=== PATIENT | female | born 1945 | race Caucasian/White ===

== ENCOUNTER → 2023-12-19 11:44 | Outpatient (REF) | payer MEDICARE, SELFPAY ==
[2023-12-19 12:27] LABS: % Basophils 0.5 % (0-2); % Eosinophils 5.6 % (0-6); % Immature Granulocytes 0.3 % (0-0.5); % Lymphocytes 15.6 % (20.5-51.1); % Monocytes 11.3 % (1.7-9.3); % Neutrophils 66.7 % (42.2-75.2); Absolute Eosinophils 0.4 10^3/uL (0-0.7); Absolute Lymphocytes 1.1 10^3/uL (1.2-3.4); Absolute Monocytes 0.8 10^3/uL (0.1-0.6); Absolute Neutrophils 4.9 10^3/uL (1.4-6.5); Hematocrit 37.1 % (37.0-47.0); Hemoglobin 12.4 g/dL (12.0-16.0); Mean Corp Hgb Conc. 33.4 g/dL (33.0-37.0); Mean Corpuscular Hgb 31.3 pg (27.0-31.0); Mean Corpuscular Volume 93.7 fL (81.0-99.0); Mean Platelet Volume 10.6 fL (7.4-10.4); Nucleated Red Blood Cells % 0 %; Platelet Count 238 10^3/uL (130-400); Red Blood Cell Count 3.96 10^6/uL (4.20-5.40); Red Cell Dist. Width 13.1 % (11.5-14.5); White Blood Cell Count 7.3 10^3/uL (4.8-10.8)
[2023-12-19 12:55] LABS: ALT (SGPT) 21 U/L (0-35); AST (SGOT) 25 U/L (14-36); Albumin 3.9 g/dl (3.5-5.0); Alkaline Phosphatase 92 U/L (38-126); Blood Urea Nitrogen 29 mg/dl (7-17); Calcium 9.2 mg/dl (8.4-10.2); Carbon Dioxide 25 mmol/L (22-30); Chloride 103 mmol/L (98-107); Glucose 101 mg/dl (70-99); HDL Cholesterol 61 mg/dl; LDL Cholesterol, Calculated 66 mg/dl; Potassium 4.6 mmol/L (3.5-5.1); Sodium 137 mmol/L (135-145); Total Bilirubin 0.7 mg/dl (0.2-1.3); Total Cholesterol 149 mg/dl (50-199); Total Protein 6.6 g/dl (6.3-8.2); Triglyceride 112 mg/dl (10-149); Very Low Density Lipoprotein 22 mg/dl (0-30); eGFR > 60.00
[2023-12-19 13:24] LABS: TSH 1.34 uIU/ml (0.47-4.68)
[2023-12-19 13:56] LABS: Folate 9.9 ng/ml (2.76-20); Vitamin B12 706 pg/ml (239-931)
== END ==
LOC: OLABWIL 11:44
PROVIDERS: ATTENDING PHYSICIAN Family Medicine
DX: I50.30 Unspecified diastolic (congestive) heart failure (principal); I11.0 Hypertensive heart disease with heart failure; E78.00 Pure hypercholesterolemia, unspecified; D64.9 Anemia, unspecified; F32.0 Major depressive disorder, single episode, mild; F41.1 Generalized anxiety disorder
CPT/HCPCS: 36415; 80053; 80061; 82607; 82746; 84443; 85025

== ENCOUNTER → 2024-01-08 09:55 | Outpatient (REF) | payer MEDICARE, SELFPAY | LOC: RAD 09:55 | PROVIDERS: ATTENDING PHYSICIAN Surgery Vascular Surgery; FAMILY PHYSICIAN Family Medicine | DX: I73.9 Peripheral vascular disease, unspecified (principal) | CPT/HCPCS: 93922; 93925 ==

== ENCOUNTER → 2024-02-20 11:08 | Outpatient (REF) | payer MEDICARE, SELFPAY ==
[2024-02-20 12:35] LABS: % Basophils 0.5 % (0-2); % Eosinophils 3.1 % (0-6); % Immature Granulocytes 0.3 % (0-0.5); % Lymphocytes 13.4 % (20.5-51.1); % Monocytes 7.6 % (1.7-9.3); % Neutrophils 75.1 % (42.2-75.2); Absolute Basophils 0.1 10^3/uL (0-0.2); Absolute Eosinophils 0.3 10^3/uL (0-0.7); Absolute Lymphocytes 1.2 10^3/uL (1.2-3.4); Absolute Monocytes 0.7 10^3/uL (0.1-0.6); Absolute Neutrophils 6.9 10^3/uL (1.4-6.5); Hematocrit 37.5 % (37.0-47.0); Hemoglobin 12.4 g/dL (12.0-16.0); Mean Corp Hgb Conc. 33.1 g/dL (33.0-37.0); Mean Corpuscular Hgb 30.9 pg (27.0-31.0); Mean Corpuscular Volume 93.5 fL (81.0-99.0); Mean Platelet Volume 10.2 fL (7.4-10.4); Nucleated Red Blood Cells % 0 %; Platelet Count 275 10^3/uL (130-400); Red Blood Cell Count 4.01 10^6/uL (4.20-5.40); Red Cell Dist. Width 13.4 % (11.5-14.5); White Blood Cell Count 9.2 10^3/uL (4.8-10.8)
[2024-02-20 12:40] LABS: ALT (SGPT) 26 U/L (0-35); AST (SGOT) 27 U/L (14-36); Albumin 4.4 g/dl (3.5-5.0); Alkaline Phosphatase 98 U/L (38-126); Blood Urea Nitrogen 20 mg/dl (7-17); Calcium 9.4 mg/dl (8.4-10.2); Carbon Dioxide 29 mmol/L (22-30); Chloride 103 mmol/L (98-107); Glucose 97 mg/dl (70-99); Potassium 4.4 mmol/L (3.5-5.1); Sodium 137 mmol/L (135-145); Total Bilirubin 0.6 mg/dl (0.2-1.3); Total Protein 7.2 g/dl (6.3-8.2); eGFR > 60.00
[2024-02-20 13:05] LABS: TSH 1.43 uIU/ml (0.47-4.68)
[2024-02-20 14:33] LABS: Glycohemoglobin (HgbA1c) 6.1 % (4.0-5.6)
== END ==
LOC: OLABWIL 11:08
PROVIDERS: ATTENDING PHYSICIAN Family Medicine
DX: I50.30 Unspecified diastolic (congestive) heart failure (principal); I11.0 Hypertensive heart disease with heart failure; R73.09 Other abnormal glucose
CPT/HCPCS: 36415; 80053; 83036; 84443; 85025

== ENCOUNTER 2024-03-09 16:58 | Emergency (ER) | payer MEDICARE, SELFPAY ==
[2024-03-09 17:11] VITALS: BP 145/62
[2024-03-09 17:39] LABS: % Basophils 0.5 % (0-2); % Eosinophils 2.6 % (0-6); % Immature Granulocytes 0.3 % (0-0.5); % Lymphocytes 15.6 % (20.5-51.1); % Monocytes 9.8 % (1.7-9.3); % Neutrophils 71.2 % (42.2-75.2); Absolute Eosinophils 0.2 10^3/uL (0-0.7); Absolute Monocytes 0.6 10^3/uL (0.1-0.6); Absolute Neutrophils 4.7 10^3/uL (1.4-6.5); Hematocrit 32.3 % (37.0-47.0); Hemoglobin 10.9 g/dL (12.0-16.0); Mean Corp Hgb Conc. 33.7 g/dL (33.0-37.0); Mean Corpuscular Hgb 31.1 pg (27.0-31.0); Mean Platelet Volume 9.7 fL (7.4-10.4); Nucleated Red Blood Cells % 0 %; Platelet Count 220 10^3/uL (130-400); Red Blood Cell Count 3.51 10^6/uL (4.20-5.40); Red Cell Dist. Width 13.3 % (11.5-14.5); White Blood Cell Count 6.6 10^3/uL (4.8-10.8)
[2024-03-09 17:55] LABS: NT-proBNP 745 pg/ml
[2024-03-09 18:08] LABS: ALT (SGPT) 20 U/L (0-35); AST (SGOT) 23 U/L (14-36); Albumin 3.8 g/dl (3.5-5.0); Alkaline Phosphatase 86 U/L (38-126); Blood Urea Nitrogen 20 mg/dl (7-17); Calcium 9.4 mg/dl (8.4-10.2); Carbon Dioxide 26 mmol/L (22-30); Chloride 105 mmol/L (98-107); Glucose 101 mg/dl (70-99); Potassium 4.7 mmol/L (3.5-5.1); Sodium 138 mmol/L (135-145); Total Bilirubin 0.6 mg/dl (0.2-1.3); Total Protein 6.4 g/dl (6.3-8.2); eGFR > 60.00
--- NOTE | 2024-03-09 22:16 | ED.GENMED ---
History of Present Illness
<CJ Quiles - Last Filed: 03/10/24 06:53>
General
Chief Complaint: Swelling
Source: patient
Exam Limitations: none
Time Seen by Provider: 03/09/24 22:02
Nursing documentation reviewed up to this point in time: agreed with
Travel History
Have you had any contact with someone who has COVID-19?: No
Do you have any symptoms of coronavirus? Fever > 100 degrees, chills, cough, shortness of breath, sore throat, loss of taste or smell, muscle aches, or headache?: No
History of Present Illness
History of Present Illness:
This is a 78 year old female with history of CHF, HTN, HLD, urinary incontinence, COPD who presents to the ED via ambulance with complaint of b/l lower extremity swelling x1 day. She admits she stopped taking her Furosemide over of the weekend
because she has had increase urinary incontinence for the past month. She is typically compliant with her medications, but decided to stop her Furosemide to decrease her frequent urination. She states similar symptoms happened to her in the past.
She also reports pain with the swelling and difficulty ambulating. She uses a walker at home. She denies worsening SOB, CP, extremity paresthesias, fever, chills, headache, dysuria or odor with urination, or bowel incontinence.
Past History
<CJ Quiles - Last Filed: 03/10/24 06:53>
Past History
ED Past Medical History: CHF, COPD, HTN, Hypercholesterolemia, Psychiatric (Anxiety, Depression) and Other (OA, Restless leg syndrome, Incontinence)
ED Past Surgical History: Orthopedic (Mati second Toe amputation, Right Total knee replacement, Right shoulder replacement, Mati carpal tunnel) and Other (cataracts, )
PSI?: No
Social History
Tobacco: Former smoker
Alcohol: Occasional
Personal:
Living: assisted living
Review of Systems
<CJ Quiles - Last Filed: 03/10/24 06:53>
Review of Systems
Allergies reviewed?: Yes
All Other Systems: Not applicable
Constitutional: Reports no symptoms
EENT: Reports no symptoms
Respiratory: Reports no symptoms
Cardiac: Reports no symptoms
ABD/GI: Reports no symptoms
: Reports no symptoms
Musculoskeletal: Reports edema (B/l lower extremity with pain)
Skin: Reports no symptoms
Neurological: Reports no symptoms
Endocrine: Reports no symptoms
Hematologic/Lymphatic: Reports no symptoms
Psychiatric: Reports no symptoms
Phy Exam
<CJ Quiles - Last Filed: 03/10/24 06:53>
General Physical Exam
General Presentation: well appearing and no apparent distress
General Skin: warm and dry
General Habitus: normal
General Mental: alert
General Hydration: appears well hydrated
ENT Exam
ENT Exam: EOMI, pharynx normal, neck supple and normocephalic
Eye Exam
Eye Exam: PERRL, cornea clear and conjunctiva normal
Cardiovascular Exam
Cardiovascular Exam: regular rate/rhythm, no edema, no murmur and normal peripheral pulses
Pulmonary Exam
Pulmonary Exam: lungs clear, no respiratory distress, no rales, no crackles, no rhonchi, no stridor, no wheezing and no cough
Gastrointestinal Exam
Gastrointestinal Exam: normal bowel sounds, non tender, soft, no organomegaly, no pulsatile mass and non distended
Neurological Exam
Neurological Exam: alert, oriented x3, no motor deficits and speech normal
Musculoskeletal Exam
Musculoskeletal Exam: full ROM and edema (2+ pitting edema b/l lower extremities)
Skin Exam
Skin Exam: normal color, warm/dry, no rash, no petechia and erythema (B/l lower extremities )
Psychiatric Exam
Psychiatric Exam: normal mood/affect
Scores
<CJ Quiles - Last Filed: 03/10/24 06:53>
Heart Failure Risk
Heart Failure Risk Score: Not Applicable
Course
<CJ Quiles - Last Filed: 03/10/24 06:53>
Orders/Labs/Results
Orders:
Orders
03/09/24 17:22
Complete Blood Count/With Diff Urgent
Comprehensive Metabolic Panel Urgent
NT-proBNP Urgent
Abnormal Lab Results
03/09/24
17:22
RBC 3.51 L 10^6/uL
(4.20-5.40)
Hgb 10.9 L g/dL
(12.0-16.0)
Hct 32.3 L %
(37.0-47.0)
MCH 31.1 H pg
(27.0-31.0)
Absolute Lymphs (auto) 1.0 L 10^3/uL
(1.2-3.4)
Lymphocytes % 15.6 L %
(20.5-51.1)
Monocytes % 9.8 H %
(1.7-9.3)
BUN 20 H mg/dl
(7-17)
Glucose 101 H mg/dl
(70-99)
03/09/24 17:22
03/09/24 17:22
Vital Signs
Initial and Last Documented VS:
Initial Vital Signs
Temp Pulse Resp BP Pulse Ox
98.1 F 70 20 145/62 94
03/09/24 17:11 03/09/24 17:11 03/09/24 17:11 03/09/24 17:11 03/09/24 17:11
Last Documented Vital Signs
Temp Pulse Resp BP Pulse Ox
98.1 F 84 20 156/68 93
03/09/24 17:11 03/09/24 22:49 03/09/24 22:49 03/09/24 22:49 03/09/24 22:49
<Vadim Plascencia, DO - Last Filed: 03/09/24 22:45>
Orders/Labs/Results
Orders:
Orders
03/09/24 17:22
Complete Blood Count/With Diff Urgent
Comprehensive Metabolic Panel Urgent
NT-proBNP Urgent
Abnormal Lab Results
03/09/24
17:22
RBC 3.51 L 10^6/uL
(4.20-5.40)
Hgb 10.9 L g/dL
(12.0-16.0)
Hct 32.3 L %
(37.0-47.0)
MCH 31.1 H pg
(27.0-31.0)
Absolute Lymphs (auto) 1.0 L 10^3/uL
(1.2-3.4)
Lymphocytes % 15.6 L %
(20.5-51.1)
Monocytes % 9.8 H %
(1.7-9.3)
BUN 20 H mg/dl
(7-17)
Glucose 101 H mg/dl
(70-99)
03/09/24 17:22
03/09/24 17:22
Vital Signs
Initial and Last Documented VS:
Initial Vital Signs
Temp Pulse Resp BP Pulse Ox
98.1 F 70 20 145/62 94
03/09/24 17:11 03/09/24 17:11 03/09/24 17:11 03/09/24 17:11 03/09/24 17:11
Last Documented Vital Signs
Temp Pulse Resp BP Pulse Ox
98.1 F 84 20 156/68 93
03/09/24 17:11 03/09/24 22:49 03/09/24 22:49 03/09/24 22:49 03/09/24 22:49
<CJ Quiles - Last Filed: 03/10/24 06:53>
MDM/Problems Addressed
Differential Diagnosis Includes:
Medication noncompliance, cauda equina syndrome, compartment syndrome, PVD, chronic venous insufficiency, DVT, cellulitis
Cauda equina syndrome considered due to urinary incontinence and lower extremity pain, however she denies bowel incontinence or saddle anesthesia. Compartment syndrome considered due to lower extremity edema and pain, however, there is no paralysis,
poikilothermia, paresthesias, or pulselessness. PVD considered but she has no history of smoking tobacco and denies pain with claudication. Chronic venous insufficiency considered, but less likely due to patient history. DVT and cellulitis also
considered but less likely due to b/l symptoms. I suspect lower extremity edema is due to medication noncompliance. She discontinued her Furosemide and she admits similar symptoms when she has done this in the past. She is stable with normal labs
and vitals. She has follow up appointments with her primary care tomorrow, ortho/pain management, bead cutter and urologist appointments in the upcoming months.
<CJ Quiles - Last Filed: 03/10/24 06:53>
*Critical Care Note
Total Time (30-74mins, 75-104mins- exclusive of procedures): Not Applicable
<Vadim Plascencia, - Last Filed: 03/09/24 22:45>
Data Reviewed
Review of Other/Old Records Reveals: Testing (Echocardiogram reviewed from 11/28/2023, revealing LVEF 55 to 60%, mild concentric LVH, mild mitral regurgitation, mild aortic stenosis, mild tricuspid regurgitation)
Source: records
Further Testing Considered But Not Given:
Chest x-ray not indicated
ED Attending Note
<CJ Quiles - Last Filed: 03/10/24 06:53>
-
Portions of this chart may have been created with voice recognition software.� Occasional wrong word or��sound alike� substitutions may have occurred due to the inherent limitations of voice recognition software.
<Vadim Plascencia, DO - Last Filed: 03/09/24 22:45>
ED Attending Note
Patient seen and examined by attending physician: Yes
I performed a history and physical exam of patient and discussed management with resident, I reviewed resident's note and agree with documented findings and plan of care.: Yes
ED Attending Note:
I have reviewed and agree with history and treatment plan by Alexandra Kingston. My exam revealed 78-year-old female in no acute distress. Lungs clear. Cardiac exam with S1/S2, no S3/S4, systolic ejection murmur best heard at RSB, 3/6. Abdomen exam
benign, no palpable pulsatile mass. Patient moving all extremities at difficulty. Lower extremities 4+ dorsalis pedis pulses bilaterally, 2+ pitting edema, soft compartments. Bilateral radial pulses 4+. Patient stable for discharge. She will
resume her Lasix dosing. Suspect dependent edema. Do not suspect CHF exacerbation.
Discharge Plan
Departure
Patient Disposition: Home (Routine Discharge)
Patient with high blood pressure during this ER visit?: Yes
Discharge Problem:
Dependent edema
Instructions: Dependent Edema (DC), BLOOD PRESSURE
Prescriptions:
No Action
atorvastatin 20 mg tablet
20 mg PO HS
ropinirole 1 mg tablet
1 mg PO TID
baclofen 10 mg tablet
10 mg PO HS
Patient Comments:
patient reports using 2x a week if needed
furosemide 20 mg tablet
20 mg PO DAILY
escitalopram oxalate 10 mg tablet
10 mg PO DAILY
cholecalciferol (vitamin D3) 25 mcg (1,000 unit) Tablet
500 unit PO DAILY Qty: 0 0RF
cyanocobalamin (vitamin B-12) 1,000 mcg Tablet
1,000 mcg PO DAILY Qty: 0 0RF
lorazepam 1 mg Tablet
1 mg PO HS PRN (Reason: sleep) Qty: 2 0RF
Patient Comments:
07/05/2022: last filled 07/02/22, 30 tabs for 30 days from [facility]
Rx Instructions:
Pt primary is stopping this medication
metoprolol succinate 25 mg tablet extended release 24 hr
25 mg PO HS
diclofenac sodium 1 % Gel
2 g TOPICAL DAILY PRN (Reason: right shoulder pain post op)
famotidine 20 mg tablet
20 mg PO DAILY
meloxicam 15 mg tablet
15 mg PO DAILY PRN (Reason: pain)
aspirin 81 mg Tablet,Delayed Release (Dr/Ec)
81 mg PO DAILY
gabapentin 100 mg capsule
100 mg PO HS
fluticasone propionate 50 mcg/actuation spray,suspension
2 spray INTRANASAL DAILY PRN (Reason: seasonal allergies)
albuterol sulfate 90 mcg/actuation HFA aerosol inhaler
2 puff inhalation Q6H PRN (Reason: shortness of breath or wheezing) Qty: 8.5 0RF
Referrals:
Kadi Frederick MD [Family Provider] -
Activity Restrictions/Additional Instructions:
Follow-up with primary care in 3 to 5 days. Return for any concerns.
Interventions
Interventions:
*Risk Screen - Suicide Last Done: 03/09/24 17:11
*General Assessment Last Done: 03/09/24 17:11
*Neglect/Abuse Screening Last Done: 03/09/24 17:11
ED- Fall Risk Assessment Last Done: 03/09/24 23:01
*ED COVID-19 Vaccine History Last Done: 03/09/24 21:57
*Nursing Disposition Last Done: 03/09/24 23:01
ED- Cardiac Assessment Last Done: 03/09/24 22:05
ED- Pulmonary Assessment Last Done: 03/09/24 22:05
ED-Skin Assessment Last Done: 03/09/24 22:05
Discharge Date and Time
Discharge Date/Time: 03/09/24 23:02
Print Language: GREEK
[2024-03-09 22:49] VITALS: BP 156/68
== END 2024-03-09 23:02 | disposition home or self-care (01) ==
LOC: EMR 16:58
PROVIDERS: Student in an Organized Health Care Education/Training Program; EMERGENCY PHYSICIAN Emergency Medicine; FAMILY PHYSICIAN Family Medicine
DX: R22.43 Localized swelling, mass and lump, lower limb, bilateral (principal); R26.2 Difficulty in walking, not elsewhere classified; Z87.891 Personal history of nicotine dependence; Z91.148 Patient's other noncompliance with medication regimen for other reason
CPT/HCPCS: 99283; 80053; 83880; 85025

== ENCOUNTER → 2024-03-18 15:23 | Outpatient (REF) | payer MEDICARE, SELFPAY | LOC: MRI 3T 15:23 | PROVIDERS: ATTENDING PHYSICIAN Family Medicine | DX: R26.81 Unsteadiness on feet (principal); R93.0 Abnormal findings on diagnostic imaging of skull and head, not elsewhere classified; R32 Unspecified urinary incontinence | CPT/HCPCS: 70553; A9575 ==

== ENCOUNTER → 2024-03-19 11:45 | Outpatient (REF) | payer MEDICARE, SELFPAY ==
[2024-03-19 12:48] LABS: % Basophils 0.7 % (0-2); % Eosinophils 4.1 % (0-6); % Immature Granulocytes 0.5 % (0-0.5); % Lymphocytes 10.1 % (20.5-51.1); % Monocytes 11.6 % (1.7-9.3); Absolute Basophils 0.1 10^3/uL (0-0.2); Absolute Eosinophils 0.4 10^3/uL (0-0.7); Absolute Lymphocytes 0.9 10^3/uL (1.2-3.4); Absolute Neutrophils 6.3 10^3/uL (1.4-6.5); Hematocrit 32.8 % (37.0-47.0); Hemoglobin 10.8 g/dL (12.0-16.0); Mean Corp Hgb Conc. 32.9 g/dL (33.0-37.0); Mean Corpuscular Hgb 30.8 pg (27.0-31.0); Mean Corpuscular Volume 93.4 fL (81.0-99.0); Mean Platelet Volume 10.4 fL (7.4-10.4); Nucleated Red Blood Cells % 0 %; Platelet Count 255 10^3/uL (130-400); Red Blood Cell Count 3.51 10^6/uL (4.20-5.40); Red Cell Dist. Width 13.1 % (11.5-14.5); White Blood Cell Count 8.6 10^3/uL (4.8-10.8)
[2024-03-19 12:59] LABS: Iron 50 ug/dl (37-170)
[2024-03-19 13:10] LABS: Percent Saturation 17 % (20-50); Total Iron Binding Capacity 283 ug/dl (265-497)
== END ==
LOC: OLABWIL 11:45
PROVIDERS: ATTENDING PHYSICIAN Family Medicine
DX: D64.9 Anemia, unspecified (principal)
CPT/HCPCS: 36415; 82728; 83540; 83550; 85025

== ENCOUNTER → 2024-03-19 12:41 | Outpatient (REF) | payer OTHER, SELFPAY | LOC: RSP 12:41 | PROVIDERS: ATTENDING PHYSICIAN Family Medicine | DX: R06.09 Other forms of dyspnea (principal); J44.9 Chronic obstructive pulmonary disease, unspecified | CPT/HCPCS: 94727; 94729; 88738; 94060 ==

== ENCOUNTER 2024-03-27 18:14 | Inpatient (IN) | payer OTHER, SELFPAY ==
[2024-03-27] VITALS (7 sets, daily range): BP systolic 105–134; BP diastolic 56–97; BMI 32.6
[2024-03-27 13:12] LABS: % Basophils 0.5 % (0-2); % Eosinophils 3.2 % (0-6); % Immature Granulocytes 0.4 % (0-0.5); % Lymphocytes 7.2 % (20.5-51.1); % Monocytes 8.6 % (1.7-9.3); % Neutrophils 80.1 % (42.2-75.2); Absolute Basophils 0.1 10^3/uL (0-0.2); Absolute Eosinophils 0.3 10^3/uL (0-0.7); Absolute Lymphocytes 0.7 10^3/uL (1.2-3.4); Absolute Monocytes 0.9 10^3/uL (0.1-0.6); Absolute Neutrophils 8.1 10^3/uL (1.4-6.5); Hematocrit 31.5 % (37.0-47.0); Hemoglobin 10.2 g/dL (12.0-16.0); Mean Corp Hgb Conc. 32.4 g/dL (33.0-37.0); Mean Corpuscular Hgb 30.1 pg (27.0-31.0); Mean Corpuscular Volume 92.9 fL (81.0-99.0); Mean Platelet Volume 9.7 fL (7.4-10.4); Nucleated Red Blood Cells % 0 %; Platelet Count 296 10^3/uL (130-400); Red Blood Cell Count 3.39 10^6/uL (4.20-5.40); Red Cell Dist. Width 12.9 % (11.5-14.5); White Blood Cell Count 10.1 10^3/uL (4.8-10.8)
[2024-03-27 13:30] LABS: Lactic Acid 1.4 mmol/L (0.7-2.0)
[2024-03-27 13:33] LABS: ALT (SGPT) 35 U/L (0-35); AST (SGOT) 41 U/L (14-36); Albumin 3.8 g/dl (3.5-5.0); Alkaline Phosphatase 106 U/L (38-126); Blood Urea Nitrogen 40 mg/dl (7-17); Calcium 9.3 mg/dl (8.4-10.2); Carbon Dioxide 25 mmol/L (22-30); Chloride 105 mmol/L (98-107); Glucose 99 mg/dl (70-99); Potassium 4.4 mmol/L (3.5-5.1); Sodium 141 mmol/L (135-145); Total Bilirubin 0.4 mg/dl (0.2-1.3); Total Protein 6.6 g/dl (6.3-8.2); eGFR 38.03
--- NOTE | 2024-03-27 15:05 | ED.GENMED ---
History of Present Illness
General
Chief Complaint: Skin Problem
Source: patient
Exam Limitations: none
Time Seen by Provider: 03/27/24 14:22
Travel History
Have you had any contact with someone who has COVID-19?: No
Do you have any symptoms of coronavirus? Fever > 100 degrees, chills, cough, shortness of breath, sore throat, loss of taste or smell, muscle aches, or headache?: Yes
Symptoms:: SOB
History of Present Illness
History of Present Illness:
78-year-old female presents for persistent swelling and redness with discomfort to the right leg. This is been going on 2 to 3 weeks. She was seen by her family doctor initially given doxycycline for cellulitis this did not help and she was
switched to Bactrim which she finished as well. This also did not help. She notes she feels short of breath. She denies any chest pain fevers chills or sweats. She is not anticoagulated. No known injury to the leg. Does have a remote history
of cellulitis. She is a borderline diabetic. No other complaints at this time
Past History
Past History
ED Past Medical History: CHF, COPD, HTN, Hypercholesterolemia, Psychiatric (Anxiety, Depression) and Other (OA, Restless leg syndrome, Incontinence)
ED Past Surgical History: Orthopedic (Mati second Toe amputation, Right Total knee replacement, Right shoulder replacement, Mati carpal tunnel) and Other (cataracts, )
PSI?: No
Social History
Tobacco: Former smoker
Alcohol: Occasional
Personal:
Living: assisted living
Phy Exam
Physical Exam
Physical Exam:
General: Well-appearing female no acute respiratory distress
HEENT: Normocephalic atraumatic neck is supple
Heart: Regular rate and rhythm no murmurs
Lungs: Clear no wheeze or rales
Abdomen soft nontender nondistended
Skin: Erythema with multiple small open areas to the skin with serous drainage on the right lower leg. The erythema spreads from the cold to the knee.
Extremities: Significant edema right lower extremity compared to the left
COVID: Palpable dorsalis pedis pulses bilateral feet
Course
Orders/Labs/Results
Orders:
Orders
03/27/24 12:44
Electrocardiogram (*1) Urgent
Reason for Study: Shortness of Breath
NT-proBNP Urgent
Troponin I Urgent
03/27/24 12:45
EKG- Treatment ONCE
03/27/24 12:52
Complete Blood Count/With Diff Urgent
Comprehensive Metabolic Panel Urgent
Lactic Acid Urgent
Blood Culture Routine
LILI Source: Blood/Venous
Specimen Description:
03/27/24 14:28
Venous Doppler Lwr Ext Rt [US Periph Venous LOWER Ext RT] Urgent
Comment:
Reason For Exam: swelling
03/27/24 14:29
CR Chest - 2 Views Urgent
Comment:
Reason For Exam: sob
03/27/24 17:30
CeFAZolin 1 GRAM [Ancef] 1 gram in 5 ml IV NOW
Abnormal Lab Results
03/27/24
12:52
RBC 3.39 L 10^6/uL
(4.20-5.40)
Hgb 10.2 L g/dL
(12.0-16.0)
Hct 31.5 L %
(37.0-47.0)
MCHC 32.4 L g/dL
(33.0-37.0)
Absolute Neuts (auto) 8.1 H 10^3/uL
(1.4-6.5)
Absolute Lymphs (auto) 0.7 L 10^3/uL
(1.2-3.4)
Absolute Monos (auto) 0.9 H 10^3/uL
(0.1-0.6)
Neutrophils % 80.1 H %
(42.2-75.2)
Lymphocytes % 7.2 L %
(20.5-51.1)
BUN 40 H mg/dl
(7-17)
Creatinine 1.4 H mg/dL
(0.6-1.0)
AST 41 H U/L
(14-36)
03/27/24 12:52
03/27/24 12:52
Vital Signs
Initial and Last Documented VS:
Initial Vital Signs
Temp Pulse Resp BP Pulse Ox
98.7 F 64 18 133/68 91
03/27/24 12:41 03/27/24 12:41 03/27/24 12:41 03/27/24 12:41 03/27/24 12:41
Last Documented Vital Signs
Temp Pulse Resp BP Pulse Ox
98.7 F 60 16 115/97 96
03/27/24 12:41 03/27/24 16:32 03/27/24 16:32 03/27/24 16:32 03/27/24 16:32
MDM/Problems Addressed
Differential Diagnosis Includes:
Right leg erythema and swelling. Consider persistent cellulitis despite oral antibiotics versus DVT versus edema versus CHF
Labs pending including BNP. Will order x-ray secondary to shortness of breath as well as ultrasound of leg to evaluate for DVT
*Critical Care Note
Total Time (30-74mins, 75-104mins- exclusive of procedures): Not Applicable
ED Attending Note
-
Portions of this chart may have been created with voice recognition software.� Occasional wrong word or��sound alike� substitutions may have occurred due to the inherent limitations of voice recognition software.
Discharge Plan
Departure
Patient Disposition: Admit
Date of Disposition: 03/27/24
Time of Disposition: 17:32
Admit to: Telemetry
Presentation/result/management discussed w/ accepting MD/DO: Hospitalist
Discharge Problem:
Cellulitis
Prescriptions:
No Action
atorvastatin 20 mg tablet
20 mg PO HS
ropinirole 1 mg tablet
1 mg PO TID
baclofen 10 mg tablet
10 mg PO HS
Patient Comments:
patient reports using 2x a week if needed
furosemide 20 mg tablet
20 mg PO DAILY
escitalopram oxalate 10 mg tablet
10 mg PO DAILY
cholecalciferol (vitamin D3) 25 mcg (1,000 unit) Tablet
500 unit PO DAILY Qty: 0 0RF
cyanocobalamin (vitamin B-12) 1,000 mcg Tablet
1,000 mcg PO DAILY Qty: 0 0RF
lorazepam 1 mg Tablet
1 mg PO HS PRN (Reason: sleep) Qty: 2 0RF
Patient Comments:
07/05/2022: last filled 07/02/22, 30 tabs for 30 days from [facility]
Rx Instructions:
Pt primary is stopping this medication
metoprolol succinate 25 mg tablet extended release 24 hr
25 mg PO HS
diclofenac sodium 1 % Gel
2 g TOPICAL DAILY PRN (Reason: right shoulder pain post op)
famotidine 20 mg tablet
20 mg PO DAILY
meloxicam 15 mg tablet
15 mg PO DAILY PRN (Reason: pain)
aspirin 81 mg Tablet,Delayed Release (Dr/Ec)
81 mg PO DAILY
gabapentin 100 mg capsule
100 mg PO HS
fluticasone propionate 50 mcg/actuation spray,suspension
2 spray INTRANASAL DAILY PRN (Reason: seasonal allergies)
albuterol sulfate 90 mcg/actuation HFA aerosol inhaler
2 puff inhalation Q6H PRN (Reason: shortness of breath or wheezing) Qty: 8.5 0RF
Referrals:
Kadi Frederick MD [Family Provider] -
Interventions
Interventions:
*Risk Screen - Suicide Last Done: 03/27/24 14:16
*General Assessment Last Done: 03/27/24 12:41
*Neglect/Abuse Screening Last Done: 03/27/24 14:16
*ED COVID-19 Vaccine History Last Done: 03/27/24 12:41
Discharge Date and Time
Print Language: SINHALA
--- NOTE | 2024-03-27 17:44 | HPS.HSE ---
Family Physician
-
Family Physician: Kadi Frederick MD
Chief Complaint
-
Swelling and redness right lower extremity
History of Present Illness
Patient 78 years old female with past medical history of XXX came into the hospital with right lower extremity redness swelling. Patient tells me over the last 2 to 3 weeks she has been having some swelling on both lower extremity more pronounced
on the right associated with discomfort and also erythema. She received 2 courses of antibiotics without significant relief. She also has been having shortness of breath associated with worsening edema. She tells me she has held her diuretics at
least over the last day or 2 since she did not want to go to the bathroom too often since she had a doctor's appointment. Denies fevers or chills. Denies any trauma to her legs. In the ER, chest x-ray with low volume and no acute pathology, WBC
is 10.1, AST elevated, BNP and troponin pending, lactic acid 1.4, and creatinine 1.4, last creatinine 0.7 on 03/09.
Medical History
Past Medical History
Past Medical History: Reports Other (Hypertension, hyperlipidemia, depression and anxiety, osteoarthritis, CHF, COPD, restless leg syndrome.)
Past Surgical History: Reports Other (Right total knee replacement, right shoulder replacement, bilateral carpal tunnel repair, cataract surgery.)
Social History
Tobacco: Former Smoker
Alcohol: Occasional
Drug: None
Family History
Family History: Not pertinent
Allergies / Home Medications
Allergies reflects when Allergies were last updated in [email or web address].
Home Medications with original date entered in [email or web address]
Allergy/Medication List:
Allergies
Allergy/AdvReac Type Severity Reaction Status Date / Time
Penicillins Allergy Swelling Verified 03/27/24 12:44
Home Medications
atorvastatin 20 mg tablet 20 mg PO HS High cholesterol 05/22/22
baclofen 10 mg tablet 10 mg PO HS Muscle Spasms 05/22/22
escitalopram oxalate 10 mg tablet 10 mg PO DAILY Depression 05/22/22
furosemide 20 mg tablet 20 mg PO DAILY Fluid retention/Swelling 05/22/22
ropinirole 1 mg tablet 1 mg PO TID Restless Legs 05/22/22
cholecalciferol (vitamin D3) 25 mcg (1,000 unit) tablet 500 unit PO DAILY Supplement #0 tabs 07/08/22
cyanocobalamin (vitamin B-12) 1,000 mcg tablet 1,000 mcg PO DAILY defeciancy #0 tabs 07/08/22
lorazepam 1 mg tablet 1 mg PO HS PRN sleep #2 tabs 07/08/22
albuterol sulfate 90 mcg/actuation aerosol inhaler 2 puff inhalation Q6H PRN shortness of breath or wheezing #8.5 grams 09/04/23
aspirin 81 mg tablet,delayed release 81 mg PO DAILY Blood Clot Prevention/Tx 09/04/23
diclofenac sodium 1 % topical gel 2 g topical DAILY PRN right shoulder pain post op 09/04/23
famotidine 20 mg tablet 20 mg PO DAILY Gastrointestinal Issue 09/04/23
fluticasone propionate 50 mcg/actuation nasal spray,suspension 2 spray intranasal DAILY PRN seasonal allergies 09/04/23
gabapentin 100 mg capsule 100 mg PO HS neuropathic pain, anxiety, sleep, shoulder pain 09/04/23
meloxicam 15 mg tablet 15 mg PO DAILY PRN pain 09/04/23
metoprolol succinate 25 mg tablet,extended release 24 hr 25 mg PO HS Heart Disease/Condition 09/04/23
Review of Systems
-
A 12 point ROS was completed and negative except as noted: Yes
Physical Exam
Vital Signs
Vital Signs
Temp Pulse Resp BP Pulse Ox
98.7 F 60 16 115/97 96
03/27/24 12:41 03/27/24 16:32 03/27/24 16:32 03/27/24 16:32 03/27/24 16:32
Physical exam:
General: Acutely ill
HEENT: Normocephalic, Atraumatic and Moist Mucous Membranes
Respiratory: Few crackles at the bases; some scattered wheeze; no Rhonchi
Cardiac: Regular Rhythm and S1/S2
GI: Soft, Nontender and Nondistended
Musculoskeletal: Bilateral lower extremity edema, R>L. Erythema right lower extremity tenderness and warmth. No Clubbing, No Cyanosis.
Neuro: Awake, Alert and Oriented
Psych: Calm
Physical Exam
General: Other
Laboratory Results
-
03/27/24 12:52
03/27/24 12:52
Laboratory Results
Lactic Acid 1.4 mmol/L (0.7-2.0) 03/27/24:
Total Bilirubin 0.4 mg/dl (0.2-1.3) 03/27/24 12:52
AST 41 U/L (14-36) H 03/27/24 12:
ALT 35 U/L (0-35) 03/27/24 12:52
Alkaline Phosphatase 106 U/L (38-126) 03/27/24 12:52
Impression/Plan
-
IMPRESSION:
Patient 78 years old female came into the hospital with right lower extremity cellulitis and acute heart failure. Patient increased risk of morbidity and mortality therefore needs to be treated in the hospital and manage accordingly.
PLAN:
Acute right lower extremity cellulitis:
Continue IV antibiotics, cefazolin
Ultrasound right lower extremity pending
Pain control
Monitor progress
Acute on chronic diastolic CHF:
IV diuretics, Lasix 20 mg daily
Patient on Lasix 20 mg daily orally at home
BNP troponin pending
Monitor strict I/O
Monitor daily weight
Monitor renal function and electrolytes
Reviewed latest echocardiogram on our system--> back in 11/2023 EF 55 to 60%, diastolic function indeterminate, mild aortic stenosis and mitral regurgitation and tricuspid regurgitation and pulmonary hypertension.
Guideline-directed medical therapy for heart failure (GDMT)--> continue beta-blockers.
Fluid restriction
Salt restriction
Heart failure education
Follow up clinical response
DEB on CKD:
Probably cardiorenal syndrome
Check US kidneys
Hold NSAIDs and any nephrotoxic
Monitor renal function while diuresis
Anemia:
Hemoglobin 10.2
No signs of bleeding
Anemia workup in a.m.
Monitor hemoglobin
Hypertension:
Continue antihypertensives with Toprol-XL
In the meantime also iv hydralazine as needed
Hyperlipidemia:
Continue statin, atorvastatin 20 mg p.o. nightly
COPD:
Mild bronchospastic so use bronchodilators now.
Duoneb as needed
Depression anxiety:
Cont antidepressants, citalopram 20 mg daily
GERD:
Famotidine
Restless leg syndrome:
Continue Requip 1 mg p.o. 3 times daily
Hold gabapentin due to renal failure
DVT prophylaxis:
Heparin subcu
CODE STATUS:
Full code
Time spent 75 minutes.
[2024-03-27] MEDS: ANCEF 5 IV (18:09)
[2024-03-27] MEDS: DUONEB 3 ML INH (18:44)
[2024-03-27] MEDS: LASIX 20 MG IV (18:44)
[2024-03-27 20:39] LABS: NT-proBNP 799 pg/ml; Troponin I 0.015 ng/ml
[2024-03-27] MEDS: LEXAPRO 10 MG PO (21:11)
[2024-03-27] MEDS: TOPROL XL 12.5 MG PO (21:11)
[2024-03-27] MEDS: REQUIP 1 MG PO (21:11)
[2024-03-27] MEDS: TYLENOL 650 MG PO (21:11)
[2024-03-27] MEDS: ATIVAN 1 MG PO (21:12)
--- NOTE | 2024-03-27 23:28 | PTCARENOTE ---
Patient arrived to unit at approx 1999. Patient has her own rolling walker at bedside. Admission completed, home meds and allergies reviewed with patient. Per patient, no longer taking baclofen 10 mg at home. Last taken 6 months ago. Removed from
home med record. Skin assessed. Right lower extremity noted to be red, swollen, warm to touch. Minor scratches and dryness noted on leg. History of B/L 2nd toe amputations. B/L calluses on balls of feet. Oriented patient to room, reviewed call buckley
system and fall prevention. Will continue to monitor patient.
[2024-03-28] MEDS: HEPARIN 5000 UNITS SC ×3 (01:20→17:01)
[2024-03-28] MEDS: ANCEF 10 IV ×3 (02:39→17:02)
[2024-03-28 03:00] VITALS: BP 105/43
--- NOTE | 2024-03-28 05:12 | PTCARENOTE ---
Scheduled ancef to be given. RN assessed left arm and noticed swelling at and around IV site. Arm is firm to touch but patient denies pain. Pulse intact, slightly red but patient was also leaning on it while sleeping. Notified SPIRAL MACHINE OPERATOR at [id number]. US of left
arm ordered. Called US and left message about outstanding order.
[2024-03-28 06:49] LABS: % Basophils 0.5 % (0-2); % Immature Granulocytes 0.4 % (0-0.5); % Lymphocytes 11.1 % (20.5-51.1); Absolute Eosinophils 0.9 10^3/uL (0-0.7); Absolute Lymphocytes 0.9 10^3/uL (1.2-3.4); Absolute Monocytes 0.9 10^3/uL (0.1-0.6); Absolute Neutrophils 5.3 10^3/uL (1.4-6.5); Hematocrit 28.1 % (37.0-47.0); Hemoglobin 9.4 g/dL (12.0-16.0); Mean Corp Hgb Conc. 33.5 g/dL (33.0-37.0); Mean Corpuscular Hgb 30.4 pg (27.0-31.0); Mean Corpuscular Volume 90.9 fL (81.0-99.0); Mean Platelet Volume 9.9 fL (7.4-10.4); Nucleated Red Blood Cells % 0 %; Platelet Count 280 10^3/uL (130-400); Red Blood Cell Count 3.09 10^6/uL (4.20-5.40); Red Cell Dist. Width 13.2 % (11.5-14.5)
[2024-03-28 07:02] LABS: Blood Urea Nitrogen 40 mg/dl (7-17); Calcium 8.9 mg/dl (8.4-10.2); Carbon Dioxide 23 mmol/L (22-30); Chloride 106 mmol/L (98-107); Estimated Creatinine Clearance 32 ml/min; Glucose 87 mg/dl (70-99); Iron 21 ug/dl (37-170); Potassium 4.2 mmol/L (3.5-5.1); Sodium 138 mmol/L (135-145); eGFR 35.01
[2024-03-28 07:12] LABS: Percent Saturation 9 % (20-50); Total Iron Binding Capacity 222 ug/dl (265-497)
[2024-03-28 07:15] VITALS: BP 127/68
[2024-03-28 07:30] LABS: TSH 1.49 uIU/ml (0.47-4.68)
[2024-03-28 07:49] LABS: Vitamin B12 930 pg/ml (239-931)
--- NOTE | 2024-03-28 08:04 | W.PN.HOSP.TC ---
Today's Communication/Plan
-
IV Lasix. IV antibiotics.
Assessment / Plan
Assessment / Plan
Physical exam:
General: Acutely ill
HEENT: Normocephalic, Atraumatic and Moist Mucous Membranes
Respiratory: Few crackles at the bases; some scattered wheeze; no Rhonchi
Cardiac: Regular Rhythm and S1/S2
GI: Soft, Nontender and Nondistended
Musculoskeletal: Bilateral lower extremity edema, R>L. Erythema right lower extremity tenderness and warmth. No Clubbing, No Cyanosis.
Neuro: Awake, Alert and Oriented
Psych: Calm
A/P:
Acute right lower extremity cellulitis:
Continue IV antibiotics, cefazolin
Ultrasound right lower extremity no evidence of acute DVT
Pain control
Monitor progress
Acute on chronic diastolic CHF:
IV diuretics, Lasix 20 mg daily--> increase to 40 mg today
Patient on Lasix 20 mg daily orally at home
BNP troponin 799 and 0.015 respectively
Monitor strict I/O
Monitor daily weight
Monitor renal function and electrolytes
Reviewed latest echocardiogram on our system--> back in 11/2023 EF 55 to 60%, diastolic function indeterminate, mild aortic stenosis and mitral regurgitation and tricuspid regurgitation and pulmonary hypertension.
Guideline-directed medical therapy for heart failure (GDMT)--> continue beta-blockers.
Fluid restriction
Salt restriction
Heart failure education
Follow up clinical response
Cardiology consult today--> [place] texted cardiology today
DEB on CKD:
Probably cardiorenal syndrome
Check US kidneys and unremarkable today
Hold NSAIDs and any nephrotoxic
Monitor renal function while diuresis
Anemia:
Hemoglobin 10.2
No signs of bleeding
Anemia workup in a.m.
Monitor hemoglobin
Hypertension:
Continue antihypertensives with Toprol-XL
In the meantime also iv hydralazine as needed
Hyperlipidemia:
Continue statin, atorvastatin 20 mg p.o. nightly
COPD:
Mild bronchospastic so use bronchodilators now.
Duoneb as needed
Depression anxiety:
Cont antidepressants, citalopram 20 mg daily
GERD:
Famotidine
Restless leg syndrome:
Continue Requip 1 mg p.o. 3 times daily
Hold gabapentin due to renal failure
DVT prophylaxis:
Heparin subcu
CODE STATUS:
Full code
Total time spent on today's encounter was 52 minutes which included time spent in counseling the patient/family regarding diagnosis and treatment plan as listed above, goals of care, and symptom management. Case was discussed with nursing staff,
specialists, and care coordinators/case management. All labs and imaging personally reviewed by me. Remainder the time spent in detailed review of previous records, lab data, imaging, and other medical provider documentation.
Anticipated Discharge: > 48 hours
Subjective/Interval History
-
Date of Service: March 28, 2024
Patient erythema in right lower extremity slightly improved. Patient still short of breath. No chest pain. Afebrile
Objective Data
-
Labs:
Laboratory Results
03/28/24
05:53
WBC 8.0
Hgb 9.4 L
Hct 28.1 L
Plt Count 280
Sodium 138
Potassium 4.2
Chloride 106
Carbon Dioxide 23
BUN 40 H
Creatinine 1.5 H
Glucose 87
Calcium 8.9
Vital Signs:
Vital Signs
Temp Pulse Resp BP Pulse Ox
97.7 F 74 18 127/68 95
03/28/24 07:15 03/28/24 07:15 03/28/24 07:15 03/28/24 07:15 03/28/24 07:15
[2024-03-28] MEDS: LASIX 20 MG IV ×2 (08:37→17:01)
[2024-03-28] MEDS: REQUIP 1 MG PO ×3 (08:37→21:41)
[2024-03-28] MEDS: LOW STRENGTH ASPIRIN 81 MG PO (08:37)
[2024-03-28] MEDS: TOPROL XL 12.5 MG PO ×2 (08:37→20:28)
--- NOTE | 2024-03-28 10:18 | CON.CAR ---
Addendum entered and electronically signed by Neri Dudley MD 03/28/24 18:26:
78 year-old woman with history ofHFpEF admission in 2021. Had been seen in emergency department Mar 09 2024 with lower extremity edema and proBNP 745. Furosemide has been self discontinued by patient related to polyuria. Patient states that she
restarted furosemide after ER admission. She returned to the emergency department March 27 with increased edema and erythema over the last 2 weeks with proBNP of 799, admitted now with cellulitis and HFpEF with DEB. She complains of dyspnea on
exertion, could not complete a sentence. No chest pain
PMH: HFpEF, noncompliance with diuretics, COPD, hypertension, hyperlipidemia, PAD with prior toe amputation, restless legs.
Social history: , lives alone, former smoker, retired
Family history: Noncontributory
Surgical history: Appendectomy, left second toe amputation, cataracts, right total shoulder, right total knee, ORIF left wrist
Allergies: Penicillin
Outpatient medications: Albuterol as needed, aspirin 81 mg at bedtime, atorvastatin 20 mg a day, vitamin D, B12, Lexapro, Pepcid, furosemide 20 mg a day, gabapentin, meloxicam as needed, metoprolol ER, ropinirole
Current medications: Ancef, Lexapro, aspirin 81 mg a day, metoprolol ER 12.5 mg twice daily, Requip, Ativan, heparin, furosemide 40 mg a day IV
ROS: Negative except as above
134/73, pulse 76, respiratory 22, afebrile weight is 86 kg, pleasant, obese, no acute distress, head and neck exam unremarkable, some wheezes, regular rate and rhythm, soft systolic murmur at base and apex, JVD difficult to assess abdomen obese
extremities with edema and erythema right greater than left, 1-2+, distal pulses diminished but probably palpable
Chest x-ray with cardiomegaly, possible blunting left costophrenic angle right total shoulder, possible mild vascular congestion
Hemoglobin 9.4, had been 10.2, BUN and creatinine 40 and 1.5, potassium 4.2, troponin 0.015, proBNP 799 EKG sinus rhythm, normal EKG
Impression:
Acute on chronic HFpEF
RLE cellulitis
Lasix noncompliance
DEB
Anemia
Elevated AST
COPD
HTN
Hyperlipidemia
PAD with previous toe amputation
Restless leg syndrome
Former smoker
Plan:
IV furosemide
Antibiotics per hospitalist
Investigate pricing for SGLT2 inhibitor
Follow renal function
Importance of compliance with diuretic regimen despite polyuria stressed
Original Note:
Consultation
Consultation Request
Date/Time Consultation Requested: 03/28/24
Date/Time Consultation Performed: 03/28/24
Requesting Provider: Dr. Farris
Performing Provider: Dr. SYLVIA Dudley
Reason for Consultation: CHF
Medical History
-
History of Present Illness:
Patient came to [facility] yesterday with increased LE edema and new SOB and was admitted with cellulitis and acute HF, cardiology has been consulted. Patient went to [facility] 03/09/24 with increased LE edema and pro-BNP was 745. Patient admitted at that time
that she had stopped her Lasix because it was interfering with her schedule. Patient was asked to restart her usual dose of Lasix 20 mg daily. Patient says she restarted Lasix, but LE edema did not improve and instead only worsened. Patient reports
painful RLE with swelling and erythema over the last 2 weeks. She feels like her urine output is down over the last 2 days so for all of that combine she came to [facility]. Patient with BNP 799 in the ER and now admitted with cellulitis and acute HF. DEB
with Cre up to 1.5 compared to 0.7 in the ER back on 03/09/24.
PMH:
Chronic HFpEF
Lasix noncompliance
COPD
HTN
Hyperlipidemia
PAD with previous toe amputation
Restless leg syndrome
Former smoker
Past Medical History
Past Medical History: Other (in HPI)
Past Surgical History: Appendectomy and Other (L 2nd toe amputated, b/l cataract surgery, ORIF L wrist, R TSA, R TKA)
Social History
Tobacco: Former Smoker
Alcohol: Occasional
Personal:
Living: Alone
Family History
Family History: Cancer
Allergies / Home Medications
Allergy/AdvReac Type Severity Reaction Status Date / Time
Penicillins Allergy Swelling Verified 03/27/24 12:44
�Medication �Instructions �Recorded �Confirmed �Type
atorvastatin 20 mg tablet 20 mg PO DAILY High cholesterol 05/22/22 03/27/24 History
escitalopram oxalate 10 mg tablet 10 mg PO DAILY Depression 05/22/22 03/27/24 History
furosemide 20 mg tablet 20 mg PO DAILY Fluid 05/22/22 03/27/24 History
retention/Swelling
ropinirole 1 mg tablet 1 mg PO TID Restless Legs 05/22/22 03/27/24 History
cholecalciferol (vitamin D3) 25 500 unit PO DAILY Supplement #0 07/08/22 03/27/24 Rx
mcg (1,000 unit) tablet tabs
cyanocobalamin (vitamin B-12) 1,000 mcg PO DAILY defeciancy #0 07/08/22 03/27/24 Rx
1,000 mcg tablet tabs
lorazepam 1 mg tablet 1 mg PO HS PRN sleep #2 tabs 07/08/22 03/27/24 Rx
albuterol sulfate 90 mcg/actuation 2 puff inhalation Q6H PRN 09/04/23 03/27/24 Rx
aerosol inhaler shortness of breath or wheezing
#8.5 grams
aspirin 81 mg tablet,delayed 81 mg PO HS Blood Clot 09/04/23 03/27/24 History
release Prevention/Tx
diclofenac sodium 1 % topical gel 2 g topical DAILY PRN right 09/04/23 03/27/24 History
shoulder pain post op
famotidine 20 mg tablet 20 mg PO DAILY Gastrointestinal 09/04/23 03/27/24 History
Issue
fluticasone propionate 50 2 spray intranasal DAILY PRN 09/04/23 03/27/24 History
mcg/actuation nasal seasonal allergies
spray,suspension
gabapentin 100 mg capsule 100 mg PO HS neuropathic pain, 09/04/23 03/27/24 History
anxiety, sleep, shoulder pain
meloxicam 15 mg tablet 15 mg PO DAILY PRN pain 09/04/23 03/27/24 History
metoprolol succinate 25 mg 25 mg PO HS Heart Disease/Condition 09/04/23 03/27/24 History
tablet,extended release 24 hr
Review of Systems
-
History Source: Patient
All other systems: Negative unless noted
Physical Exam
Vital Signs
Temp Pulse Resp BP Pulse Ox
97.7 F 74 18 127/68 95
03/28/24 07:15 03/28/24 07:15 03/28/24 07:15 03/28/24 07:15 03/28/24 07:15
General: NAD, nc O2
HEENT: Ecchymosis under right eye and rim of brow.� Anicteric sclera.� Mucous membranes moist
Heart: Regular, positive S1/S2, No murmur
Lungs: Bronchovesicular breath sounds, decreased at the bases. End expiratory wheezes heard yesterday resolved. Bibasilar crackles have improved
Abd: Positive BS, NT/ND, neg rebound/rigidity/guarding
Ext:� +1 edema with chronic venous stasis changes
Lab Results
03/28/24 05:53
03/28/24 05:53
Troponin I 0.015 ng/ml 03/27/24 20:02
Sjs-[id number] Pept 799 pg/ml 03/27/24 20:02
Impression / Plan
-
CP:Dr. Fransisco Iniguez
Tag Writer: None prior to admission. Initially seen by Dr. Marcial
Impression:
SOB and increased LE edema with erythema 03/27/24
RLE cellulitis
Acute HFpEF
Lasix noncompliance
DEB
Anemia
Elevated AST
COPD
HTN
Hyperlipidemia
PAD with previous toe amputation
Restless leg syndrome
Former smoker
Echo 07/06/22: Normal LV size, wall thickness and systolic function with EF 58%. Normal RV size and systolic function. Thickened mitral valve leaflets with MAC, mild MR. Mild aortic stenosis, peak/mean gradient 34/14 mmHg. No aortic regurgitation.
Mild tricuspid regurgitation. Estimated pulmonary artery pressure 48-50 mmHg. Trivial pericardial effusion.
Echo 11/28/23: EF 55 to 60%, mild concentric LVH, mild MR, mild
Plan:
-Patient came to [facility] yesterday with increased LE edema and new SOB and was admitted with cellulitis and acute HF, cardiology has been consulted. Patient went to [facility] 03/09/24 with increased LE edema and pro-BNP was 745. Patient admitted at that time
that she had stopped her Lasix because it was interfering with her schedule. Patient was asked to restart her usual dose of Lasix 20 mg daily. Patient says she restarted Lasix, but LE edema did not improve and instead only worsened. Patient reports
painful RLE with swelling and erythema over the last 2 weeks. She feels like her urine output is down over the last 2 days so for all of that combine she came to [facility]. Patient with BNP 799 in the ER and now admitted with cellulitis and acute HF. DEB
with Cre up to 1.5 compared to 0.7 in the ER back on 03/09/24.
-Patient with evidence of acute HF in the setting of Lasix noncompliance.
-Increase Lasix to 40 mg IV daily. Patient was taking Lasix 20 mg PO daily prior to admission
-DEB in the setting of acute HF. Continue to follow labs and anticipate Cre will improve as patient diureses.
-No need to repeat echo. EF was 55-60% by echo 11/28/23.
-Patient says she understands the importance of medication compliance although this is not the first time she has stopped Lasix and ended up admitted with acute HF.
-Cont Toprol XL 25 mg daily.
-Will not add LAISHA/ARB/ARNI due to DEB, but consider adding as renal function improves.
-Patient follows with Dr. Apodaca for PAD and previous toe amputation. LDL was 100 09/2023 and patient declines increase in atorvastatin dose from 20 mg daily
-Elevated AST might be from hepatic congestion
-ECG reviewed by me is SR without acute ST changes
[2024-03-28 11:15] VITALS: BP 173/69
[2024-03-28] MEDS: LEXAPRO 10 MG PO (13:34)
[2024-03-28 15:30] VITALS: BP 134/73
--- NOTE | 2024-03-28 16:04 | CM ---
manager credit risk reviewed patient's chart and met with patient and carina was admitted from [facility] 4th floor, patient lives alone is independent with adl's and uses a walker with ambulation, patient has a prescription plan and uses [facility]
pharmacy.
PCP: Dr. Frederick
Plan; Await PT/OT evaluations.
[2024-03-28 19:48] VITALS: BP 121/62
[2024-03-28] MEDS: ATIVAN 1 MG PO (21:41)
[2024-03-28 23:30] VITALS: BP 131/53
[2024-03-29] MEDS: HEPARIN 5000 UNITS SC ×4 (01:34→23:38)
[2024-03-29] MEDS: HYDROPHOR 1 APPLIC TOPICAL (01:35)
[2024-03-29] MEDS: ANCEF 10 IV ×3 (01:38→17:35)
[2024-03-29 03:25] VITALS: BP 141/54
[2024-03-29 06:00] VITALS: BMI 32.3
[2024-03-29 07:54] VITALS: BP 145/71
[2024-03-29] MEDS: TOPROL XL 12.5 MG PO ×2 (08:29→19:42)
[2024-03-29] MEDS: LOW STRENGTH ASPIRIN 81 MG PO (08:29)
[2024-03-29] MEDS: REQUIP 1 MG PO ×3 (08:29→22:28)
[2024-03-29] MEDS: LEXAPRO 10 MG PO (08:29)
[2024-03-29] MEDS: LASIX 40 MG IV (08:29)
[2024-03-29] MEDS: TYLENOL 650 MG PO ×2 (08:31→17:40)
[2024-03-29] MEDS: BENADRYL 50 MG PO (08:32)
--- NOTE | 2024-03-29 09:49 | W.PN.HOSP.TC ---
Today's Communication/Plan
-
IV Lasix. IV antibiotics.
Assessment / Plan
Assessment / Plan
Physical exam:
General: Acutely ill
HEENT: Normocephalic, Atraumatic and Moist Mucous Membranes
Respiratory: Few crackles at the bases; some scattered wheeze; no Rhonchi
Cardiac: Regular Rhythm and S1/S2
GI: Soft, Nontender and Nondistended
Musculoskeletal: Bilateral lower extremity edema, R>L. Erythema right lower extremity tenderness and warmth. No Clubbing, No Cyanosis.
Neuro: Awake, Alert and Oriented
Psych: Calm
A/P:
Acute right lower extremity cellulitis:
Continue IV antibiotics, cefazolin
Ultrasound right lower extremity no evidence of acute DVT
Pain control and benadryl prn
Monitor progress
Acute on chronic diastolic CHF:
IV diuretics, Lasix increased to 40 mg daily
Patient on Lasix 20 mg daily orally at home
BNP troponin 799 and 0.015 respectively
Monitor strict I/O
Monitor daily weight
Monitor renal function and electrolytes
Reviewed latest echocardiogram on our system--> back in 11/2023 EF 55 to 60%, diastolic function indeterminate, mild aortic stenosis and mitral regurgitation and tricuspid regurgitation and pulmonary hypertension.
Guideline-directed medical therapy for heart failure (GDMT)--> continue beta-blockers.
Fluid restriction
Salt restriction
Heart failure education
Follow up clinical response
Cardiology consult today--> [place] texted cardiology today
DEB on CKD:
Likely cardiorenal syndrome
Creatinine 1.5--> down to 1 with diuresis
Checked US kidneys and unremarkable today
Hold NSAIDs and any nephrotoxic
Monitor renal function while diuresis
Anemia:
Hemoglobin 10.2
No signs of bleeding
Anemia workup in a.m.
Monitor hemoglobin
Hypertension:
Continue antihypertensives with Toprol-XL
In the meantime also iv hydralazine as needed
Hyperlipidemia:
Continue statin, atorvastatin 20 mg p.o. nightly
COPD:
Mild bronchospastic so use bronchodilators now.
Duoneb as needed
Depression anxiety:
Cont antidepressants, citalopram 20 mg daily
GERD:
Famotidine
Restless leg syndrome:
Continue Requip 1 mg p.o. 3 times daily
Hold gabapentin due to renal failure
DVT prophylaxis:
Heparin subcu
CODE STATUS:
Full code
Total time spent on today's encounter was 52 minutes which included time spent in counseling the patient/family regarding diagnosis and treatment plan as listed above, goals of care, and symptom management. Case was discussed with nursing staff,
specialists, and care coordinators/case management. All labs and imaging personally reviewed by me. Remainder the time spent in detailed review of previous records, lab data, imaging, and other medical provider documentation.
Anticipated Discharge: > 48 hours
Subjective/Interval History
-
Date of Service: March 29, 2024
Patient feels better today. Less shortness of breath. Less erythema on right lower extremity. Patient does complain of some itchiness on his leg. No chest pain. Afebrile
Objective Data
-
Vital Signs:
Vital Signs
Temp Pulse Resp BP Pulse Ox
97.9 F 75 18 145/71 94
03/29/24 07:54 03/29/24 07:54 03/29/24 07:54 03/29/24 07:54 03/29/24 07:54
I&O
03/28/24 03/29/24 03/30/24
06:59 06:59 06:59
Intake Total 1640 / 1640
Output Total 1825 / 1825
Balance -185 / -185
[2024-03-29 10:05] LABS: % Basophils 0.4 % (0-2); % Eosinophils 9.9 % (0-6); % Immature Granulocytes 0.6 % (0-0.5); % Lymphocytes 8.9 % (20.5-51.1); % Neutrophils 69.2 % (42.2-75.2); Absolute Eosinophils 0.8 10^3/uL (0-0.7); Absolute Immature Granulocytes 0.1 10^3/uL (0-0.05); Absolute Lymphocytes 0.7 10^3/uL (1.2-3.4); Absolute Monocytes 0.9 10^3/uL (0.1-0.6); Absolute Neutrophils 5.4 10^3/uL (1.4-6.5); Hematocrit 30.2 % (37.0-47.0); Hemoglobin 10.2 g/dL (12.0-16.0); Mean Corp Hgb Conc. 33.8 g/dL (33.0-37.0); Mean Corpuscular Hgb 30.2 pg (27.0-31.0); Mean Corpuscular Volume 89.3 fL (81.0-99.0); Mean Platelet Volume 9.3 fL (7.4-10.4); Nucleated Red Blood Cells % 0 %; Platelet Count 282 10^3/uL (130-400); Red Blood Cell Count 3.38 10^6/uL (4.20-5.40); Red Cell Dist. Width 12.9 % (11.5-14.5); White Blood Cell Count 7.9 10^3/uL (4.8-10.8)
[2024-03-29 10:37] LABS: Blood Urea Nitrogen 31 mg/dl (7-17); Calcium 9.1 mg/dl (8.4-10.2); Carbon Dioxide 26 mmol/L (22-30); Chloride 103 mmol/L (98-107); Estimated Creatinine Clearance 47 ml/min; Glucose 117 mg/dl (70-99); Magnesium 2.2 mg/dl (1.6-2.3); Potassium 4.2 mmol/L (3.5-5.1); Sodium 138 mmol/L (135-145); eGFR 56.95
[2024-03-29 11:00] VITALS: BP 146/64
[2024-03-29 15:27] VITALS: BP 143/62
--- NOTE | 2024-03-29 16:09 | W.PN.CARDCBS ---
Today's Communication / Plan
-
Continue IV Lasix probably transition to oral 24 hours
Will wren Jarstormy and Jsoiahxiga
DEB is better
Impression / Plan
-
CP:Dr. Fransisco Iniguez
Operational Intelligence Analyst: None prior to admission. Initially seen by Dr. Marcial
Impression:
SOB and increased LE edema with erythema 03/27/24
RLE cellulitis
Acute HFpEF
Lasix noncompliance
DEB
Anemia
Elevated AST
COPD
HTN
Hyperlipidemia
PAD with previous toe amputation
Restless leg syndrome
Former smoker
Echo 07/06/22: Normal LV size, wall thickness and systolic function with EF 58%. Normal RV size and systolic function. Thickened mitral valve leaflets with MAC, mild MR. Mild aortic stenosis, peak/mean gradient 34/14 mmHg. No aortic regurgitation.
Mild tricuspid regurgitation. Estimated pulmonary artery pressure 48-50 mmHg. Trivial pericardial effusion.
Echo 11/28/23: EF 55 to 60%, mild concentric LVH, mild MR, mild
Plan:
She complains of some difficulty swallowing and some dyspnea. She complains of pruritus over right lower extremity erythematous areas.
Volume status seems reasonable, left lower extremity edema is improved. No rales just rhonchi cardiac exam and neck veins probably okay.
Suspect most of her current symptoms relate to pulmonary status.
Continue IV furosemide. Creatinine is 1, BUN is 31, probably transition to oral diuretics in 1 to 2 days. Her creatinine is improved, had been 1.5
Cefazolin as per hospitalist.
She has as needed nebs and as needed Benadryl written.
We can consider SGLT2 antagonist. Given DEB, may wish to avoid spironolactone. Will ask case management to wren.
Progress Note - Operational Intelligence Analyst
Subjective
Date of Service: March 29, 2024:
She complains of some difficulty swallowing and dyspnea.
PMH/PSH/SH/FH: Reviewed
Allergies: Penicillin
Outpatient meds: Reviewed, cardiac meds include aspirin 81 mg a day, atorvastatin 20 mg a day, furosemide 20 mg daily, often not taken, metoprolol ER 25 mg a day
Current meds: Cefazolin, Lexapro, aspirin 81 mg a day, metoprolol ER 12.5 twice daily, repaired all 1 mg 3 times daily, Ativan, subcu heparin, furosemide 40 mg IV daily
ROS: Negative except as above
143/62, pulse 63, respiratory rate 18, afebrile, saturations 94%, weight is 85.4 kg, down 0.6 kg head and neck exam unremarkable, somewhat cushingoid appearance, rhonchi pulmonary exam, soft systolic murmur at base, JVD okay, abdomen obese, marked
erythema right lower extremity with edema minimal edema left lower extremity
Hemoglobin is 10 white count is 7.9, BUN and creatinine are 31 and 1.0, potassium is 4.2
Renal ultrasound unremarkable
Leg vein ultrasound negative
Objective
Labs:
03/29/24 09:56
03/29/24 09:56
Labs
Hgb 10.2 g/dL (12.0-16.0) L 03/29/24 09:56
Hct 30.2 % (37.0-47.0) L 03/29/24 09:56
Plt Count 282 10^3/uL (130-400) 03/29/24 09:56
Sodium 138 mmol/L (135-145) 03/29/24 09:56
Potassium 4.2 mmol/L (3.5-5.1) 03/29/24 09:56
BUN 31 mg/dl (7-17) H 03/29/24 09:56
Creatinine 1.0 mg/dL (0.6-1.0) 03/29/24 09:56
Glucose 117 mg/dl (70-99) H 03/29/24 09:56
Troponins
03/27/24
20:02
Troponin I 0.015
Vital Signs and I&O:
Vital Signs
Temp Pulse Resp BP Pulse Ox
36.6 C 63 18 143/62 94
03/29/24 15:27 03/29/24 15:27 03/29/24 15:27 03/29/24 15:27 03/29/24 15:27
Vital Signs
Temp Pulse Resp BP Pulse Ox
36.6 C 63 18 143/62 94
03/29/24 15:27 03/29/24 15:27 03/29/24 15:27 03/29/24 15:27 03/29/24 15:27
Intake & Output
03/27/24 03/28/24 03/29/24 03/30/24
07:59 07:59 07:59 07:59
Intake Total 1640 / 1640
Output Total 1825 / 1825
Balance -185 / -185
Physical Exam
Physical Exam
See above
[2024-03-29] MEDS: BENADRYL 25 MG PO ×2 (17:41→22:28)
[2024-03-29] MEDS: DUONEB 3 ML INH (18:50)
[2024-03-29 19:33] VITALS: BP 138/54
--- NOTE | 2024-03-29 21:16 | PTCARENOTE ---
Assumed care of pt from previous nurse. Pt denies pain. Pt rle red, warm, +3 edema. Pt is on tele running nsr. Pt [place], 100% on ra. Pt call buckley is within reach, pt rings jodie. will cont to monitor.
[2024-03-29] MEDS: ATIVAN 1 MG PO (22:28)
[2024-03-29 23:16] VITALS: BP 122/65
[2024-03-30] VITALS (12 sets, daily range): BP systolic 105–200; BP diastolic 56–101; PULSE 81–102; O2SAT 96; BMI 31.4
[2024-03-30] MEDS: ANCEF 10 IV ×3 (01:51→17:01)
[2024-03-30] MEDS: REQUIP 1 MG PO ×3 (05:43→20:55)
[2024-03-30] MEDS: BENADRYL 25 MG PO ×3 (05:43→19:35)
[2024-03-30 08:14] LABS: % Basophils 0.5 % (0-2); % Eosinophils 10.1 % (0-6); % Immature Granulocytes 0.5 % (0-0.5); % Lymphocytes 10.8 % (20.5-51.1); % Monocytes 11.2 % (1.7-9.3); % Neutrophils 66.9 % (42.2-75.2); Absolute Eosinophils 0.9 10^3/uL (0-0.7); Absolute Lymphocytes 0.9 10^3/uL (1.2-3.4); Absolute Neutrophils 5.8 10^3/uL (1.4-6.5); Hemoglobin 10.1 g/dL (12.0-16.0); Mean Corp Hgb Conc. 33.7 g/dL (33.0-37.0); Mean Corpuscular Hgb 30.4 pg (27.0-31.0); Mean Corpuscular Volume 90.4 fL (81.0-99.0); Mean Platelet Volume 9.4 fL (7.4-10.4); Nucleated Red Blood Cells % 0 %; Platelet Count 300 10^3/uL (130-400); Red Blood Cell Count 3.32 10^6/uL (4.20-5.40); Red Cell Dist. Width 12.9 % (11.5-14.5); White Blood Cell Count 8.6 10^3/uL (4.8-10.8)
[2024-03-30] MEDS: HEPARIN 5000 UNITS SC ×3 (08:31→23:05)
[2024-03-30] MEDS: LOW STRENGTH ASPIRIN 81 MG PO (08:31)
[2024-03-30] MEDS: TOPROL XL 12.5 MG PO ×2 (08:32→20:54)
[2024-03-30] MEDS: LEXAPRO 10 MG PO (08:32)
[2024-03-30] MEDS: LASIX 40 MG IV (08:32)
--- NOTE | 2024-03-30 08:35 | CM ---
Addendum entered by Darlyn Boothe RN 03/30/24 09:00:
Jardiance Free Month Card issued to patient.
Plan follow up after PT/OT Evals.
Addendum entered by Darlyn Boothe RN 03/30/24 08:41:
Message to Eben Toure & Berto patient ok with cost Farxiga & Jardiance.
Original Note:
Patient with Dx RLE cellulitis, CHF, DEB, anemia. Room air. Receiving IV cefazolin. PT/OT Evals pending.
CM Consult:
Reed check Farxiga 10mg daily: $21/month [employer], $31/month [employer]
Reed check Jardiance 10mg daily: $21/month [employer], $31/month [employer]
Spoke with patient who is okay with cost of the above meds.
Plan issue Jardiance Free Month Card.
Plan follow up after PT/OT Evals.
[2024-03-30 08:51] LABS: Blood Urea Nitrogen 25 mg/dl (7-17); Calcium 9.1 mg/dl (8.4-10.2); Carbon Dioxide 28 mmol/L (22-30); Chloride 103 mmol/L (98-107); Estimated Creatinine Clearance 58 ml/min; Glucose 97 mg/dl (70-99); Potassium 4.4 mmol/L (3.5-5.1); Sodium 138 mmol/L (135-145); eGFR > 60.00
--- NOTE | 2024-03-30 08:55 | W.PN.CARDCBS ---
Today's Communication / Plan
-
I have no objection to oral diuretic change
Continue antibiotics as per primary team
Impression / Plan
-
CP:Dr. Fransisco Iniguez
Metal Tile Setter: None prior to admission. Initially seen by Dr. Marcial
Impression:
SOB and increased LE edema with erythema 03/27/24
RLE cellulitis
Acute HFpEF
Lasix noncompliance
DEB
Anemia
Elevated AST
COPD
HTN
Hyperlipidemia
PAD with previous toe amputation
Restless leg syndrome
Former smoker
Echo 07/06/22: Normal LV size, wall thickness and systolic function with EF 58%. Normal RV size and systolic function. Thickened mitral valve leaflets with MAC, mild MR. Mild aortic stenosis, peak/mean gradient 34/14 mmHg. No aortic regurgitation.
Mild tricuspid regurgitation. Estimated pulmonary artery pressure 48-50 mmHg. Trivial pericardial effusion.
Echo 11/28/23: EF 55 to 60%, mild concentric LVH, mild MR, mild
Plan:
I have no objection to transition to oral Lasix later today.
Cefazolin as per hospitalist.
She has as needed nebs and as needed Benadryl written.
We can consider SGLT2 antagonist. Given DEB, may wish to avoid spironolactone. Will ask case management to wren.
Progress Note - Metal Tile Setter
Subjective
Date of Service: March 30, 2024
Total Time Spent with Patient (in minutes): Feels about the same
Objective
Labs:
03/30/24 07:33
03/30/24 07:33
Labs
Hgb 10.1 g/dL (12.0-16.0) L 03/30/24 07:33
Hct 30.0 % (37.0-47.0) L 03/30/24 07:33
Plt Count 300 10^3/uL (130-400) 03/30/24 07:33
Sodium 138 mmol/L (135-145) 03/30/24 07:33
Potassium 4.4 mmol/L (3.5-5.1) 03/30/24 07:33
BUN 25 mg/dl (7-17) H 03/30/24 07:33
Creatinine 0.8 mg/dL (0.6-1.0) 03/30/24 07:33
Glucose 97 mg/dl (70-99) 03/30/24 07:33
Troponins
03/27/24
20:02
Troponin I 0.015
Vital Signs and I&O:
Vital Signs
Temp Pulse Resp BP Pulse Ox
98.2 F 90 18 111/67 96
03/30/24 07:00 03/30/24 08:32 03/30/24 07:00 03/30/24 08:32 03/30/24 07:00
Vital Signs
Temp Pulse Resp BP Pulse Ox
98.2 F 90 18 111/67 96
03/30/24 07:00 03/30/24 08:32 03/30/24 07:00 03/30/24 08:32 03/30/24 07:00
Intake & Output
03/28/24 03/29/24 03/30/24 03/31/24
06:59 06:59 06:59 06:59
Intake Total 1640 / 1640 2019
Output Total 1825 / 1825 2700 / 2700
Balance -185 / -185 -680 / -680
Physical Exam
Physical Exam
Physical Exam
General: no apparent distress, not acutely ill
Neck: supple. no meningeal signs. normal psoterior pharynx
Heart: s1/s2 regular rate and rhythm, no murmur. equal radial pulses.
Lungs: no acute respiratory distress. clear bilaterally
Abdomen: normal bowel sounds. not tender. no CVAT
Neuro: alert and oriented. no focal neurological deficits
Skin: no rash
Psychiatric: well kept. interactive and cooperative
Extremities: Deferred today
[2024-03-30] MEDS: TYLENOL 650 MG PO ×2 (09:28→23:15)
[2024-03-30] MEDS: APRESOLINE 10 MG IV (09:34)
--- NOTE | 2024-03-30 10:17 | W.PN.HOSP.TC ---
Today's Communication/Plan
-
Continue antibiotics
Change to oral Lasix
Assessment / Plan
Assessment / Plan
Gen-AAOx3, NAD
HEENT-NC, AT, anicteric, clear oral mm
Neck-supple
CV-reg, no M, +S1/S2
Lungs-clear B/L
Abd-soft, NT, ND
Ext-diffuse right lower extremity edema, erythema, warmth
Musculoskeletal-no cyanosis, clubbing
Skin-warm and dry
Neuro-grossly non-focal
Psych-calm, cooperative
Acute right lower extremity cellulitis:
Continue IV antibiotics, cefazolin
Ultrasound right lower extremity no evidence of acute DVT
Pain control and benadryl prn
Monitor progress
Acute on chronic diastolic CHF:
Okay to change to oral Lasix, 40 mg daily. Was on 20 mg daily prior to admission. Discussed with cardiology, Dr. Toure.
Patient on Lasix 20 mg daily orally at home
BNP troponin 799 and 0.015 respectively
Monitor strict I/O
Monitor daily weight
Monitor renal function and electrolytes
Reviewed latest echocardiogram on our system--> back in 11/2023 EF 55 to 60%, diastolic function indeterminate, mild aortic stenosis and mitral regurgitation and tricuspid regurgitation and pulmonary hypertension.
Guideline-directed medical therapy for heart failure (GDMT)--> continue beta-blockers.
Fluid restriction
Salt restriction
Heart failure education
DEB on CKD 3a
Likely cardiorenal syndrome
Creatinine 1.5--> down to 1 with diuresis
Checked US kidneys and unremarkable today
Hold NSAIDs and any nephrotoxic
Monitor renal function while diuresis
Subacute normocytic anemia:
Hemoglobin 10.2
No signs of bleeding
Ferritin and B12 normal. Defer further workup to PCP.
Essential hypertension:
Continue antihypertensives with Toprol-XL
In the meantime also iv hydralazine as needed
Hyperlipidemia:
Continue statin, atorvastatin 20 mg p.o. nightly
COPD without exacerbation:
Duoneb as needed
Depression anxiety:
Cont antidepressants, citalopram 20 mg daily
GERD:
Famotidine
Restless leg syndrome:
Continue Requip 1 mg p.o. 3 times daily
Hold gabapentin due to renal failure
DVT prophylaxis:
Heparin subcu
CODE STATUS:
Full code
Dispo -SNF when medically stable. She currently resides in [place].
Anticipated Discharge: 24 - 48 hours
Subjective/Interval History
-
Date of Service: March 30, 2024
Patient seen and examined. No new complaints.
Objective Data
-
Labs:
Laboratory Results
03/30/24
07:33
WBC 8.6
Hgb 10.1 L
Hct 30.0 L
Plt Count 300
Sodium 138
Potassium 4.4
Chloride 103
Carbon Dioxide 28
BUN 25 H
Creatinine 0.8
Glucose 97
Calcium 9.1
Vital Signs:
Vital Signs
Temp Pulse Resp BP Pulse Ox
100.3 F 86 18 171/70 94
03/30/24 09:19 03/30/24 09:34 03/30/24 07:00 03/30/24 09:34 03/30/24 09:19
I&O
03/29/24 03/30/24 03/31/24
06:59 06:59 06:59
Intake Total 1640 / 1640 2019
Output Total 1825 / 1825 2700 / 2700
Balance -185 / -185 -680 / -680
Review of Systems
-
History Source: Patient
All other systems: Reviewed and negative
[2024-03-30] MEDS: ATIVAN 1 MG PO (23:06)
[2024-03-31] VITALS (7 sets, daily range): BP systolic 117–169; BP diastolic 65–90; BMI 31.8
[2024-03-31] MEDS: ANCEF 10 IV ×3 (02:09→17:16)
[2024-03-31] MEDS: FLUSH (NSS) 2 FLUSH IV (02:09)
[2024-03-31] MEDS: BENADRYL 25 MG PO ×3 (02:28→21:18)
[2024-03-31] MEDS: TYLENOL 650 MG PO (03:24)
--- NOTE | 2024-03-31 08:31 | PN.CDI ---
CDI
- -
CDI:
Physician Documentation Request
Admit Date: 03/27/24 18:14
Dear Doctor Berto,
Please review the following and provide your response in the progress notes.
Clinical Indicators:
PN, 03/30
#Acute right lower extremity cellulitis:
#Continue IV antibiotics, cefazolin
Cardiology, PN, 03/30
#PAD with previous toe amputation
Please clarify the relationship, if any, between these conditions:
Yes, right lower extremity cellulitis is exacerbated by/related to/associated with/due to PAD.
No, right lower extremity cellulitis is not exacerbated by/related to/associated with/due to PAD but it is due to ___. (Please specify)
Other (please specify)
Unable to determine
Use of terms such as suspected, likely, concern for, or probable (associated with a specific diagnosis that is being evaluated, monitored, or treated as if it exists) are acceptable and can be coded in the inpatient setting, when documented at the
time of discharge.
Thank you,
Katie Reeves RN BSN CCDS
CDI Specialist
please contact via tiger text
Please use your independent medical judgment in providing your response.
[2024-03-31] MEDS: TOPROL XL 12.5 MG PO ×2 (08:40→20:22)
[2024-03-31] MEDS: REQUIP 1 MG PO ×3 (08:40→21:15)
[2024-03-31] MEDS: LEXAPRO 10 MG PO (08:40)
[2024-03-31] MEDS: LOW STRENGTH ASPIRIN 81 MG PO (08:40)
[2024-03-31] MEDS: LASIX 40 MG PO (08:40)
[2024-03-31] MEDS: HEPARIN 5000 UNITS SC ×3 (08:40→23:30)
--- NOTE | 2024-03-31 10:51 | W.PN.HOSP.TC ---
Addendum entered and electronically signed by César Thomson DO 03/31/24 13:29:
Right lower extremity cellulitis unrelated to PAD, but may have a component of chronic venous stasis.
Original Note:
Today's Communication/Plan
-
DC Apodaca
Voiding trial
Keep right lower extremity elevated with Itz wrap
Assessment / Plan
Assessment / Plan
Gen-AAOx3, NAD
HEENT-NC, AT, anicteric, clear oral mm
Neck-supple
CV-reg, no M, +S1/S2
Lungs-clear B/L
Abd-soft, NT, ND
Ext-diffuse right lower extremity edema, erythema, warmth
Musculoskeletal-no cyanosis, clubbing
Skin-warm and dry
Neuro-grossly non-focal
Psych-calm, cooperative
Acute right lower extremity cellulitis -slow to improve. Keep elevated. Discussed with patient.
Continue IV antibiotics, cefazolin
Ultrasound right lower extremity no evidence of acute DVT
Pain control and benadryl prn
Monitor progress
Acute on chronic diastolic CHF:
Okay to change to oral Lasix, 40 mg daily. Was on 20 mg daily prior to admission. Discussed with cardiology, Dr. Toure.
BNP troponin 799 and 0.015 respectively
Reviewed latest echocardiogram on our system--> back in 11/2023 EF 55 to 60%, diastolic function indeterminate, mild aortic stenosis and mitral regurgitation and tricuspid regurgitation and pulmonary hypertension.
Guideline-directed medical therapy for heart failure (GDMT)--> continue beta-blockers.
Fluid restriction
Salt restriction
Heart failure education
Acute urinary retention - Apodaca catheter inserted on admission. DC Apodaca today, voiding trial. Patient request. Discussed with nurse. Outpatient urology follow-up.
DEB on CKD 3a
Likely cardiorenal syndrome
Creatinine 1.5--> down to 1 with diuresis
Checked US kidneys and unremarkable today
Hold NSAIDs and any nephrotoxic
Monitor renal function while diuresis
Subacute normocytic anemia:
Hemoglobin 10.2
No signs of bleeding
Ferritin and B12 normal. Defer further workup to PCP.
Essential hypertension:
Continue antihypertensives with Toprol-XL
In the meantime also iv hydralazine as needed
Hyperlipidemia:
Continue statin, atorvastatin 20 mg p.o. nightly
COPD without exacerbation:
Duoneb as needed
Depression anxiety:
Cont antidepressants, citalopram 20 mg daily
GERD:
Famotidine
Restless leg syndrome:
Continue Requip 1 mg p.o. 3 times daily
Hold gabapentin due to renal failure
DVT prophylaxis:
Heparin subcu
CODE STATUS:
Full code
Dispo -SNF when medically stable. She currently resides in [place].
Anticipated Discharge: Within 24 hours
Subjective/Interval History
-
Date of Service: March 31, 2024
Patient seen and examined. No complaints.
Objective Data
-
Vital Signs:
Vital Signs
Temp Pulse Resp BP Pulse Ox
98.3 F 78 20 117/90 93
03/31/24 07:14 03/31/24 07:14 03/31/24 07:14 03/31/24 07:14 03/31/24 07:14
I&O
03/30/24 03/31/24 04/01/24
06:59 06:59 06:59
Intake Total 2019 / 2019 1800 / 1800
Output Total 2700 / 2700 3300 / 3300
Balance -680 / -680 -1500 / -1500
Review of Systems
-
History Source: Patient
All other systems: Reviewed and negative
--- NOTE | 2024-03-31 11:37 | CM ---
Patient seen bedside.
PT/OT recommending skilled rehab.
[facility] with no beds.
Referrals to [facility], [facility] and [facility].
Will require [employer] auth.
PLan: skilled rehab when medically stable and once bed available and insurance auth obtained.
--- NOTE | 2024-03-31 12:30 | PTCARENOTE ---
Patient Apodaca cath removed, janneth wrap applied.
--- NOTE | 2024-03-31 16:06 | W.PN.CARDCBS ---
Today's Communication / Plan
-
stable on po lasix
sign off, call with questions
Impression / Plan
-
CP:Dr. Fransisco Iniguez
Event Organizer: None prior to admission. Initially seen by Dr. Marcial
Impression:
SOB and increased LE edema with erythema 03/27/24
RLE cellulitis
Acute HFpEF
Lasix noncompliance
DEB
Anemia
Elevated AST
COPD
HTN
Hyperlipidemia
PAD with previous toe amputation
Restless leg syndrome
Former smoker
Echo 07/06/22: Normal LV size, wall thickness and systolic function with EF 58%. Normal RV size and systolic function. Thickened mitral valve leaflets with MAC, mild MR. Mild aortic stenosis, peak/mean gradient 34/14 mmHg. No aortic regurgitation.
Mild tricuspid regurgitation. Estimated pulmonary artery pressure 48-50 mmHg. Trivial pericardial effusion.
Echo 11/28/23: EF 55 to 60%, mild concentric LVH, mild MR, mild
Plan:
Stable cardiology status on oral diuretics
will sign off, call with questions
Progress Note - Event Organizer
Subjective
Date of Service: March 31, 2024
No complaints
Objective
Labs:
03/30/24 07:33
03/30/24 07:33
Labs
Hgb 10.1 g/dL (12.0-16.0) L 03/30/24 07:33
Hct 30.0 % (37.0-47.0) L 03/30/24 07:33
Plt Count 300 10^3/uL (130-400) 03/30/24 07:33
Sodium 138 mmol/L (135-145) 03/30/24 07:33
Potassium 4.4 mmol/L (3.5-5.1) 03/30/24 07:33
BUN 25 mg/dl (7-17) H 03/30/24 07:33
Creatinine 0.8 mg/dL (0.6-1.0) 03/30/24 07:33
Glucose 97 mg/dl (70-99) 03/30/24 07:33
Vital Signs and I&O:
Vital Signs
Temp Pulse Resp BP Pulse Ox
98.1 F 81 20 152/66 96
03/31/24 15:28 03/31/24 15:28 03/31/24 15:28 03/31/24 15:28 03/31/24 15:28
Vital Signs
Temp Pulse Resp BP Pulse Ox
98.1 F 81 20 152/66 96
03/31/24 15:28 03/31/24 15:28 03/31/24 15:28 03/31/24 15:28 03/31/24 15:28
Intake & Output
03/29/24 03/30/24 03/31/24 04/01/24
06:59 06:59 06:59 06:59
Intake Total 1640 / 1640 2020 / 2020 1800 / 1800
Output Total 1825 / 1825 2700 / 2700 3300 / 3300 200 / 200
Balance -185 / -185 -680 / -680 -1500 / -1500 -200 / -200
Physical Exam
Physical Exam
General: Well developed, well nourished in NAD.
Neck: Supple, no JVD, HJR, carotids +2 B/L, no bruits bilaterally.
Heart: Non displaced PMI, RRR, no murmurs, No S3, S4, no rubs.
Lungs: Scattered rhonchi
Extremities: No clubbing, cyanosis or edema bilaterally.
Neuro: Grossly nonfocal, awake, alert and oriented x3.
[2024-03-31] MEDS: ATIVAN 1 MG PO (21:15)
[2024-03-31] MEDS: APRESOLINE 10 MG IV (23:29)
[2024-04-01] VITALS (10 sets, daily range): BP systolic 117–167; BP diastolic 55–91; PULSE 78; O2SAT 97; BMI 31.5
[2024-04-01] MEDS: ANCEF 10 IV ×3 (02:36→17:40)
--- NOTE | 2024-04-01 05:13 | PTCARENOTE ---
Pt reports shortness of breath at rest. Pt is 95% on room air with HOB elevated. House FLIGHT ENGINEER INSPECTOR Vernell Peña notified, PRN Duoneb q4h added back to JAN. Pt reports that shortness of breath has resolved and she does not need her PRN DuoNeb at this
time.
[2024-04-01] MEDS: BENADRYL 25 MG PO ×3 (05:42→20:19)
[2024-04-01 08:00] LABS: Blood Urea Nitrogen 19 mg/dl (7-17); Calcium 9.6 mg/dl (8.4-10.2); Carbon Dioxide 27 mmol/L (22-30); Chloride 100 mmol/L (98-107); Estimated Creatinine Clearance 59 ml/min; Glucose 105 mg/dl (70-99); Potassium 4.5 mmol/L (3.5-5.1); Sodium 138 mmol/L (135-145); eGFR > 60.00
[2024-04-01] MEDS: HEPARIN 5000 UNITS SC ×3 (08:05→23:39)
[2024-04-01] MEDS: TOPROL XL 12.5 MG PO ×2 (08:05→20:20)
[2024-04-01] MEDS: REQUIP 1 MG PO ×3 (08:05→21:08)
[2024-04-01] MEDS: LEXAPRO 10 MG PO (08:05)
[2024-04-01] MEDS: LASIX 40 MG PO (08:05)
[2024-04-01] MEDS: LOW STRENGTH ASPIRIN 81 MG PO (08:05)
--- NOTE | 2024-04-01 09:17 | W.PN.HOSP.TC ---
Today's Communication/Plan
-
Bladder scans
Discharge planning
Itz wraps to right lower extremity and keep elevated
Assessment / Plan
Assessment / Plan
Gen-AAOx3, NAD
HEENT-NC, AT, anicteric, clear oral mm
Neck-supple
CV-reg, no M, +S1/S2
Lungs-clear B/L
Abd-soft, NT, ND
Ext-diffuse right lower extremity edema, erythema, warmth
Musculoskeletal-no cyanosis, clubbing
Skin-warm and dry
Neuro-grossly non-focal
Psych-calm, cooperative
Acute right lower extremity cellulitis -slow to improve. Keep elevated. Discussed with patient. Itz wrap to right lower extremity. Discussed with nursing.
Continue IV antibiotics, cefazolin
Ultrasound right lower extremity no evidence of acute DVT
Pain control and benadryl prn
Monitor progress
Acute on chronic diastolic CHF:
Okay to change to oral Lasix, 40 mg daily. Was on 20 mg daily prior to admission. Discussed with cardiology, Dr. Toure.
BNP troponin 799 and 0.015 respectively
Reviewed latest echocardiogram on our system--> back in 11/2023 EF 55 to 60%, diastolic function indeterminate, mild aortic stenosis and mitral regurgitation and tricuspid regurgitation and pulmonary hypertension.
Guideline-directed medical therapy for heart failure (GDMT)--> continue beta-blockers.
Fluid restriction
Salt restriction
Heart failure education
Acute urinary retention - Apodaca catheter inserted on admission. Apodaca catheter removed 03/31, continue bladder scans. Outpatient urology follow-up.
DEB on CKD 3a
Likely cardiorenal syndrome
Creatinine 1.5--> down to 1 with diuresis
Checked US kidneys and unremarkable today
Hold NSAIDs and any nephrotoxic
Monitor renal function while diuresis
Subacute normocytic anemia:
Hemoglobin 10.2
No signs of bleeding
Ferritin and B12 normal. Defer further workup to PCP.
Essential hypertension:
Continue antihypertensives with Toprol-XL
In the meantime also iv hydralazine as needed
Hyperlipidemia:
Continue statin, atorvastatin 20 mg p.o. nightly
COPD without exacerbation:
Duoneb as needed
Depression anxiety:
Cont antidepressants, citalopram 20 mg daily
GERD:
Famotidine
Restless leg syndrome:
Continue Requip 1 mg p.o. 3 times daily
Hold gabapentin due to renal failure
DVT prophylaxis:
Heparin subcu
CODE STATUS:
Full code
Dispo - She currently resides in [place]. Medically stable for discharge to SNF. Case management aware.
Anticipated Discharge: Within 24 hours
Subjective/Interval History
-
Date of Service: April 01, 2024
Patient seen and examined. No complaints.
Objective Data
-
Labs:
Laboratory Results
04/01/24
06:27
Sodium 138
Potassium 4.5
Chloride 100
Carbon Dioxide 27
BUN 19 H
Creatinine 0.8
Glucose 105 H
Calcium 9.6
Vital Signs:
Vital Signs
Temp Pulse Resp BP Pulse Ox
98.5 F 93 22 163/62 93
04/01/24 08:12 04/01/24 08:12 04/01/24 08:12 04/01/24 08:12 04/01/24 08:12
I&O
03/31/24 04/01/24 04/02/24
06:59 06:59 06:59
Intake Total 1800 / 1800 720 / 720
Output Total 3300 / 3300 200 / 200
Balance -1500 / -1500 520 / 520
Review of Systems
-
History Source: Patient
All other systems: Reviewed and negative
--- NOTE | 2024-04-01 09:26 | CM ---
Addendum entered by Cheyanne Hoyos 04/02/24 12:18:
Late entry, TC from [facility], bed available for tomorrow.
TC to [facility], spoke with Clay, updated facility and admitting MD.
Patient updated.
Nella from [facility] updated.
Addendum entered by Cheyanne Hoyos 04/01/24 11:59:
Patient needs insurance authorization:
Accepted at [facility]
NPI# [id number]
Dr Keita NPI# [id number]
[employer] Auth initiated Pended reference # [id number]
Original Note:
No beds available at [facility], [facility], [facility], or [facility].
continue bed search.
Needs [employer] auth.
Plan: skilled rehab once bed available and auth obtained.
[2024-04-01] MEDS: ATIVAN 1 MG PO (21:08)
[2024-04-02] VITALS (8 sets, daily range): BP systolic 105–181; BP diastolic 61–84; PULSE 85; O2SAT 94; BMI 31.2
--- NOTE | 2024-04-02 00:20 | PTCARENOTE ---
Pt reports severe pain in her left upper extremity that she reports has been going on for several weeks. Pt asking for pain relief cream. House YARDER ENGINEER Vernell Peña notified and ordered BenGay topical QID.
[2024-04-02] MEDS: BenGay-Like 1 APPLIC TOPICAL ×3 (02:44→20:33)
[2024-04-02] MEDS: ANCEF IV (02:44)
[2024-04-02] MEDS: BENADRYL 25 MG PO ×2 (02:44→20:31)
[2024-04-02] MEDS: ANCEF 10 IV (03:09)
[2024-04-02] MEDS: TOPROL XL 12.5 MG PO ×2 (07:50→20:28)
[2024-04-02] MEDS: HEPARIN 5000 UNITS SC ×2 (07:51→15:40)
[2024-04-02] MEDS: LOW STRENGTH ASPIRIN 81 MG PO (07:51)
[2024-04-02] MEDS: LASIX 40 MG PO (07:51)
[2024-04-02] MEDS: LEXAPRO 10 MG PO (07:51)
[2024-04-02] MEDS: REQUIP 1 MG PO ×3 (07:51→21:38)
--- NOTE | 2024-04-02 09:28 | W.PN.HOSP.TC ---
Today's Communication/Plan
-
Discharge planning
Change antibiotics to Keflex
Assessment / Plan
Assessment / Plan
Gen-AAOx3, NAD
HEENT-NC, AT, anicteric, clear oral mm
Neck-supple
CV-reg, no M, +S1/S2
Lungs-clear B/L
Abd-soft, NT, ND
Ext-diffuse right lower extremity edema, erythema, warmth, improving overall
Musculoskeletal-no cyanosis, clubbing
Skin-warm and dry
Neuro-grossly non-focal
Psych-calm, cooperative
Acute right lower extremity cellulitis -slow to improve. Keep elevated. Discussed with patient. Itz wrap to right lower extremity. Discussed with nursing.
Continue IV antibiotics, cefazolin. Will change to Keflex.
Ultrasound right lower extremity no evidence of acute DVT
Pain control and benadryl prn
Monitor progress
Acute on chronic diastolic CHF:
Okay to change to oral Lasix, 40 mg daily. Was on 20 mg daily prior to admission. Discussed with cardiology, Dr. Toure.
BNP troponin 799 and 0.015 respectively
Reviewed latest echocardiogram on our system--> back in 11/2023 EF 55 to 60%, diastolic function indeterminate, mild aortic stenosis and mitral regurgitation and tricuspid regurgitation and pulmonary hypertension.
Guideline-directed medical therapy for heart failure (GDMT)--> continue beta-blockers.
Fluid restriction
Salt restriction
Heart failure education
Acute urinary retention - Apodaca catheter inserted on admission. Apodaca catheter removed 03/31, continue bladder scans. Outpatient urology follow-up.
DEB on CKD 3a
Likely cardiorenal syndrome
Creatinine 1.5--> down to 1 with diuresis
Checked US kidneys and unremarkable today
Hold NSAIDs and any nephrotoxic
Monitor renal function while diuresis
Subacute normocytic anemia:
Hemoglobin 10.2
No signs of bleeding
Ferritin and B12 normal. Defer further workup to PCP.
Essential hypertension:
Continue antihypertensives with Toprol-XL
In the meantime also iv hydralazine as needed
Hyperlipidemia:
Continue statin, atorvastatin 20 mg p.o. nightly
COPD without exacerbation:
Duoneb as needed
Depression anxiety:
Cont antidepressants, citalopram 20 mg daily
GERD:
Famotidine
Restless leg syndrome:
Continue Requip 1 mg p.o. 3 times daily
Hold gabapentin due to renal failure
DVT prophylaxis:
Heparin subcu
CODE STATUS:
Full code
Dispo - She currently resides in [place]. Medically stable for discharge to SNF. Case management aware.
Anticipated Discharge: Today
Subjective/Interval History
-
Date of Service: April 02, 2024
Patient seen and examined. No complaints.
Objective Data
-
Vital Signs:
Vital Signs
Temp Pulse Resp BP Pulse Ox
99.7 F 85 17 156/82 97
04/02/24 07:25 04/02/24 07:50 04/02/24 07:25 04/02/24 07:50 04/02/24 07:25
I&O
04/01/24 04/02/24 04/03/24
06:59 06:59 06:59
Intake Total 720 / 720 1260 / 1260
Output Total 200 / 200 875 / 875
Balance 520 / 520 385 / 385
Review of Systems
-
History Source: Patient
All other systems: Reviewed and negative
--- NOTE | 2024-04-02 12:17 | CM ---
Addendum entered by Cheyanne Hoyos 04/02/24 14:25:
[employer] denied skilled rehab
ref # [id number]
peer to peer appeal # [phone] x 2 until 12 pm tomorrow.
Original Note:
Patient accepted at [facility].
[employer] Auth initiated Pended reference # [id number]
Plan: [facility] once auth obtained. Patient will need ambulance transport.
[2024-04-02] MEDS: KEFLEX 500 MG PO ×3 (12:37→21:38)
[2024-04-02] MEDS: ATIVAN 1 MG PO (21:38)
[2024-04-03] MEDS: HEPARIN 5000 UNITS SC ×3 (00:49→16:05)
[2024-04-03] MEDS: BenGay-Like 1 APPLIC TOPICAL ×2 (00:55→11:20)
[2024-04-03] MEDS: TYLENOL 650 MG PO (01:12)
[2024-04-03 03:00] VITALS: BP 146/63
[2024-04-03 06:00] VITALS: BMI 30.6
[2024-04-03] MEDS: BENADRYL 25 MG PO (06:11)
[2024-04-03 07:21] VITALS: BP 153/74
[2024-04-03] MEDS: REQUIP 1 MG PO ×2 (07:50→16:05)
[2024-04-03] MEDS: LEXAPRO 10 MG PO (07:50)
[2024-04-03] MEDS: LOW STRENGTH ASPIRIN 81 MG PO (07:50)
[2024-04-03] MEDS: KEFLEX 500 MG PO ×2 (07:50→12:38)
[2024-04-03] MEDS: LASIX 40 MG PO (07:50)
[2024-04-03] MEDS: TOPROL XL 12.5 MG PO (07:50)
--- NOTE | 2024-04-03 10:33 | W.PN.HOSP.TC ---
Addendum entered and electronically signed by César Thomson DO 04/03/24 14:33:
I left a voicemail for patient's son Neo to call me back for an update.
Original Note:
Today's Communication/Plan
-
Discharge planning
Assessment / Plan
Assessment / Plan
Gen-AAOx3, NAD
HEENT-NC, AT, anicteric, clear oral mm
Neck-supple
CV-reg, no M, +S1/S2
Lungs-clear B/L
Abd-soft, NT, ND
Ext-diffuse right lower extremity edema, erythema, warmth, improving overall
Musculoskeletal-no cyanosis, clubbing
Skin-warm and dry
Neuro-grossly non-focal
Psych-calm, cooperative
Acute right lower extremity cellulitis -improving with leg wrapping and antibiotics, keep elevated. Discussed with patient. Itz wrap to right lower extremity. Discussed with nursing.
Continue Keflex.
Ultrasound right lower extremity no evidence of acute DVT
Acute on chronic heart failure with preserved EF - improved. Continue oral Lasix.
BNP troponin 799 and 0.015 respectively
Reviewed latest echocardiogram on our system--> back in 11/2023 EF 55 to 60%, diastolic function indeterminate, mild aortic stenosis and mitral regurgitation and tricuspid regurgitation and pulmonary hypertension.
Guideline-directed medical therapy for heart failure (GDMT)--> continue beta-blockers.
Fluid restriction
Salt restriction
Heart failure education
Acute urinary retention - Apodaca catheter inserted on admission. Apodaca catheter removed 03/31. Bladder scans much improved, last was 83 cc.
DEB on CKD 3a -DEB resolved.
Subacute normocytic anemia:
Hemoglobin 10.2
No signs of bleeding
Ferritin and B12 normal. Defer further workup to PCP.
Essential hypertension:
Continue antihypertensives with Toprol-XL
In the meantime also iv hydralazine as needed
Hyperlipidemia:
Continue statin, atorvastatin 20 mg p.o. nightly
COPD without exacerbation:
Duoneb as needed
Depression anxiety:
Cont antidepressants, citalopram 20 mg daily
GERD:
Famotidine
Restless leg syndrome:
Continue Requip 1 mg p.o. 3 times daily
Hold gabapentin due to renal failure
DVT prophylaxis:
Heparin subcu
CODE STATUS:
Full code
Dispo - She currently resides in [place]. Medically stable for discharge to SNF. Case management aware.
Anticipated Discharge: Within 24 hours
Subjective/Interval History
-
Date of Service: April 03, 2024
Patient seen and examined. No complaints.
Objective Data
-
Vital Signs:
Vital Signs
Temp Pulse Resp BP Pulse Ox
97.2 F 77 16 153/74 93
04/03/24 07:21 04/03/24 07:21 04/03/24 07:21 04/03/24 07:21 04/03/24 08:00
I&O
04/02/24 04/03/24 04/04/24
06:59 06:59 06:59
Intake Total 1260 / 1260 840 / 840
Output Total 875 / 875 525 / 525
Balance 385 / 385 315 / 315
Review of Systems
-
History Source: Patient
All other systems: Reviewed and negative
[2024-04-03 11:38] VITALS: BP 158/79
--- NOTE | 2024-04-03 12:47 | CM ---
Addendum entered by Cheyanne Hoyos 04/03/24 16:18:
transport 5 pm via WC van.
Addendum entered by Cheyanne Hoyos 04/03/24 16:12:
[facility]
Report# [phone]

IMM completed.
Addendum entered by Cheyanne Hoyos 04/03/24 15:51:
[employer] approval for skilled rehab
Ref# [id number]
approved 13 days
start date 04/03/24, LCD/NRD 04/15/24
Updates to Nati Baian [phone]
Await WC van time.
Addendum entered by Cheyanne Hoyos 04/03/24 15:01:
patient approved skilled on appeal, await information from [employer].
Nolvia from [facility] updated.
Patient will need WC van.
Original Note:
Await Peer to Peer appeal on skilled rehab denial.
Bed available at [facility].
Plan: skilled rehab if insurance approves.
--- NOTE | 2024-04-03 15:22 | W.DS.TRANS ---
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
-
Discharge Instructions:
Sleep Apnea Risk Intermediate
Discharge Diagnosis/Procedures Acute on chronic heart failure exacerbation,
right lower extremity cellulitis, acute urinary
retention, acute kidney injury, chronic kidney
disease, anemia
Diet 2 Gram Sodium,Low Fat,Low Cholesterol
Activity As tolerated,With assistance
Driving Restrictions No driving
Bathing Restrictions None
Instructions:
Stand-Alone Forms:
Changes to Home Medications: No
Discharge Medications:
DC Medications w/original date entered in [facility]
atorvastatin 20 mg tablet 20 mg PO DAILY High cholesterol 05/22/22
escitalopram oxalate 10 mg tablet 10 mg PO DAILY Depression 05/22/22
cholecalciferol (vitamin D3) 25 mcg (1,000 unit) tablet 500 unit PO DAILY Supplement #0 tabs 07/08/22
cyanocobalamin (vitamin B-12) 1,000 mcg tablet 1,000 mcg PO DAILY defeciancy #0 tabs 07/08/22
albuterol sulfate 90 mcg/actuation aerosol inhaler 2 puff inhalation Q6H PRN shortness of breath or wheezing #8.5 grams 09/04/23
aspirin 81 mg tablet,delayed release 81 mg PO HS Blood Clot Prevention/Tx 09/04/23
diclofenac sodium 1 % topical gel 2 g topical DAILY PRN right shoulder pain post op 09/04/23
famotidine 20 mg tablet 20 mg PO DAILY Gastrointestinal Issue 09/04/23
fluticasone propionate 50 mcg/actuation nasal spray,suspension 2 spray intranasal DAILY PRN seasonal allergies 09/04/23
gabapentin 100 mg capsule 100 mg PO HS neuropathic pain, anxiety, sleep, shoulder pain 09/04/23
cephalexin 500 mg capsule 500 mg PO QID #24 caps 04/03/24
furosemide 40 mg tablet 40 mg PO DAILY #0 tabs 04/03/24
lorazepam 1 mg tablet 1 mg PO HS #3 tabs 04/03/24
metoprolol succinate 25 mg tablet,extended release 24 hr 12.5 mg (1/2 x 25 mg) PO BID #0 tabs 04/03/24
polyethylene glycol 3350 17 gram oral powder packet (HealthyLax) 17 g PO DAILYPRN PRN constipation #0 ea 04/03/24
ropinirole 1 mg tablet 1 mg PO TID #0 tabs 04/03/24
sennosides 8.6 mg-docusate sodium 50 mg tablet (Stool Softener-Stimulant Laxative) 1 tab PO BIDPRN PRN constipation #0 tabs 04/03/24
Home Medication Changes
Pending Results: No
[2024-04-03 15:31] VITALS: BP 149/69
== END 2024-04-03 17:12 | DRG 602 ==
LOC: 4 WEST ACU 18:14
PROVIDERS: Emergency Medicine; ADMITTING PHYSICIAN Hospitalist; ATTENDING PHYSICIAN Hospitalist; CONSULT PHYSICIAN Internal Medicine Cardiovascular Disease; EMERGENCY PHYSICIAN Emergency Medicine; FAMILY PHYSICIAN Family Medicine
DX: L03.115 Cellulitis of right lower limb (principal); I50.33 Acute on chronic diastolic (congestive) heart failure; I13.0 Hypertensive heart and chronic kidney disease with heart failure and stage 1 through stage 4 chronic kidney disease, or unspecified chronic kidney disease; N17.9 Acute kidney failure, unspecified; R73.03 Prediabetes; E78.00 Pure hypercholesterolemia, unspecified; F32.A Depression, unspecified; F41.9 Anxiety disorder, unspecified; G25.81 Restless legs syndrome; N18.31 Chronic kidney disease, stage 3a; I08.3 Combined rheumatic disorders of mitral, aortic and tricuspid valves; D64.9 Anemia, unspecified; K21.9 Gastro-esophageal reflux disease without esophagitis; I73.9 Peripheral vascular disease, unspecified; I27.20 Pulmonary hypertension, unspecified; R33.9 Retention of urine, unspecified; J44.9 Chronic obstructive pulmonary disease, unspecified; M19.90 Unspecified osteoarthritis, unspecified site; Z96.651 Presence of right artificial knee joint; Z96.611 Presence of right artificial shoulder joint; Z96.612 Presence of left artificial shoulder joint; Z87.891 Personal history of nicotine dependence; Z79.82 Long term (current) use of aspirin; Z79.51 Long term (current) use of inhaled steroids; Z88.0 Allergy status to penicillin; Z91.148 Patient's other noncompliance with medication regimen for other reason; Z89.429 Acquired absence of other toe(s), unspecified side
CPT/HCPCS: 71046; 76775; 80048; 80053; 82607; 82728; 83540; 83550; 83605; 83735; 83880; 84443; 84484; 85025; 87040; 87070; 93005; 93971; 94640; 97116; 97163; 97166; 97530; 97535; 99285

== ENCOUNTER → 2024-04-06 11:43 | Outpatient (REF) | payer OTHER, SELFPAY ==
[2024-04-06 12:57] LABS: Hematocrit 31.3 % (37.0-47.0); Hemoglobin 10.1 g/dL (12.0-16.0); Mean Corp Hgb Conc. 32.3 g/dL (33.0-37.0); Mean Corpuscular Hgb 30.6 pg (27.0-31.0); Mean Corpuscular Volume 94.8 fL (81.0-99.0); Mean Platelet Volume 10.3 fL (7.4-10.4); Platelet Count 280 10^3/uL (130-400); Red Cell Dist. Width 12.7 % (11.5-14.5); White Blood Cell Count 9.3 10^3/uL (4.8-10.8)
[2024-04-06 13:37] LABS: ALT (SGPT) 38 U/L (0-35); AST (SGOT) 31 U/L (14-36); Albumin 3.4 g/dl (3.5-5.0); Alkaline Phosphatase 102 U/L (38-126); Blood Urea Nitrogen 27 mg/dl (7-17); Calcium 9.1 mg/dl (8.4-10.2); Carbon Dioxide 31 mmol/L (22-30); Chloride 101 mmol/L (98-107); Glucose 96 mg/dl (70-99); Potassium 4.5 mmol/L (3.5-5.1); Sodium 138 mmol/L (135-145); Total Bilirubin 0.4 mg/dl (0.2-1.3); Total Protein 6.4 g/dl (6.3-8.2); eGFR > 60.00
== END ==
LOC: OLABWHC 11:43
PROVIDERS: ATTENDING PHYSICIAN Family Medicine
DX: I50.33 Acute on chronic diastolic (congestive) heart failure (principal); L03.115 Cellulitis of right lower limb; D64.9 Anemia, unspecified
CPT/HCPCS: 36415; 80053; 85027

== ENCOUNTER → 2024-05-12 10:08 | Outpatient (REF) | payer OTHER, SELFPAY ==
[2024-05-12 11:24] LABS: % Basophils 0.5 % (0-2); % Eosinophils 5.6 % (0-6); % Immature Granulocytes 0.3 % (0-0.5); % Lymphocytes 12.2 % (20.5-51.1); % Monocytes 11.7 % (1.7-9.3); % Neutrophils 69.7 % (42.2-75.2); Absolute Basophils 0.1 10^3/uL (0-0.2); Absolute Eosinophils 0.5 10^3/uL (0-0.7); Absolute Lymphocytes 1.2 10^3/uL (1.2-3.4); Absolute Monocytes 1.1 10^3/uL (0.1-0.6); Absolute Neutrophils 6.7 10^3/uL (1.4-6.5); Hematocrit 31.2 % (37.0-47.0); Hemoglobin 9.9 g/dL (12.0-16.0); Mean Corp Hgb Conc. 31.7 g/dL (33.0-37.0); Mean Corpuscular Hgb 29.6 pg (27.0-31.0); Mean Corpuscular Volume 93.4 fL (81.0-99.0); Mean Platelet Volume 10.1 fL (7.4-10.4); Nucleated Red Blood Cells % 0 %; Platelet Count 320 10^3/uL (130-400); Red Blood Cell Count 3.34 10^6/uL (4.20-5.40); Red Cell Dist. Width 13.8 % (11.5-14.5); White Blood Cell Count 9.6 10^3/uL (4.8-10.8)
[2024-05-12 11:44] LABS: ALT (SGPT) 19 U/L (0-35); AST (SGOT) 25 U/L (14-36); Albumin 4.4 g/dl (3.5-5.0); Alkaline Phosphatase 111 U/L (38-126); Blood Urea Nitrogen 25 mg/dl (7-17); Calcium 9.7 mg/dl (8.4-10.2); Carbon Dioxide 26 mmol/L (22-30); Chloride 103 mmol/L (98-107); Glucose 103 mg/dl (70-99); Potassium 4.9 mmol/L (3.5-5.1); Sodium 140 mmol/L (135-145); Total Bilirubin 0.5 mg/dl (0.2-1.3); Total Protein 7.4 g/dl (6.3-8.2); eGFR > 60.00
== END ==
LOC: OLABWIL 10:08
PROVIDERS: ATTENDING PHYSICIAN Family Medicine
DX: I50.21 Acute systolic (congestive) heart failure (principal); D64.9 Anemia, unspecified
CPT/HCPCS: 36415; 80053; 85025

== ENCOUNTER 2024-05-15 21:44 | Inpatient (IN) | payer OTHER, SELFPAY ==
[2024-05-15] VITALS (8 sets, daily range): BP systolic 124–152; BP diastolic 38–106; BMI 30.1
[2024-05-15 17:51] LABS: % Basophils 0.6 % (0-2); % Eosinophils 4.8 % (0-6); % Immature Granulocytes 0.3 % (0-0.5); % Neutrophils 79.3 % (42.2-75.2); Absolute Basophils 0.1 10^3/uL (0-0.2); Absolute Eosinophils 0.5 10^3/uL (0-0.7); Absolute Lymphocytes 0.6 10^3/uL (1.2-3.4); Absolute Monocytes 0.9 10^3/uL (0.1-0.6); Absolute Neutrophils 7.5 10^3/uL (1.4-6.5); Hematocrit 29.2 % (37.0-47.0); Hemoglobin 9.9 g/dL (12.0-16.0); Mean Corp Hgb Conc. 33.9 g/dL (33.0-37.0); Mean Corpuscular Volume 88.5 fL (81.0-99.0); Mean Platelet Volume 10.5 fL (7.4-10.4); Nucleated Red Blood Cells % 0 %; Platelet Count 235 10^3/uL (130-400); White Blood Cell Count 9.4 10^3/uL (4.8-10.8)
--- NOTE | 2024-05-15 18:04 | ED.GENMED ---
History of Present Illness
General
Chief Complaint: Weakness
Source: patient
Exam Limitations: none
Time Seen by Provider: 05/15/24 17:34
Nursing documentation reviewed up to this point in time: agreed with
History of Present Illness
History of Present Illness:
78-year-old female lives alone presents for weakness inability to ambulate states she can move her legs but cannot move her feet onset a few weeks ago worsened recently scheduled to see a neurologist next month has been on Bactrim for cellulitis of
her legs right leg is improved left leg still swollen denies any pain no fever no chest pain no shortness of breath
Past History
Past History
ED Past Medical History: CHF, COPD, HTN, Hypercholesterolemia, Psychiatric (Anxiety, Depression) and Other (OA, Restless leg syndrome, Incontinence)
ED Past Surgical History: Orthopedic (Mati second Toe amputation, Right Total knee replacement, Right shoulder replacement, Mati carpal tunnel) and Other (cataracts, )
PSI?: No
Social History
Tobacco: Former smoker
Alcohol: Occasional
Drug: None
Personal:
Living: assisted living
Employment: Retired
Review of Systems
Review of Systems
All Other Systems: Not applicable
Constitutional: Denies fever or fatigue
Respiratory: Reports no symptoms
Cardiac: Reports no symptoms
ABD/GI: Reports no symptoms
: Reports no symptoms
Musculoskeletal: Reports joint swelling and edema
Skin: Reports no symptoms
Neurological: Reports weakness
Psychiatric: Reports no symptoms
Phy Exam
Physical Exam
Physical Exam:
Physical Exam
General: no apparent distress, not acutely ill
Neck: No jaundice
Heart: s1/s2 regular rate and rhythm, no murmur. equal radial pulses.
Lungs: no acute respiratory distress. clear bilaterally
Abdomen: Nontender
Neuro: Oriented x 3 globally weak able to lift her legs off the bed
Skin: no rash
Psychiatric: well kept. interactive and cooperative
Extremities: Warmth redness of the right lower extremity warmth redness and swelling left lower extremity hammertoes bilateral feet
Course
Orders/Labs/Results
Orders:
Orders
05/15/24 17:34
Basic Metabolic Panel Urgent
C-Reactive Protein Urgent
Comment: ADD ON
Complete Blood Count/With Diff Urgent
Erythrocyte Sed Rate Urgent
Comment: ADD ON
NT-proBNP Urgent
Comment: add on
05/15/24 18:02
US Periph Venous LOWER Ext LT Urgent
Comment:
Reason For Exam: swelling
05/15/24 18:03
Add On- LAB Urgent
Tests Added?: esr/crp
CT Head W/o Iv Contrast Urgent
Comment:
Reason For Exam: leg weakness
Foot, Left 3 View [CR Foot - Left Min 3 Views] Urgent
Comment:
Reason For Exam: swelling
Foot, Right 3 View [CR Foot - Right Min 3 Views] Urgent
Comment:
Reason For Exam: swelling
05/15/24 18:50
CeFAZolin 2 GRAM [Ancef] 2 grams in 10 ml IV NOW
05/15/24 18:51
Add On- LAB Urgent
Tests Added?: pBNP
Electrocardiogram (*1) Urgent
Reason for Study: Abnormal EKG
EKG- Treatment ONCE
CR Chest - 2 Views Urgent
Comment:
Reason For Exam: weakness
05/15/24 20:01
Furosemide [Lasix] 40 mg IV NOW STA
Abnormal Lab Results
05/15/24
17:34
RBC 3.30 L 10^6/uL
(4.20-5.40)
Hgb 9.9 L g/dL
(12.0-16.0)
Hct 29.2 L %
(37.0-47.0)
MPV 10.5 H fL
(7.4-10.4)
Absolute Neuts (auto) 7.5 H 10^3/uL
(1.4-6.5)
Absolute Lymphs (auto) 0.6 L 10^3/uL
(1.2-3.4)
Absolute Monos (auto) 0.9 H 10^3/uL
(0.1-0.6)
Neutrophils % 79.3 H %
(42.2-75.2)
Lymphocytes % 6.0 L %
(20.5-51.1)
ESR > 145 H mm/hour
(0-20)
BUN 24 H mg/dl
(7-17)
Glucose 107 H mg/dl
(70-99)
C-Reactive Protein 58.20 H mg/L
(0.0-10.00)
05/15/24 17:34
05/15/24 17:34
Vital Signs
Initial and Last Documented VS:
Initial Vital Signs
Temp Pulse Resp BP Pulse Ox
99.5 F 86 18 152/61 94
05/15/24 15:49 05/15/24 15:49 05/15/24 15:49 05/15/24 15:49 05/15/24 15:49
Last Documented Vital Signs
Temp Pulse Resp BP Pulse Ox
99.5 F 86 18 152/61 94
05/15/24 15:49 05/15/24 15:49 05/15/24 15:49 05/15/24 15:49 05/15/24 17:11
MDM/Problems Addressed
Differential Diagnosis Includes:
Deconditioning central process medication effect electrolyte abnormality osteomyelitis other
MDM/Problems Addressed:
Weakness cellulitis
Chronic conditions affecting care:
Cellulitis deconditioning
Acute Exacerbation and/or Progression of Chronic Illness: HTN
*Radiology
Radiology exam reviewed: preliminary read by ED provider
*Pulse Oximetry
Patient hypoxic: no
*EKG
Interpreted by ED Provider?: Yes
Interpretation: abnormal
Comparison EKG: no comparison EKG present
Heart Rate: 78
Rate: normal
Rhythm: sinus
Ischemia: non-specific ST changes
*Licensed Professional Counselor Interpretation
Rate: normal
Interpretation: normal
Heart Rate: 78
Rhythm: sinus
*Critical Care Note
Total Time (30-74mins, 75-104mins- exclusive of procedures): Not Applicable
Update Note
Update Note:
Update, patient cellulitis been on Bactrim perhaps this explains some of her difficulty ambulating although she states this morning her feet will check inflammatory markers CT of the head ultimately I believe it is probably unsafe to send her home
as she cannot walk
8:20 PM labs noted images noted reports noted proBNP noted give a dose of diuretic will require admission
ED Attending Note
-
Portions of this chart may have been created with voice recognition software.� Occasional wrong word or��sound alike� substitutions may have occurred due to the inherent limitations of voice recognition software.
Discharge Plan
Departure
Patient Disposition: Admit
Date of Disposition: 05/15/24
Time of Disposition: 20:19
Admit to: Telemetry
Presentation/result/management discussed w/ accepting MD/DO: Hospitalist
Patient with high blood pressure during this ER visit?: Yes
Condition: Fair
Discharge Problem:
Cellulitis, Chronic diastolic (congestive) heart failure, Venous stasis, Anemia
Prescriptions:
No Action
atorvastatin 20 mg tablet
20 mg PO DAILY
escitalopram oxalate 10 mg tablet
10 mg PO DAILY
cholecalciferol (vitamin D3) 25 mcg (1,000 unit) Tablet
500 unit PO DAILY Qty: 0 0RF
cyanocobalamin (vitamin B-12) 1,000 mcg Tablet
1,000 mcg PO DAILY Qty: 0 0RF
diclofenac sodium 1 % Gel
2 g TOPICAL DAILY PRN (Reason: right shoulder pain post op)
famotidine 20 mg tablet
20 mg PO DAILY
aspirin 81 mg Tablet,Delayed Release (Dr/Ec)
81 mg PO HS
gabapentin 100 mg capsule
100 mg PO HS
fluticasone propionate 50 mcg/actuation spray,suspension
2 spray INTRANASAL DAILY PRN (Reason: seasonal allergies)
albuterol sulfate 90 mcg/actuation HFA aerosol inhaler
2 puff inhalation Q6H PRN (Reason: shortness of breath or wheezing) Qty: 8.5 0RF
cephalexin 500 mg Capsule
500 mg PO QID Qty: 24 0RF
Rx Instructions:
Last day April 09
lorazepam 1 mg Tablet
1 mg PO HS Qty: 3 0RF
furosemide 40 mg Tablet
40 mg PO DAILY Qty: 0 0RF
polyethylene glycol 3350 [HealthyLax] 17 gram Powder In Packet
17 g PO DAILYPRN PRN (Reason: constipation) Qty: 0 0RF
ropinirole 1 mg Tablet
1 mg PO TID Qty: 0 0RF
sennosides-docusate sodium [Stool Softener-Stimulant Laxat] 8.6-50 mg Tablet
1 tab PO BIDPRN PRN (Reason: constipation) Qty: 0 0RF
metoprolol succinate 25 mg Tablet Extended Release 24 Hr
12.5 mg PO BID Qty: 0 0RF
Referrals:
Kadi Frederick MD [Family Provider] -
Interventions
Interventions:
*Risk Screen - Suicide Last Done: 05/15/24 17:11
*General Assessment Last Done: 05/15/24 15:49
*Neglect/Abuse Screening Last Done: 05/15/24 17:11
ED- Fall Risk Assessment Last Done: 05/15/24 17:11
*ED COVID-19 Vaccine History Last Done: 05/15/24 15:49
ED- Cardiac Assessment Last Done: 05/15/24 17:11
ED- Neurological Assessment Last Done: 05/15/24 17:11
ED- Pulmonary Assessment Last Done: 05/15/24 17:11
Discharge Date and Time
Print Language: CROATIAN
[2024-05-15 18:28] LABS: Blood Urea Nitrogen 24 mg/dl (7-17); Calcium 9.6 mg/dl (8.4-10.2); Carbon Dioxide 23 mmol/L (22-30); Chloride 100 mmol/L (98-107); Glucose 107 mg/dl (70-99); Sodium 136 mmol/L (135-145); eGFR 56.95
[2024-05-15 19:29] LABS: Erythrocyte Sed Rate > 145 mm/hour (0-20)
[2024-05-15 19:30] LABS: NT-proBNP 1110 pg/ml
[2024-05-15] MEDS: ANCEF 10 IV (19:53)
[2024-05-15] MEDS: LASIX 40 MG IV (20:29)
--- NOTE | 2024-05-15 20:44 | EDRN ---
Report received, introduced myself to patient, she is incontinent to urine, cleaned patient up and placed purwick in place and hoked to suction as we are giving lasix and she can not ambulate, patient aware getting admitted, patient does have a low
grade temp, will le the physician know of temp. patient feels well, pulled up in bed and call buckley in reach.
--- NOTE | 2024-05-15 21:02 | HPS.HSE ---
Addendum entered and electronically signed by Arturo Oliva DO 05/15/24 23:30:
Patient seen and examined independently. Agree with findings and plan as set forth by MANDA Lund.
Patient is an 78y F with PMH significant for CHF, COPD, hypertension and anxiety / depression who presents to ED complaining of worsening weakness and inability to walk. Patient reports redness in both legs - but not much in the way of pain.
She states that her legs feel 'stiff' and she has been unable to walk at all. Patient notes that the LLE > RLE is red and itchy. She reports having multiple episodes of cellulitis in the past.
Patient was placed on Bactrim as an outpatient, but has noted no significant improvement in her symptoms.
Ass:
Bilateral LE Cellulitis / Inflammatory Process
Acute on Chronic HFpEF
COPD with Acute Exacerbation
Benign Hypertension
Anemia of Chronic Disease
RLS
GERD
Plan:
Admit for further evaluation and treatment.
Continue IV Ancef for now - febrile to 100.7 in the ED.
Note markedly elevated ESR / CRP (prior elevations nearly as significant).
Trial of PO prednisone and follow for improvement.
Also follow for improvement in wheezing appreciated on exam / mild COPD exac.
IV Lasix daily for now and follow I/Os, daily weights, etc.
PT / OT evaluations.
Follow for clinical improvement.
Original Note:
Family Physician
-
Family Physician: Kadi Frederick MD
Chief Complaint
-
weakness
History of Present Illness
78-year-old with past medical history for CHF, COPD, hypertension, hyperlipidemia, anxiety, depression, restless leg syndrome presented to us with progressively worsening weakness. Today patient was not able to walk. She was noted to have right
lower extremities swelling and redness. She is on Bactrim for right lower extremity cellulitis. On Saturday she noticed left lower extremity is redness and swelling. Patient stated it is very itchy. Denied any trauma. Patient stated mild
worsening of her short of breath. Denied weight gain. Patient stated some dizziness. Denied headache or syncopal episode. Patient denied chest pain, runny nose, congestion, cough. Patient denied abdominal pain, nausea, vomiting, diarrhea.
Patient denied dysuria hematuria.
Patient was treated with Ancef in ER. Patient also received a dose of Lasix in ER. Admitting for further management
Medical History
Past Medical History
Past Medical History: Reports Other
Additional Past Medical History:
Heart failure
Depression
Restless leg syndrome
Peripheral neuropathy
Anxiety disorder
Peripheral artery disease
Lumbar degenerative disc disease
Hyperlipidemia
COPD
Past Surgical History: Reports Other
Additional Past Surgical History:
Amputation of bilateral toe
Social History
Tobacco: Former Smoker
Alcohol: None
Drug: None
Personal: Single
Living: Alone
Family History
Family History: Not pertinent
Allergies / Home Medications
Allergies reflects when Allergies were last updated in [employer].
Home Medications with original date entered in [employer]
Allergy/Medication List:
Allergies
Allergy/AdvReac Type Severity Reaction Status Date / Time
Penicillins Allergy Swelling Verified 05/15/24 15:53
Home Medications
atorvastatin 20 mg tablet 20 mg PO DAILY High cholesterol 05/22/22
escitalopram oxalate 10 mg tablet 10 mg PO DAILY Depression 05/22/22
cholecalciferol (vitamin D3) 25 mcg (1,000 unit) tablet 500 unit PO DAILY Supplement #0 tabs 07/08/22
cyanocobalamin (vitamin B-12) 1,000 mcg tablet 1,000 mcg PO DAILY defeciancy #0 tabs 07/08/22
albuterol sulfate 90 mcg/actuation aerosol inhaler 2 puff inhalation Q6H PRN shortness of breath or wheezing #8.5 grams 09/04/23
aspirin 81 mg tablet,delayed release 81 mg PO HS Blood Clot Prevention/Tx 09/04/23
diclofenac sodium 1 % topical gel 2 g topical DAILY PRN right shoulder pain post op 09/04/23
famotidine 20 mg tablet 20 mg PO DAILY Gastrointestinal Issue 09/04/23
fluticasone propionate 50 mcg/actuation nasal spray,suspension 2 spray intranasal DAILY PRN seasonal allergies 09/04/23
gabapentin 100 mg capsule 100 mg PO HS neuropathic pain, anxiety, sleep, shoulder pain 09/04/23
cephalexin 500 mg capsule 500 mg PO QID #24 caps 04/03/24
furosemide 40 mg tablet 40 mg PO DAILY #0 tabs 04/03/24
lorazepam 1 mg tablet 1 mg PO HS #3 tabs 04/03/24
metoprolol succinate 25 mg tablet,extended release 24 hr 12.5 mg (1/2 x 25 mg) PO BID #0 tabs 04/03/24
polyethylene glycol 3350 17 gram oral powder packet (HealthyLax) 17 g PO DAILYPRN PRN constipation #0 ea 04/03/24
ropinirole 1 mg tablet 1 mg PO TID #0 tabs 04/03/24
sennosides 8.6 mg-docusate sodium 50 mg tablet (Stool Softener-Stimulant Laxative) 1 tab PO BIDPRN PRN constipation #0 tabs 04/03/24
Review of Systems
-
Constitutional: Reports No Symptoms
EENT: Reports No Symptoms
Respiratory: Reports Trouble Breathing
Cardiac: Reports No Symptoms
Abdomen/GI: Reports No Symptoms
: Reports No Symptoms
Musculoskeletal: Reports Edema (Lower extremities edema and redness)
Skin: Reports No Symptoms
Neurological: Reports No Symptoms
Endocrine: Reports No Symptoms
Hematologic/Lymphatic: Reports No Symptoms
Psych: Reports No Symptoms
Physical Exam
Vital Signs
Vital Signs
Temp Pulse Resp BP Pulse Ox
100.7 F H 73 20 147/54 94
05/15/24 20:44 05/15/24 20:44 05/15/24 20:44 05/15/24 20:44 07/12/24 20:44
Physical Exam
General: Well Developed, Well Nourished and No Apparent Distress
HEENT: NormoCephalic, Moist mucous membranes and Atraumatic
Respiratory: Wheezes and Rales
Cardiac: S1/S2 and Regular Rhythm; No Murmur or Rub
GI: Soft, Non Tender, Non Distended and Normal Bowel Sounds; No Organomegaly
Rectal: Deferred by Provider
Musculoskeletal: Other (Bilateral lower extremities edema. Left greater than right)
Skin: Rash and Other (Bilateral lower extremities redness)
Neuro: AO x 3 and Nonfocal/grossly intact
Psych: Calm
Laboratory Results
-
05/15/24 17:34
05/15/24 17:34
Laboratory Results
Total Bilirubin Cancelled 05/15/24 17:34
AST Cancelled 05/15/24 17:34
ALT Cancelled 05/15/24 17:34
Alkaline Phosphatase Cancelled 05/15/24 17:34
Data Reviewed
-
Lab Data: Labs Reviewed by me
Impression/Plan
-
# Bilateral lower extremity cellulitis
-Failed outpatient therapy
-ESR 145, CRP 58.20
- fever of 100.7
-IV Ancef continued
-Tylenol as needed for fever
# Acute on chronic congestive heart failure
-Not in acute exacerbation
-Strict [place], daily weight
-BNP 1110
-Chest x-ray with no acute cardiopulmonary process
-IV Lasix continued
# Anemia of chronic disease
-Hemoglobin stable at 9.9
-No active bleeding
-Will continue to monitor
# COPD exacerbation
-Wheezing on auscultation
-Albuterol as needed for short of breath and wheezing
-Continue to monitor
-Oxygenating very well on room air
#Essential hypertension:
-BP soft in ER
-Hold metoprolol
#Hyperlipidemia:
Continue statin, atorvastatin 20 mg p.o. nightly
#Depression anxiety:
-Cont antidepressants, citalopram 20 mg daily, lorazepam
#GERD
-Famotidine
#Restless leg syndrome:
-Continue Requip 1 mg p.o. 3 times daily and gabapentin
#DVT prophylaxis:
-Lovenox
CODE STATUS:
Full code
--- NOTE | 2024-05-15 22:25 | EDRN ---
Patient with low grade temp, tiger texted hospitalist and medicated, patient also asking about something to eat, provided turkey sandwich for patient, resting comfortably and aware waiting on a bed at this time.
[2024-05-15] MEDS: TYLENOL 650 MG PO (22:44)
--- NOTE | 2024-05-15 23:28 | EDRN ---
Report sent upstairs
[2024-05-15] MEDS: DELTASONE 40 MG PO (23:50)
[2024-05-16] VITALS (7 sets, daily range): BP systolic 109–146; BP diastolic 52–67; BMI 29.9
[2024-05-16] MEDS: ASPIR LOW (ENTERIC COATED) 81 MG PO ×2 (01:01→21:25)
[2024-05-16] MEDS: NEURONTIN 100 MG PO ×2 (01:01→21:25)
[2024-05-16] MEDS: REQUIP 1 MG PO ×4 (01:01→21:25)
[2024-05-16] MEDS: ATIVAN 1 MG PO ×2 (01:01→21:25)
--- NOTE | 2024-05-16 01:50 | PTCARENOTE ---
Receive pt from ER. Pt alert oriented X3, calm and pleasant. Pt states she can't walk, but denies any pain in her legs or feet. Pt pulled over to her bed from the stretcher. Pt oriented to the room, call buckley within reach. Pt on NSR on telemonitor.
VSS (T=98.1, HR=79, RR=20, IX=057/67, SpO2=95% on RA). Pt's legs are red, but no open wounds. Pt denies pain, denies SOB, but states she does have restless leg. Pt is incontinent for urine, purewick in place. Will continue to monitor the pt.
[2024-05-16] MEDS: ANCEF 5 IV ×3 (04:36→20:06)
[2024-05-16 06:58] LABS: Hematocrit 28.7 % (37.0-47.0); Hemoglobin 9.4 g/dL (12.0-16.0); Mean Corp Hgb Conc. 32.8 g/dL (33.0-37.0); Mean Corpuscular Hgb 30.3 pg (27.0-31.0); Mean Corpuscular Volume 92.6 fL (81.0-99.0); Mean Platelet Volume 10.2 fL (7.4-10.4); Platelet Count 245 10^3/uL (130-400); Red Cell Dist. Width 13.6 % (11.5-14.5); White Blood Cell Count 8.3 10^3/uL (4.8-10.8)
[2024-05-16 07:12] LABS: ALT (SGPT) 16 U/L (0-35); AST (SGOT) 21 U/L (14-36); Albumin 3.7 g/dl (3.5-5.0); Alkaline Phosphatase 96 U/L (38-126); Blood Urea Nitrogen 26 mg/dl (7-17); Calcium 8.9 mg/dl (8.4-10.2); Carbon Dioxide 28 mmol/L (22-30); Chloride 100 mmol/L (98-107); Direct Bilirubin 0.3 mg/dl (0.0-0.4); Estimated Creatinine Clearance 38 ml/min; Glucose 132 mg/dl (70-99); HDL Cholesterol 61 mg/dl; LDL Cholesterol, Calculated 52 mg/dl; Magnesium 2.2 mg/dl (1.6-2.3); Sodium 137 mmol/L (135-145); Total Bilirubin 0.5 mg/dl (0.2-1.3); Total Cholesterol 128 mg/dl (50-199); Total Protein 6.5 g/dl (6.3-8.2); Triglyceride 76 mg/dl (10-149); Very Low Density Lipoprotein 15 mg/dl (0-30); eGFR 45.76
[2024-05-16 07:43] LABS: TSH Reflex To Free T4 0.69 uIU/ml (0.47-4.68)
[2024-05-16] MEDS: LIPITOR 20 MG PO (08:35)
[2024-05-16] MEDS: LEXAPRO 10 MG PO (08:36)
[2024-05-16] MEDS: DELTASONE 40 MG PO (08:36)
[2024-05-16] MEDS: PEPCID 20 MG PO (08:36)
--- NOTE | 2024-05-16 10:49 | W.PN.HOSP.TC ---
Today's Communication/Plan
-
see A/P
Assessment / Plan
Assessment / Plan
HPI: 78 yo F with PMH significant for CHF, COPD, hypertension and anxiety / depression who presented to ED complaining of worsening weakness and inability to walk. Patient reports redness in both legs - but not much in the way of pain. She
states that her legs feel 'stiff' and she has been unable to walk at all. Patient notes that the LLE > RLE is red and itchy. She reports having multiple episodes of cellulitis in the past.
Patient was placed on Bactrim as an outpatient, but has noted no significant improvement in her symptoms.
A/P:
# Sepsis POA 2/2 Bilateral LE Cellulitis / Inflammatory Process
Febrile to 100.7 in the ED.
Continue IV Ancef for now
Note markedly elevated ESR > 145, and CRP at 58
Pt was started with trial of PO prednisone, follow for improvement.
Check BL LE US for DVT eval
Check TSH, B12 level
PT / OT evaluations.
Neuro CS for her complaint of inability to walk
# Acute on Chronic HFpEF
BNP 1110 on admission
Chest x-ray with no acute cardiopulmonary process
SCr 1.2 today from 1.0 on admission
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
Trend SCr
# COPD with Acute Exacerbation
Wheezing resolved
# Benign Hypertension
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
# Anemia of Chronic Disease
# RLS
Requip 1 mg p.o. 3 times daily and gabapentin
# GERD
#Hyperlipidemia
Continue statin, atorvastatin 20 mg p.o. nightly
DVT prophylaxis: Lovenox
CODE STATUS: Full code
Anticipated Discharge: > 48 hours
Subjective/Interval History
-
Date of Service: May 16, 2024
Objective Data
-
Labs:
Laboratory Results
05/16/24
05:52
WBC 8.3
Hgb 9.4 L
Hct 28.7 L
Plt Count 245
Sodium 137
Potassium 4.0
Chloride 100
Carbon Dioxide 28
BUN 26 H
Creatinine 1.2 H
Glucose 132 H
Calcium 8.9
Total Bilirubin 0.5
AST 21
ALT 16
Alkaline Phosphatase 96
Vital Signs:
Vital Signs
Temp Pulse Resp BP Pulse Ox
36.3 C 71 14 143/52 94
05/16/24 07:00 05/16/24 07:00 05/16/24 07:00 05/16/24 07:00 05/16/24 08:15
I&O
05/15/24 05/16/24 05/17/24
06:59 06:59 06:59
Output Total 1550 / 1550
Balance -1550 / -1550
Review of Systems
-
Constitutional: Reports Weakness and Other (inability to walk)
Skin: Reports Rash (BL LE cellulitis)
Physical Exam
-
General: Well Developed, Well Nourished, Comfortable and Conversant
HEENT: Normocephalic, Atraumatic, Nose Appears Normal and Ears Appear Normal
Respiratory: Clear to Auscultation and Non Labored Respirations; Negative Accessory Resp Muscle Use
Cardiac: Regular Rhythm and S1/S2
GI: Soft, Nontender, Nondistended and Normal Bowel Sounds
Musculoskeletal: No Edema, Edema, Right Lower Extrem (mild) and Edema, Left Lower Extrem (mild)
Skin: Warm and Dry
Neuro: Awake, Alert and Oriented
Psych: Calm and Intact Judgement/Insight
Data Reviewed
-
Labs: Labs Reviewed by me
[2024-05-16 12:52] LABS: Vitamin B12 789 pg/ml (239-931)
[2024-05-16] MEDS: LOVENOX 40 MG SC (17:47)
--- NOTE | 2024-05-16 17:50 | CON.NEURO4 ---
Consultation - Neurology 4
-
CONSULTING PHYSICIAN: Patel Ayala MD(Neurology)
REFERRING PHYSICIAN: Hospitalist
DICTATED BY: Patel Ayala MD
DATE/TIME OF REQUEST: 05/16/2024
DATE/TIME OF CONSULTATION: 05/16/2024 1315
Reason for Consultation: Difficulty walking
History of Present Illness:
This is a 78 year old right handed female who has presented to the hospital with chief complaint of cellulitis in her legs. She gives a h/o GERD, HTN, Cellulitis in her legs (2-3 weeks), Acute on Chronic heart failure with pEF, COPD with Acute
Exacerbation, anemia of chronic disease and subsequent RLS, who has been having LBP with pain radiating into her legs (R>L) with numbness in her feet (R>L). She has difficulty standing and walking
At the time of her admission she was febrile and she was placed on IV Cefazolin
Past Medical History: As above
Surgical History: Cervical ACDF, Toe Amputation
Family History: [place]
Social History: Lives at home. Quit smoking
Allergies: PCN
Home Medications:See addendum
Review of Symptoms:
Patient denies headache, chest pain , GI or symptoms.
�Per the HPI.�All systems are reviewed negative except above.
�-
Vital Signs:
The patient has a Temp 37.4 C Pulse 82 Resp 18 BP 109/57 Pulse Ox 91
Physical Exam:
The patient is afebrile, heart sounds S1 and S2 are regular , and chest is clear to auscultation bilaterally. LE erythematous
Neurologic Examination:
The patient is awake, alert and oriented x 3. (He/She) is able to follow commands and answer questions appropriately. There is no aphasia or dysarthria. On cranial nerve assessment, pupils are 3 mm bilateral, round and reactive to light and
accommodation. Visual thaap are full. Extraocular movements are intact. Facial sensations are intact and bilaterally symmetrical, there is no facial asymmetry. Hearing is intact bilaterally to normal conversation volume. Tongue palate and uvula
are midline. Sternocleidomastoid strengths are full bilaterally.
Motor strengths are 5/5 bilateral upper extremities. Strength LEs:Distally 3+/5, proximal :4/5. There is no drift or involuntary movement noted.
Deep tendon reflexes are + bilateral upper and lower extremities and Babinski is absent bilaterally.
Sensations of touch, temperature and vibration are decreased bilaterally asymmetrical with Right foot worse. Coordination is intact by finger to nose bilaterally.
Rombergs and Gait could not be tested as pat is bed bound. Pat able to sit up however needs assist to stand
Lab Results: Addendum
Neuro Imaging: CT head: Atrophy. Small vessel disease. Mild ventriculomegaly.
MRI Brain Sagittal view reveals post changes in C-Spine
Impression:
Mrs.JOANN HARDEN is a 78 year old F who has presented to the hospital with symptoms of cellulitis with sepsis with lower extremity weakness secondary to lumbar spondylosis with bilateral radiculopathy (R>L)
Differentials for the patient's presentation include:
1. Peripheral Neuropathy
Recommendations:
1. MRI Lumbar Spine
2. MRI C-Spine
3. PT/OT
4. B12
5. IV antibiotics
6. DVT prophylaxis
Discussed patient care with: Hospitalist
Total Time Spent with Patient (in minutes): 30
Medications
-
Active Medications
Generic Name Dose Route Start Last Admin
Trade Name Freq PRN Reason Stop Dose Admin
Albuterol/Ipratropium 3 ml 05/16/24 00:07
Ipratropium 0.5/Albuterol 3 Mg (3 Ml Ampul) INH
R Q4HPRN PRN
sob/wheezing
Protocol
Aspirin 81 mg 05/16/24 00:07 05/16/24 01:01
Aspirin 81 Mg (Enteric Coated) Tablet PO 06/13/24 00:06 81 mg
HS MEME Administration
Atorvastatin Calcium 20 mg 05/16/24 08:00 05/16/24 08:35
Atorvastatin (Lipitor) 20 Mg Tablet PO 06/13/24 07:59 20 mg
DAILY MEME Administration
Enoxaparin Sodium 40 mg 05/16/24 18:00 05/16/24 17:47
Enoxaparin Sodium 40 Mg/0.4 Ml Syringe SC 06/13/24 17:59 40 mg
QPM MEME Administration
Escitalopram Oxalate 10 mg 05/16/24 08:00 05/16/24 08:36
Escitalopram 10 Mg Tablet PO 06/13/24 07:59 10 mg
DAILY MEME Administration
Famotidine 20 mg 05/16/24 08:00 05/16/24 08:36
Famotidine 20 Mg Tablet PO 06/13/24 07:59 20 mg
DAILY MEME Administration
Gabapentin 100 mg 05/16/24 00:07 05/16/24 01:01
Gabapentin 100 Mg Capsule PO 06/13/24 00:06 100 mg
HS MEME Administration
Cefazolin Sodium 1 gram in 5 mls @ 60 mls/hr 05/16/24 04:00 05/16/24 13:10
Ancef IV 5 mls
Q8H MEME Administration
Lorazepam 1 mg 05/16/24 00:07 05/16/24 01:01
Lorazepam 1 Mg Tablet PO 06/13/24 00:06 1 mg
HS MEME Administration
Metoprolol Succinate 12.5 mg 05/16/24 20:00
Metoprolol 25 Mg Extended Release Tablet PO 06/13/24 19:59
BID MEME
Prednisone 40 mg 05/16/24 08:00 05/16/24 08:36
Prednisone 20 Mg Tablet PO 06/13/24 07:59 40 mg
DAILY MEME Administration
Ropinirole HCl 1 mg 05/16/24 00:07 05/16/24 16:33
Ropinirole 1 Mg Tablet PO 06/13/24 00:06 1 mg
TID MEME Administration
Sodium Chloride 0 flush 05/15/24 23:00
Sodium Chloride 0.9% (Flush) Syringe IV 06/12/24 22:59
PER PROTOCOL MEME
Home Medications
�Medication �Instructions �Recorded
atorvastatin 20 mg tablet 20 mg PO DAILY High cholesterol 05/22/22
escitalopram oxalate 10 mg tablet 10 mg PO DAILY Depression 05/22/22
cholecalciferol (vitamin D3) 25 500 unit PO DAILY Supplement #0 07/08/22
mcg (1,000 unit) tablet tabs
cyanocobalamin (vitamin B-12) 1,000 mcg PO DAILY defeciancy #0 07/08/22
1,000 mcg tablet tabs
albuterol sulfate 90 mcg/actuation 2 puff inhalation Q6H PRN 09/04/23
aerosol inhaler shortness of breath or wheezing
#8.5 grams
aspirin 81 mg tablet,delayed 81 mg PO HS Blood Clot 09/04/23
release Prevention/Tx
famotidine 20 mg tablet 20 mg PO DAILY Gastrointestinal 09/04/23
Issue
gabapentin 100 mg capsule 100 mg PO HS neuropathic pain, 09/04/23
anxiety, sleep, shoulder pain
furosemide 40 mg tablet 40 mg PO DAILY #0 tabs 04/03/24
lorazepam 1 mg tablet 1 mg PO HS #3 tabs 04/03/24
metoprolol succinate 25 mg 12.5 mg (1/2 x 25 mg) PO BID #0 04/03/24
tablet,extended release 24 hr tabs
polyethylene glycol 3350 17 gram 17 g PO DAILYPRN PRN constipation 04/03/24
oral powder packet (HealthyLax) #0 ea
ropinirole 1 mg tablet 1 mg PO TID #0 tabs 04/03/24
sennosides 8.6 mg-docusate sodium 1 tab PO BIDPRN PRN constipation 04/03/24
50 mg tablet (Stool #0 tabs
Softener-Stimulant Laxative)
Vital Signs and Labs
-
Vital Signs and Labs:
Vital Signs
Temp Pulse Resp BP Pulse Ox
37.4 C 82 18 109/57 91
05/16/24 15:00 05/16/24 15:00 05/16/24 15:00 05/16/24 15:00 05/16/24 15:00
Lab Results
05/16/24 05:52
05/16/24 05:52
Sodium 137 mmol/L (135-145) 05/16/24 05:52
Potassium 4.0 mmol/L (3.5-5.1) 05/16/24 05:52
BUN 26 mg/dl (7-17) H 05/16/24 05:52
Glucose 132 mg/dl (70-99) H 05/16/24 05:52
Calcium 8.9 mg/dl (8.4-10.2) 05/16/24 05:52
Wqe-A-Ssxvkxvvbpe Pept 1110 pg/ml 05/15/24 17:34
LDL Cholesterol, Calc 52 mg/dl 05/16/24 05:52
Vitamin B12 789 pg/ml (239-931) 05/16/24 05:52
--- NOTE | 2024-05-16 17:53 | PTCARENOTE ---
Received patient this am AAOx3. Pt turning and repositioning on own. Tolerated diet well. Offered no complaints. Made patient comfortable. Cont to assess patient status.
[2024-05-16] MEDS: TOPROL XL 12.5 MG PO (20:07)
[2024-05-16] MEDS: TYLENOL 650 MG PO (20:18)
[2024-05-17 03:26] VITALS: BP 138/73
[2024-05-17] MEDS: ANCEF 5 IV ×3 (03:43→20:25)
[2024-05-17 07:00] VITALS: BP 178/85
[2024-05-17 07:00] LABS: Hematocrit 28.6 % (37.0-47.0); Hemoglobin 9.3 g/dL (12.0-16.0); Mean Corp Hgb Conc. 32.5 g/dL (33.0-37.0); Mean Corpuscular Hgb 30.4 pg (27.0-31.0); Mean Corpuscular Volume 93.5 fL (81.0-99.0); Mean Platelet Volume 10.1 fL (7.4-10.4); Platelet Count 272 10^3/uL (130-400); Red Blood Cell Count 3.06 10^6/uL (4.20-5.40); Red Cell Dist. Width 13.5 % (11.5-14.5); White Blood Cell Count 7.3 10^3/uL (4.8-10.8)
[2024-05-17 07:12] LABS: Blood Urea Nitrogen 26 mg/dl (7-17); Calcium 9.3 mg/dl (8.4-10.2); Carbon Dioxide 30 mmol/L (22-30); Chloride 101 mmol/L (98-107); Estimated Creatinine Clearance 51 ml/min; Glucose 101 mg/dl (70-99); Potassium 3.8 mmol/L (3.5-5.1); Sodium 139 mmol/L (135-145); eGFR > 60.00
[2024-05-17] MEDS: PEPCID 20 MG PO (08:08)
[2024-05-17] MEDS: LEXAPRO 10 MG PO (08:09)
[2024-05-17] MEDS: REQUIP 1 MG PO ×3 (08:09→22:01)
[2024-05-17] MEDS: LIPITOR 20 MG PO (08:09)
[2024-05-17] MEDS: DELTASONE 40 MG PO (08:09)
[2024-05-17] MEDS: TOPROL XL 12.5 MG PO ×2 (08:09→20:25)
[2024-05-17] MEDS: LMX 4 1 APPLIC TOPICAL (08:40)
[2024-05-17 09:05] VITALS: BP 142/59; BP 168/81; PULSE 79; PULSE 90; O2SAT 95
--- NOTE | 2024-05-17 09:21 | W.PN.HOSP.TC ---
Today's Communication/Plan
-
see A/P
Assessment / Plan
Assessment / Plan
HPI: 78 yo F with PMH significant for CHF, COPD, hypertension and anxiety / depression who presented to ED complaining of worsening weakness and inability to walk. Patient reports redness in both legs - but not much in the way of pain. She
states that her legs feel 'stiff' and she has been unable to walk at all. Patient notes that the LLE > RLE is red and itchy. She reports having multiple episodes of cellulitis in the past.
Patient was placed on Bactrim as an outpatient, but has noted no significant improvement in her symptoms.
A/P:
# Sepsis POA 2/2 Bilateral LE Cellulitis / Inflammatory Process, LLE > RLE
Febrile at 100.7 on admission.
Continue IV Ancef for now
Note markedly elevated ESR > 145, and CRP at 58
Pt was started with trial of PO prednisone, follow for improvement. Could consider outpt Rheum eval
Check BL LE US for DVT eval
# Inability to walk/weakness likely due to lumbar radiculopathy per Neuro
Check MRI cervical and lumbar spine per Neuro
TSH 0.69, B12 level WNL 789
Pt was started with trial of PO prednisone, follow for improvement. Could consider outpt Rheum eval
Cont steroid injection with ortho outpatient
PT / OT evaluations.
Neuro on board
PT recc SNF
# Acute on Chronic HFpEF
BNP 1110 on admission
Chest x-ray with no acute cardiopulmonary process
s/p IV lasix, which was held due to increase in SCr, can resume [facility]IR[facility] ATTORNEY PO lasix 40 mg daily 05/18
Trend SCr
# COPD with Acute Exacerbation
Wheezing resolved
# Benign Hypertension
resume [facility]VIRONMENTAL ATTORNEY metoprolol
# Anemia of Chronic Disease
# RLS
Requip 1 mg p.o. 3 times daily and gabapentin
# GERD
# Hyperlipidemia
Continue statin, atorvastatin 20 mg p.o. nightly
DVT prophylaxis: Lovenox
CODE STATUS: Full code
Dispo: PT recc SNF
DW Neuro
Anticipated Discharge: 24 - 48 hours
Subjective/Interval History
-
Date of Service: May 17, 2024
Objective Data
-
Labs:
Laboratory Results
05/17/24
05:54
WBC 7.3
Hgb 9.3 L
Hct 28.6 L
Plt Count 272
Sodium 139
Potassium 3.8
Chloride 101
Carbon Dioxide 30
BUN 26 H
Creatinine 0.9
Glucose 101 H
Calcium 9.3
Vital Signs:
Vital Signs
Temp Pulse Resp BP Pulse Ox
36.7 C 75 18 178/85 97
05/17/24 07:00 05/17/24 07:00 05/17/24 07:00 05/17/24 07:00 05/17/24 07:00
I&O
05/16/24 05/17/24 05/18/24
06:59 06:59 06:59
Intake Total 480 / 480
Output Total 1550 / 1550 700 / 700
Balance -1550 / -1550 -220 / -220
Review of Systems
-
Constitutional: Reports Weakness and Other (inability to walk)
Skin: Reports Rash (BL LE cellulitis)
Physical Exam
-
General: Well Developed, Well Nourished, Comfortable and Conversant
HEENT: Normocephalic, Atraumatic, Nose Appears Normal and Ears Appear Normal
Respiratory: Clear to Auscultation and Non Labored Respirations; Negative Accessory Resp Muscle Use
Cardiac: Regular Rhythm and S1/S2
GI: Soft, Nontender, Nondistended and Normal Bowel Sounds
Musculoskeletal: No Edema, Edema, Right Lower Extrem (mild) and Edema, Left Lower Extrem (mild)
Skin: Warm and Dry
Neuro: Awake, Alert and Oriented
Psych: Calm and Intact Judgement/Insight
Data Reviewed
-
Labs: Labs Reviewed by me
[2024-05-17 11:00] VITALS: BP 141/64
--- NOTE | 2024-05-17 15:46 | CM ---
Attempted to meet twice for [place]
Off unit for testing
Pt from [place] with SNF recommendations
[2024-05-17 16:30] VITALS: BP 151/55
[2024-05-17] MEDS: LOVENOX 40 MG SC (16:59)
[2024-05-17] MEDS: TYLENOL 650 MG PO (20:34)
[2024-05-17] MEDS: ASPIR LOW (ENTERIC COATED) 81 MG PO (22:00)
[2024-05-17] MEDS: ATIVAN 1 MG PO (22:01)
[2024-05-17] MEDS: NEURONTIN 100 MG PO (22:01)
[2024-05-17 23:27] VITALS: BP 144/66
[2024-05-18] MEDS: ANCEF 5 IV ×3 (03:26→21:23)
[2024-05-18 06:25] LABS: Hematocrit 29.5 % (37.0-47.0); Hemoglobin 9.5 g/dL (12.0-16.0); Mean Corp Hgb Conc. 32.2 g/dL (33.0-37.0); Mean Corpuscular Hgb 30.5 pg (27.0-31.0); Mean Corpuscular Volume 94.9 fL (81.0-99.0); Mean Platelet Volume 10.1 fL (7.4-10.4); Platelet Count 291 10^3/uL (130-400); Red Blood Cell Count 3.11 10^6/uL (4.20-5.40); Red Cell Dist. Width 13.2 % (11.5-14.5)
[2024-05-18 06:57] LABS: Blood Urea Nitrogen 27 mg/dl (7-17); Calcium 9.2 mg/dl (8.4-10.2); Carbon Dioxide 29 mmol/L (22-30); Chloride 102 mmol/L (98-107); Estimated Creatinine Clearance 57 ml/min; Glucose 83 mg/dl (70-99); Potassium 4.1 mmol/L (3.5-5.1); Sodium 139 mmol/L (135-145); eGFR > 60.00
[2024-05-18 07:08] VITALS: BP 181/69
[2024-05-18] MEDS: DELTASONE 40 MG PO (08:07)
[2024-05-18] MEDS: PEPCID 20 MG PO (08:07)
[2024-05-18] MEDS: TOPROL XL 12.5 MG PO ×2 (08:07→21:22)
[2024-05-18] MEDS: LASIX 40 MG PO (08:08)
[2024-05-18] MEDS: LIPITOR 20 MG PO (08:08)
[2024-05-18] MEDS: REQUIP 1 MG PO ×3 (08:08→21:23)
[2024-05-18] MEDS: LEXAPRO 10 MG PO (08:09)
--- NOTE | 2024-05-18 08:16 | W.PN.NEURO.1 ---
Addendum entered and electronically signed by Jamie Li MD 05/18/24 13:12:
I saw and evaluated patient I reviewed note by Blank Mendoza agree to find the following comments:
78-year-old woman with past medical history of hyperlipidemia, obesity chronic ambulatory dysfunction after previous spinal surgery, peripheral neuropathy, anxiety, GERD presenting the hospital with sepsis due to cellulitis and new ambulatory
dysfunction.
Patient has longstanding amatory dysfunction and has used a walker for around 10 years after spinal surgery previously, also describes a history of peripheral neuropathy. Reports some pain when she walks but not at rest.
Neurologic examination remarkable for normal mental status and good strength in all lower extremities with normal hip flexion extension knee flexion and ankle dorsiflexion plantarflexion and toe extension bilaterally. Absent reflexes in the lower
extremities.
MRI C-spine and lumbar spine with no cord compression or intrinsic cord abnormality no neoplasms
Assessment: Most likely has had worsening ambulatory dysfunction due to the effects of cellulitis on top of person with significant gait impairment at baseline from previous spinal stenosis as well as chronic peripheral neuropathy.
Most correctable cause to her problem is treating cellulitis.
Recommendations
-Continue to treat cellulitis and monitor for edema
-Routine checks of vitamin B12 TSH
-Check EMG for thoroughness
-Not seeing indication for neurosurgical input
-Supportive care mobilization PT/OT
Original Note:
Today's Communication / Plan
-
.
Neuro Assessment/Plan
Assessment
This is an 78-year-old right-handed female who presented to on 05/15/24 with report of progressive bilateral lower extremity weakness/numbness, ambulatory dysfunction, and ongoing BLE cellulitis. Patient reports having chronic neck and lower back
pain. She endorses having a cervical laminectomy 10 years ago due to spinal stenosis and since then she has used a rolling walker for ambulation. Her gait dysfunction has progressively worsened over the years; she gave up her car 6 months ago due to
not being able to walk to the parking lot to access it. She lives in independent living in an apartment at [place].
-MRI Brain 03/18/24: Severe white matter leukoaraiosis in both cerebral hemispheres. Mild to moderate diffuse cerebral volume loss. Moderate distention of the ventricular system which is probably secondary to ex vacuo dilatation and less likely
normal pressure communicating hydrocephalus. Mild to moderate spinal cord compression and central canal stenosis at C2/C3 and mild spinal cord compression at C1/C2 and C3/C4. Previous multilevel laminectomies and anterior discectomy/fusion in the
cervical spine.
-MRI Cervical Spine 05/17/24: Postoperative and multilevel degenerative changes of the cervical spine as detailed, worst at C3-4 where disc and uncovertebral/facet disease contribute to mild to moderate spinal canal neural foraminal stenosis at this
level. No overt cord edema.
-MRI Lumbar Spine 05/17/24: Multilevel degenerative changes of the lumbar spine as detailed, worst at L3-4 and L4-5 where disc and facet disease contribute to severe spinal canal and moderate to severe neural foraminal stenosis at these levels.
Findings are overall not significantly changed from prior exam 12/05/2022.
I. Lumbar spine with moderate to severe neural foraminal stenosis at L3, L4, L5.
II. Peripheral neuropathy.
III. Peripheral arterial disease.
IV. Acute on chronic BLE cellulitis.
V. Chronic ambulatory dysfunction, progressively worsening.
Plan
-Routine EMG ordered/pending.
-PT/OT evaluations.
-Cellulitis treatment per primary team.
-DVT prophylaxis.
Subjective/Objective
Subjective Data
Date of Service: May 18, 2024
No acute events overnight. Patient reports ongoing bilateral leg weakness/numbness, neck and lower back pain, and stress incontinence. She denies any headache, dizziness, vision changes, speech/swallow difficulty, bowel incontinence, chest pain,
palpitations, and shortness of breath.
Objective Data
Vital Signs
Temp Pulse Resp BP Pulse Ox
98 F 68 18 181/69 95
05/18/24 07:08 05/18/24 07:08 05/18/24 07:08 05/18/24 07:08 05/18/24 08:05
Lab Results
05/18/24 04:30
05/18/24 04:30
Sodium 139 mmol/L (135-145) 05/18/24 04:30
Potassium 4.1 mmol/L (3.5-5.1) 05/18/24 04:30
BUN 27 mg/dl (7-17) H 05/18/24 04:30
Glucose 83 mg/dl (70-99) 05/18/24 04:30
Calcium 9.2 mg/dl (8.4-10.2) 05/18/24 04:30
Swm-C-Letrrdviywv Pept 1110 pg/ml 05/15/24 17:34
LDL Cholesterol, Calc 52 mg/dl 05/16/24 05:52
Vitamin B12 789 pg/ml (239-931) 05/16/24 05:52
Patient Allergies
Penicillins Allergy (Verified 05/15/24 15:53)
Swelling
Review of Systems
-
History Source: Patient
EENT: Negative Blurry Vision, Decreased Vision or Swallowing Difficulty
Respiratory: Negative Cough or Trouble Breathing
Cardiac: Negative Chest Pain or Palpitations
Abdomen/GI: Negative Nausea or Incontinence of Stool
Genitourinary: Incontinence
Musculoskeletal: Other (pain in left shoulder, limited ROM)
Skin: Other (BLE redness x3-4 weeks)
Neuro: Weakness and Numbness; Negative Dizzy, Headache, Ataxia, Tremors or Speech Problem
Physical Exam
-
General: Well Developed and Well Nourished
Eyes: No Ptosis and PERRLA
HEENT: Normocephalic and Atraumatic
Neck: Full Range of Motion
Respiratory: No Dyspnea
GI: Non-distended
Skin: Other (BLE red/warm)
Extremities: No Edema
Psych: Anxious
Extended Neurological Exam
Mood & Affect: Anxious
Attention Span & Concentration: Awake, Alert, Interactive and No Difficulty with 2 Step Request
Memory: Unremarkable (AAOx3) and Able to Recall
Tremor: Hand Tremor Absent and Head Tremor Absent
Involuntary Movement: None
Speech: Quality Unremarkable, Quantity Unremarkable and Rate of Production Unremarkable
Cranial Nerve II: Left Eye: Pupillary Reactivity Unremarkable, Pupillary Size Unremarkable and Visual Henning Intact
Cranial Nerve II: Right Eye: Pupillary Reactivity Unremarkable, Pupillary Size Unremarkable and Visual Henning Intact
Cranial Nerves III, IV, : Extraocular Movement: Extraocular Movement Full in all Directions
Cranial Nerve V: Facial Sensation: Intact to Light Touch
Cranial Nerve VII: Facial Symmetry: Normal Facial Symmetry
Cranial Nerve VIII: Hearing: Unremarkable Hearing to Normal Conversational Volume
Cranial Nerves IX, X: Palate Movement: Palate Elevation Symmetric
Cranial Nerve XI: Shoulder Shrug: Unremarkable
Cranial Nerve XII: Tongue Protusion: Midline
Muscle Strength, Overall: Full Throughout (LUE limited ROM due to shoulder pain, distal strength 5/5)
Muscle Bulk & Tone: Bulk Unremarkable and Tone Unremarkable
Pronator Drift: No Drift in Upper Extremities and No Drift in Lower Extremities
Cold Sensation: Absent Distally
Vibration Sensation: Reduced Moderately Distally
Touch Sensation: Double Simultaneous Stimulation Unremarkable
Coordination: Shnzuv-vekt-fewxla Testing Unremarkable
Babinski Sign: Absent Bilaterally
Gait & Station: Unable to Assess
Data Reviewed
-
CT Head: Report Reviewed and Image Reviewed
MRI Head: Report Reviewed and Image Reviewed
MRI Cervical Spine: Report Reviewed and Image Reviewed
MRI Lumbar Spine: Report Reviewed and Image Reviewed
Labs: Report Reviewed
Lipid Profile: Report Reviewed
HgbA1C: Report Reviewed
Reviewed with: Physician and Patient
Vital Signs and Labs
-
Vital Signs and Labs:
Vital Signs
Temp Pulse Resp BP Pulse Ox
98 F 68 18 181/69 95
05/18/24 07:08 05/18/24 07:08 05/18/24 07:08 05/18/24 07:08 05/18/24 08:05
Lab Results
05/18/24 04:30
05/18/24 04:30
Sodium 139 mmol/L (135-145) 05/18/24 04:30
Potassium 4.1 mmol/L (3.5-5.1) 05/18/24 04:30
BUN 27 mg/dl (7-17) H 05/18/24 04:30
Glucose 83 mg/dl (70-99) 05/18/24 04:30
Calcium 9.2 mg/dl (8.4-10.2) 05/18/24 04:30
Ygs-U-Kjmemardtmh Pept 1110 pg/ml 05/15/24 17:34
LDL Cholesterol, Calc 52 mg/dl 05/16/24 05:52
Vitamin B12 789 pg/ml (239-931) 05/16/24 05:52
Medications
-
Active Medications
Generic Name Dose Route Start Last Admin
Trade Name Freq PRN Reason Stop Dose Admin
Acetaminophen 650 mg 05/17/24 19:57 05/17/24 20:34
Acetaminophen 325 Mg Tablet PO 06/14/24 19:56 650 mg
Q6HPRN PRN Administration
mild pain/ fever>100.5F
Albuterol/Ipratropium 3 ml 05/16/24 00:07
Ipratropium 0.5/Albuterol 3 Mg (3 Ml Ampul) INH
R Q4HPRN PRN
sob/wheezing
Protocol
Aspirin 81 mg 05/16/24 00:07 05/17/24 22:00
Aspirin 81 Mg (Enteric Coated) Tablet PO 06/13/24 00:06 81 mg
HS MEME Administration
Atorvastatin Calcium 20 mg 05/16/24 08:00 05/17/24 08:09
Atorvastatin (Lipitor) 20 Mg Tablet PO 06/13/24 07:59 20 mg
DAILY MEME Administration
Enoxaparin Sodium 40 mg 05/16/24 18:00 05/17/24 16:59
Enoxaparin Sodium 40 Mg/0.4 Ml Syringe SC 06/13/24 17:59 40 mg
QPM MEME Administration
Escitalopram Oxalate 10 mg 05/16/24 08:00 05/17/24 08:09
Escitalopram 10 Mg Tablet PO 06/13/24 07:59 10 mg
DAILY MEME Administration
Famotidine 20 mg 05/16/24 08:00 05/17/24 08:08
Famotidine 20 Mg Tablet PO 06/13/24 07:59 20 mg
DAILY MEME Administration
Furosemide 40 mg 05/18/24 08:00
Furosemide 40 Mg Tablet PO 06/15/24 07:59
DAILY MEME
Gabapentin 100 mg 05/16/24 00:07 05/17/24 22:01
Gabapentin 100 Mg Capsule PO 06/13/24 00:06 100 mg
HS MEME Administration
Cefazolin Sodium 1 gram in 5 mls @ 60 mls/hr 05/16/24 04:00 05/18/24 03:26
Ancef IV 5 mls
Q8H MEME Administration
Lorazepam 1 mg 05/16/24 00:07 05/17/24 22:01
Lorazepam 1 Mg Tablet PO 06/13/24 00:06 1 mg
HS MEME Administration
Metoprolol Succinate 12.5 mg 05/16/24 20:00 05/17/24 20:25
Metoprolol 25 Mg Extended Release Tablet PO 06/13/24 19:59 12.5 mg
BID MEME Administration
Prednisone 40 mg 05/16/24 08:00 05/17/24 08:09
Prednisone 20 Mg Tablet PO 06/13/24 07:59 40 mg
DAILY MEME Administration
Ropinirole HCl 1 mg 05/16/24 00:07 05/17/24 22:01
Ropinirole 1 Mg Tablet PO 06/13/24 00:06 1 mg
TID MEME Administration
Sodium Chloride 0 flush 05/15/24 23:00
Sodium Chloride 0.9% (Flush) Syringe IV 06/12/24 22:59
PER PROTOCOL MEME
Home Medications
�Medication �Instructions �Recorded
atorvastatin 20 mg tablet 20 mg PO DAILY High cholesterol 05/22/22
escitalopram oxalate 10 mg tablet 10 mg PO DAILY Depression 05/22/22
cholecalciferol (vitamin D3) 25 500 unit PO DAILY Supplement #0 07/08/22
mcg (1,000 unit) tablet tabs
cyanocobalamin (vitamin B-12) 1,000 mcg PO DAILY defeciancy #0 07/08/22
1,000 mcg tablet tabs
albuterol sulfate 90 mcg/actuation 2 puff inhalation Q6H PRN 09/04/23
aerosol inhaler shortness of breath or wheezing
#8.5 grams
aspirin 81 mg tablet,delayed 81 mg PO HS Blood Clot 09/04/23
release Prevention/Tx
famotidine 20 mg tablet 20 mg PO DAILY Gastrointestinal 09/04/23
Issue
gabapentin 100 mg capsule 100 mg PO HS neuropathic pain, 09/04/23
anxiety, sleep, shoulder pain
furosemide 40 mg tablet 40 mg PO DAILY #0 tabs 04/03/24
lorazepam 1 mg tablet 1 mg PO HS #3 tabs 04/03/24
metoprolol succinate 25 mg 12.5 mg (1/2 x 25 mg) PO BID #0 04/03/24
tablet,extended release 24 hr tabs
polyethylene glycol 3350 17 gram 17 g PO DAILYPRN PRN constipation 04/03/24
oral powder packet (HealthyLax) #0 ea
ropinirole 1 mg tablet 1 mg PO TID #0 tabs 04/03/24
sennosides 8.6 mg-docusate sodium 1 tab PO BIDPRN PRN constipation 04/03/24
50 mg tablet (Stool #0 tabs
Softener-Stimulant Laxative)
[2024-05-18] MEDS: LIDOCAINE 4% PATCH 1 PATCH TOPICAL (08:42)
--- NOTE | 2024-05-18 11:21 | W.PN.HOSP.TC ---
Today's Communication/Plan
-
stop steroids
EMG
continue rehab
continue Ancef for cellulitis
DC planning
Assessment / Plan
Assessment / Plan
HPI: 78 yo F with PMH significant for CHF, COPD, hypertension and anxiety / depression who presented to ED complaining of worsening weakness and inability to walk. Patient reports redness in both legs - but not much in the way of pain. She
states that her legs feel 'stiff' and she has been unable to walk at all. Patient notes that the LLE > RLE is red and itchy. She reports having multiple episodes of cellulitis in the past.
Patient was placed on Bactrim as an outpatient, but has noted no significant improvement in her symptoms.
Assessment:
Sepsis POA 2/2 Bilateral LE Cellulitis/Inflammatory Process, LLE > RLE
- continue IV Ancef, day 3
- DVT study negative
- stop steroids
Ambulatory dysfunction
- Lumbar radiculopathy
- MRI C-spine: Postoperative and multilevel degenerative changes of the cervical spine as detailed, worst at C3-4 where disc and uncovertebral/facet disease contribute to mild to moderate spinal canal neural foraminal stenosis at this level. No
overt cord edema.
- MRI L-spine: Multilevel degenerative changes of the lumbar spine as detailed, worst at L3-4 and L4-5 where disc and facet disease contribute to severe spinal canal and moderate to severe neural foraminal stenosis at these levels. Findings are
overall not significantly changed from prior exam 12/05/2022
- EMG ordered
- Neuro following
- PT/OT - SNF recommended
Acute on Chronic HFpEF
- BNP 1110 on admission
- Chest x-ray with no acute cardiopulmonary process
- s/p IV Lasix course; now resumed back on PO Lasix; monitor Cr as patient had an DEB with IV Lasix which is now resolved
COPD without Acute Exacerbation
- Wheezing resolved
Essential HTN
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
Anemia of Chronic Disease
RLS
- Requip 1 mg p.o. 3 times daily and gabapentin
GERD
Hyperlipidemia
- continue atorvastatin 20 mg p.o. nightly
DVT prophylaxis: Lovenox
CODE STATUS: Full code
Anticipated Discharge: 24 - 48 hours
Subjective/Interval History
-
Date of Service: May 18, 2024
no new complaints
strength is at baseline, no new weakness
no fever/chills
Objective Data
-
Labs:
Laboratory Results
05/18/24
04:30
WBC 8.0
Hgb 9.5 L
Hct 29.5 L
Plt Count 291
Sodium 139
Potassium 4.1
Chloride 102
Carbon Dioxide 29
BUN 27 H
Creatinine 0.8
Glucose 83
Calcium 9.2
Vital Signs:
Vital Signs
Temp Pulse Resp BP Pulse Ox
98 F 68 18 181/69 95
05/18/24 07:08 05/18/24 08:08 05/18/24 07:08 05/18/24 08:08 05/18/24 08:05
I&O
05/17/24 05/18/24 05/19/24
06:59 06:59 06:59
Intake Total 480 / 480 360 / 360
Output Total 700 / 700 600 / 600
Balance -220 / -220 -240 / -240
Physical Exam
-
General: No Apparent Distress
HEENT: Normocephalic
Cardiac: Regular Rhythm and S1/S2
GI: Soft
Genito-urinary: No Costovertebral Tender
Neuro: AO x 3
Hematologic / Lymphatic: No Lymphadenopathy
Psych: Calm
Data Reviewed
-
Total Time Spent with Patient (in minutes): 44
Labs: Labs Reviewed by me
[2024-05-18] MEDS: FLUSH (NSS) 1 FLUSH IV (12:40)
[2024-05-18 12:45] VITALS: BP 139/69
[2024-05-18 15:32] VITALS: BP 147/64
--- NOTE | 2024-05-18 16:29 | PTCARENOTE ---
Pt AAO x3, very pleasant and cooperative. HIGGINS; assists with positioning; OOB to chair with assist x2/walker; legs very weak. Pt denies numbness in BLE. VSS. On room air-pulse ox 96%, no SOB noted. Abd obese, soft, giuseppe PO well. Incont large
amts urine;pt states she cannot tell when she has to void; Purewick intact. BLE reddened. Resting in bed at present. Will continue to monitor.
--- NOTE | 2024-05-18 17:07 | CM ---
trials manager reviewed patient's chart and met with patient and patient lives on the 4th floor of [facility] apartments, patient is independent with adl's and uses a walker with ambulation, patient was seen by physical therapy and they
are recommending skilled placement, options reviewed with patient and patient has selected [facility], referral sent to [facility].
Pharmacy [facility]
PCP: Dr. Frederick
Plan; Skilled placement at [facility].
[2024-05-18] MEDS: LOVENOX 40 MG SC (17:31)
[2024-05-18] MEDS: ASPIR LOW (ENTERIC COATED) 81 MG PO (21:22)
[2024-05-18] MEDS: NEURONTIN 100 MG PO (21:23)
[2024-05-18] MEDS: ATIVAN 1 MG PO (21:23)
[2024-05-18] MEDS: TYLENOL 650 MG PO (21:37)
[2024-05-18 23:02] VITALS: BP 165/60
[2024-05-19 03:02] VITALS: BP 144/75; BMI 29.6
[2024-05-19] MEDS: ANCEF 5 IV ×3 (04:48→20:00)
[2024-05-19 07:00] VITALS: BP 184/71
--- NOTE | 2024-05-19 09:11 | NS.EMG ---
Electromyogram (EMG) Study
EMG/NCS Summary
Nerve conduction study of both lower limbs and needle EMG examination of the right lower limb was completed. Needle EMG of the left lower limb was omitted because of the presence of erythema on the leg.
Electrodiagnostic Impressions:
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
Chronic/old right L5 radiculopathy.
Needle EMG examination of the left lower limb was omitted because of the presence of erythema on the leg.
Full dictated report and tabular data to follow.
[2024-05-19] MEDS: LIDOCAINE 4% PATCH 1 PATCH TOPICAL (09:26)
[2024-05-19] MEDS: REQUIP 1 MG PO ×3 (09:27→21:23)
[2024-05-19] MEDS: LIPITOR 20 MG PO (09:27)
[2024-05-19] MEDS: LEXAPRO 10 MG PO (09:27)
[2024-05-19] MEDS: LASIX 40 MG PO (09:27)
[2024-05-19] MEDS: PEPCID 20 MG PO (09:28)
[2024-05-19] MEDS: TOPROL XL 12.5 MG PO ×2 (09:28→19:58)
--- NOTE | 2024-05-19 09:59 | W.PN.HOSP.TC ---
Today's Communication/Plan
-
medically stable for DC To SNF pending bed availability
Assessment / Plan
Assessment / Plan
HPI: 78 yo F with PMH significant for CHF, COPD, hypertension and anxiety / depression who presented to ED complaining of worsening weakness and inability to walk. Patient reports redness in both legs - but not much in the way of pain. She
states that her legs feel 'stiff' and she has been unable to walk at all. Patient notes that the LLE > RLE is red and itchy. She reports having multiple episodes of cellulitis in the past.
Patient was placed on Bactrim as an outpatient, but has noted no significant improvement in her symptoms.
Assessment:
Sepsis POA 2/2 Bilateral LE Cellulitis/Inflammatory Process, LLE > RLE
- continue IV Ancef, day 4/7; transition to Keflex when discharged to complete course
- DVT study negative
- stop steroids
Ambulatory dysfunction
- Lumbar radiculopathy
- MRI C-spine: Postoperative and multilevel degenerative changes of the cervical spine as detailed, worst at C3-4 where disc and uncovertebral/facet disease contribute to mild to moderate spinal canal neural foraminal stenosis at this level. No
overt cord edema.
- MRI L-spine: Multilevel degenerative changes of the lumbar spine as detailed, worst at L3-4 and L4-5 where disc and facet disease contribute to severe spinal canal and moderate to severe neural foraminal stenosis at these levels. Findings are
overall not significantly changed from prior exam 12/05/2022
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 chronic/old right L5 radiculopathy.
- Neuro following
- PT/OT - SNF recommended
Acute on Chronic HFpEF
- BNP 1110 on admission
- Chest x-ray with no acute cardiopulmonary process
- s/p IV Lasix course; now resumed back on PO Lasix; monitor Cr as patient had an DEB with IV Lasix which is now resolved
COPD without Acute Exacerbation
- Wheezing resolved
Essential HTN
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
Anemia of Chronic Disease
RLS
- Requip 1 mg p.o. 3 times daily and gabapentin
GERD
Hyperlipidemia
- continue atorvastatin 20 mg p.o. nightly
DVT prophylaxis: Lovenox
CODE STATUS: Full code
Anticipated Discharge: Within 24 hours
Subjective/Interval History
-
Date of Service: May 19, 2024
no new complaints
Objective Data
-
Vital Signs:
Vital Signs
Temp Pulse Resp BP Pulse Ox
97.7 F 67 17 184/71 94
05/19/24 07:00 05/19/24 09:28 05/19/24 07:00 05/19/24 09:28 05/19/24 07:00
I&O
05/18/24 05/19/24 05/20/24
06:59 06:59 06:59
Intake Total 360 / 360 1100 / 1100
Output Total 600 / 600 1600 / 1600
Balance -240 / -240 -500 / -500
Physical Exam
-
General: No Apparent Distress
HEENT: Normocephalic and Atraumatic
Respiratory: Negative Wheezes
Cardiac: Regular Rhythm and S1/S2
GI: Soft
Musculoskeletal: No Edema
Neuro: AO x 3
Psych: Calm
Data Reviewed
-
Total Time Spent with Patient (in minutes): 41
Labs: Labs Reviewed by me
[2024-05-19 10:50] VITALS: BP 182/72; PULSE 66
[2024-05-19 11:04] VITALS: BP 182/72; PULSE 73; O2SAT 97
--- NOTE | 2024-05-19 14:16 | W.PN.NEURO.1 ---
Today's Communication / Plan
-
-PT/OT evaluations.
-Cellulitis treatment per primary team.
-DVT prophylaxis.
Neuro Assessment/Plan
Assessment
This is an 78-year-old right-handed female who presented to on 05/15/24 with report of progressive bilateral lower extremity weakness/numbness, ambulatory dysfunction, and ongoing BLE cellulitis. Patient reports having chronic neck and lower back
pain. She endorses having a cervical laminectomy 10 years ago due to spinal stenosis and since then she has used a rolling walker for ambulation. Her gait dysfunction has progressively worsened over the years; she gave up her car 6 months ago due to
not being able to walk to the parking lot to access it. She lives in independent living in an apartment at [place].
-MRI Brain 03/18/24: Severe white matter leukoaraiosis in both cerebral hemispheres. Mild to moderate diffuse cerebral volume loss. Moderate distention of the ventricular system which is probably secondary to ex vacuo dilatation and less likely
normal pressure communicating hydrocephalus. Mild to moderate spinal cord compression and central canal stenosis at C2/C3 and mild spinal cord compression at C1/C2 and C3/C4. Previous multilevel laminectomies and anterior discectomy/fusion in the
cervical spine.
-MRI Cervical Spine 05/17/24: Postoperative and multilevel degenerative changes of the cervical spine as detailed, worst at C3-4 where disc and uncovertebral/facet disease contribute to mild to moderate spinal canal neural foraminal stenosis at this
level. No overt cord edema.
-MRI Lumbar Spine 05/17/24: Multilevel degenerative changes of the lumbar spine as detailed, worst at L3-4 and L4-5 where disc and facet disease contribute to severe spinal canal and moderate to severe neural foraminal stenosis at these levels.
Findings are overall not significantly changed from prior exam 12/05/2022.
I. Lumbar spine with moderate to severe neural foraminal stenosis at L3, L4, L5.
II. Peripheral neuropathy.
III. Peripheral arterial disease.
IV. Acute on chronic BLE cellulitis.
V. Chronic ambulatory dysfunction, progressively worsening.
Routine EMG no acute changes requiring change of current care
Plan
-PT/OT evaluations.
-Cellulitis treatment per primary team.
-DVT prophylaxis.
We will follow as needed
Subjective/Objective
Subjective Data
Date of Service: May 19, 2024
Objective Data
Vital Signs
Temp Pulse Resp BP Pulse Ox
36.5 C 67 17 184/71 93
05/19/24 07:00 05/19/24 09:28 05/19/24 07:00 05/19/24 09:28 05/19/24 13:29
Lab Results
05/18/24 04:30
05/18/24 04:30
Sodium 139 mmol/L (135-145) 05/18/24 04:30
Potassium 4.1 mmol/L (3.5-5.1) 05/18/24 04:30
BUN 27 mg/dl (7-17) H 05/18/24 04:30
Glucose 83 mg/dl (70-99) 05/18/24 04:30
Calcium 9.2 mg/dl (8.4-10.2) 05/18/24 04:30
Nfl-Y-Llyzymkaqjd Pept 1110 pg/ml 05/15/24 17:34
LDL Cholesterol, Calc 52 mg/dl 05/16/24 05:52
Vitamin B12 789 pg/ml (239-931) 05/16/24 05:52
Patient Allergies
Penicillins Allergy (Verified 05/15/24 15:53)
Swelling
Data Reviewed
-
EMG: Report Reviewed
Reviewed with: Physician and Nurse Practioner
Old Records: Summarized
[2024-05-19 15:00] VITALS: BP 151/67
--- NOTE | 2024-05-19 15:06 | CM ---
Confirmed with pt and Nolvia at [facility] .Pt requested to return to [facility] but to skilled area.
PT OT done today said [facility].
Called [facility] [phone] to start auth.Spoke with [facility] given.Pending auth number [id number] Clinical fax to [phone].
IMM reviewed copy given Imm signed on chart.
[facility]
report [phone]
fax [phone]
PLAN: to [facility] skilled after auth obtained
[2024-05-19] MEDS: LOVENOX 40 MG SC (17:32)
[2024-05-19] MEDS: ASPIR LOW (ENTERIC COATED) 81 MG PO (19:58)
[2024-05-19] MEDS: NEURONTIN 100 MG PO (19:58)
[2024-05-19] MEDS: ATIVAN 1 MG PO (20:00)
[2024-05-19] MEDS: ULTRAM 25 MG PO (22:14)
[2024-05-19 23:00] VITALS: BP 108/66
--- NOTE | 2024-05-20 02:58 | DOWNTIME ---
There was a Comic Reply Client Primary Care Nurse Practitioner Downtime on 05/20/2024 from 0100 to 05/20/2024 at 0255. Downtime documentation of patient's care, including medication administrations, has been reconciled in the electronic record per guidelines. Refer to the
patient's paper chart under the miscellaneous tab to see printed paper medication records and downtime forms.
[2024-05-20] MEDS: ANCEF 5 IV ×3 (04:24→20:19)
[2024-05-20 06:00] VITALS: BMI 28.9
[2024-05-20 07:19] VITALS: BP 153/73
[2024-05-20] MEDS: LIDOCAINE 4% PATCH 1 PATCH TOPICAL (08:39)
[2024-05-20] MEDS: LEXAPRO 10 MG PO (08:40)
[2024-05-20] MEDS: REQUIP 1 MG PO ×3 (08:40→22:05)
[2024-05-20] MEDS: LIPITOR 20 MG PO (08:40)
[2024-05-20] MEDS: TOPROL XL 12.5 MG PO ×2 (08:40→20:22)
[2024-05-20] MEDS: LASIX 40 MG PO (08:40)
[2024-05-20] MEDS: PEPCID 20 MG PO (08:41)
[2024-05-20 09:12] VITALS: BP 177/75
--- NOTE | 2024-05-20 10:19 | PN.CDI ---
CDI
- -
CDI:
Physician Documentation Request
Admit Date: 05/15/24 21:44
Dear Doctor Marnie,
Please review the following and provide your response in the progress notes.
Clinical Indicators:
Pt admitted with Sepsis 2/2 Cellulitis B/L LE
Renal functions are as below/ Pt had been on IV Lasix
05/15/24 05/16/24 05/17/24
17:34 05:52 05:54
Creatinine 1.0 1.2 H 0.9
05/18/24
04:30
Creatinine 0.8
Please provide a Diagnost for the above lab findings:
DEB
Insignificant lab finding
Other ( Please specify)
Criteria for DEB*
1 Increase in serum creatinine by > or = to 0.3 mg/dL (> or = to 26.5 micromol/L) within 48 hours, OR
2 Increase in serum creatinine to > or = to 1.5 times baseline, which is known or presumed to have occurred within 7 days, OR
3 Urine volume < 0.5 nL/kg/hour for six hours
Use of terms such as suspected, likely, concern for, or probable (associated with a specific diagnosis that is being evaluated, monitored, or treated as if it exists) are acceptable and can be coded in the inpatient setting, when documented at the
time of discharge.
Thank you,
Jacki Araya RN
CDI Specialist
Leslie Text
Please use your independent medical judgment in providing your response.
*Source: Kidney Disease: Improving Global Outcomes (KDIGO) 2012
--- NOTE | 2024-05-20 10:21 | W.PN.HOSP.TC ---
Addendum entered and electronically signed by Kurt Dye MD 05/20/24 11:31:
DEB - resolved
Original Note:
Today's Communication/Plan
-
dc today if auth obtained
Assessment / Plan
Assessment / Plan
HPI: 78 yo F with PMH significant for CHF, COPD, hypertension and anxiety / depression who presented to ED complaining of worsening weakness and inability to walk. Patient reports redness in both legs - but not much in the way of pain. She
states that her legs feel 'stiff' and she has been unable to walk at all. Patient notes that the LLE > RLE is red and itchy. She reports having multiple episodes of cellulitis in the past.
Patient was placed on Bactrim as an outpatient, but has noted no significant improvement in her symptoms.
Assessment:
Sepsis POA 2/2 Bilateral LE Cellulitis/Inflammatory Process, LLE > RLE
- continue IV Ancef, day 5/10; transition to Keflex when discharged to complete course
- DVT study negative
- stop steroids
Ambulatory dysfunction
- Lumbar radiculopathy
- MRI C-spine: Postoperative and multilevel degenerative changes of the cervical spine as detailed, worst at C3-4 where disc and uncovertebral/facet disease contribute to mild to moderate spinal canal neural foraminal stenosis at this level. No
overt cord edema.
- MRI L-spine: Multilevel degenerative changes of the lumbar spine as detailed, worst at L3-4 and L4-5 where disc and facet disease contribute to severe spinal canal and moderate to severe neural foraminal stenosis at these levels. Findings are
overall not significantly changed from prior exam 12/05/2022
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 chronic/old right L5 radiculopathy.
- Neuro following
- PT/OT - SNF recommended
Acute on Chronic HFpEF
- BNP 1110 on admission
- Chest x-ray with no acute cardiopulmonary process
- s/p IV Lasix course; now resumed back on PO Lasix; monitor Cr as patient had an DEB with IV Lasix which is now resolved
COPD without Acute Exacerbation
- Wheezing resolved
Essential HTN
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
Anemia of Chronic Disease
RLS
- Requip 1 mg p.o. 3 times daily and gabapentin
GERD
Hyperlipidemia
- continue atorvastatin 20 mg p.o. nightly
DVT prophylaxis: Lovenox
CODE STATUS: Full code
More than 30 minutes spent in discharge including
Final examination of the patient
Summarizing hospital stay
Instructions for continuing care to all relevant caregivers
Preparation of discharge records, prescriptions, and referral forms
Total time spent (in minutes): 42
Anticipated Discharge: Today
Subjective/Interval History
-
Date of Service: May 20, 2024
no overnight events, sitting in chair
Objective Data
-
Vital Signs:
Vital Signs
Temp Pulse Resp BP Pulse Ox
98.2 F 86 24 153/73 94
05/20/24 07:19 05/20/24 08:40 05/20/24 07:19 05/20/24 08:40 05/20/24 07:19
I&O
05/19/24 05/20/24 05/21/24
06:59 06:59 06:59
Intake Total 1100 / 1100 480 / 480
Output Total 1600 / 1600
Balance -500 / -500 480 / 480
Physical Exam
-
General: No Apparent Distress
HEENT: Normocephalic and Atraumatic
Respiratory: Negative Wheezes
Cardiac: Regular Rhythm and S1/S2
GI: Soft
Neuro: AO x 3
Psych: Calm
Data Reviewed
-
Total Time Spent with Patient (in minutes): 42
Labs: Labs Reviewed by me
--- NOTE | 2024-05-20 10:44 | CM ---
Checked Availity to see if clinical received.No status of clinical received.
Called [facility] then [facility] She confined Pending auth number [id number] was for auth for [facility]. She did not see clinical This am received confirmation fax went through. Refaxed clinical fax to [phone] as instructed.
MD and floor notified not to dc till auth received.
[facility]
report [phone]
fax [phone]
PLAN: to [facility] skilled after auth obtained
[2024-05-20 15:07] VITALS: BP 165/80
[2024-05-20] MEDS: LOVENOX 40 MG SC (16:56)
[2024-05-20] MEDS: BENADRYL 25 MG PO (17:56)
--- NOTE | 2024-05-20 18:04 | PTCARENOTE ---
Patient with complaints of itchiness on skin - generalized. Moisturized skin with lotion without resolution. Hospitalist notified. 25 mg of benadryl po ordered and administered.
[2024-05-20] MEDS: TYLENOL 650 MG PO (22:04)
[2024-05-20] MEDS: NEURONTIN 100 MG PO (22:05)
[2024-05-20] MEDS: ATIVAN 1 MG PO (22:05)
[2024-05-20] MEDS: ASPIR LOW (ENTERIC COATED) 81 MG PO (22:05)
[2024-05-20 23:24] VITALS: BP 146/68
[2024-05-21] MEDS: ANCEF 5 IV ×3 (03:01→19:29)
[2024-05-21] MEDS: HYDROCORTISONE 1% OINTMENT 1 APPLIC TOPICAL ×3 (03:02→19:32)
[2024-05-21 05:17] VITALS: BMI 29.1
[2024-05-21 07:22] VITALS: BP 171/67
[2024-05-21] MEDS: LEXAPRO 10 MG PO (08:51)
[2024-05-21] MEDS: TOPROL XL 12.5 MG PO ×2 (08:51→19:34)
[2024-05-21] MEDS: REQUIP 1 MG PO ×3 (08:51→21:50)
[2024-05-21] MEDS: PEPCID 20 MG PO (08:51)
[2024-05-21] MEDS: LASIX 40 MG PO (08:51)
[2024-05-21] MEDS: LIDOCAINE 4% PATCH 1 PATCH TOPICAL (08:53)
[2024-05-21] MEDS: LIPITOR 20 MG PO (08:53)
--- NOTE | 2024-05-21 09:36 | W.PN.HOSP.TC ---
Today's Communication/Plan
-
dc today if auth obtained
Assessment / Plan
Assessment / Plan
HPI: 78 yo F with PMH significant for CHF, COPD, hypertension and anxiety / depression who presented to ED complaining of worsening weakness and inability to walk. Patient reports redness in both legs - but not much in the way of pain. She
states that her legs feel 'stiff' and she has been unable to walk at all. Patient notes that the LLE > RLE is red and itchy. She reports having multiple episodes of cellulitis in the past.
Patient was placed on Bactrim as an outpatient, but has noted no significant improvement in her symptoms.
Assessment:
Sepsis POA 2/2 Bilateral LE Cellulitis/Inflammatory Process, LLE > RLE
- continue IV Ancef, day 6/; transition to Keflex when discharged to complete course
- DVT study negative
- stop steroids
Ambulatory dysfunction
- Lumbar radiculopathy
- MRI C-spine: Postoperative and multilevel degenerative changes of the cervical spine as detailed, worst at C3-4 where disc and uncovertebral/facet disease contribute to mild to moderate spinal canal neural foraminal stenosis at this level. No
overt cord edema.
- MRI L-spine: Multilevel degenerative changes of the lumbar spine as detailed, worst at L3-4 and L4-5 where disc and facet disease contribute to severe spinal canal and moderate to severe neural foraminal stenosis at these levels. Findings are
overall not significantly changed from prior exam 12/05/2022
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 chronic/old right L5 radiculopathy.
- Neuro following
- PT/OT - SNF recommended
DEB - resolved
Acute on Chronic HFpEF
- BNP 1110 on admission
- Chest x-ray with no acute cardiopulmonary process
- s/p IV Lasix course; now resumed back on PO Lasix; monitor Cr as patient had an DEB with IV Lasix which is now resolved
COPD without Acute Exacerbation
- Wheezing resolved
Essential HTN
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
Anemia of Chronic Disease
RLS
- Requip 1 mg p.o. 3 times daily and gabapentin
GERD
Hyperlipidemia
- continue atorvastatin 20 mg p.o. nightly
DVT prophylaxis: Lovenox
CODE STATUS: Full code
More than 30 minutes spent in discharge including
Final examination of the patient
Summarizing hospital stay
Instructions for continuing care to all relevant caregivers
Preparation of discharge records, prescriptions, and referral forms
Total time spent (in minutes): 41
Anticipated Discharge: Within 24 hours
Subjective/Interval History
-
Date of Service: May 21, 2024
no new complaints
awaiting insurance auth for SNF transfer
Objective Data
-
Vital Signs:
Vital Signs
Temp Pulse Resp BP Pulse Ox
97.5 F 67 22 171/67 94
05/21/24 07:22 05/21/24 07:22 05/21/24 07:22 05/21/24 07:22 05/21/24 07:22
I&O
05/20/24 05/21/24 05/22/24
06:59 06:59 06:59
Intake Total 480 / 480 720 / 720
Balance 480 / 480 720 / 720
Physical Exam
-
General: No Apparent Distress
HEENT: Normocephalic and Atraumatic
Respiratory: Negative Wheezes
Cardiac: Regular Rhythm
GI: Soft
Genito-urinary: No Costovertebral Tender
Musculoskeletal: Other (improved LLE erythema)
Neuro: AO x 3
Hematologic / Lymphatic: No Lymphadenopathy
Psych: Calm
Data Reviewed
-
Total Time Spent with Patient (in minutes): 41
Labs: Labs Reviewed by me
--- NOTE | 2024-05-21 10:31 | CM ---
Addendum entered by Nusrat Washington RN 05/21/24 15:57:
Received email from [employer] saying case went to director of medical staff services.
Pt requested a wc van at dc to [facility].Pt aware there will be a cost.
Original Note:
Checked Availity to see if auth done .No status of clinical received.
Called [facility] spoke with [facility] received Rachel Paz is assigned to pt for auth . Pending auth number [id number] was for auth for [facility] confirmed.Email sent to [email or web address] . Requesting auth for [facility].
aware.
[facility]
report [phone]
fax [phone]
PLAN: to [facility] skilled after auth obtained
[2024-05-21 15:00] VITALS: BP 152/73
[2024-05-21] MEDS: LOVENOX 40 MG SC (17:59)
[2024-05-21] MEDS: ZYRTEC 10 MG PO (18:26)
[2024-05-21] MEDS: BENADRYL 25 MG PO (21:42)
[2024-05-21] MEDS: NEURONTIN 100 MG PO (21:48)
[2024-05-21] MEDS: ATIVAN 1 MG PO (21:49)
[2024-05-21] MEDS: ASPIR LOW (ENTERIC COATED) 81 MG PO (21:50)
[2024-05-21 23:23] VITALS: BP 156/67
[2024-05-22 02:54] VITALS: BMI 28.9
[2024-05-22] MEDS: ANCEF 5 IV (03:11)
[2024-05-22 08:14] VITALS: BP 156/68
[2024-05-22] MEDS: PEPCID 20 MG PO (09:14)
[2024-05-22] MEDS: TOPROL XL 12.5 MG PO (09:14)
[2024-05-22] MEDS: LEXAPRO 10 MG PO (09:16)
[2024-05-22] MEDS: LASIX 40 MG PO (09:16)
[2024-05-22] MEDS: LIDOCAINE 4% PATCH 1 PATCH TOPICAL (09:16)
[2024-05-22] MEDS: REQUIP 1 MG PO (09:16)
[2024-05-22] MEDS: LIPITOR 20 MG PO (09:16)
[2024-05-22] MEDS: HYDROCORTISONE 1% OINTMENT 1 APPLIC TOPICAL (09:25)
--- NOTE | 2024-05-22 10:01 | W.PN.HOSP.TC ---
Today's Communication/Plan
-
dc to SNF today
Assessment / Plan
Assessment / Plan
HPI: 78 yo F with PMH significant for CHF, COPD, hypertension and anxiety / depression who presented to ED complaining of worsening weakness and inability to walk. Patient reports redness in both legs - but not much in the way of pain. She
states that her legs feel 'stiff' and she has been unable to walk at all. Patient notes that the LLE > RLE is red and itchy. She reports having multiple episodes of cellulitis in the past.
Patient was placed on Bactrim as an outpatient, but has noted no significant improvement in her symptoms.
Assessment:
Sepsis POA 2/2 Bilateral LE Cellulitis/Inflammatory Process, LLE > RLE
- continue IV Ancef, day 7/10; transition to Keflex when discharged to complete course
- DVT study negative
- stop steroids
Ambulatory dysfunction
- Lumbar radiculopathy
- MRI C-spine: Postoperative and multilevel degenerative changes of the cervical spine as detailed, worst at C3-4 where disc and uncovertebral/facet disease contribute to mild to moderate spinal canal neural foraminal stenosis at this level. No
overt cord edema.
- MRI L-spine: Multilevel degenerative changes of the lumbar spine as detailed, worst at L3-4 and L4-5 where disc and facet disease contribute to severe spinal canal and moderate to severe neural foraminal stenosis at these levels. Findings are
overall not significantly changed from prior exam 12/05/2022
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 chronic/old right L5 radiculopathy.
- Neuro following
- PT/OT - SNF recommended
DEB - resolved
Acute on Chronic HFpEF
- BNP 1110 on admission
- Chest x-ray with no acute cardiopulmonary process
- s/p IV Lasix course; now resumed back on PO Lasix; monitor Cr as patient had an DEB with IV Lasix which is now resolved
COPD without Acute Exacerbation
- Wheezing resolved
Essential HTN
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
Anemia of Chronic Disease
RLS
- Requip 1 mg p.o. 3 times daily and gabapentin
GERD
Hyperlipidemia
- continue atorvastatin 20 mg p.o. nightly
Allergic rash likely from Tramadol
- Zyrtec helped
- Tramadol listed as allergy
DVT prophylaxis: Lovenox
CODE STATUS: Full code
More than 30 minutes spent in discharge including
Final examination of the patient
Summarizing hospital stay
Instructions for continuing care to all relevant caregivers
Preparation of discharge records, prescriptions, and referral forms
Total time spent (in minutes): 41
Anticipated Discharge: Today
Subjective/Interval History
-
Date of Service: May 22, 2024
feels well
rash is resolving
Objective Data
-
Vital Signs:
Vital Signs
Temp Pulse Resp BP Pulse Ox
97.8 F 63 20 156/68 95
05/22/24 08:14 05/22/24 08:14 05/22/24 08:14 05/22/24 08:14 05/22/24 08:14
I&O
05/21/24 05/22/24 05/23/24
06:59 06:59 06:59
Intake Total 720 / 720 720 / 720
Balance 720 / 720 720 / 720
Physical Exam
-
General: No Apparent Distress
HEENT: Normocephalic and Atraumatic
Respiratory: Negative Wheezes
Cardiac: Regular Rhythm and S1/S2
GI: Soft and Nontender
Genito-urinary: No Costovertebral Tender
Musculoskeletal: No Edema
Neuro: AO x 3
Psych: Calm
Data Reviewed
-
Total Time Spent with Patient (in minutes): 41
Labs: Labs Reviewed by me
--- NOTE | 2024-05-22 10:07 | W.DS.TRANS ---
DC Summary - Cell Attendant
-
Discharge Instructions:
Sleep Apnea Risk Low
Discharge Diagnosis/Procedures LLE cellulitis, polyneuropathy
Diet 2 Gram Sodium,Restrict fluids to 48 oz,Low
Cholesterol
Activity As tolerated
Other Services OT,PT
Instructions:
Stand-Alone Forms:
Changes to Home Medications: No
Discharge Medications:
DC Medications w/original date entered in [facility]
atorvastatin 20 mg tablet 20 mg PO DAILY High cholesterol 05/22/22
escitalopram oxalate 10 mg tablet 10 mg PO DAILY Depression 05/22/22
cholecalciferol (vitamin D3) 25 mcg (1,000 unit) tablet 500 unit PO DAILY Supplement #0 tabs 07/08/22
cyanocobalamin (vitamin B-12) 1,000 mcg tablet 1,000 mcg PO DAILY defeciancy #0 tabs 07/08/22
albuterol sulfate 90 mcg/actuation aerosol inhaler 2 puff inhalation Q6H PRN shortness of breath or wheezing #8.5 grams 09/04/23
aspirin 81 mg tablet,delayed release 81 mg PO HS Blood Clot Prevention/Tx 09/04/23
famotidine 20 mg tablet 20 mg PO DAILY Gastrointestinal Issue 09/04/23
gabapentin 100 mg capsule 100 mg PO HS neuropathic pain, anxiety, sleep, shoulder pain 09/04/23
furosemide 40 mg tablet 40 mg PO DAILY #0 tabs 04/03/24
metoprolol succinate 25 mg tablet,extended release 24 hr 12.5 mg (1/2 x 25 mg) PO BID #0 tabs 04/03/24
polyethylene glycol 3350 17 gram oral powder packet (HealthyLax) 17 g PO DAILYPRN PRN constipation #0 ea 04/03/24
ropinirole 1 mg tablet 1 mg PO TID #0 tabs 04/03/24
sennosides 8.6 mg-docusate sodium 50 mg tablet (Stool Softener-Stimulant Laxative) 1 tab PO BIDPRN PRN constipation #0 tabs 04/03/24
acetaminophen 325 mg tablet 650 mg (2 x 325 mg) PO Q6HPRN PRN mild pain/ fever>100.5F #100 tabs 05/20/24
cephalexin 500 mg capsule 500 mg PO QID #20 caps 05/20/24
lorazepam 1 mg tablet 1 mg PO HS #3 tabs 05/20/24
Home Medication Changes
Pending Results: No
Total time spent discharging patient (in min): 41
--- NOTE | 2024-05-22 10:36 | CM ---
Addendum entered by Nusrat Washington RN 05/22/24 10:53:
Spoke with son Neo aware of auth to [facility] . He was given [facility] # [phone] to give payment for [facility]
IMM completed Pt son agree with dc.
Original Note:
MD entered order for discharge.
Spoke with Raquel Araya Approved level 1 Auth number [id number] for [facility] from 05/22/24 to 06/03/24 NRD 06/04/24.Fax clinical to [phone].or call [facility] [phone].Spoke with Nolvia at [facility]. Pt bed ready.
As per pt kasey blanchard set up for 2:30 pm .Pt call call for payment.
Jorge A
report [phone]
fax [phone]
PLAN: to [facility].
== END 2024-05-22 14:22 | DRG 871 ==
LOC: 4 EAST ACU 21:44
PROVIDERS: Physical Medicine & Rehabilitation; Registered Nurse; ADMITTING PHYSICIAN Hospitalist; ATTENDING PHYSICIAN Internal Medicine; CONSULT PHYSICIAN Psychiatry & Neurology Neurology; EMERGENCY PHYSICIAN Emergency Medicine; FAMILY PHYSICIAN Family Medicine
PROC: 4A0F33Z Measurement of Musculoskeletal Contractility, Percutaneous Approach (ICD-10-PCS; 2024-05-19)
PROC: 4A0 Measurement and Monitoring, Physiological Systems, Measurement (ICD-10-PCS; 2024-05-19)
DX: A41.9 Sepsis, unspecified organism (principal); I50.33 Acute on chronic diastolic (congestive) heart failure; J44.1 Chronic obstructive pulmonary disease with (acute) exacerbation; L03.115 Cellulitis of right lower limb; L03.116 Cellulitis of left lower limb; M50.01 Cervical disc disorder with myelopathy, high cervical region; N17.9 Acute kidney failure, unspecified; G25.81 Restless legs syndrome; I11.0 Hypertensive heart disease with heart failure; E78.00 Pure hypercholesterolemia, unspecified; F41.9 Anxiety disorder, unspecified; E78.5 Hyperlipidemia, unspecified; M51.36 Other intervertebral disc degeneration, lumbar region; F32.A Depression, unspecified; M47.26 Other spondylosis with radiculopathy, lumbar region; G62.9 Polyneuropathy, unspecified; M50.11 Cervical disc disorder with radiculopathy, high cervical region; M48.02 Spinal stenosis, cervical region; I73.9 Peripheral vascular disease, unspecified; M19.90 Unspecified osteoarthritis, unspecified site; L27.1 Localized skin eruption due to drugs and medicaments taken internally; T40.425A Adverse effect of tramadol, initial encounter; Y92.239 Unspecified place in hospital as the place of occurrence of the external cause; E66.9 Obesity, unspecified; R26.2 Difficulty in walking, not elsewhere classified; I87.8 Other specified disorders of veins; D63.8 Anemia in other chronic diseases classified elsewhere; K21.9 Gastro-esophageal reflux disease without esophagitis; Z60.2 Problems related to living alone; Z96.651 Presence of right artificial knee joint; Z96.611 Presence of right artificial shoulder joint; Z87.891 Personal history of nicotine dependence; Z79.82 Long term (current) use of aspirin; Z88.0 Allergy status to penicillin; Z68.28 Body mass index [BMI] 28.0-28.9, adult
CPT/HCPCS: 70450; 71046; 72141; 72148; 73630; 80048; 80053; 80061; 82248; 82607; 83735; 83880; 84443; 85025; 85027; 85652; 86140; 87070; 93005; 93970; 93971; 95886; 95911; 96374; 96375; 97110; 97116; 97163; 97166; 97535; 99285

== ENCOUNTER → 2024-05-25 12:51 | Outpatient (REF) | payer OTHER, SELFPAY ==
[2024-05-25 13:33] LABS: ALT (SGPT) 23 U/L (0-35); AST (SGOT) 24 U/L (14-36); Albumin 3.4 g/dl (3.5-5.0); Alkaline Phosphatase 89 U/L (38-126); Blood Urea Nitrogen 25 mg/dl (7-17); Calcium 9.2 mg/dl (8.4-10.2); Carbon Dioxide 30 mmol/L (22-30); Chloride 101 mmol/L (98-107); Glucose 93 mg/dl (70-99); Sodium 138 mmol/L (135-145); Total Bilirubin 0.3 mg/dl (0.2-1.3); eGFR > 60.00
== END ==
LOC: OLABWHC 12:51
PROVIDERS: ATTENDING PHYSICIAN Family Medicine
DX: I50.9 Heart failure, unspecified (principal); J44.9 Chronic obstructive pulmonary disease, unspecified
CPT/HCPCS: 36415; 80053

== ENCOUNTER → 2024-06-30 09:44 | Outpatient (REF) | payer OTHER, SELFPAY ==
[2024-06-30 11:28] LABS: % Basophils 0.8 % (0-2); % Eosinophils 6.7 % (0-6); % Immature Granulocytes 0.4 % (0-0.5); % Lymphocytes 16.2 % (20.5-51.1); % Monocytes 11.8 % (1.7-9.3); % Neutrophils 64.1 % (42.2-75.2); Absolute Basophils 0.1 10^3/uL (0-0.2); Absolute Eosinophils 0.5 10^3/uL (0-0.7); Absolute Lymphocytes 1.3 10^3/uL (1.2-3.4); Absolute Monocytes 0.9 10^3/uL (0.1-0.6); Absolute Neutrophils 5.1 10^3/uL (1.4-6.5); Hematocrit 32.4 % (37.0-47.0); Hemoglobin 10.3 g/dL (12.0-16.0); Mean Corp Hgb Conc. 31.8 g/dL (33.0-37.0); Mean Corpuscular Hgb 29.1 pg (27.0-31.0); Mean Corpuscular Volume 91.5 fL (81.0-99.0); Mean Platelet Volume 10.4 fL (7.4-10.4); Nucleated Red Blood Cells % 0 %; Platelet Count 240 10^3/uL (130-400); Red Blood Cell Count 3.54 10^6/uL (4.20-5.40); Red Cell Dist. Width 15.1 % (11.5-14.5); White Blood Cell Count 7.9 10^3/uL (4.8-10.8)
[2024-06-30 11:58] LABS: ALT (SGPT) 19 U/L (0-35); AST (SGOT) 23 U/L (14-36); Albumin 4.1 g/dl (3.5-5.0); Alkaline Phosphatase 103 U/L (38-126); Blood Urea Nitrogen 34 mg/dl (7-17); Calcium 9.4 mg/dl (8.4-10.2); Carbon Dioxide 28 mmol/L (22-30); Chloride 104 mmol/L (98-107); Glucose 96 mg/dl (70-99); Potassium 4.6 mmol/L (3.5-5.1); Sodium 142 mmol/L (135-145); Total Bilirubin 0.4 mg/dl (0.2-1.3); Total Protein 6.8 g/dl (6.3-8.2)
[2024-06-30 13:01] LABS: Folate 7.9 ng/ml (2.76-20); Vitamin B12 838 pg/ml (239-931)
== END ==
LOC: OLABWIL 09:44
PROVIDERS: ATTENDING PHYSICIAN Family Medicine
DX: L03.116 Cellulitis of left lower limb (principal); I50.33 Acute on chronic diastolic (congestive) heart failure; N17.9 Acute kidney failure, unspecified; G62.9 Polyneuropathy, unspecified; D64.9 Anemia, unspecified
CPT/HCPCS: 80053; 82607; 82746; 85025

== ENCOUNTER → 2024-07-14 09:50 | Outpatient (REF) | payer OTHER, SELFPAY ==
[2024-07-14 10:38] LABS: Blood Urea Nitrogen 24 mg/dl (7-17); Calcium 9.6 mg/dl (8.4-10.2); Carbon Dioxide 29 mmol/L (22-30); Chloride 103 mmol/L (98-107); Glucose 109 mg/dl (70-99); Potassium 4.9 mmol/L (3.5-5.1); Sodium 145 mmol/L (135-145); eGFR > 60.00
== END ==
LOC: OLABWIL 09:50
PROVIDERS: ATTENDING PHYSICIAN Family Medicine
DX: I50.33 Acute on chronic diastolic (congestive) heart failure (principal)
CPT/HCPCS: 36415; 80048

== ENCOUNTER 2024-07-18 17:01 | Observation (INO) | payer OTHER, SELFPAY ==
[2024-07-18] VITALS (10 sets, daily range): BP systolic 117–156; BP diastolic 54–105; PULSE 105–110; BMI 32.3; BMI 30.9
--- NOTE | 2024-07-18 15:03 | ED.GENMED ---
History of Present Illness
General
Chief Complaint: Weakness
Source: patient
Time Seen by Provider: 07/18/24 14:55
History of Present Illness
History of Present Illness:
79-year-old female who is currently being treated for cellulitis of her lower extremity. She was advised by her doctor to double her Lasix which she did today. She normally takes 40 mg and this morning she took 80 mg. She was then making lunch
for herself, standing over the stove when she started to feel very lightheaded like she might pass out. This was not associated with other symptoms such as chest pain, palpitations, headache, vertigo/sense of spinning, dyspnea, nausea, vomiting,
numbness, tingling, back pain. She gently lowered herself down to the ground and hit her life alert button to alert staff at the assisted living facility where she lives. She states that she had this happen once before related to increasing her
Lasix. She now feels better and denies new symptoms.
Past History
Past History
ED Past Medical History: CHF, COPD, HTN, Hypercholesterolemia, Psychiatric (Anxiety, Depression) and Other (OA, Restless leg syndrome, Incontinence)
ED Past Surgical History: Orthopedic (Mati second Toe amputation, Right Total knee replacement, Right shoulder replacement, Mati carpal tunnel) and Other (cataracts, )
PSI?: No
Social History
Tobacco: Former smoker
Alcohol: Occasional
Drug: None
Personal:
Living: assisted living
Employment: Retired
Phy Exam
Physical Exam
Physical Exam:
GENERAL: Alert , in no apparent distress
EYE: pupils equal and reactive
NECK: Supple, no significant adenopathy.
ENT: o/p clr, mm dry
CARDIAC: Regular rate and rhythm, 3 out of 6 systolic murmur noted.
LUNGS: Clear breath sounds bilaterally, no acute respiratory distress, no wheezes/rales/rhonchi
ABDOMEN: Soft, without focal tenderness, reducible abdominal hernia noted , no r/g
NEUROLOGICAL: Alert and oriented, no focal neuro deficits
SKIN: Warm and dry, skin intact.
MUSCULOSKELETAL: 2+ le edema, well perfused, R le with erythema throughout tib/fib area no open areas, no fluctuance, no crepitus.
PSYCH: Normal and appropriate interaction.
Course
Orders/Labs/Results
Orders:
Orders
07/18/24 15:[address] Non Medication Order As Directed
Physician Order: orthostatics please
Above order entered?: Yes
07/18/24 15:11
Electrocardiogram (*1) Urgent
Reason for Study: Vertigo / Dizzy
EKG- Treatment ONCE
07/18/24 15:14
Complete Blood Count/No Diff Urgent
Comprehensive Metabolic Panel Urgent
07/18/24 15:35
CT Head W/o Iv Contrast Urgent
Comment:
Reason For Exam: dizzy
07/18/24 16:08
Urinalysis Reflex To Culture Urgent
Date Specimen was Collected: 07/18/24
Time Specimen was Collected: 16:07
Abnormal Lab Results
07/18/24
15:14
WBC 14.1 H 10^3/uL
(4.8-10.8)
RBC 3.58 L 10^6/uL
(4.20-5.40)
Hgb 10.4 L g/dL
(12.0-16.0)
Hct 31.5 L %
(37.0-47.0)
RDW 14.9 H %
(11.5-14.5)
BUN 29 H mg/dl
(7-17)
Creatinine 1.2 H mg/dL
(0.6-1.0)
Glucose 108 H mg/dl
(70-99)
07/18/24 15:14
07/18/24 15:14
Vital Signs
Initial and Last Documented VS:
Initial Vital Signs
Temp Pulse Resp BP Pulse Ox
99.6 F 108 20 152/100 93
07/18/24 14:49 07/18/24 14:49 07/18/24 14:49 07/18/24 14:49 07/18/24 14:49
Last Documented Vital Signs
Temp Pulse Resp BP Pulse Ox
99.6 F 111 21 151/90 94
07/18/24 14:49 07/18/24 16:04 07/18/24 16:04 07/18/24 16:03 07/18/24 14:56
Update Note
Update Note:
Patient presents to the Emergency Department with ___dizziness
Number and Complexity of Problems Addressed at the Encounter
� Chronic conditions affecting care:hfpef with lasix
� Acute Exacerbation and/or Progression of Chronic Illness:
� Differential Diagnosis includes: But not limited to vasovagal events, volume depletion/dehydration, electrolyte disorder, etc. etc.
Amount and/or Complexity of Data to be Reviewed and Analyzed
� I performed an independent evaluation of and my interpretation is:
EKG:read by me, sinus tachycardia, no acute ischemia
CT: No CT evidence for acute intracranial hemorrhage or transcortical infarct.
2. Severe white matter leukoaraiosis in both cerebral hemispheres.
3. 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
Xrays:
Laboratory Studies:nonspecific wbc elevation (no fever, no infectious sxs, no obvious source), new renal insufficiency (?related to lasix), baseline anemia
Other:
� Review of other/old records reveals: may 2024, pt hosp for sepsis related to le cellulitis, tx'd to keflex on discharge to SNF. Hx of hfpef.
� Clinical information was obtained by an independent historian:
� Prescriptions/Medications Considered but not given:
� Further testing considered but not performed:
Risk of Complications and/or Morbidity or Mortality of Patient Management
� Social determinants of health affecting care:
� Discussion with other providers (PCP, Hospitalists, Consultants, etc):
� Escalation of care including admission/observation vs risk of discharge considered: 3:34 PM patient is intolerant of sitting or standing because she is so dizzy. This is not a sense of spinning/vertigo but rather a lightheaded
feeling. We were unable as a result to properly perform orthostatics given how profoundly symptomatic she was. Neuroexam is normal, motor strength intact, sensory intact, speech clear, cranial nerves II through XII intact, etc.
419 pm u/a negative. Pt with near syncope, continued dizziness with change in position, new renal insufficiency...may be related to lasix dosing, doubt acute neuro/cards event. Will admit, d/w Hospitalist Dr Mcfarland
ED Attending Note
-
Portions of this chart may have been created with voice recognition software.� Occasional wrong word or��sound alike� substitutions may have occurred due to the inherent limitations of voice recognition software.
Discharge Plan
Departure
Patient Disposition: Admit
Date of Disposition: 07/18/24
Time of Disposition: 16:23
Admit to: Telemetry
Presentation/result/management discussed w/ accepting MD/DO: Hospitalist
Condition: Fair
Discharge Problem:
Near syncope
Prescriptions:
No Action
atorvastatin 20 mg tablet
20 mg PO DAILY
escitalopram oxalate 10 mg tablet
10 mg PO DAILY
cholecalciferol (vitamin D3) 25 mcg (1,000 unit) Tablet
500 unit PO DAILY Qty: 0 0RF
cyanocobalamin (vitamin B-12) 1,000 mcg Tablet
1,000 mcg PO DAILY Qty: 0 0RF
famotidine 20 mg tablet
20 mg PO DAILY
aspirin 81 mg Tablet,Delayed Release (Dr/Ec)
81 mg PO HS
gabapentin 100 mg capsule
100 mg PO HS
albuterol sulfate 90 mcg/actuation HFA aerosol inhaler
2 puff inhalation Q6H PRN (Reason: shortness of breath or wheezing) Qty: 8.5 0RF
furosemide 40 mg Tablet
40 mg PO DAILY Qty: 0 0RF
polyethylene glycol 3350 [HealthyLax] 17 gram Powder In Packet
17 g PO DAILYPRN PRN (Reason: constipation) Qty: 0 0RF
ropinirole 1 mg Tablet
1 mg PO TID Qty: 0 0RF
sennosides-docusate sodium [Stool Softener-Stimulant Laxat] 8.6-50 mg Tablet
1 tab PO BIDPRN PRN (Reason: constipation) Qty: 0 0RF
metoprolol succinate 25 mg Tablet Extended Release 24 Hr
12.5 mg PO BID Qty: 0 0RF
acetaminophen 325 mg Tablet
650 mg PO Q6HPRN PRN (Reason: mild pain/ fever>100.5F) Qty: 100 0RF
cephalexin 500 mg capsule
500 mg PO QID Qty: 20 0RF
Rx Instructions:
tolerated Ancef well in hospital
lorazepam 1 mg Tablet
1 mg PO HS Qty: 3 0RF
Referrals:
Kadi Frederick MD [Family Provider] -
Interventions
Interventions:
*Risk Screen - Suicide Last Done: 07/18/24 14:49
*General Assessment Last Done: 07/18/24 14:49
*Neglect/Abuse Screening Last Done: 07/18/24 14:49
ED- Fall Risk Assessment Last Done: 07/18/24 14:49
*ED COVID-19 Vaccine History Last Done: 07/18/24 14:49
ED- Cardiac Assessment Last Done: 07/18/24 14:49
ED- Neurological Assessment Last Done: 07/18/24 14:49
ED- Pulmonary Assessment Last Done: 07/18/24 14:49
Discharge Date and Time
Print Language: UZBEK
[2024-07-18 15:23] LABS: Hematocrit 31.5 % (37.0-47.0); Hemoglobin 10.4 g/dL (12.0-16.0); Mean Corpuscular Hgb 29.1 pg (27.0-31.0); Mean Platelet Volume 10.2 fL (7.4-10.4); Platelet Count 301 10^3/uL (130-400); Red Blood Cell Count 3.58 10^6/uL (4.20-5.40); Red Cell Dist. Width 14.9 % (11.5-14.5); White Blood Cell Count 14.1 10^3/uL (4.8-10.8)
[2024-07-18 15:36] LABS: ALT (SGPT) 18 U/L (0-35); AST (SGOT) 23 U/L (14-36); Albumin 4.4 g/dl (3.5-5.0); Alkaline Phosphatase 101 U/L (38-126); Blood Urea Nitrogen 29 mg/dl (7-17); Calcium 9.1 mg/dl (8.4-10.2); Carbon Dioxide 27 mmol/L (22-30); Chloride 98 mmol/L (98-107); Estimated Creatinine Clearance 36 ml/min; Glucose 108 mg/dl (70-99); Potassium 4.3 mmol/L (3.5-5.1); Sodium 138 mmol/L (135-145); Total Bilirubin 0.5 mg/dl (0.2-1.3); Total Protein 7.2 g/dl (6.3-8.2); eGFR 45.48
[2024-07-18 16:15] LABS: Urine Albumin Negative (Neg - Trace); Urine Bilirubin Negative (Negative); Urine Character Clear (Clear); Urine Color Yellow; Urine Glucose Negative (Negative); Urine Ketone Negative (Negative); Urine Leukocyte Negative (Negative); Urine Nitrite Negative (Negative); Urine Occult Blood Negative (Negative); Urine Urobilinogen Negative (Neg - 1+)
--- NOTE | 2024-07-18 16:35 | HPS.HSE ---
Family Physician
-
Family Physician: Kadi Frederick MD
Chief Complaint
-
almost passed out
History of Present Illness
79F HX Chr HFpEF on PO lasix and BB , ACDz,, HTN, COPD, peripheral neuroapthy , Anxiety , recently double dose of PO lasix 40mg to 80mg) suggeted by PCP pw almost passing out out while standing over the stove
- preceded by lightheadedness
- then gently lowered herself down to the ground and hit her life alert button to alert staff at the assisted living facility where she lives.
- HX similar event once before related to increasing her Lasix.
ROS
Denied CP, palpitations, headache, vertigo/sense of spinning, dyspnea, nausea, vomiting, numbness, tingling
Medical History
Past Medical History
Past Medical History: Reports Other
Additional Past Medical History:
Heart failure
Depression
Restless leg syndrome
Peripheral neuropathy
Anxiety disorder
Peripheral artery disease
Lumbar degenerative disc disease
Hyperlipidemia
COPD
Past Surgical History: Reports Other
Additional Past Surgical History:
Amputation of bilateral toe
Social History
Tobacco: Former Smoker
Alcohol: None
Drug: None
Personal: Single
Living: Alone
Family History
Family History: Not pertinent
Allergies / Home Medications
Allergies reflects when Allergies were last updated in [facility].
Home Medications with original date entered in [facility]
Allergy/Medication List:
Allergies
Allergy/AdvReac Type Severity Reaction Status Date / Time
Penicillins Allergy Swelling Verified 05/15/24 15:53
Home Medications
atorvastatin 20 mg tablet 20 mg PO DAILY High cholesterol 05/22/22
escitalopram oxalate 10 mg tablet 10 mg PO DAILY Depression 05/22/22
cholecalciferol (vitamin D3) 25 mcg (1,000 unit) tablet 500 unit PO DAILY Supplement #0 tabs 07/08/22
cyanocobalamin (vitamin B-12) 1,000 mcg tablet 1,000 mcg PO DAILY defeciancy #0 tabs 07/08/22
albuterol sulfate 90 mcg/actuation aerosol inhaler 2 puff inhalation Q6H PRN shortness of breath or wheezing #8.5 grams 09/04/23
aspirin 81 mg tablet,delayed release 81 mg PO HS Blood Clot Prevention/Tx 09/04/23
diclofenac sodium 1 % topical gel 2 g topical DAILY PRN right shoulder pain post op 09/04/23
famotidine 20 mg tablet 20 mg PO DAILY Gastrointestinal Issue 09/04/23
fluticasone propionate 50 mcg/actuation nasal spray,suspension 2 spray intranasal DAILY PRN seasonal allergies 09/04/23
gabapentin 100 mg capsule 100 mg PO HS neuropathic pain, anxiety, sleep, shoulder pain 09/04/23
cephalexin 500 mg capsule 500 mg PO QID #24 caps 04/03/24
furosemide 40 mg tablet 40 mg PO DAILY #0 tabs 04/03/24
lorazepam 1 mg tablet 1 mg PO HS #3 tabs 04/03/24
metoprolol succinate 25 mg tablet,extended release 24 hr 12.5 mg (1/2 x 25 mg) PO BID #0 tabs 04/03/24
polyethylene glycol 3350 17 gram oral powder packet (HealthyLax) 17 g PO DAILYPRN PRN constipation #0 ea 04/03/24
ropinirole 1 mg tablet 1 mg PO TID #0 tabs 04/03/24
sennosides 8.6 mg-docusate sodium 50 mg tablet (Stool Softener-Stimulant Laxative) 1 tab PO BIDPRN PRN constipation #0 tabs 04/03/24
Review of Systems
-
Constitutional: Reports No Symptoms
EENT: Reports No Symptoms
Respiratory: Reports Trouble Breathing
Cardiac: Reports No Symptoms
Abdomen/GI: Reports No Symptoms
: Reports No Symptoms
Skin: Reports No Symptoms
Endocrine: Reports No Symptoms
Hematologic/Lymphatic: Reports No Symptoms
Psych: Reports No Symptoms
Physical Exam
Vital Signs
Vital Signs
Temp Pulse Resp BP Pulse Ox
99.6 F 111 21 151/90 94
07/18/24 14:49 07/18/24 16:04 07/18/24 16:04 07/18/24 16:03 07/18/24 14:56
Physical Exam
General: Well Developed, Well Nourished and No Apparent Distress
HEENT: NormoCephalic, Moist mucous membranes and Atraumatic
Respiratory: Clear
Cardiac: S1/S2 and Regular Rhythm; No Murmur or Rub
GI: Soft, Non Tender, Non Distended and Normal Bowel Sounds; No Organomegaly
Rectal: Deferred by Provider
Musculoskeletal: No Clubbing, No Cyanosis and No Edema
Skin: No Rash
Neuro: Nonfocal/grossly intact
Laboratory Results
-
07/18/24 15:14
07/18/24 15:14
Laboratory Results
Total Bilirubin 0.5 mg/dl (0.2-1.3) 07/18/24 15:14
AST 23 U/L (14-36) 07/18/24 15:14
ALT 18 U/L (0-35) 07/18/24 15:14
Alkaline Phosphatase 101 U/L (38-126) 07/18/24 15:14
Data Reviewed
-
CT Scan: Report Reviewed by me
Lab Data: Labs Reviewed by me
Old Records: Reviewed
Impression/Plan
-
Vital Signs
Temp Pulse Resp BP Pulse Ox
99.6 F 111 21 151/90 94
07/18/24 14:49 07/18/24 16:04 07/18/24 16:04 07/18/24 16:03 07/18/24 14:56
Laboratory Tests
05/22/22 05/22/22 07/13/24
05:40 05:42 06:45
WBC 13.5 H
Hgb 10.5 L
BUN 20 H
Creatinine 0.6 0.8
Glomerular Filtr Rate > 60.0
Lactic Acid Pending
Leukocyte Esterase Rfl
SARS CoV-2 RNA Rapid YUNIER Negative
07/18/24 07/18/24
15:14 16:08
WBC 14.1 H
Hgb 10.4 L
BUN 29 H
Creatinine 1.2 H
Glomerular Filtr Rate
Lactic Acid
Leukocyte Esterase Rfl Negative
SARS CoV-2 RNA Rapid YUNIER
EKG
SINUS TACHYCARDIA
CANNOT RULE OUT ANTERIOR INFARCT , AGE UNDETERMINED
ABNORMAL ECG
WHEN COMPARED WITH ECG OF 15-MAY-2024 20:22,
VENT. RATE HAS INCREASED BY 34 [address]
1. No CT evidence for acute intracranial hemorrhage or transcortical infarct.
2. Severe white matter leukoaraiosis in both cerebral hemispheres.
3. 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
11/28/23 TTE
Left ventricular ejection fraction is 55-60%
Diastolic function indeterminate.
Normal right ventricular size and function.
Mild mitral regurgitation.
Mild aortic stenosis.
Mild tricuspid regurgitation. Estimated pulmonary artery pressure of 40-45 mmHg assuming a right atrial pressure of 3 mmHg.
Last hospitalist admission:
DATE OF ADMISSION: 05/15/2024 - DATE OF DISCHARGE: 05/22/2024 DISCHARGE DIAGNOSES:
1. Left lower extremity cellulitis.
2. Polyneuropathy.
ASSESSMENT & PLAN
Pending Rx reconciliation
Near syncope suspect vasovagal vs postural orthostatic hypotension associated with increased PO lasix
No stroke symptoms
Unremarkable EKG
NEG HCT
No prior hemodynamically significant valvular heart dz
Unremarkable labs
- De-escalade PO Lasix back to 40 daily
- check ortho VSS
- fall precaution
- TLM monitor
HX Chr HFpEF
-Clinically not in acute exacerbation
- check pro BNP
- cont PO Lasix back to 40 daily instead of 80mg daily
HX Anemia of chronic disease
-Hemoglobin stable at low 10s
-No active bleeding
COPD HX
- cont home meds
Essential hypertension:
-BP soft in ER
- cont metoprol with hold index
Hyperlipidemia:
- cont. statin, atorvastatin
Depression anxiety:
-Cont CONVENTIONS ASSISTANT citalopram and lorazepam HX
Restless leg syndrome:
- cont. CONVENTIONS ASSISTANT Requip and gabapentin
DVT Px: LMWH
Code: Full
Obs TLM
[2024-07-18] MEDS: LOVENOX 40 MG SC (18:33)
--- NOTE | 2024-07-18 19:26 | PTCARENOTE ---
Received pt form ED. AAOx3, oriented to unit. Plan of care id ongoing.
[2024-07-18] MEDS: TOPROL XL 12.5 MG PO (19:48)
[2024-07-18] MEDS: ATIVAN 1 MG PO (21:02)
[2024-07-18] MEDS: NEURONTIN 100 MG PO (21:02)
[2024-07-18] MEDS: REQUIP 1 MG PO (21:02)
[2024-07-18] MEDS: ASPIR LOW (ENTERIC COATED) 81 MG PO (21:02)
[2024-07-19] VITALS (7 sets, daily range): BP systolic 121–174; BP diastolic 52–83; PULSE 70–77; O2SAT 97
[2024-07-19 07:59] LABS: Hematocrit 30.2 % (37.0-47.0); Hemoglobin 9.7 g/dL (12.0-16.0); Mean Corp Hgb Conc. 32.1 g/dL (33.0-37.0); Mean Corpuscular Hgb 28.4 pg (27.0-31.0); Mean Corpuscular Volume 88.6 fL (81.0-99.0); Mean Platelet Volume 9.7 fL (7.4-10.4); Platelet Count 249 10^3/uL (130-400); Red Blood Cell Count 3.41 10^6/uL (4.20-5.40); Red Cell Dist. Width 15.1 % (11.5-14.5); White Blood Cell Count 8.7 10^3/uL (4.8-10.8)
[2024-07-19 08:13] LABS: NT-proBNP 1420 pg/ml
[2024-07-19 08:15] LABS: Blood Urea Nitrogen 22 mg/dl (7-17); Calcium 9.2 mg/dl (8.4-10.2); Carbon Dioxide 27 mmol/L (22-30); Chloride 103 mmol/L (98-107); Estimated Creatinine Clearance 44 ml/min; Glucose 86 mg/dl (70-99); Potassium 4.2 mmol/L (3.5-5.1); Sodium 142 mmol/L (135-145)
[2024-07-19] MEDS: TOPROL XL 12.5 MG PO (08:22)
[2024-07-19] MEDS: REQUIP 1 MG PO ×2 (08:22→16:55)
[2024-07-19] MEDS: LIPITOR 20 MG PO (08:23)
[2024-07-19] MEDS: PEPCID 20 MG PO (08:23)
[2024-07-19] MEDS: LEXAPRO 10 MG PO (08:23)
[2024-07-19] MEDS: LASIX 40 MG PO (08:23)
--- NOTE | 2024-07-19 09:06 | W.PN.HOSP.TC ---
Today's Communication/Plan
-
orthostatic vitals, PT/OT eval
Assessment / Plan
Assessment / Plan
79yo F with PMH chronic HFpEF, HTN, COPD, atherosclerotic disease, who presented from assisted living facility to ED 07/18 for presyncope and fall.
Presyncope
- Differential diagnosis includes orthostatic hypotension, bradycardia, hypoglycemia, hypovolemia
- Head CT negative for acute stroke or hemorrhage
- Orthostatic VS from supine to sitting showed increase in BP. Will repeat orthostatic VS today including standing
- EKG on admission sinus tachycardia, HR 103 --> HR 70s today
- Repeat orthostatic vitals
- PT/OT evaluation
Chronic HRpEF
HTN
- Not in acute exacerbation
- BNP 1420
- Echo 11/2023: LV EF 55-60%, normal regional wall motion, mild mitral/tricuspid regurg, mild aortic stenosis
- Continue daily lasix at dose of 40mg (dose recently increased to 80mg qd prior to admission)
- Continue metoprolol 12.5mg po BID
- Continue low sodium diet
Chronic anemia
- Hgb 10.4 on admission --> 9.7 today (baseline appears to be 9-10s)
- Continue home vit b12 supplement
- No active bleeding or bruising
Stasis dermatitis
H/o LLE edema
- LE with erythema distal to knee secondary to stasis dermatitis, symmetric bilaterally
- Reports unilateral swelling prior to admission- resolved
- LE symmetric bilaterally, no calf tenderness, negative tracey sign- unlikely VTE or cellulitis
- Keep feet elevated when in bed, compression stockings
- Monitor clinically
Leukocytosis- resolved
- WBC 14.1 on admission --> 8.7 today
HLD- continue home atorvastatin
COPD- continue home inhalers
Restless leg syndrome- continue home ropinirole
Depression- continue home escitalopram
Neuropathy- continue home gabapentin
H/o orthopedic surgeries- continue home diclofenac topical
Code status: full
VTE ppx: lovenox 40mg sc qpm
Diet: 2g sodium, cholesterol lowering
Dispo planning: pending PT/OT eval
Anticipated Discharge: Within 24 hours
Subjective/Interval History
-
Date of Service: July 19, 2024
No acute events overnight. She feels well this morning and would like to go home. She tells me that she had 1 episode of lightheadedness and fall prior to admission; denies loss of consciousness, head injury, vertigo, palpitations. She denies any
injury from the fall. She also says she had cellulitis and swelling of her left lower leg/foot but that has resolved. This morning, she denies lightheadedness, dizziness, chest pain, shortness of breath, palpitations, nausea, vomiting, diarrhea,
constipation. She is tolerating PO diet. Ambulates with a walker at home; has not been out of bed since arriving to hospital. She has a purewick in place, denies dysuria or skin irritation. Her last bowel movement was yesterday and it was solid,
brown; no black or bloody stools.
Objective Data
-
Labs:
Laboratory Results
07/19/24
07:17
WBC 8.7
Hgb 9.7 L
Hct 30.2 L
Plt Count 249
Sodium 142
Potassium 4.2
Chloride 103
Carbon Dioxide 27
BUN 22 H
Creatinine 1.0
Glucose 86
Calcium 9.2
Vital Signs:
Vital Signs
Temp Pulse Resp BP Pulse Ox
98.1 F 77 16 174/83 99
07/19/24 07:55 07/19/24 08:22 07/19/24 07:55 07/19/24 08:22 07/19/24 07:55
I&O
07/18/24 07/19/24 07/20/24
06:59 06:59 06:59
Output Total 1200 / 1200
Balance -1200 / -1200
Review of Systems
-
History Source: Patient
All other systems: Reviewed and negative
Physical Exam
-
General: Well Developed, Well Nourished, No Apparent Distress, Comfortable and Other (sleeping peacefully on my arrival to room, easily awoken with verbal stimuli)
HEENT: Normocephalic and Atraumatic
Respiratory: Clear to Auscultation and Non Labored Respirations
Cardiac: Regular Rhythm and S1/S2; Negative Calf Tenderness or Tracey's Sign
GI: Soft, Nontender, Nondistended and Normal Bowel Sounds
Genito-urinary: Clear Urine (clear yellow urine via purewick)
Musculoskeletal: No Cyanosis, No Edema and Other (dorsalis pedal pulses palpable bilaterally- strong on right side, weak on left; s/p single toe amputation bilaterally, well healed)
Skin: Warm, Dry, Rash (bilateral lower extremities erythema distal to knee, consistent with stasis dermatitis) and Other (ecchymosis on left shoulder)
Neuro: Awake, Alert, Oriented, AO x 3 and Nonfocal/Grossly Intact
Psych: Calm and Intact Judgement/Insight
Data Reviewed
-
CT Scan: Image personally visualized and interpreted, Report Reviewed by me and Discussed with Physician
Labs: Labs Reviewed by me and Discussed with Physician
--- NOTE | 2024-07-19 12:57 | W.PN.UPDATE ---
Update Note
Progress Note Update
I saw and evaluated the patient. I reviewed the resident�s note and agree with findings and plan as documented in the resident�s note.
Patient resting comfortably in bed.
Denies of any further episodes of presyncope/dizziness
telemetry reviewed and no bradycardia/pauses
1. Pre-syncope
-patient was standing up in kitchen when started to feeling dizzy and ended up sitting down on floor
-No reported previous syncope episode
-No reported chest discomfort/missed beat/palpitations/nausea/diaphoresis
-EKG at admission showing sinus tachycardia . No telemetry event overnight
-Orthostatic vitals were negative.
-Patient home dose of lasix was increased to 80mg/d last week, possible component of volume depletion playing role. Advised patient to transition back to oral Lasix 40 mg daily for now
-Echocardiogram in November 27 showing EF 55 to 60%. Mild aortic stenosis. Pulmonary artery pressure of 40 to 45 mmHg
-Advised patient to f/u with cardiology in office have any further episode of dizziness.
2. Chronic venous stasis dermatitis
-Recommended patient to continue Itz wrapping/leg elevation at night
-No concern of underlying DVT or cellulitis
3. Chronic diastolic HF
-No signs of heart failure exacerbation
-Continue home regimen of cardiac medication except decreasing dose of Lasix to 40 mg daily as mentioned above
4. Acute hypoxic respiratory insufficiency
COPD
-No signs of flareup. Patient O2 sat was 88% on room air
-wean off o2
Dischargeable home later today after PT eval
f/u with PCP in office tomorrow.
--- NOTE | 2024-07-19 16:23 | CM ---
CM following re: d/c planning.
CM met with pt at bedside to complete IA.
Pt resides at [facility].
She states she uses a walker, but just got herself an electric WC.
She states they assist her with bathing, laundry, and as needed.
She was doing PT there, and would like to continue.
CM will communicate with [facility] about this.
for [facility] wellness office.
Pt states her son resides locally and checks in on her regularly.
PCP is Dr. Frederick and pharmacy is [facility].
CM provided her with Advanced Directive paperwork and explained the process.
BOWEN also provided and explained.
She anticipates to return to [facility] assisted living at d/c.
--- NOTE | 2024-07-19 16:54 | W.DCSUMMARY ---
Discharge Summary
Discharge Data
Date of Admission: 07/18/24
Date of Discharge: 07/19/24
-
Pending Results: No
Hospital Course
Discharging Physician : Dr. Vieira, Dr. Calvin Pedroza
Disposition : Home (Assisted Living Facility)
Primary care physician : Kadi Frederick
Principal Discharge diagnosis : Presyncope, fall
Chronic Discharge diagnosis : Chronic venous stasis dermatitis, chronic diastolic heart failure, COPD, chronic anemia
Hospital Course : Presented to ED for presyncope and fall. She was monitored overnight on telemetry with no events. Orthostatic vital signs were negative for postural hypotension. Her lasix dose was adjusted to 40mg daily (prior to admission it was
recently increased to 80mg daily). On day of discharge she was stable, and discharged home to assisted living facility.
Important imaging findings :
Head CT 07/18/24
IMPRESSION:
1. No CT evidence for acute intracranial hemorrhage or transcortical infarct.
2. Severe white matter leukoaraiosis in both cerebral hemispheres.
3. 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
Procedure findings : N/A
Discharge Plan
-
Patient Disposition: Assisted Living
Discharge Diagnosis/Procedures: Presyncope, fall
Condition: Good
Diet: Low Cholesterol and 2 Gram Sodium
Activity: As tolerated and With Walker
Driving Restrictions: No driving
Bathing Restrictions: OK to Shower
Other Services: VN
Specialty Instructions: Weigh Daily- Call MD for wt gain/loss 3 lbs overnight/5 lbs in 1 week
Instructions: Heart Failure, Adult (DC), Preventing falls in adults, Near Fainting (DC), Low-sodium diet
Referrals:
Rico Apodaca III, MD [Active] -
Kadi Frederick MD [Family Provider] - in one week (Call your primary care provider to schedule an appointment within 1 week of hospital discharge)
Additional Discharge Medication Instructions: Medication changes:
- Take 40mg of lasix daily. Do not take 80mg until you talk to your prescribing doctor.
Prescriptions:
Continued
atorvastatin 20 mg tablet
20 mg PO DAILY
escitalopram oxalate 10 mg tablet
10 mg PO DAILY
cholecalciferol (vitamin D3) 25 mcg (1,000 unit) Tablet
500 unit PO DAILY Qty: 0 0RF
cyanocobalamin (vitamin B-12) 1,000 mcg Tablet
1,000 mcg PO DAILY Qty: 0 0RF
famotidine 20 mg tablet
20 mg PO DAILY
aspirin 81 mg Tablet,Delayed Release (Dr/Ec)
81 mg PO HS
gabapentin 100 mg capsule
100 mg PO HS
polyethylene glycol 3350 [HealthyLax] 17 gram Powder In Packet
17 g PO DAILYPRN PRN (Reason: constipation) Qty: 0 0RF
ropinirole 1 mg Tablet
1 mg PO TID Qty: 0 0RF
sennosides-docusate sodium [Stool Softener-Stimulant Laxat] 8.6-50 mg Tablet
1 tab PO BIDPRN PRN (Reason: constipation) Qty: 0 0RF
metoprolol succinate 25 mg Tablet Extended Release 24 Hr
12.5 mg PO BID Qty: 0 0RF
acetaminophen 325 mg Tablet
650 mg PO Q6HPRN PRN (Reason: mild pain/ fever>100.5F) Qty: 100 0RF
lorazepam 1 mg Tablet
1 mg PO HS Qty: 3 0RF
sulfamethoxazole-trimethoprim [Bactrim DS] 800-160 mg Tablet
1 tab PO BID
Rx Instructions:
take from 07/16/24-07/26/24
triamcinolone acetonide 0.1 % Cream
1 applic TOPICAL BIDPRN PRN (Reason: rash)
magnesium hydroxide [Milk of Magnesia] 400 mg/5 mL Suspension
2,400 mg PO [id number] PRN (Reason: no bm by 2nd day)
diphenhydramine HCl [Benadryl] 25 mg Capsule
25 mg PO [id number] PRN (Reason: pruitis)
Saccharomyces boulardii [Florastor] 250 mg Capsule
250 mg PO DAILY
furosemide 40 mg tablet
40 mg PO DAILY
albuterol sulfate 90 mcg/actuation HFA aerosol inhaler
2 puff inhalation R Q6HPRN PRN (Reason: shortness of breath or wheezing)
Discontinued
furosemide [Lasix] 80 mg Tablet
80 mg PO DAILY
Rx Instructions:
for 3 days 07/17/24-07/20/24
Discharge Orders:
Discharge Patient (As Directed); Ordered 07/19/24
Ordered By: Mickie Vieira
Discharge Date and Time
Print Language: OCCITAN
== END 2024-07-19 18:29 | disposition home or self-care (01) ==
LOC: 4 EAST ACU 17:01
PROVIDERS: Student in an Organized Health Care Education/Training Program; ADMITTING PHYSICIAN Internal Medicine; ATTENDING PHYSICIAN Hospitalist; EMERGENCY PHYSICIAN Emergency Medicine; FAMILY PHYSICIAN Family Medicine
DX: R55 Syncope and collapse (principal); R53.1 Weakness; R42 Dizziness and giddiness; I50.32 Chronic diastolic (congestive) heart failure; I11.0 Hypertensive heart disease with heart failure; I67.81 Acute cerebrovascular insufficiency; N28.9 Disorder of kidney and ureter, unspecified; J44.9 Chronic obstructive pulmonary disease, unspecified; E78.5 Hyperlipidemia, unspecified; F32.A Depression, unspecified; G25.81 Restless legs syndrome; G62.9 Polyneuropathy, unspecified; F41.9 Anxiety disorder, unspecified; I73.9 Peripheral vascular disease, unspecified; M51.36 Other intervertebral disc degeneration, lumbar region; R00.0 Tachycardia, unspecified; R94.31 Abnormal electrocardiogram [ECG] [EKG]; D63.8 Anemia in other chronic diseases classified elsewhere; D72.829 Elevated white blood cell count, unspecified; I87.2 Venous insufficiency (chronic) (peripheral); Z88.0 Allergy status to penicillin; Z87.891 Personal history of nicotine dependence; Z79.82 Long term (current) use of aspirin
CPT/HCPCS: 70450; 80048; 80053; 81003; 83880; 85027; 93005; 97163; 97166; 99285; G0378

== ENCOUNTER → 2024-07-20 12:20 | Outpatient (REF) | payer OTHER, SELFPAY ==
[2024-07-20 13:24] LABS: Hematocrit 33.8 % (37.0-47.0); Hemoglobin 10.7 g/dL (12.0-16.0); Mean Corp Hgb Conc. 31.7 g/dL (33.0-37.0); Mean Corpuscular Hgb 28.3 pg (27.0-31.0); Mean Corpuscular Volume 89.4 fL (81.0-99.0); Platelet Count 370 10^3/uL (130-400); Red Blood Cell Count 3.78 10^6/uL (4.20-5.40); White Blood Cell Count 8.9 10^3/uL (4.8-10.8)
[2024-07-20 14:30] LABS: ALT (SGPT) 23 U/L (0-35); AST (SGOT) 28 U/L (14-36); Albumin 4.3 g/dl (3.5-5.0); Alkaline Phosphatase 98 U/L (38-126); Blood Urea Nitrogen 34 mg/dl (7-17); Calcium 9.5 mg/dl (8.4-10.2); Carbon Dioxide 29 mmol/L (22-30); Chloride 97 mmol/L (98-107); Glucose 127 mg/dl (70-99); Potassium 4.8 mmol/L (3.5-5.1); Sodium 140 mmol/L (135-145); Total Bilirubin 0.4 mg/dl (0.2-1.3); Total Protein 7.2 g/dl (6.3-8.2); eGFR 45.48
== END ==
LOC: OLABWIL 12:20
PROVIDERS: ATTENDING PHYSICIAN Family Medicine
DX: L03.116 Cellulitis of left lower limb (principal); I50.33 Acute on chronic diastolic (congestive) heart failure
CPT/HCPCS: 36415; 80053; 85027

== ENCOUNTER 2024-08-05 21:06 | Emergency (ER) | payer OTHER, SELFPAY ==
[2024-08-05 21:08] VITALS: BP 173/63
[2024-08-05 21:14] VITALS: BP 173/63
[2024-08-05 21:22] LABS: % Basophils 0.6 % (0-2); % Eosinophils 7.3 % (0-6); % Immature Granulocytes 0.2 % (0-0.5); % Lymphocytes 13.3 % (20.5-51.1); % Monocytes 10.2 % (1.7-9.3); % Neutrophils 68.4 % (42.2-75.2); Absolute Basophils 0.1 10^3/uL (0-0.2); Absolute Eosinophils 0.6 10^3/uL (0-0.7); Absolute Lymphocytes 1.2 10^3/uL (1.2-3.4); Absolute Monocytes 0.9 10^3/uL (0.1-0.6); Absolute Neutrophils 5.9 10^3/uL (1.4-6.5); Hematocrit 29.8 % (37.0-47.0); Hemoglobin 9.5 g/dL (12.0-16.0); Mean Corp Hgb Conc. 31.9 g/dL (33.0-37.0); Mean Corpuscular Hgb 28.1 pg (27.0-31.0); Mean Corpuscular Volume 88.2 fL (81.0-99.0); Mean Platelet Volume 9.2 fL (7.4-10.4); Nucleated Red Blood Cells % 0 %; Platelet Count 295 10^3/uL (130-400); Red Blood Cell Count 3.38 10^6/uL (4.20-5.40); Red Cell Dist. Width 15.3 % (11.5-14.5); White Blood Cell Count 8.7 10^3/uL (4.8-10.8)
[2024-08-05 21:40] LABS: ALT (SGPT) 21 U/L (0-35); AST (SGOT) 22 U/L (14-36); Alkaline Phosphatase 96 U/L (38-126); Blood Urea Nitrogen 28 mg/dl (7-17); Carbon Dioxide 30 mmol/L (22-30); Chloride 101 mmol/L (98-107); Glucose 99 mg/dl (70-99); Potassium 4.7 mmol/L (3.5-5.1); Sodium 140 mmol/L (135-145); Total Bilirubin 0.4 mg/dl (0.2-1.3); Total Protein 7.1 g/dl (6.3-8.2); eGFR > 60.00
[2024-08-05 21:51] LABS: Troponin I < 0.012 ng/ml
[2024-08-05 22:00] VITALS: BP 154/73
[2024-08-05 22:20] LABS: NT-proBNP 786 pg/ml
[2024-08-05] MEDS: LASIX 40 MG IV (22:48)
--- NOTE | 2024-08-05 23:15 | ED.GENMED ---
History of Present Illness
General
Chief Complaint: Chest Pain
Source: patient
Time Seen by Provider: 08/05/24 22:25
History of Present Illness
History of Present Illness:
79-year-old female with past medical history of COPD, CHF, hypertension, hyperlipidemia, chronic lower extremity cellulitis presenting to the emergency department for evaluation of shortness of breath and chest discomfort that started off and on
yesterday, today more persistent prompting her to come to the ER for further evaluation. Patient states the pain is worse along the left scapular region and radiates forward into the left anterior chest. Patient also notes that with exertion she
will feel short of breath which is not very typical for her. She reports her COPD is very mild and usually under good control. She denies any cough, wheezing, fevers or infectious symptoms, hemoptysis, lower extremity edema, abnormal weight gain,
abdominal pain or any other concerns. Did not any medications prior to arrival but EMS did give patient 324 mg of aspirin.
Past History
Past History
ED Past Medical History: CHF, COPD, HTN, Hypercholesterolemia, Psychiatric (Anxiety, Depression) and Other (OA, Restless leg syndrome, Incontinence)
ED Past Surgical History: Orthopedic (Mati second Toe amputation, Right Total knee replacement, Right shoulder replacement, Mati carpal tunnel) and Other (cataracts, )
PSI?: No
Social History
Tobacco: Former smoker
Alcohol: Occasional
Drug: None
Personal:
Living: assisted living
Employment: Retired
Review of Systems
Review of Systems
All Other Systems: ROS reviewed and negative except as documented in HPI and ROS
Phy Exam
Physical Exam
Physical Exam:
GENERAL: Alert , in no apparent distress but does appear somewhat dyspneic during conversation
HEAD: NCAT
EYE: clear conjunctiva
NECK: Supple
ENT: o/p clr, mmm.
CARDIAC: Regular rate and rhythm .
LUNGS: Diminished lung sounds at the right base, faint crackles
ABDOMEN: Soft, without focal tenderness, no r/g, no cvat
NEUROLOGICAL: Alert and oriented
SKIN: Warm and dry, skin intact. erythema to b/l LE
MUSCULOSKELETAL: minimal edema b/l ankles, well perfused.
PSYCH: Normal and appropriate interaction.
Scores
Heart Failure Risk
Heart Failure Risk Score: Not Applicable
Heart Score for Chest Pain Patients
STEMI patient?: No
History: Slightly or Non-Suspicious
ECG: Normal
Age: >/= 65 years
Risk Factors: 1 or 2 Risk Factors
Troponin: </= Normal Limit
Heart Score for Chest Pain Patients: 3
Heart Score Risk: 2.5% MACE over next 6 weeks
Withdrawal Assessment of Alcohol
Withdrawal Assessment Completed?: Not applicable
Course
Orders/Labs/Results
Orders:
Orders
08/05/24 21:07
Electrocardiogram (*1) Urgent
Reason for Study: Chest Pain
CR Chest - 2 Views Urgent
Comment:
Reason For Exam: chest pain
08/05/24 21:08
EKG- Treatment ONCE
08/05/24 21:13
Complete Blood Count/With Diff Urgent
Comprehensive Metabolic Panel Urgent
NT-proBNP Urgent
Comment: ADD ON
Troponin I Urgent
08/05/24 21:58
Add On- LAB Urgent
Tests Added?: bnp
08/05/24 22:43
CT Chest Pe Study Urgent
Comment:
Reason For Exam: left shoulder pain, SOB, FARRIS
08/05/24 22:44
Furosemide [Lasix] 40 mg IV NOW STA
08/05/24 22:49
Ropinirole [Requip] 1 mg PO NOW STA
Abnormal Lab Results
08/05/24
21:13
RBC 3.38 L 10^6/uL
(4.20-5.40)
Hgb 9.5 L g/dL
(12.0-16.0)
Hct 29.8 L %
(37.0-47.0)
MCHC 31.9 L g/dL
(33.0-37.0)
RDW 15.3 H %
(11.5-14.5)
Absolute Monos (auto) 0.9 H 10^3/uL
(0.1-0.6)
Lymphocytes % 13.3 L %
(20.5-51.1)
Monocytes % 10.2 H %
(1.7-9.3)
Eosinophils % 7.3 H %
(0-6)
BUN 28 H mg/dl
(7-17)
08/05/24 21:13
08/05/24 21:13
Vital Signs
Initial and Last Documented VS:
Initial Vital Signs
BP
173/63
08/05/24 21:08
Last Documented Vital Signs
Temp Pulse Resp BP Pulse Ox
98.3 F 90 22 152/60 94
08/05/24 21:09 08/06/24 00:15 08/06/24 00:15 08/06/24 00:00 08/06/24 00:15
MDM/Problems Addressed
Differential Diagnosis Includes:
ACS, PE, pleurisy, dissection, pneumonia, CHF, valvular dysfunction
MDM/Problems Addressed:
79-year-old female presenting to the emergency department for evaluation of dyspnea as well as left-sided chest/scapular discomfort that started yesterday. Patient was noted to be significantly dyspneic while getting from her bed to the bathroom by
nursing staff and appears dyspneic even in conversation. Patient does have diminished lung sounds on the right and Rales but has not had any weight gain or edema on exam. Labs were initiated on arrival and are overall largely reassuring and at
baseline. Chest x-ray had also been ordered which shows possible mild CHF. Given the patient's pleurisy will obtain a CT of the chest to further evaluate for possible PE. Will treat with a dose of Lasix IV. Patient requesting her ropinirole for
her restless legs.
Chronic conditions affecting care: COPD and Other (CHF)
*Radiology
Radiology exam reviewed: radiology read reviewed
*Pulse Oximetry
Patient hypoxic: no
*EKG
Interpreted by ED Provider?: Yes
Heart Rate: 72
Rate: normal
Rhythm: sinus
[place]: normal axis
Ischemia: no ischemia
*Rodeo Clown Interpretation
Rate: normal
Rhythm: sinus
*Critical Care Note
Total Time (30-74mins, 75-104mins- exclusive of procedures): Not Applicable
Data Reviewed
Review of Other/Old Records Reveals: Labs and Records
Source: patient
Patient Management
Social determinants of health affecting care: Living situation
Escalation/DeEscalation of care consider admission/obs:
Patient CT scan without evidence for acute pulmonary embolism. Incidental findings including acute/subacute displaced fractures of the anterolateral left second and third rib which likely explains patient's scapular pain radiating towards the
anterior portion of the left chest. Patient states she does not remember falling or any traumatic events recently. Patient also appears to have chronic left shoulder degenerative changes. There is mild cardiomegaly but no pericardial effusion,
pneumonia or pulmonary edema. No pleural effusion or pneumothorax. Patient ultimately would like to go back to her assisted living facility and feels comfortable with this plan. NSAIDs/Tylenol as needed for pain. Patient otherwise continues to
rest,.
ED Attending Note
-
Portions of this chart may have been created with voice recognition software.� Occasional wrong word or��sound alike� substitutions may have occurred due to the inherent limitations of voice recognition software.
Discharge Plan
Departure
Patient Disposition: Assisted Living
Date of Disposition: 08/06/24
Time of Disposition: 00:11
Patient with high blood pressure during this ER visit?: Yes
Discharge Problem:
Shortness of breath, COPD (chronic obstructive pulmonary disease), Fracture of rib of left side
Instructions: Chronic obstructive pulmonary disease (COPD)
Prescriptions:
No Action
atorvastatin 20 mg tablet
20 mg PO DAILY
escitalopram oxalate 10 mg tablet
10 mg PO DAILY
cholecalciferol (vitamin D3) 25 mcg (1,000 unit) Tablet
500 unit PO DAILY Qty: 0 0RF
cyanocobalamin (vitamin B-12) 1,000 mcg Tablet
1,000 mcg PO DAILY Qty: 0 0RF
famotidine 20 mg tablet
20 mg PO DAILY
aspirin 81 mg Tablet,Delayed Release (Dr/Ec)
81 mg PO HS
gabapentin 100 mg capsule
100 mg PO HS
polyethylene glycol 3350 [HealthyLax] 17 gram Powder In Packet
17 g PO DAILYPRN PRN (Reason: constipation) Qty: 0 0RF
ropinirole 1 mg Tablet
1 mg PO TID Qty: 0 0RF
sennosides-docusate sodium [Stool Softener-Stimulant Laxat] 8.6-50 mg Tablet
1 tab PO BIDPRN PRN (Reason: constipation) Qty: 0 0RF
metoprolol succinate 25 mg Tablet Extended Release 24 Hr
12.5 mg PO BID Qty: 0 0RF
acetaminophen 325 mg Tablet
650 mg PO Q6HPRN PRN (Reason: mild pain/ fever>100.5F) Qty: 100 0RF
lorazepam 1 mg Tablet
1 mg PO HS Qty: 3 0RF
sulfamethoxazole-trimethoprim [Bactrim DS] 800-160 mg Tablet
1 tab PO BID
Rx Instructions:
take from 07/16/24-07/26/24
triamcinolone acetonide 0.1 % Cream
1 applic TOPICAL BIDPRN PRN (Reason: rash)
magnesium hydroxide [Milk of Magnesia] 400 mg/5 mL Suspension
2,400 mg PO [id number] PRN (Reason: no bm by 2nd day)
diphenhydramine HCl [Benadryl] 25 mg Capsule
25 mg PO [id number] PRN (Reason: pruitis)
Saccharomyces boulardii [Florastor] 250 mg Capsule
250 mg PO DAILY
furosemide 40 mg tablet
40 mg PO DAILY
albuterol sulfate 90 mcg/actuation HFA aerosol inhaler
2 puff inhalation R Q6HPRN PRN (Reason: shortness of breath or wheezing)
Referrals:
Kadi Frederick MD [Family Provider] -
Interventions
Interventions:
*Risk Screen - Suicide Last Done: 08/05/24 23:36
*General Assessment Last Done: 08/05/24 21:09
*Neglect/Abuse Screening Last Done: 08/05/24 23:36
ED- Fall Risk Assessment Last Done: 08/05/24 21:18
ED- Cardiac Assessment Last Done: 08/05/24 23:36
Discharge Date and Time
Print Language: INDONESIAN
[2024-08-05] MEDS: REQUIP 1 MG PO (23:23)
[2024-08-06] VITALS: BP 152/60
[2024-08-06 00:11] VITALS: BMI 32.5
[2024-08-06 01:00] VITALS: BP 136/92
== END 2024-08-06 01:37 ==
LOC: EMR 21:06
PROVIDERS: Emergency Medicine; EMERGENCY PHYSICIAN Emergency Medicine; FAMILY PHYSICIAN Family Medicine
DX: S22.42XA Multiple fractures of ribs, left side, initial encounter for closed fracture (principal); X58.XXXA Exposure to other specified factors, initial encounter; R06.02 Shortness of breath; J44.9 Chronic obstructive pulmonary disease, unspecified; I11.0 Hypertensive heart disease with heart failure; I50.9 Heart failure, unspecified; E78.00 Pure hypercholesterolemia, unspecified; Z87.891 Personal history of nicotine dependence
CPT/HCPCS: 99285; 96374; 71046; 71275; 77080; 80053; 83880; 84484; 85025; 93005; Q9967

== ENCOUNTER → 2024-08-18 12:15 | Outpatient (REF) | payer OTHER, SELFPAY ==
[2024-08-18 12:49] LABS: % Basophils 1.2 % (0-2); % Immature Granulocytes 0.4 % (0-0.5); % Lymphocytes 15.7 % (20.5-51.1); % Neutrophils 61.7 % (42.2-75.2); Absolute Basophils 0.1 10^3/uL (0-0.2); Absolute Eosinophils 0.7 10^3/uL (0-0.7); Absolute Lymphocytes 1.2 10^3/uL (1.2-3.4); Absolute Monocytes 0.9 10^3/uL (0.1-0.6); Absolute Neutrophils 4.5 10^3/uL (1.4-6.5); Hematocrit 32.5 % (37.0-47.0); Hemoglobin 10.3 g/dL (12.0-16.0); Mean Corp Hgb Conc. 31.7 g/dL (33.0-37.0); Mean Corpuscular Hgb 28.4 pg (27.0-31.0); Mean Corpuscular Volume 89.5 fL (81.0-99.0); Mean Platelet Volume 10.8 fL (7.4-10.4); Nucleated Red Blood Cells % 0 %; Platelet Count 321 10^3/uL (130-400); Red Blood Cell Count 3.63 10^6/uL (4.20-5.40); Red Cell Dist. Width 15.2 % (11.5-14.5); White Blood Cell Count 7.3 10^3/uL (4.8-10.8)
[2024-08-18 13:46] LABS: ALT (SGPT) 30 U/L (0-35); AST (SGOT) 28 U/L (14-36); Albumin 4.5 g/dl (3.5-5.0); Alkaline Phosphatase 106 U/L (38-126); Blood Urea Nitrogen 26 mg/dl (7-17); Calcium 9.3 mg/dl (8.4-10.2); Carbon Dioxide 22 mmol/L (22-30); Chloride 102 mmol/L (98-107); Glucose 101 mg/dl (70-99); Potassium 4.9 mmol/L (3.5-5.1); Sodium 142 mmol/L (135-145); Total Bilirubin 0.4 mg/dl (0.2-1.3); Total Protein 7.7 g/dl (6.3-8.2)
== END ==
LOC: OLABWPC 12:15
PROVIDERS: ATTENDING PHYSICIAN Nurse Practitioner Adult Health; FAMILY PHYSICIAN Family Medicine
DX: R29.6 Repeated falls (principal); L03.116 Cellulitis of left lower limb; R55 Syncope and collapse; I50.30 Unspecified diastolic (congestive) heart failure
CPT/HCPCS: 36415; 80053; 85025

== ENCOUNTER 2024-08-21 22:53 | Inpatient (IN) | payer OTHER, SELFPAY ==
[2024-08-21] VITALS (8 sets, daily range): BP systolic 111–161; BP diastolic 52–98; BMI 30.8; BMI 29.8
[2024-08-21 19:38] LABS: ALT (SGPT) 29 U/L (0-35); AST (SGOT) 24 U/L (14-36); Albumin 4.2 g/dl (3.5-5.0); Alkaline Phosphatase 93 U/L (38-126); Blood Urea Nitrogen 39 mg/dl (7-17); Calcium 8.6 mg/dl (8.4-10.2); Carbon Dioxide 23 mmol/L (22-30); Chloride 103 mmol/L (98-107); Estimated Creatinine Clearance 49 ml/min; Glucose 103 mg/dl (70-99); Potassium 4.1 mmol/L (3.5-5.1); Sodium 141 mmol/L (135-145); Total Bilirubin 0.4 mg/dl (0.2-1.3); Total Protein 7.4 g/dl (6.3-8.2); eGFR > 60.00
[2024-08-21 19:40] LABS: % Basophils 0.2 % (0-2); % Eosinophils 0.5 % (0-6); % Immature Granulocytes 1.1 % (0-0.5); % Lymphocytes 1.4 % (20.5-51.1); % Monocytes 2.8 % (1.7-9.3); Absolute Basophils 0.1 10^3/uL (0-0.2); Absolute Eosinophils 0.1 10^3/uL (0-0.7); Absolute Immature Granulocytes 0.3 10^3/uL (0-0.05); Absolute Lymphocytes 0.3 10^3/uL (1.2-3.4); Absolute Monocytes 0.6 10^3/uL (0.1-0.6); Absolute Neutrophils 20.5 10^3/uL (1.4-6.5); Hematocrit 31.5 % (37.0-47.0); Hemoglobin 10.3 g/dL (12.0-16.0); Mean Corp Hgb Conc. 32.7 g/dL (33.0-37.0); Mean Corpuscular Hgb 28.8 pg (27.0-31.0); Mean Platelet Volume 9.4 fL (7.4-10.4); Nucleated Red Blood Cells % 0 %; Platelet Count 308 10^3/uL (130-400); Red Blood Cell Count 3.58 10^6/uL (4.20-5.40); Red Cell Dist. Width 15.2 % (11.5-14.5); White Blood Cell Count 21.9 10^3/uL (4.8-10.8)
[2024-08-21 19:49] LABS: Lactic Acid 1.3 mmol/L (0.7-2.0)
[2024-08-21 20:17] LABS: Urine Albumin Negative (Neg - Trace); Urine Bilirubin Negative (Negative); Urine Character Clear (Clear); Urine Color Yellow; Urine Glucose Negative (Negative); Urine Ketone Negative (Negative); Urine Leukocyte Negative (Negative); Urine Nitrite Negative (Negative); Urine Occult Blood Negative (Negative); Urine Specific Gravity 1.015 (<1.030); Urine Urobilinogen Negative (Neg - 1+)
[2024-08-21] MEDS: NSS 500 IV (20:24)
[2024-08-21] MEDS: REQUIP 1 MG PO (20:31)
--- NOTE | 2024-08-21 20:39 | ED.GENMED ---
History of Present Illness
General
Chief Complaint: Weakness
Source: patient
Exam Limitations: none
Time Seen by Provider: 08/21/24 19:07
History of Present Illness
History of Present Illness:
79-year-old female who presents with vomiting diarrhea that occurred prior to arrival. She now feels like the nausea has resolved. She also states she has had no further diarrhea. She states she was just on 10 days of Bactrim but has not taken
Bactrim in a day or 2 but today took another dose because she foot. Patient does have a longstanding history of cellulitis and foot infections. She denies fevers. no abdominal pain. does state her legs look red.
Past History
Past History
ED Past Medical History: CHF, COPD, HTN, Hypercholesterolemia, Psychiatric (Anxiety, Depression) and Other (OA, Restless leg syndrome, Incontinence)
ED Past Surgical History: Orthopedic (Mati second Toe amputation, Right Total knee replacement, Right shoulder replacement, Mati carpal tunnel) and Other (cataracts, )
PSI?: No
Social History
Tobacco: Former smoker
Alcohol: Occasional
Drug: None
Personal:
Living: assisted living
Employment: Retired
Phy Exam
Physical Exam
Physical Exam:
CONSTITUTIONAL Patient alert and oriented to person, place and time. Well-appearing. Vital signs reviewed.
HEAD atraumatic, normocephalic.
EYES eyelids normal to inspection, Pupils equally round and reactive to light, Extraocular muscles intact, Conjunctiva normal, Sclera normal.
NECK normal range of motion, Trachea midline, no jugular venous distention.
RESPIRATORY CHEST No respiratory distress noted, Chest expansion equal, Bilateral breath sounds clear.
CARDIOVASCULAR regular rate and rhythm, Heart sounds normal.
ABDOMEN abdomen nontender, Bowel sounds normal. No distention.
UPPER EXTREMITY range of motion normal, Motor strength normal, no cyanosis, no edema.
LOWER EXTREMITY range of motion normal, Motor strength normal, no cyanosis, but mild bilateral edema, redness noted to left greater than right lower extremity. She has warmth to the left lower extremity. She does have a wound noted medial to the
right third digit. She has several digits that are deformed. There is no surrounding redness but there is an open wound at the right foot in this area.
NEURO Speech normal, No focal motor deficits, Bly coma scale 15, Memory normal, Cranial Nerves intact to screening exam.
Sepsis
Sepsis Screening
Sepsis Assessment: Sepsis
Sepsis Screen
Sepsis Screen: Sepsis
Date: 08/21/24
Time: 21:47
Course
Orders/Labs/Results
Orders:
Orders
08/21/24 19:05
Complete Blood Count/With Diff Urgent
Comprehensive Metabolic Panel Urgent
Lactic Acid Urgent
08/21/24 19:35
CDIFF [C difficile Antigen & Toxins] Urgent
LILI Source: Feces/Stool
Specimen Description:
Stool Culture Urgent
LILI Source: Feces/Stool
Specimen Description:
08/21/24 19:49
Straight cath- Treatment ONCE
08/21/24 20:02
Urinalysis Reflex To Culture Urgent
Date Specimen was Collected: 08/21/24
Time Specimen was Collected: 20:00
08/21/24 20:05
0.9% Sodium Chloride 500 ml [Nss] 500 ml IV BOLUS
08/21/24 20:24
Ropinirole [Requip] 1 mg PO NOW STA
08/21/24 20:52
Blood Culture Urgent
LILI Source: Blood/Venous
Specimen Description:
08/21/24 21:15
Blood Culture Routine
LILI Source: Blood/Venous
Specimen Description:
08/21/24 21:18
Vital Signs- Treatment ONCE
Frequency: Once
08/21/24 21:46
Vancomycin [Vancocin] 2,000 mg 0.9% Sodium Chloride 500 ml [Nss] 500 ml IV NOW
Abnormal Lab Results
08/21/24
19:05
WBC 21.9 H 10^3/uL
(4.8-10.8)
RBC 3.58 L 10^6/uL
(4.20-5.40)
Hgb 10.3 L g/dL
(12.0-16.0)
Hct 31.5 L %
(37.0-47.0)
MCHC 32.7 L g/dL
(33.0-37.0)
RDW 15.2 H %
(11.5-14.5)
Abs Immat Gran (auto) 0.3 H 10^3/uL
(0-0.05)
Absolute Neuts (auto) 20.5 H 10^3/uL
(1.4-6.5)
Absolute Lymphs (auto) 0.3 L 10^3/uL
(1.2-3.4)
Immature Gran % 1.1 H %
(0-0.5)
Neutrophils % 94.0 H %
(42.2-75.2)
Lymphocytes % 1.4 L %
(20.5-51.1)
BUN 39 H mg/dl
(7-17)
Glucose 103 H mg/dl
(70-99)
08/21/24 19:05
08/21/24 19:05
Vital Signs
Initial and Last Documented VS:
Initial Vital Signs
Temp
100.0 F
08/21/24 18:57
Last Documented Vital Signs
Temp Pulse Resp BP Pulse Ox
98.3 F 95 16 140/83 96
08/21/24 21:21 08/21/24 21:21 08/21/24 21:21 08/21/24 21:21 08/21/24 21:21
MDM/Problems Addressed
MDM/Problems Addressed:
Cellulitis vomiting, diarrhea, leukocytosis
*Pulse Oximetry
Patient hypoxic: no
*Major Assembler Interpretation
Rate: normal
Interpretation: normal
Rhythm: sinus
*Critical Care Note
Total Time (30-74mins, 75-104mins- exclusive of procedures): Not Applicable
Data Reviewed
Review of Other/Old Records Reveals: Labs (Recent labs reviewed)
Source: patient
Prescriptions/Medications Considered But Not Given:
Considered oral vancomycin but patient has not had any loose stools while here for testing for C. difficile
Patient Management
Discussion with other providers: Hospitalist
Update Note
Update Note:
79-old female presents with lower extremity redness, right foot wound but also had episode of diarrhea and vomiting today. Recently was on Bactrim. Bactrim less likely to cause C. difficile and now has had no further diarrhea. Does have quite a
leukocytosis from just a few days ago. Her left lower extremity is reddened. She does have a wound on her right lower extremity. Will cover with vancomycin but stool studies were ordered in case diarrhea recurs. Given her age and risk factors
admit
ED Attending Note
-
Portions of this chart may have been created with voice recognition software.� Occasional wrong word or��sound alike� substitutions may have occurred due to the inherent limitations of voice recognition software.
Discharge Plan
Departure
Patient Disposition: Admit
Date of Disposition: 08/21/24
Time of Disposition: 21:44
Admit to: Med/Surg
Presentation/result/management discussed w/ accepting MD/DO: Hospitalist
Discharge Problem:
Cellulitis, Diarrhea
Prescriptions:
No Action
atorvastatin 20 mg tablet
20 mg PO DAILY
escitalopram oxalate 10 mg tablet
10 mg PO DAILY
cholecalciferol (vitamin D3) 25 mcg (1,000 unit) Tablet
500 unit PO DAILY Qty: 0 0RF
cyanocobalamin (vitamin B-12) 1,000 mcg Tablet
1,000 mcg PO DAILY Qty: 0 0RF
famotidine 20 mg tablet
20 mg PO DAILY
aspirin 81 mg Tablet,Delayed Release (Dr/Ec)
81 mg PO HS
gabapentin 100 mg capsule
100 mg PO HS
polyethylene glycol 3350 [HealthyLax] 17 gram Powder In Packet
17 g PO DAILYPRN PRN (Reason: constipation) Qty: 0 0RF
ropinirole 1 mg Tablet
1 mg PO TID Qty: 0 0RF
sennosides-docusate sodium [Stool Softener-Stimulant Laxat] 8.6-50 mg Tablet
1 tab PO BIDPRN PRN (Reason: constipation) Qty: 0 0RF
metoprolol succinate 25 mg Tablet Extended Release 24 Hr
12.5 mg PO BID Qty: 0 0RF
acetaminophen 325 mg Tablet
650 mg PO Q6HPRN PRN (Reason: mild pain/ fever>100.5F) Qty: 100 0RF
lorazepam 1 mg Tablet
1 mg PO HS Qty: 3 0RF
sulfamethoxazole-trimethoprim [Bactrim DS] 800-160 mg Tablet
1 tab PO BID
Rx Instructions:
take from 07/16/24-07/26/24
triamcinolone acetonide 0.1 % Cream
1 applic TOPICAL BIDPRN PRN (Reason: rash)
magnesium hydroxide [Milk of Magnesia] 400 mg/5 mL Suspension
2,400 mg PO [id number] PRN (Reason: no bm by 2nd day)
diphenhydramine HCl [Benadryl] 25 mg Capsule
25 mg PO [id number] PRN (Reason: pruitis)
Saccharomyces boulardii [Florastor] 250 mg Capsule
250 mg PO DAILY
furosemide 40 mg tablet
40 mg PO DAILY
albuterol sulfate 90 mcg/actuation HFA aerosol inhaler
2 puff inhalation R Q6HPRN PRN (Reason: shortness of breath or wheezing)
Referrals:
Kadi Frederick MD [Family Provider] -
Interventions
Interventions:
*Risk Screen - Suicide Last Done: 08/21/24 18:57
*General Assessment Last Done: 08/21/24 18:57
*Neglect/Abuse Screening Last Done: 08/21/24 18:57
*ED COVID-19 Vaccine History Last Done: 08/21/24 18:57
ED- Cardiac Assessment Last Done: 08/21/24 19:01
ED- Neurological Assessment Last Done: 08/21/24 19:01
ED- Pulmonary Assessment Last Done: 08/21/24 19:01
Discharge Date and Time
Print Language: YI
[2024-08-21] MEDS: VANCOCIN 540 MG IV (21:52)
--- NOTE | 2024-08-21 21:54 | HPS.HSE ---
Family Physician
-
Family Physician: Kadi Frederick MD
Chief Complaint
-
Vomiting, diarrhea
History of Present Illness
79-year-old female who presented to ER with vomiting and diarrhea acute onset at noon today. She reports the diarrhea is watery brown in color with numerous episodes. She currently states that the nausea and vomiting has suddenly resolved. She
was on 5-day course of Bactrim for left lower extremity cellulitis and stopped 3 days ago 08/18/2024. The left lower extremity has a underlying pink hue still present slight warmth no open ulcerations. She is also concerned about a right third toe
web tear with no drainage no surrounding erythema. She complains of some shortness of breath but with oxygen at 94% on room air. She reports her oxygen typically is 96 to 97%. She was a former smoker 30 years 1 pack/day quit 4 years ago. She
denies cough, fever, chills, chest pain, palpitations, cough, abdominal pain, urinary symptoms, rash, sore throat, headache.
She is past medical history of CHF, COPD, HTN, HLD, anxiety, depression, OA, restless leg syndrome, urinary incontinence, bilateral second toe amputation, former smoker, chronic ambulatory dysfunction uses walker or electric wheelchair
Medical History
Past Medical History
Past Medical History: Reports Other
Additional Past Medical History:
Chronic normocytic anemia
CHF
COPD
HTN
HLD
Anxiety
Depression
OA
Restless leg syndrome
Urinary incontinence
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
Former smoker
Chronic ambulatory dysfunction uses walker or electric wheelchair at baseline
Past Surgical History: Reports Other
Additional Past Surgical History:
Bilateral second toe pain patient
Right total knee replacement
Right shoulder replacement
Bilateral CTR
Cataract extraction
Social History
Tobacco: Former Smoker (30 years 1 pack/day quit 4 years ago 2019)
Alcohol: Occasional
Drug: None
Personal: Single
Living: Assisted Living ([place])
Employment: Retired
Family History
Family History: Not pertinent
Allergies / Home Medications
Allergies reflects when Allergies were last updated in [employer].
Home Medications with original date entered in [employer]
Allergy/Medication List:
Allergies
Allergy/AdvReac Type Severity Reaction Status Date / Time
Penicillins Allergy Swelling Verified 08/21/24 18:56
tramadol Allergy Rash Verified 08/21/24 20:23
Home Medications
atorvastatin 20 mg tablet 20 mg PO DAILY High cholesterol 05/22/22
escitalopram oxalate 10 mg tablet 10 mg PO DAILY Depression 05/22/22
cholecalciferol (vitamin D3) 25 mcg (1,000 unit) tablet 500 unit PO DAILY Supplement #0 tabs 07/08/22
cyanocobalamin (vitamin B-12) 1,000 mcg tablet 1,000 mcg PO DAILY defeciancy #0 tabs 07/08/22
aspirin 81 mg tablet,delayed release 81 mg PO HS Blood Clot Prevention/Tx 09/04/23
famotidine 20 mg tablet 20 mg PO DAILY Gastrointestinal Issue 09/04/23
gabapentin 100 mg capsule 100 mg PO HS neuropathic pain, anxiety, sleep, shoulder pain 09/04/23
metoprolol succinate 25 mg tablet,extended release 24 hr 12.5 mg (1/2 x 25 mg) PO BID #0 tabs 04/03/24
polyethylene glycol 3350 17 gram oral powder packet (HealthyLax) 17 g PO DAILYPRN PRN constipation #0 ea 04/03/24
ropinirole 1 mg tablet 1 mg PO TID #0 tabs 04/03/24
sennosides 8.6 mg-docusate sodium 50 mg tablet (Stool Softener-Stimulant Laxative) 1 tab PO BIDPRN PRN constipation #0 tabs 04/03/24
lorazepam 1 mg tablet 1 mg PO HS #3 tabs 05/20/24
Saccharomyces boulardii 250 mg capsule (Florastor) 250 mg PO DAILY Supplement 07/18/24
albuterol sulfate 90 mcg/actuation aerosol inhaler 2 puff inhalation R Q6HPRN PRN shortness of breath or wheezing 07/18/24
diphenhydramine HCl 25 mg capsule (Benadryl) 25 mg PO [id number] PRN pruitis 07/18/24
furosemide 40 mg tablet 40 mg PO DAILY Fluid Retention/Swelling 07/18/24
magnesium hydroxide 400 mg/5 mL oral suspension (Milk of Magnesia) 2,400 mg PO [id number] PRN no bm by 2nd day 07/18/24
triamcinolone acetonide 0.1 % topical cream 1 applic topical BIDPRN PRN rash 07/18/24
acetaminophen 325 mg tablet 650 mg PO Q6HPRN PRN mild pain/ fever>100F 08/21/24
acetaminophen 500 mg tablet (Tylenol Extra Strength) 1,000 mg PO [id number] PRN rib pain 08/21/24
diclofenac sodium 1 % topical gel 2 g topical DAILY rib pain 08/21/24
nystatin 100,000 unit/gram topical powder 1 applic topical BID under right breast 08/21/24
Review of Systems
-
History Source: Patient
A 12 point ROS was completed and negative except as noted: Yes
Constitutional: Denies Fever, Fatigue or Chills
EENT: Denies Sore Throat or Runny Nose
Respiratory: Reports Trouble Breathing (Tachypnea); Denies Cough
Cardiac: Denies Chest Pain, Diaphoresis, Palpitations or Syncope
Abdomen/GI: Reports Nausea, Vomiting and Diarrhea (Watery brown, no mucus or blood); Denies Abdominal Pain, Constipated, Bloody Stools or Black Stools
: Denies Dysuria, Frequency, Flank Pain, Incontinence, Difficulty Voiding, Urgency, Bleeding or Dark Urine
Musculoskeletal: Reports Edema (Trace bilateral lower legs, bilateral legs with venous stasis appearing rash although left lower extremity increased erythema greater than right. Right 2nd-3rd toe webbing with tear no drainage or erythema); Denies
Joint Pain
Skin: Denies Itching or Rash
Neurological: Reports Weakness; Denies Dizzy or Headache
Endocrine: Reports No Symptoms
Hematologic/Lymphatic: Reports No Symptoms
Psych: Reports Anxiety (Due to restless leg)
Physical Exam
Vital Signs
Vital Signs
Temp Pulse Resp BP Pulse Ox
98.3 F 95 16 140/83 96
08/21/24 21:21 08/21/24 21:21 08/21/24 21:21 08/21/24 21:21 08/21/24 21:21
Physical Exam
General: Conversant and Other (Tachypneic, is anxious due to her restless leg syndrome acting up)
HEENT: NormoCephalic, Anicteric, PERRLA, [place] Conjunctivae and No Ptosis; No Pharyngeal Erythema
Respiratory: Clear; No Wheezes, Rales or Rhonchi
Cardiac: S1/S2, Regular Rhythm and Peripheral Edema (Trace bilateral lower legs); No Murmur, Rub or Gallop
Breast: Deferred by me
GI: Soft, Non Tender, Non Distended, Normal Bowel Sounds and No Hepatosplenomegaly
Genito-urinary: Deferred by me
Musculoskeletal: No Clubbing, No Cyanosis and Other (Trace bilateral lower legs, bilateral legs with venous stasis appearing rash although left lower extremity increased erythema greater than right. Right 2nd-3rd toe webbing with tear no drainage
or erythema); No Edema, Left Upper Extremity or Edema, Right Upper Extremity
Skin: Warm and Dry; No Rash
Neuro: AO x 3, No Motor Deficits and No Sensory Deficits; No Slurred Speech, Facial Droop, Tremors or Sedated
Psych: Anxious (Due to restless leg syndrome)
Laboratory Results
-
08/21/24 19:05
08/21/24 19:05
Laboratory Results
Lactic Acid 1.3 mmol/L (0.7-2.0) 08/21/24 19:05
Total Bilirubin 0.4 mg/dl (0.2-1.3) 08/21/24 19:05
AST 24 U/L (14-36) 08/21/24 19:05
ALT 29 U/L (0-35) 08/21/24 19:05
Alkaline Phosphatase 93 U/L (38-126) 08/21/24 19:05
Data Reviewed
-
Lab Data: Labs Reviewed by me
Impression/Plan
-
Impression/plan:
Admit to telemetry
#Sepsis possible due to Viral Gastroenteritis vs cellulitis LEFT lower extremity not fully treated with recent Bactrim
#Acute onset watery brown diarrhea with vomiting today 08/21/2024 at noon numerous episodes
Recent Bactrim x 5-day course stopped 08/18/2024
WBC 21.9 > 7.3 on 08/18/2024
Check stool studies
-Check COVID
-IV NSS
-IV vancomycin
-Follow CBC, CMP
cxr: No acute cardiopulmonary abnormality
#Right foot second toe wound
History of osteomyelitis requiring amputation bilateral second toes due to hammertoes
-Check x-ray right foot
-Consult wound care
Right foot x-ray negative
#Normocytic anemia
Hgb 10.3, MCV 88
#Chronic CHF preserved EF
I/O, daily weights
Hold Lasix
2Decho 11/28/2023: EF 55 to 60%, normal LVS/ LVSF, no wall abnormalities, mild LVH, diastolic function indeterminate, mild MR, mild aortic stenosis, mild TR
#COPD-no acute exacerbation
-Continue albuterol
#HTN-benign
Continue metoprolol succinate 12.5 mg twice daily
#HLD
-Continue atorvastatin 20 mg daily
#GERD
-Continue famotidine 20 mg daily, continue Florastor
#Anxiety/Depression
-Continue lorazepam 1 mg at bedtime
#OA
#Restless leg syndrome
-Continue Requip 1 mg p.o. 3 times daily
-Continue gabapentin 100 mg at bedtime
-Will give patient 0.5 Ativan
#Chronic rib pain
-Continue Voltaren 2 g topical
#Right breast fungal infection
Continue nystatin topical twice daily
#Chronic ambulatory dysfunction uses walker or electric wheelchair at baseline
PT/OT/case management consult
Other past medical history:
Urinary incontinence
Bilateral second toe amputation
Former smoker
DVT prophylaxis
Subcu Lovenox
Full code
[2024-08-21] MEDS: ATIVAN 0.5 MG IV (22:31)
[2024-08-21] MEDS: NSS (PRESERVATIVE FREE) 1 ML IV (22:31)
--- NOTE | 2024-08-21 22:34 | W.PN.UPDATE ---
Update Note
Progress Note Update
This is an addendum to the H&P written by Tammy Reynoso on 08/21/2024. Patient seen and examined independently with SEC REPORTING CONSULTANT.
79-year-old female past medical history of prior cellulitis/foot infections, osteomyelitis of toe status post amputations bilaterally, COPD, CHF, hypertension, hyperlipidemia, anxiety/depression, osteoarthritis, restless leg syndrome, presenting
left lower extremitity warmth and redness for which she was treated with 5 days of Bactrim which she finished 3 days ago with improvement. She has also had a skin tear in the web between her second and third toes on her right foot.
She developed acute acute onset of vomiting and diarrhea without abdominal pain today.
Patient clinically septic with tachycardia, leukocytosis, sources include acute gastroenteritis versus cellulitis of left lower extremity. Left lower extremity is more erythematous and warm but nontender. Unclear if this was inadequately treated
by Bactrim. IV fluids. Vancomycin started. Check stool studies C. difficile. Clear liquid diet. Check x-ray of right toes due to skin tear to evaluate for osteomyelitis. Wound care consulted. Check chest x-ray.
[2024-08-21 22:51] LABS: COVID-19 Antigen Negative (Negative)
[2024-08-22] VITALS (7 sets, daily range): BP systolic 101–149; BP diastolic 49–79; PULSE 80; O2SAT 97; BMI 29.8
[2024-08-22] MEDS: NSS 1000 IV ×2 (00:59→13:07)
[2024-08-22 06:33] LABS: % Basophils 0.2 % (0-2); % Eosinophils 1.8 % (0-6); % Immature Granulocytes 0.4 % (0-0.5); % Lymphocytes 10.7 % (20.5-51.1); % Monocytes 7.5 % (1.7-9.3); % Neutrophils 79.4 % (42.2-75.2); Absolute Eosinophils 0.2 10^3/uL (0-0.7); Absolute Immature Granulocytes 0.1 10^3/uL (0-0.05); Absolute Lymphocytes 1.3 10^3/uL (1.2-3.4); Absolute Monocytes 0.9 10^3/uL (0.1-0.6); Absolute Neutrophils 9.9 10^3/uL (1.4-6.5); Hematocrit 26.7 % (37.0-47.0); Hemoglobin 8.7 g/dL (12.0-16.0); Mean Corp Hgb Conc. 32.6 g/dL (33.0-37.0); Mean Corpuscular Hgb 28.5 pg (27.0-31.0); Mean Corpuscular Volume 87.5 fL (81.0-99.0); Nucleated Red Blood Cells % 0 %; Platelet Count 272 10^3/uL (130-400); Red Blood Cell Count 3.05 10^6/uL (4.20-5.40); Red Cell Dist. Width 15.4 % (11.5-14.5); White Blood Cell Count 12.5 10^3/uL (4.8-10.8)
[2024-08-22 06:56] LABS: ALT (SGPT) 24 U/L (0-35); AST (SGOT) 22 U/L (14-36); Albumin 3.2 g/dl (3.5-5.0); Alkaline Phosphatase 80 U/L (38-126); Blood Urea Nitrogen 28 mg/dl (7-17); Calcium 8.2 mg/dl (8.4-10.2); Carbon Dioxide 23 mmol/L (22-30); Chloride 108 mmol/L (98-107); Estimated Creatinine Clearance 62 ml/min; Glucose 88 mg/dl (70-99); Potassium 3.4 mmol/L (3.5-5.1); Sodium 140 mmol/L (135-145); Total Bilirubin 0.3 mg/dl (0.2-1.3); eGFR > 60.00
--- NOTE | 2024-08-22 08:45 | PHA.VAN.IN ---
Assessment
- Assessment
Renal Function: Appears similar to baseline
Concomitant Antimicrobials: none
AUC Dosing Plan
- Dosing Variables
Dosing Weight (kg): 76
Dosing CrCl (ml/min): 60
Vd coefficient (L/kg): 0.7
- Empiric Dosing
Initial / Loading Dose: 2000 mg - 08/21/24 ~2200
Maintenance Regimen: 1250 mg q24h - to start 1200 today, then 0600 thereafter
Estimated AUC (mcg*h/mL): 449
Estimated Peak (mcg*h/mL): 32.2
Estimated Trough (mcg/ml): 10
Estimated Half Life (H): 12.8
- Monitoring
No levels ordered at this time: consider levels after 3rd or 4th maint. dose
Pharmacokinetics Vancomycin I
- -
Patient Age: 79
Patient Sex: Female
Vancomycin Day #: 1
Indication: Skin And Soft Tissue
Requesting Provider: Tammy Reynoso
Pertinent Antimicrobial Allergies:
penicillins - swelling
Height / Weight:
Height 5 ft 3 in
Actual Weight 76.374 kg
Pertinent Past Medical History: COPD; was on a 5 day bactrim course(stopped 08/18)
- Vital Signs / Lab Results
Temp Pulse Resp BP Pulse Ox
98.8 F 72 18 142/56 94
08/22/24 03:10 08/22/24 03:10 08/22/24 03:10 08/22/24 03:10 08/22/24 03:10
Lab Results - Hematology
08/21/24 08/22/24
19:05 05:34
WBC 21.9 H 12.5 H
Lab Results - Chemistry
08/21/24 08/22/24
19:05 05:34
BUN 39 H 28 H
Creatinine 0.9 0.7
Estimated Creat Clear 49 62
Albumin 4.2 3.2 L
08/21/24
19:05
Lactic Acid 1.3
Lab Results - Urine
08/21/24
20:02
Urine Nitrite (Reflex) Negative
Leukocyte Esterase Rfl Negative
[2024-08-22] MEDS: REQUIP 1 MG PO ×3 (09:20→21:31)
[2024-08-22] MEDS: DESENEX/MITRAZOL/ZEASORB 1 APPLIC TOPICAL ×2 (09:20→20:11)
[2024-08-22] MEDS: VITAMIN B-12 1000 MCG PO (09:26)
[2024-08-22] MEDS: PEPCID 20 MG PO (09:27)
[2024-08-22] MEDS: TOPROL XL PO (09:27)
[2024-08-22] MEDS: LIPITOR 20 MG PO (09:27)
[2024-08-22] MEDS: FLORASTOR 250 MG PO (09:28)
[2024-08-22] MEDS: LEXAPRO 10 MG PO (09:28)
[2024-08-22] MEDS: VITAMIN D3 (cholecalciferol) 25 MCG PO (09:28)
[2024-08-22] MEDS: HEPARIN 5000 UNITS SC ×2 (09:28→20:05)
[2024-08-22] MEDS: VANCOCIN 275 MG IV (11:37)
--- NOTE | 2024-08-22 13:34 | CM ---
Patient seen at bedside. Patient stated that she lives at personal care in [place]. Patient son indicated that patient has had [facility] in the past. Patient has had [facility] nursing in the past but not currently. Patient plan is for patient to return to
apartment, Patient son confirmed plan. Patient has a walker for use in the apartment and a wheelchair for use in the hallways of the facility. Patient PCP is Dr. Frederick and she uses the [facility] per patient son. Patient uses [place]
transportation and does not drive. . CM will continue to follow for discharge planning needs.
Patient plan is for discharge to apartment with VN if needed. Patient will need VN referral
--- NOTE | 2024-08-22 13:39 | W.PN.HOSP.TC ---
Today's Communication/Plan
-
Consult podiatry
CW ABX
Start on regular diet
Assessment / Plan
Assessment / Plan
#Sepsis possible sec to cellulitis LEFT lower extremity not fully treated with recent Bactrim than self resolving GI illness.
#Right foot third toe wound with seconday cellulitis
History of osteomyelitis requiring amputation bilateral second toes due to hammertoes
- x-ray right foot no OM
- CW abx
- Consult podiatry
#Acute onset watery brown diarrhea with vomiting today 08/21/2024 at noon numerous episodes
Recent Bactrim x 5-day course stopped 08/18/2024
Self limiting -suspect sec to abx .
Start on diet.
#Normocytic anemia
Hgb 10.3, MCV 88
#Chronic CHF preserved EF
Compensated clinically
I/O, daily weights
cw Lasix
2Decho 11/28/2023: EF 55 to 60%, normal LVS/ LVSF, no wall abnormalities, mild LVH, diastolic function indeterminate, mild MR, mild aortic stenosis, mild TR
#COPD-no acute exacerbation
-Continue albuterol
#HTN-benign
Continue metoprolol succinate 12.5 mg twice daily
#HLD
-Continue atorvastatin 20 mg daily
#GERD
-Continue famotidine 20 mg daily, continue Florastor
#Anxiety/Depression
-Continue lorazepam 1 mg at bedtime
#OA
#Restless leg syndrome
-Continue Requip 1 mg p.o. 3 times daily
-Continue gabapentin 100 mg at bedtime
-Will give patient 0.5 Ativan
#Chronic rib pain
-Continue Voltaren 2 g topical
#Right breast fungal infection
Continue nystatin topical twice daily
#Chronic ambulatory dysfunction uses walker or electric wheelchair at baseline
PT/OT/case management consult
Other past medical history:
Urinary incontinence
Bilateral second toe amputation
Former smoker
DVT prophylaxis
Subcu Lovenox
Full code
Anticipated Discharge: 24 - 48 hours
Subjective/Interval History
-
Date of Service: August 22, 2024
Pain from rt foot is better.
She had left leg cellulitis 3 weeks ago and was taking antibiotics which made it better.
A week or so ago she noticed right foot pain painful and more swollen and was concerned about another cellulitis. She took antibiotic she had at home but could not tell me the name of the antibiotic. After taking that she was having nausea
vomiting and abdominal discomfort which all resolved yesterday afternoon. No active GI symptoms.
Denies any shortness of breath, cough or chest pain.
No fever or chills.
Objective Data
-
Labs:
Laboratory Results
08/22/24
05:34
WBC 12.5 H
Hgb 8.7 L
Hct 26.7 L
Plt Count 272
Sodium 140
Potassium 3.4 L
Chloride 108 H
Carbon Dioxide 23
BUN 28 H
Creatinine 0.7
Glucose 88
Calcium 8.2 L
Total Bilirubin 0.3
AST 22
ALT 24
Alkaline Phosphatase 80
Vital Signs:
Vital Signs
Temp Pulse Resp BP Pulse Ox
97.9 F 65 16 145/56 97
08/22/24 11:10 08/22/24 11:10 08/22/24 11:10 08/22/24 11:10 08/22/24 11:15
I&O
08/21/24 08/22/24 08/23/24
06:59 06:59 06:59
Intake Total 520 / 520
Balance 520 / 520
Review of Systems
-
Respiratory: Denies Cough or Trouble Breathing
Cardiac: Denies Chest Pain
Neuro: Denies Dizzy
Physical Exam
-
General: No Apparent Distress
Respiratory: Non Labored Respirations; Negative Wheezes, Crackles or Accessory Resp Muscle Use
Cardiac: Regular Rhythm and S1/S2
GI: Soft
Musculoskeletal: Other (chronic changes in LE BL noted. Right 3 rd toe - there is slit opening along with a growth underneath the finger , no active bleeding, slight redness of foot, no tenderness, slightly swollen foot.)
Neuro: AO x 3
Psych: Calm
Data Reviewed
-
Labs: Labs Reviewed by me
--- NOTE | 2024-08-22 15:55 | W.CS.POD ---
Consult Summary - Podiatry
-
79-year-old pleasant female seen at bedside admitted with right lower extremity/foot cellulitis, upon admission white blood cell count at 21.9 today white blood cell count has improved to 12.5, Patient lives at [facility] in [place].
Patient is not able to see a pumping station engineer in the facility due to her coverage. Patient has a history of bilateral second toe amputations, history of mild PAD. Patient follows closely with Dr. Apodaca and had a arterial studies done in January 2024 which
were within normal limits. Patient denies any history of diabetes. Patient uses a supportive shoes. No other pedal complaints.
I have reviewed past medical history medications allergies
Bilateral feet shiny, atrophic skin changes
diminished pedal pulses both DP and PT
Intact protective sensation B/L feet
Right third toe sulcus with a superficial ulcer noted, right foot resolving erythema, minimal edema noted. Right third toe sulcus ulcer clean,granular, does not probe to bone
Right foot no crepitus felt, no signs of any abscess no exposed bone, no palpable bone
A/P : Right foot cellulitis-improving very well
Rt 3rd toe sulcus ulceration - stable
PAD
History of second toe amputations bilateral feet.
Plan: Continue IV antibiotics for another day
Can transition to Po abx for another 1 wk
I have discussed with the patient about following up with myself as an outpatient after discharge to keep an eye on the right foot ulcer
Will order topical mupirocin ointment to be applied daily to the right third toe sulcus ulceration,
No surgical intervention planned by podiatry
I have given my office information for her to be followed up as an outpatient after the discharge
[2024-08-22] MEDS: TOPROL XL 12.5 MG PO (20:07)
[2024-08-22] MEDS: NEURONTIN 100 MG PO (21:31)
[2024-08-22] MEDS: ASPIR LOW (ENTERIC COATED) 81 MG PO (21:31)
[2024-08-22] MEDS: ATIVAN 1 MG PO (21:31)
[2024-08-23 03:35] VITALS: BP 168/71
[2024-08-23] MEDS: VANCOCIN 275 MG IV (05:38)
[2024-08-23] MEDS: FLUSH (NSS) 2 FLUSH IV (05:39)
[2024-08-23 05:55] VITALS: BMI 30.3
[2024-08-23 06:40] LABS: % Basophils 0.4 % (0-2); % Eosinophils 6.8 % (0-6); % Immature Granulocytes 0.4 % (0-0.5); % Monocytes 10.2 % (1.7-9.3); % Neutrophils 65.2 % (42.2-75.2); Absolute Eosinophils 0.5 10^3/uL (0-0.7); Absolute Lymphocytes 1.3 10^3/uL (1.2-3.4); Absolute Monocytes 0.8 10^3/uL (0.1-0.6); Absolute Neutrophils 4.8 10^3/uL (1.4-6.5); Hematocrit 29.3 % (37.0-47.0); Hemoglobin 9.4 g/dL (12.0-16.0); Mean Corp Hgb Conc. 32.1 g/dL (33.0-37.0); Mean Corpuscular Hgb 29.7 pg (27.0-31.0); Mean Corpuscular Volume 92.7 fL (81.0-99.0); Mean Platelet Volume 10.2 fL (7.4-10.4); Nucleated Red Blood Cells % 0 %; Platelet Count 226 10^3/uL (130-400); Red Blood Cell Count 3.16 10^6/uL (4.20-5.40); Red Cell Dist. Width 15.1 % (11.5-14.5); White Blood Cell Count 7.4 10^3/uL (4.8-10.8)
[2024-08-23 07:20] VITALS: BP 121/75
[2024-08-23 07:39] LABS: ALT (SGPT) 28 U/L (0-35); AST (SGOT) 23 U/L (14-36); Albumin 3.5 g/dl (3.5-5.0); Alkaline Phosphatase 94 U/L (38-126); Blood Urea Nitrogen 16 mg/dl (7-17); Calcium 8.9 mg/dl (8.4-10.2); Carbon Dioxide 24 mmol/L (22-30); Chloride 110 mmol/L (98-107); Estimated Creatinine Clearance 62 ml/min; Glucose 97 mg/dl (70-99); Potassium 3.7 mmol/L (3.5-5.1); Sodium 144 mmol/L (135-145); Total Bilirubin 0.1 mg/dl (0.2-1.3); Total Protein 6.4 g/dl (6.3-8.2); eGFR > 60.00
[2024-08-23] MEDS: VITAMIN B-12 1000 MCG PO (08:12)
[2024-08-23] MEDS: TOPROL XL 12.5 MG PO (08:12)
[2024-08-23] MEDS: LIPITOR 20 MG PO (08:12)
[2024-08-23] MEDS: FLORASTOR 250 MG PO (08:13)
[2024-08-23] MEDS: LEXAPRO 10 MG PO (08:13)
[2024-08-23] MEDS: HEPARIN 5000 UNITS SC ×2 (08:13→21:40)
[2024-08-23] MEDS: VITAMIN D3 (cholecalciferol) 25 MCG PO (08:13)
[2024-08-23] MEDS: REQUIP 1 MG PO ×3 (08:13→21:41)
[2024-08-23] MEDS: PEPCID 20 MG PO (08:14)
[2024-08-23] MEDS: DESENEX/MITRAZOL/ZEASORB 1 APPLIC TOPICAL ×2 (08:14→21:39)
--- NOTE | 2024-08-23 10:50 | PHA.VAN.FU ---
Vancomycin Assessment / Plan
- Assessment
Renal Function: Stable
WBC's are: WNL
Concomitant Antimicrobials: none
- Dosing Plan
Continue: vancomycin 1250 mg iv q24h
- Monitoring Plan
No level(s) ordered at this time: consider levels in a day or two if still on
- Follow Up
Pharmacy will continue to follow.
Vancomycin Follow UP
- -
Patient Age: 79
Patient Sex: Female
Vancomycin Day #: 2
Indication: Skin And Soft Tissue
Requesting Provider: Tammy Reynoso
Pertinent Antimicrobial Allergies:
penicillins - swelling
Height / Weight:
Height 5 ft 3 in
Actual Weight 77.564 kg
Pertinent Past Medical History: COPD; was on a 5 day bactrim course(stopped 08/18)
- Vital Signs / Lab Results
Temp Pulse Resp BP Pulse Ox
98.1 F 76 18 121/75 97
08/23/24 07:20 08/23/24 07:20 08/23/24 07:20 08/23/24 07:20 08/23/24 07:20
Lab Results - Hematology
08/21/24 08/22/24 08/23/24
19:05 05:34 05:26
WBC 21.9 H 12.5 H 7.4
Lab Results - Chemistry
08/21/24 08/22/24 08/23/24
19:05 05:34 05:26
BUN 39 H 28 H 16
Creatinine 0.9 0.7 0.7
Estimated Creat Clear 49 62 62
Albumin 4.2 3.2 L 3.5
08/21/24
19:05
Lactic Acid 1.3
Microbiology Results
08/22/24 03:28 MRSA Screen - Final
Nose No Methicillin Resistant Staphylococcus aureus isolated.
08/21/24 21:15 Blood Culture - Preliminary
Blood/Venous No Growth in 24 hours- Final report to follow
08/21/24 20:52 Blood Culture - Preliminary
Blood/Venous No Growth in 24 hours- Final report to follow
[2024-08-23 11:00] VITALS: BP 146/53
--- NOTE | 2024-08-23 11:15 | W.PN.HOSP.TC ---
Addendum entered and electronically signed by Luis Manriquez MD 08/23/24 15:08:
No rash, hives, swelling or itching with Cefdinir dose. She felt dizzy but neg orthostasis .
No cross reactivity reactions obvious. Advised to stop Cefdinir if any itching , rash, or swelling.
Addendum entered and electronically signed by Luis Manriquez MD 08/23/24 11:26:
PCN gives her swelling .she thinks she might have taken Keflex in past .
We will give first dose of cefdinir this am and no reaction will dc home later in afternoon.
Original Note:
Today's Communication/Plan
-
DC
Assessment / Plan
Assessment / Plan
#Sepsis possible sec to cellulitis LEFT lower extremity not fully treated with recent Bactrim than self resolving GI illness. Afebrile and normalized white count.
#Right foot third toe wound with seconday cellulitis
History of osteomyelitis requiring amputation bilateral second toes due to hammertoes
- x-ray right foot no OM
- CW abx. MRSA negative. Blood cultures negative.
-Will switch to oral cefdinir and continue topical antibiotic cream per doll eye setter.
-Appreciate podiatry input-follow with podiatry on discharge. No indication for surgical interventions currently.
#Acute onset watery brown diarrhea with vomiting today 08/21/2024 at noon numerous episodes
Recent Bactrim x 5-day course stopped 08/18/2024
Self limiting -suspect sec to abx .
Tolerating diet.
#Normocytic anemia
Hgb 10.3, MCV 88
#Chronic CHF preserved EF
Compensated clinically
I/O, daily weights
cw Lasix
2Decho 11/28/2023: EF 55 to 60%, normal LVS/ LVSF, no wall abnormalities, mild LVH, diastolic function indeterminate, mild MR, mild aortic stenosis, mild TR
#COPD-no acute exacerbation
-Continue albuterol
#HTN-benign
Continue metoprolol succinate 12.5 mg twice daily
#HLD
-Continue atorvastatin 20 mg daily
#GERD
-Continue famotidine 20 mg daily, continue Florastor
#Anxiety/Depression
-Continue lorazepam 1 mg at bedtime
#OA
#Restless leg syndrome
-Continue Requip 1 mg p.o. 3 times daily
-Continue gabapentin 100 mg at bedtime
-Will give patient 0.5 Ativan
#Chronic rib pain
-Continue Voltaren 2 g topical
#Right breast fungal infection
Continue nystatin topical twice daily
#Chronic ambulatory dysfunction uses walker or electric wheelchair at baseline
PT/OT/case management consult
Other past medical history:
Urinary incontinence
Bilateral second toe amputation
Former smoker
Medically stable for discharge.
Total time of dc 32 min
Full code
Anticipated Discharge: Today
Subjective/Interval History
-
Date of Service: August 23, 2024
Feeling much improved and inquiring about discharge.
Right foot pain resolved. Improved swelling. Improved redness. No fever or chills. No nausea vomiting.
Objective Data
-
Labs:
Laboratory Results
08/23/24
05:26
WBC 7.4
Hgb 9.4 L
Hct 29.3 L
Plt Count 226
Sodium 144
Potassium 3.7
Chloride 110 H
Carbon Dioxide 24
BUN 16
Creatinine 0.7
Glucose 97
Calcium 8.9
Total Bilirubin 0.1 L
AST 23
ALT 28
Alkaline Phosphatase 94
Vital Signs:
Vital Signs
Temp Pulse Resp BP Pulse Ox
97.8 F 65 18 146/53 95
08/23/24 11:00 08/23/24 11:00 08/23/24 11:00 08/23/24 11:00 08/23/24 11:00
I&O
08/22/24 08/23/24 08/24/24
06:59 06:59 06:59
Intake Total 2615 / 2615
Balance 2615 / 2615
Review of Systems
-
Constitutional: Denies Fever
Respiratory: Denies Trouble Breathing
Cardiac: Denies Chest Pain
Abdomen/GI: Denies Abdominal Pain, Nausea, Vomiting, Diarrhea or Constipated
Neuro: Denies Dizzy
Physical Exam
-
General: No Apparent Distress
HEENT: Moist Mucous Membranes
Respiratory: Clear to Auscultation
Cardiac: Regular Rhythm and S1/S2
GI: Soft
Skin: Other (Improved right leg swelling. Right third toe sulcal ulcer without any discharge.)
Neuro: AO x 3
Psych: Calm
Data Reviewed
-
Labs: Labs Reviewed by me
[2024-08-23] MEDS: OMNICEF 300 MG PO (12:16)
[2024-08-23 14:39] VITALS: BMI 30.3
[2024-08-23 15:55] VITALS: BP 165/67; BP 168/65; BP 175/66; PULSE 58; PULSE 60; PULSE 62
[2024-08-23] MEDS: BACTROBAN 2% OINTMENT 1 APPLIC TOPICAL (17:08)
[2024-08-23 19:27] VITALS: BP 169/71
[2024-08-23] MEDS: ATIVAN 1 MG PO (21:41)
[2024-08-23] MEDS: ASPIR LOW (ENTERIC COATED) 81 MG PO (21:41)
[2024-08-23] MEDS: NEURONTIN 100 MG PO (21:41)
[2024-08-23] MEDS: TOPROL XL PO (21:44)
[2024-08-23 23:14] VITALS: BP 128/84
[2024-08-23] MEDS: TYLENOL 650 MG PO (23:35)
[2024-08-24] MEDS: OMNICEF 300 MG PO ×2 (01:46→08:16)
[2024-08-24 03:13] VITALS: BP 139/52
[2024-08-24] MEDS: LASIX 20 MG IV (05:35)
[2024-08-24 06:00] VITALS: BMI 30.8
[2024-08-24 06:49] LABS: % Basophils 0.7 % (0-2); % Eosinophils 8.6 % (0-6); % Immature Granulocytes 0.1 % (0-0.5); % Monocytes 12.6 % (1.7-9.3); Absolute Basophils 0.1 10^3/uL (0-0.2); Absolute Eosinophils 0.6 10^3/uL (0-0.7); Absolute Lymphocytes 1.4 10^3/uL (1.2-3.4); Absolute Monocytes 0.9 10^3/uL (0.1-0.6); Hematocrit 29.6 % (37.0-47.0); Hemoglobin 9.6 g/dL (12.0-16.0); Mean Corp Hgb Conc. 32.4 g/dL (33.0-37.0); Mean Corpuscular Hgb 29.4 pg (27.0-31.0); Mean Corpuscular Volume 90.8 fL (81.0-99.0); Mean Platelet Volume 10.2 fL (7.4-10.4); Nucleated Red Blood Cells % 0 %; Platelet Count 229 10^3/uL (130-400); Red Blood Cell Count 3.26 10^6/uL (4.20-5.40); White Blood Cell Count 6.9 10^3/uL (4.8-10.8)
[2024-08-24 07:17] LABS: ALT (SGPT) 27 U/L (0-35); AST (SGOT) 21 U/L (14-36); Albumin 3.3 g/dl (3.5-5.0); Alkaline Phosphatase 84 U/L (38-126); Blood Urea Nitrogen 13 mg/dl (7-17); Calcium 9.1 mg/dl (8.4-10.2); Carbon Dioxide 25 mmol/L (22-30); Chloride 108 mmol/L (98-107); Estimated Creatinine Clearance 63 ml/min; Glucose 93 mg/dl (70-99); Potassium 3.8 mmol/L (3.5-5.1); Sodium 143 mmol/L (135-145); Total Bilirubin 0.2 mg/dl (0.2-1.3); Total Protein 6.2 g/dl (6.3-8.2); eGFR > 60.00
[2024-08-24] MEDS: LIPITOR 20 MG PO (08:15)
[2024-08-24] MEDS: HEPARIN 5000 UNITS SC (08:16)
[2024-08-24] MEDS: FLORASTOR 250 MG PO (08:16)
[2024-08-24] MEDS: LEXAPRO 10 MG PO (08:16)
[2024-08-24] MEDS: REQUIP 1 MG PO (08:16)
[2024-08-24] MEDS: VITAMIN B-12 1000 MCG PO (08:16)
[2024-08-24] MEDS: PEPCID 20 MG PO (08:16)
[2024-08-24] MEDS: VITAMIN D3 (cholecalciferol) 25 MCG PO (08:16)
[2024-08-24] MEDS: DESENEX/MITRAZOL/ZEASORB 1 APPLIC TOPICAL (08:17)
[2024-08-24] MEDS: BACTROBAN 2% OINTMENT 1 APPLIC TOPICAL (08:20)
[2024-08-24] MEDS: TOPROL XL 12.5 MG PO (08:20)
[2024-08-24 08:34] VITALS: BP 119/64
--- NOTE | 2024-08-24 09:20 | WOUNDNOTE ---
[facility] RN note: Patient admitted with gastroenteritis, cellulitis. Patient is discharged today with VN.
See H&P for complete history.
PMH: bilateral 2nd toe amp, mild PAD (follows Dr. Apodaca), former smoker, CHF, COPD, HTN, anxiety, restless leg syndrome, LE edema (wears compression stockinet at home).
Wound Location and type/assessment: Patient admitted with: L 3rd toe inner base crease linear ulcer deep dermal vs to subcutaneous layer, pink with some white tissue. Scant serous drainage. Minimal local erythema. Trace LE edema (L>R is her normal
as per patient).
Appetite: good.
Pressure redistribution devices in place: Centrella Pro bed. Patient stood with walker for sacral assessment (skin intact on sacrum).
Plan: L 3rd toe dressing changed. Instructed patient local wound care as ordered and hand hygiene with wound care.
Patient aware to follow up with Dr. Apodaca and Dr. Jones.
--- NOTE | 2024-08-24 09:20 | WOUNDNOTE ---
R 3RD TOE CREASE
--- NOTE | 2024-08-24 09:21 | WOUNDNOTE ---
[facility] RN note: Patient admitted with gastroenteritis, cellulitis. Patient is discharged today with VN.
See H&P for complete history.
PMH: bilateral 2nd toe amp, mild PAD (follows Dr. Apodaca), former smoker, CHF, COPD, HTN, anxiety, restless leg syndrome, LE edema (wears compression stockinet at home).
Wound Location and type/assessment: Patient admitted with: L 3rd toe inner base crease linear ulcer deep dermal vs to subcutaneous layer, pink with some white tissue. Scant serous drainage. No erythema noted. Trace LE edema (L>R is her normal as
per patient).
Appetite: good.
Pressure redistribution devices in place: Centrella Pro bed. Patient stood with walker for sacral assessment (skin intact on sacrum).
Plan: L 3rd toe dressing changed. Instructed patient local wound care as ordered and hand hygiene with wound care.
Patient aware to follow up with Dr. Apodaca and Dr. Jones.
--- NOTE | 2024-08-24 10:05 | CM ---
Patient seen & being discharged today back to [facility].
Spoke with Betty at [facility].
Spoke with son - had [facility] in past. Agreeable to [facility] - referral placed in [facility].
PLAN: [facility] with visiting nurse
[facility]
Report #: [phone]
Fax #: [phone]
[facility] Fax #: [phone]
--- NOTE | 2024-08-24 11:00 | W.DCSUMMARY ---
Discharge Summary
Discharge Data
Date of Admission: 08/21/24
Date of Discharge: 08/23/24
-
Pending Results: No
Hospital Course
Primary diagnosis:
Right third toe plantar sulcus with ulcer
Right foot and leg cellulitis
Gastrointestinal symptoms secondary to Bactrim
Secondary diagnosis:
Bilateral second toes amputation
Chronic heart failure with preserved EF
Chronic obstructive pulmonary disease
Hypertension
Hyperlipidemia
Hospital course:
Patient had recent left leg cellulitis and was treated with antibiotics.
She started to have pain and swelling of right foot .She took the antibiotics she had at home ie Bactrim and developed acute GI SYmptoms of diarrhea and vomiting so came in to hospital.
GI symptoms were self limiting and abdomen benign. [place] antibiotic related.
She had right 3rd plantar sulcus ulcer without purulence or bleeding ;she has right foot cellulitis. [place] xray of right foot was without OM.She improved with empirical vancomycin. MRSA swab was negative. She was switched to oral cefdinir on
discharge .She had first dose of it in hospital without immediate allergic symptoms.
Advised to follow with podiatry on discharge.
Heavy Media Operator on board:
Podiatry Mario Tran
Discharge Plan
-
Patient Disposition: Home with Home Care
Discharge Diagnosis/Procedures: Right third toe palmar sulcus ulcer with foot/leg cellulitis
Diet: Low Cholesterol
Activity: As tolerated
Driving Restrictions: As prior to admission
Bathing Restrictions: OK to Shower
Other Services: VN
Activity Restrictions/Additional Instructions:
Wound Care Instructions
L 3rd toe wound-clean with saline or soap and water, Bactroban ointment, cover with dry gauze. Change daily and as needed for drainage.
Follow up with Dr. Jones.
Follow up with Dr. Apodaca.
Referrals:
Kadi Frederick MD [Family Provider] - in less than 1 week
Cecy Jones, DPM [Specified Professional Personl] - in one week
Prescriptions:
New
mupirocin 2 % Ointment
1 applic topical DAILY Qty: 15 0RF
cefdinir 300 mg capsule
300 mg PO BID Qty: 10 0RF
Continued
atorvastatin 20 mg tablet
20 mg PO DAILY
escitalopram oxalate 10 mg tablet
10 mg PO DAILY
cholecalciferol (vitamin D3) 25 mcg (1,000 unit) Tablet
500 unit PO DAILY Qty: 0 0RF
cyanocobalamin (vitamin B-12) 1,000 mcg Tablet
1,000 mcg PO DAILY Qty: 0 0RF
famotidine 20 mg tablet
20 mg PO DAILY
aspirin 81 mg Tablet,Delayed Release (Dr/Ec)
81 mg PO HS
gabapentin 100 mg capsule
100 mg PO HS
polyethylene glycol 3350 [HealthyLax] 17 gram Powder In Packet
17 g PO DAILYPRN PRN (Reason: constipation) Qty: 0 0RF
ropinirole 1 mg Tablet
1 mg PO TID Qty: 0 0RF
sennosides-docusate sodium [Stool Softener-Stimulant Laxat] 8.6-50 mg Tablet
1 tab PO BIDPRN PRN (Reason: constipation) Qty: 0 0RF
metoprolol succinate 25 mg Tablet Extended Release 24 Hr
12.5 mg PO BID Qty: 0 0RF
lorazepam 1 mg Tablet
1 mg PO HS Qty: 3 0RF
triamcinolone acetonide 0.1 % Cream
1 applic TOPICAL BIDPRN PRN (Reason: rash)
magnesium hydroxide [Milk of Magnesia] 400 mg/5 mL Suspension
2,400 mg PO [id number] PRN (Reason: no bm by 2nd day)
diphenhydramine HCl [Benadryl] 25 mg Capsule
25 mg PO [id number] PRN (Reason: pruitis)
Saccharomyces boulardii [Florastor] 250 mg Capsule
250 mg PO DAILY
furosemide 40 mg tablet
40 mg PO DAILY
albuterol sulfate 90 mcg/actuation HFA aerosol inhaler
2 puff inhalation R Q6HPRN PRN (Reason: shortness of breath or wheezing)
acetaminophen [Tylenol Extra Strength] 500 mg Tablet
1,000 mg PO [id number] PRN (Reason: rib pain)
nystatin 100,000 unit/gram Powder
1 applic TOPICAL BID
diclofenac sodium 1 % Gel
2 g TOPICAL DAILY
acetaminophen 325 mg tablet
650 mg PO Q6HPRN MDD 3000 mg PRN (Reason: mild pain/ fever>100F)
Discharge Orders:
Discharge Patient (As Directed); Ordered 08/23/24
Ordered By: Luis Manriquez
Discharge Date and Time
Discharge Date/Time: 08/24/24 10:26
Print Language: TRINIDADIAN
== END 2024-08-24 10:26 | disposition home health service (06) | DRG 872 ==
LOC: 2 NORTH 22:53
PROVIDERS: Clinical Nurse Specialist Family Health; Emergency Medicine; ADMITTING PHYSICIAN Hospitalist; ATTENDING PHYSICIAN Internal Medicine; CONSULT PHYSICIAN Podiatrist Foot & Ankle Surgery; EMERGENCY PHYSICIAN Emergency Medicine; FAMILY PHYSICIAN Family Medicine
DX: A41.9 Sepsis, unspecified organism (principal); L03.115 Cellulitis of right lower limb; L03.116 Cellulitis of left lower limb; I50.32 Chronic diastolic (congestive) heart failure; K52.1 Toxic gastroenteritis and colitis; L97.511 Non-pressure chronic ulcer of other part of right foot limited to breakdown of skin; E78.00 Pure hypercholesterolemia, unspecified; F32.A Depression, unspecified; F41.9 Anxiety disorder, unspecified; G25.81 Restless legs syndrome; I11.0 Hypertensive heart disease with heart failure; T36.8X5A Adverse effect of other systemic antibiotics, initial encounter; Y92.9 Unspecified place or not applicable; J44.9 Chronic obstructive pulmonary disease, unspecified; K21.9 Gastro-esophageal reflux disease without esophagitis; R32 Unspecified urinary incontinence; M19.90 Unspecified osteoarthritis, unspecified site; R19.7 Diarrhea, unspecified; D64.9 Anemia, unspecified; R26.2 Difficulty in walking, not elsewhere classified; Z60.2 Problems related to living alone; Z96.651 Presence of right artificial knee joint; Z96.611 Presence of right artificial shoulder joint; Z96.612 Presence of left artificial shoulder joint; Z88.5 Allergy status to narcotic agent; Z88.0 Allergy status to penicillin; Z87.891 Personal history of nicotine dependence; Z11.52 Encounter for screening for COVID-19
CPT/HCPCS: 51701; 71045; 73620; 80053; 81003; 83605; 85025; 87040; 87070; 87811; 96365; 96366; 97162; 99285

== ENCOUNTER → 2024-08-31 12:35 | Outpatient (REF) | payer OTHER, SELFPAY | LOC: WOUND 12:35 | PROVIDERS: ATTENDING PHYSICIAN Surgery; FAMILY PHYSICIAN Family Medicine | DX: L97.512 Non-pressure chronic ulcer of other part of right foot with fat layer exposed (principal); I73.9 Peripheral vascular disease, unspecified; I35.0 Nonrheumatic aortic (valve) stenosis; G62.9 Polyneuropathy, unspecified; I50.30 Unspecified diastolic (congestive) heart failure; F17.211 Nicotine dependence, cigarettes, in remission | CPT/HCPCS: 99203 ==

== ENCOUNTER → 2024-09-10 13:21 | Outpatient (REF) | payer OTHER, SELFPAY | LOC: WOUND 13:21 | PROVIDERS: ATTENDING PHYSICIAN Surgery; FAMILY PHYSICIAN Family Medicine | DX: I73.9 Peripheral vascular disease, unspecified (principal); L97.512 Non-pressure chronic ulcer of other part of right foot with fat layer exposed; I35.0 Nonrheumatic aortic (valve) stenosis; G62.9 Polyneuropathy, unspecified; I50.30 Unspecified diastolic (congestive) heart failure; F17.211 Nicotine dependence, cigarettes, in remission | CPT/HCPCS: 99213 ==

== ENCOUNTER 2024-09-16 06:35 | Day surgery (SDC) | payer OTHER, SELFPAY ==
[2024-09-16 09:29] VITALS: BMI 29.4
[2024-09-16 09:31] VITALS: BMI 29.4
[2024-09-16 09:57] VITALS: BP 104/81
[2024-09-16 12:00] VITALS: BP 145/67
[2024-09-16 12:15] VITALS: BP 138/113
[2024-09-16 12:30] VITALS: BP 108/86
== END 2024-09-16 12:48 | disposition home or self-care (01) ==
LOC: SDS 06:35
PROVIDERS: ATTENDING PHYSICIAN Internal Medicine Gastroenterology
DX: D50.9 Iron deficiency anemia, unspecified (principal); R19.5 Other fecal abnormalities; K64.8 Other hemorrhoids; K57.30 Diverticulosis of large intestine without perforation or abscess without bleeding; K44.9 Diaphragmatic hernia without obstruction or gangrene; K31.89 Other diseases of stomach and duodenum
CPT/HCPCS: 45378; 43239; 88305; 88342

== ENCOUNTER → 2024-09-18 10:19 | Outpatient (REF) | payer OTHER, SELFPAY | LOC: WOUND 10:19 | PROVIDERS: ATTENDING PHYSICIAN Surgery; FAMILY PHYSICIAN Family Medicine | DX: L97.512 Non-pressure chronic ulcer of other part of right foot with fat layer exposed (principal); I73.9 Peripheral vascular disease, unspecified; I35.0 Nonrheumatic aortic (valve) stenosis; G62.9 Polyneuropathy, unspecified; F17.211 Nicotine dependence, cigarettes, in remission; I50.30 Unspecified diastolic (congestive) heart failure | CPT/HCPCS: 99213 ==

== ENCOUNTER → 2024-09-25 10:26 | Outpatient (REF) | payer OTHER, SELFPAY | LOC: WOUND 10:26 | PROVIDERS: ATTENDING PHYSICIAN Surgery; FAMILY PHYSICIAN Family Medicine | DX: L97.512 Non-pressure chronic ulcer of other part of right foot with fat layer exposed (principal); I73.9 Peripheral vascular disease, unspecified; I35.0 Nonrheumatic aortic (valve) stenosis; G62.9 Polyneuropathy, unspecified; I50.30 Unspecified diastolic (congestive) heart failure | CPT/HCPCS: 99213 ==

== ENCOUNTER 2024-09-25 18:24 | Emergency (ER) | payer OTHER, SELFPAY ==
[2024-09-25 18:29] VITALS: BP 162/59; BMI 30.9
[2024-09-25 19:00] VITALS: BP 145/61
--- NOTE | 2024-09-25 19:26 | ED.GENMED ---
History of Present Illness
General
Chief Complaint: Musculo-Skeletal Complaint
Source: patient
Exam Limitations: none
Time Seen by Provider: 09/25/24 19:09
Nursing documentation reviewed up to this point in time: agreed with
History of Present Illness
History of Present Illness:
Patient presents to ED from snf secondary to persistent left shoulder pain for the past 3 weeks. Patient had an outpatient x-ray performed today which revealed potential left shoulder dislocation. Subsequently, patient was referred to ED
for further evaluation and treatment. Patient denies direct trauma. Denies loss of sensation or weakness. Denies previous history of similar symptoms.
Past History
Past History
ED Past Medical History: CHF, COPD, HTN, Hypercholesterolemia, Psychiatric (Anxiety, Depression) and Other (OA, Restless leg syndrome, Incontinence)
ED Past Surgical History: Orthopedic (Mati second Toe amputation, Right Total knee replacement, Right shoulder replacement, Mati carpal tunnel) and Other (cataracts, )
PSI?: No
Social History
Tobacco: Former smoker
Alcohol: Occasional
Drug: None
Personal:
Living: assisted living
Employment: Retired
Review of Systems
Review of Systems
Allergies reviewed?: Yes
All Other Systems: ROS reviewed and negative except as documented in HPI and ROS
Constitutional: Reports no symptoms
Musculoskeletal: Reports other (Shoulder pain)
Skin: Reports no symptoms
Neurological: Reports no symptoms
Phy Exam
Physical Exam
Physical Exam:
Physical Exam
General: mild painful distress, not acutely ill. afebrile
Head: nc/at. eomi
Neck: supple. normal range of motion.
Abdomen: normal bowel sounds. not tender.
Neuro: alert and oriented. no focal neurological deficits
Skin: no rash
Psychiatric: well kept. interactive and cooperative
Extremities: no edema. mild left shoulder tenderness to palpation, without obvious deformity
Course
Orders/Labs/Results
Orders:
Orders
09/25/24 19:00
CR Shoulder, Trauma - Left Urgent
Reason For Exam: possible dislocation
09/25/24 19:25
Acetaminophen [Tylenol] 650 mg PO NOW STA
09/25/24 19:29
Ropinirole [Requip] 1 mg PO NOW STA
09/25/24 21:44
Dexamethasone Pf [Decadron] 10 mg .ROUTE .STK-MED ONE
09/25/24 21:46
Dexamethasone Pf [Decadron] 10 mg PO NOW STA
Vital Signs
Initial and Last Documented VS:
Initial Vital Signs
Temp Pulse Resp BP Pulse Ox
97.8 F 66 20 162/59 98
09/25/24 18:29 09/25/24 18:29 09/25/24 18:29 09/25/24 18:29 09/25/24 18:29
Last Documented Vital Signs
Temp Pulse Resp BP Pulse Ox
97.8 F 66 20 153/60 90
09/25/24 18:29 09/25/24 18:29 09/25/24 18:29 09/25/24 22:00 09/25/24 22:00
MDM/Problems Addressed
MDM/Problems Addressed:
X-ray report reviewed and discussed with patient. Despite x-ray suggestive of potential left anterior shoulder dislocation, patient without any discomfort at rest and is able to range the affected shoulder on her own with minimal difficulty.
Clinically, patient does not appear to have shoulder dislocation. And patient remains neurovascularly intact. It is quite possible the patient may have slight subluxation with underlying arthritis given her discomfort. As such, patient will be
given single dose of Decadron in ED and provided with arm sling, to be used as needed, as well as outpatient urgent consultation with orthopedic surgeon. Patient expresses understanding, at time of discharge.
*Critical Care Note
Total Time (30-74mins, 75-104mins- exclusive of procedures): Not Applicable
ED Attending Note
-
Portions of this chart may have been created with voice recognition software.� Occasional wrong word or��sound alike� substitutions may have occurred due to the inherent limitations of voice recognition software.
Discharge Plan
Departure
Patient Disposition: Fdc/SNF
Date of Disposition: 09/25/24
Time of Disposition: 21:40
Patient with high blood pressure during this ER visit?: Yes
Discharge Problem:
Acute shoulder pain
Instructions: Shoulder Pain ED
Prescriptions:
No Action
atorvastatin 20 mg tablet
20 mg PO HS
escitalopram oxalate 10 mg tablet
10 mg PO DAILY
cholecalciferol (vitamin D3) 25 mcg (1,000 unit) Tablet
500 unit PO DAILY Qty: 0 0RF
cyanocobalamin (vitamin B-12) 1,000 mcg Tablet
1,000 mcg PO DAILY Qty: 0 0RF
aspirin 81 mg Tablet,Delayed Release (Dr/Ec)
81 mg PO HS
gabapentin 100 mg capsule
100 mg PO HS
ropinirole 1 mg Tablet
1 mg PO TID Qty: 0 0RF
metoprolol succinate 25 mg Tablet Extended Release 24 Hr
12.5 mg PO BID Qty: 0 0RF
diphenhydramine HCl [Benadryl] 25 mg Capsule
25 mg PO HSPRN PRN (Reason: pruitis)
furosemide 40 mg tablet
40 mg PO DAILY
albuterol sulfate 90 mcg/actuation HFA aerosol inhaler
2 puff inhalation R Q6HPRN PRN (Reason: shortness of breath or wheezing)
acetaminophen [Tylenol Extra Strength] 500 mg Tablet
500 mg PO [id number] PRN (Reason: rib pain)
acetaminophen 325 mg tablet
650 mg PO Q6HPRN MDD 3000 mg PRN (Reason: mild pain/ fever>100F)
ammonium lactate [AmLactin] 12 % Lotion
1 applic TOPICAL DAILY
polyethylene glycol 3350 [Miralax] 17 gram Powder In Packet
17 g PO DAILYPRN PRN (Reason: constipation)
sennosides-docusate sodium [Senna-S] 8.6-50 mg Tablet
1 tab-cap PO [id number] PRN (Reason: constipation)
famotidine 20 mg Tablet
20 mg PO DAILY
magnesium hydroxide [Milk of Magnesia] 400 mg/5 mL Suspension
30 ml PO DAILYPRN PRN (Reason: if no bm x 2 days)
Saccharomyces boulardii 250 mg Capsule
250 mg PO DAILY
lorazepam 1 mg tablet
1 mg PO HSPRN PRN (Reason: anxiety)
Referrals:
Govind Orellana MD [Active] -
Eugenio Ley MD [Family Provider] -
Activity Restrictions/Additional Instructions:
As discussed, please follow-up with referred orthopedic surgeon for further evaluation and treatment.
Interventions
Interventions:
*Risk Screen - Suicide Last Done: 09/25/24 18:32
*General Assessment Last Done: 09/25/24 18:32
*Neglect/Abuse Screening Last Done: 09/25/24 18:32
ED- Fall Risk Assessment Last Done: 09/25/24 18:35
*ED COVID-19 Vaccine History Last Done: 09/25/24 18:32
*Nursing Disposition Last Done: 09/25/24 22:39
ED-Musculoskeletal Assessment Last Done: 09/25/24 19:16
Discharge Date and Time
Discharge Date/Time: 09/25/24 22:40
Print Language: KISWAHILI
[2024-09-25] MEDS: REQUIP 1 MG PO (19:43)
[2024-09-25] MEDS: TYLENOL 650 MG PO (19:43)
[2024-09-25 21:38] VITALS: BP 161/53
[2024-09-25] MEDS: DECADRON 10 MG PO (21:46)
[2024-09-25 22:00] VITALS: BP 153/60
== END 2024-09-25 22:40 ==
LOC: EMR 18:24
PROVIDERS: EMERGENCY PHYSICIAN Emergency Medicine; FAMILY PHYSICIAN Family Medicine
DX: M25.512 Pain in left shoulder (principal); E78.00 Pure hypercholesterolemia, unspecified; G25.81 Restless legs syndrome; I11.0 Hypertensive heart disease with heart failure; I50.9 Heart failure, unspecified; J44.9 Chronic obstructive pulmonary disease, unspecified; Z87.891 Personal history of nicotine dependence; Z96.611 Presence of right artificial shoulder joint
CPT/HCPCS: 99283; 73030

== ENCOUNTER → 2024-10-08 13:20 | Outpatient (REF) | payer OTHER, SELFPAY | LOC: WOUND 13:20 | PROVIDERS: ATTENDING PHYSICIAN Surgery; FAMILY PHYSICIAN Family Medicine | DX: L97.512 Non-pressure chronic ulcer of other part of right foot with fat layer exposed (principal); I73.9 Peripheral vascular disease, unspecified; F17.211 Nicotine dependence, cigarettes, in remission; I35.0 Nonrheumatic aortic (valve) stenosis; G62.9 Polyneuropathy, unspecified; I50.30 Unspecified diastolic (congestive) heart failure | CPT/HCPCS: 99212 ==

== ENCOUNTER → 2024-11-17 10:20 | Outpatient (REF) | payer OTHER, SELFPAY | LOC: MRI 3T 10:20 | PROVIDERS: ATTENDING PHYSICIAN Orthopaedic Surgery; FAMILY PHYSICIAN Family Medicine | DX: M25.512 Pain in left shoulder (principal) | CPT/HCPCS: 73221 ==

== ENCOUNTER → 2024-12-30 10:32 | Outpatient (REF) | payer OTHER, SELFPAY ==
[2024-12-30 13:05] LABS: % Basophils 0.9 % (0-2); % Eosinophils 7.9 % (0-6); % Immature Granulocytes 0.4 % (0-0.5); % Lymphocytes 16.2 % (20.5-51.1); % Monocytes 13.4 % (1.7-9.3); % Neutrophils 61.2 % (42.2-75.2); Absolute Basophils 0.1 10^3/uL (0-0.2); Absolute Eosinophils 0.5 10^3/uL (0-0.7); Absolute Lymphocytes 0.9 10^3/uL (1.2-3.4); Absolute Monocytes 0.8 10^3/uL (0.1-0.6); Absolute Neutrophils 3.5 10^3/uL (1.4-6.5); Hematocrit 32.4 % (37.0-47.0); Hemoglobin 10.4 g/dL (12.0-16.0); Mean Corp Hgb Conc. 32.1 g/dL (33.0-37.0); Mean Corpuscular Hgb 30.2 pg (27.0-31.0); Mean Corpuscular Volume 94.2 fL (81.0-99.0); Mean Platelet Volume 10.9 fL (7.4-10.4); Nucleated Red Blood Cells % 0 %; Platelet Count 200 10^3/uL (130-400); Red Blood Cell Count 3.44 10^6/uL (4.20-5.40); Red Cell Dist. Width 14.1 % (11.5-14.5); White Blood Cell Count 5.7 10^3/uL (4.8-10.8)
[2024-12-30 13:06] LABS: ALT (SGPT) 17 U/L (0-35); AST (SGOT) 18 U/L (14-36); Alkaline Phosphatase 111 U/L (38-126); Blood Urea Nitrogen 28 mg/dl (7-17); Carbon Dioxide 27 mmol/L (22-30); Chloride 104 mmol/L (98-107); Glucose 109 mg/dl (70-99); Potassium 4.8 mmol/L (3.5-5.1); Sodium 139 mmol/L (135-145); Total Bilirubin 0.6 mg/dl (0.2-1.3); Total Protein 6.5 g/dl (6.3-8.2); eGFR > 60.00
[2024-12-30 13:32] LABS: TSH Reflex To Free T4 2.22 uIU/ml (0.47-4.68)
[2024-12-30 14:03] LABS: Erythrocyte Sed Rate > 145 mm/hour (0-20)
[2024-12-30 14:08] LABS: Folate 10.2 ng/ml (2.76-20); Vitamin B12 917 pg/ml (239-931)
[2024-12-30 14:18] LABS: Glycohemoglobin (HgbA1c) 5.6 % (4.0-5.6)
[2025-01-01 17:42] LABS: Homocysteine 10 umol/L (0-15)
[2025-01-02 02:34] LABS: Myelin Assoc Glycoprotein Ab <1000 TU (0-999)
== END ==
LOC: OLABWPC 10:32
PROVIDERS: ATTENDING PHYSICIAN Specialist
DX: G60.3 Idiopathic progressive neuropathy (principal)
CPT/HCPCS: 36415; 80053; 82607; 82746; 83036; 83090; 83516; 83921; 84443; 85025; 85652

== ENCOUNTER → 2025-01-18 10:51 | Outpatient (REF) | payer OTHER, SELFPAY | LOC: RAD 10:51 | PROVIDERS: ATTENDING PHYSICIAN Registered Nurse | DX: I73.9 Peripheral vascular disease, unspecified (principal) | CPT/HCPCS: 93922; 93925 ==

== ENCOUNTER → 2025-01-19 10:27 | Outpatient (REF) | payer OTHER, SELFPAY ==
[2025-01-19 11:13] LABS: % Eosinophils 6.3 % (0-6); % Immature Granulocytes 0.3 % (0-0.5); % Lymphocytes 17.2 % (20.5-51.1); % Monocytes 12.1 % (1.7-9.3); % Neutrophils 63.1 % (42.2-75.2); Absolute Basophils 0.1 10^3/uL (0-0.2); Absolute Eosinophils 0.4 10^3/uL (0-0.7); Absolute Lymphocytes 1.2 10^3/uL (1.2-3.4); Absolute Monocytes 0.8 10^3/uL (0.1-0.6); Absolute Neutrophils 4.2 10^3/uL (1.4-6.5); Hematocrit 36.8 % (37.0-47.0); Hemoglobin 11.8 g/dL (12.0-16.0); Mean Corp Hgb Conc. 32.1 g/dL (33.0-37.0); Mean Corpuscular Hgb 30.1 pg (27.0-31.0); Mean Corpuscular Volume 93.9 fL (81.0-99.0); Nucleated Red Blood Cells % 0 %; Platelet Count 248 10^3/uL (130-400); Red Blood Cell Count 3.92 10^6/uL (4.20-5.40); Red Cell Dist. Width 14.1 % (11.5-14.5); White Blood Cell Count 6.7 10^3/uL (4.8-10.8)
[2025-01-19 11:15] LABS: Blood Urea Nitrogen 29 mg/dl (7-17); Calcium 9.8 mg/dl (8.4-10.2); Carbon Dioxide 29 mmol/L (22-30); Chloride 105 mmol/L (98-107); Glucose 105 mg/dl (70-99); Potassium 4.8 mmol/L (3.5-5.1); Sodium 141 mmol/L (135-145); eGFR > 60.00
[2025-01-19 11:27] LABS: Erythrocyte Sed Rate 79 mm/hour (0-20)
== END ==
LOC: OLABWPC 10:27
PROVIDERS: ATTENDING PHYSICIAN Surgery; FAMILY PHYSICIAN Family Medicine
DX: Z01.818 Encounter for other preprocedural examination (principal)
CPT/HCPCS: 36415; 80048; 85025; 85652

== ENCOUNTER 2025-01-29 06:20 | Day surgery (SDC) | payer OTHER, SELFPAY ==
[2025-01-29] VITALS (15 sets, daily range): BP systolic 103–166; BP diastolic 39–74; BMI 31.5
[2025-01-29] MEDS: DUONEB 3 ML INH (08:50)
[2025-01-29] MEDS: TYLENOL 1000 MG PO (08:51)
[2025-01-29] MEDS: NORMOSOL-R/PLASMALYTE-A 1000 IV ×2 (08:52→14:39)
--- NOTE | 2025-01-29 10:40 | W.IMMPOSTOP ---
Surgical Immed Post Op Note
-
Primary Surgeon: Maria Victoria
Assisting Surgeon: COLTON Quintero
Pre-op Diagnosis: Umbilical hernia
Post-op Diagnosis: Umbilical hernia
Procedure Performed: RAL umbilical hernia repair with mesh
Anesthesia Type: General
Specimen / Cultures: None
Estimated Blood Loss: 3 cc
Complications: None
Operative Findings:
1. 2 cm fascial defect
2. Ventralight ST 11 cm round IPOM mesh repair
[2025-01-29] MEDS: MORPHINE SULFATE 1 MG IV (11:09)
[2025-01-29] MEDS: TYLENOL 650 MG PO ×3 (14:43→23:28)
[2025-01-29] MEDS: REQUIP 1 MG PO ×2 (16:26→22:20)
[2025-01-29] MEDS: TORADOL 10 MG IV (16:27)
[2025-01-29] MEDS: TYLENOL PO (16:27)
[2025-01-29] MEDS: LOVENOX 40 MG SC (16:27)
[2025-01-29] MEDS: ROXICODONE 5 MG PO (20:17)
[2025-01-29] MEDS: TOPROL XL 12.5 MG PO (20:19)
[2025-01-29] MEDS: NEURONTIN 100 MG PO (22:20)
[2025-01-29] MEDS: LIPITOR 20 MG PO (22:20)
[2025-01-30 03:05] VITALS: BP 137/69
[2025-01-30] MEDS: TYLENOL 650 MG PO ×2 (03:45→09:56)
[2025-01-30] MEDS: ROXICODONE 5 MG PO ×2 (03:46→09:55)
[2025-01-30 06:00] VITALS: BMI 32.2
[2025-01-30 07:10] VITALS: BP 119/71
[2025-01-30 07:47] LABS: Hematocrit 32.9 % (37.0-47.0); Hemoglobin 10.7 g/dL (12.0-16.0); Mean Corp Hgb Conc. 32.5 g/dL (33.0-37.0); Mean Corpuscular Hgb 30.7 pg (27.0-31.0); Mean Corpuscular Volume 94.3 fL (81.0-99.0); Mean Platelet Volume 10.6 fL (7.4-10.4); Platelet Count 182 10^3/uL (130-400); Red Blood Cell Count 3.49 10^6/uL (4.20-5.40); White Blood Cell Count 7.5 10^3/uL (4.8-10.8)
[2025-01-30 08:02] LABS: Blood Urea Nitrogen 22 mg/dl (7-17); Calcium 8.8 mg/dl (8.4-10.2); Carbon Dioxide 28 mmol/L (22-30); Chloride 106 mmol/L (98-107); Estimated Creatinine Clearance 56 ml/min; Glucose 97 mg/dl (70-99); Potassium 4.6 mmol/L (3.5-5.1); Sodium 141 mmol/L (135-145); eGFR > 60.00
--- NOTE | 2025-01-30 09:45 | W.PN.GS2 ---
Addendum entered and electronically signed by Mihir Irene MD 01/30/25 09:58:
Patient seen and examined.
Pain overall well-controlled. No nausea or vomiting. Ambulating. No worsening chest pain or shortness of breath. Currently on room air.
Gen: NAD
Abd: soft, mild tenderness, ND/obese, non-peritoneal, incisions c/d/i - no erythema, ecchymosis, or drainage
Labs reviewed
79 yo female who presented for scheduled surgery
POD #1 RAL UHR with mesh
AFVSS, weaned off O2
Tolerating diet, minimal pain
Recovering well. Stable from a cardiopulmonary standpoint. Okay for discharge.
--Regular diet
-- Pain control: Tylenol, Toradol, Oxycodone
-- ABD binder when OOB
-- OOB/Ambulate
-- Home meds
-- DVT: Lovenox
-- OK for discharge, cm consult placed to facilitate her return to [facility]
Original Note:
Today's Communication / Plan
-
Dispo planning
Assessment / Plan
-
79 yo female who presented for scheduled surgery now POD #1 RAL UHR with mesh
AFVSS, weaned off O2
Tolerating diet, minimal pain
--analgesics prn
--ABD binder when OOB
--continue current diet
--OOB/Ambulate
--Ok for discharge, cm consult placed to facilitate her return to [facility]
Subjective Data
-
Date of Service: January 30, 2025
Patient seen and examined at bedside with Dr. Irene. Ambulating with walker. Denies n/v. Tolerating diet. Passing flatus. Minimal discomfort although some soreness to the umbilicus.
Objective Data
-
Intake and Output
03/28/25 03/29/25 03/30/25
06:59 06:59 06:59
Intake Total 900 / 900
Balance 900 / 900
Intake:
IV fluids (Total) 450 / 450
IV piggybacks 450 / 450
Other:
Number of approximated MODERATE 3
amounts of urine
Number of approximated LARGE 1
amounts of urine
Vital Signs
Temp Pulse Resp BP Pulse Ox
97.9 F 71 18 119/71 95
01/30/25 07:10 01/30/25 07:10 01/30/25 07:10 01/30/25 07:10 01/30/25 07:10
Lab Results
01/30/25 06:24
01/30/25 06:24
Calcium 8.8 mg/dl (8.4-10.2) 01/30/25 06:24
Physical Exam
-
NAD
ABD soft, NT, ND
Incisions with intact glue
ABD binder adjusted
--- NOTE | 2025-01-30 09:51 | W.DS.TRANS ---
DC Summary - [employer]
-
Discharge Instructions:
Discharge Diagnosis/Procedures Robotic umbilical hernia repair with mesh
Diet Regular
Activity No strenuous activity
Additional Activity No heavy lifting (>20 lbs) or strenuous
activities for 4 weeks postoperatively
Driving Restrictions No driving if too sore or taking narcotics
Bathing Restrictions OK to Shower
Wound Care Keep incisions clean and dry. Glue will flake
off in 2 to 3 weeks. Stitches will dissolve.
Okay to remove outer gauze and Tegaderm dressing
in 48 hours. Use abdominal binder as able for
the first 2 weeks postoperatively.
Instructions:
Stand-Alone Forms:
Changes to Home Medications: No
Discharge Medications:
DC Medications w/original date entered in [employer]
atorvastatin 20 mg tablet 20 mg PO HS High cholesterol 05/22/22
escitalopram oxalate 10 mg tablet 10 mg PO DAILY Depression 05/22/22
cholecalciferol (vitamin D3) 25 mcg (1,000 unit) tablet 500 unit PO DAILY Supplement #0 tabs 07/08/22
cyanocobalamin (vitamin B-12) 1,000 mcg tablet 1,000 mcg PO DAILY defeciancy #0 tabs 07/08/22
aspirin 81 mg tablet,delayed release 81 mg PO HS Blood Clot Prevention/Tx 09/04/23
gabapentin 100 mg capsule 100 mg PO HS neuropathic pain, anxiety, sleep, shoulder pain 09/04/23
metoprolol succinate 25 mg tablet,extended release 24 hr 12.5 mg (1/2 x 25 mg) PO BID #0 tabs 04/03/24
ropinirole 1 mg tablet 1 mg PO TID #0 tabs 04/03/24
albuterol sulfate 90 mcg/actuation aerosol inhaler 2 puff inhalation R Q6HPRN PRN shortness of breath or wheezing 07/18/24
diphenhydramine HCl 25 mg capsule (Benadryl) 25 mg PO HSPRN PRN pruitis 07/18/24
acetaminophen 325 mg tablet 650 mg PO Q6HPRN PRN mild pain/ fever>100F 08/21/24
Saccharomyces boulardii 250 mg capsule 250 mg PO DAILY 09/25/24
ammonium lactate 12 % lotion (AmLactin) 1 applic topical DAILY b/l legs & left foot 09/25/24
famotidine 20 mg tablet 20 mg PO DAILY 09/25/24
lorazepam 1 mg tablet 1 mg PO HSPRN PRN anxiety 09/25/24
magnesium hydroxide 400 mg/5 mL oral suspension (Milk of Magnesia) 30 ml PO DAILYPRN PRN if no bm x 2 days 09/25/24
polyethylene glycol 3350 17 gram oral powder packet (Miralax) 17 g PO DAILYPRN PRN constipation 09/25/24
sennosides 8.6 mg-docusate sodium 50 mg tablet (Senna-S) 1 tab-cap PO [id number] PRN constipation 09/25/24
fluticasone propionate 50 mcg/actuation nasal spray,suspension 2 spray intranasal DAILY PRN seasonal allergies 01/21/25
furosemide 20 mg tablet 20 mg PO DAILY 01/21/25
oxycodone 5 mg tablet 5 mg PO Q4HPRN PRN breakthrough/severe pain #12 tabs 01/30/25
Home Medication Changes
Pending Results: No
[2025-01-30] MEDS: PEPCID 20 MG PO (09:54)
[2025-01-30] MEDS: REQUIP 1 MG PO (09:56)
[2025-01-30] MEDS: LASIX 20 MG PO (09:56)
[2025-01-30] MEDS: TOPROL XL 12.5 MG PO (09:57)
[2025-01-30] MEDS: LEXAPRO 10 MG PO (09:57)
[2025-01-30 11:13] VITALS: BP 121/74
--- NOTE | 2025-01-30 16:17 | CM ---
Patient from [facility] who is s/p Robotic umbilical hernia repair with mesh.
Met with patient who resides alone at [facility].
She is assisted with ADLs and was ambulatory using her RW.
She utilizes her electric w/c to go to the dining room.
Patient was receiving in-house OT at [facility] for a prior shoulder problem.
DME - RW, SPC, electric w/c
VN - none
SNF - prior [facility]
PCP - can't remember
Pharmacy - [facility] or [facility]
The patient says she feels ready for discharge home today. IMM completed.
No CM d/c needs identified.
Plan home today.
== END 2025-01-30 13:25 ==
LOC: SDS 06:20
PROVIDERS: ATTENDING PHYSICIAN Surgery
DX: K42.9 Umbilical hernia without obstruction or gangrene (principal)
CPT/HCPCS: 49591; 80048; 85027; 87070; 94640; C1781

== ENCOUNTER → 2025-03-03 10:10 | Outpatient (REF) | payer OTHER, SELFPAY ==
[2025-03-03 11:25] LABS: % Immature Granulocytes 0.3 % (0-0.5); % Lymphocytes 14.2 % (20.5-51.1); % Monocytes 10.8 % (1.7-9.3); % Neutrophils 66.7 % (42.2-75.2); Absolute Basophils 0.1 10^3/uL (0-0.2); Absolute Eosinophils 0.5 10^3/uL (0-0.7); Absolute Monocytes 0.8 10^3/uL (0.1-0.6); Absolute Neutrophils 4.8 10^3/uL (1.4-6.5); Hematocrit 37.4 % (37.0-47.0); Hemoglobin 12.3 g/dL (12.0-16.0); Mean Corp Hgb Conc. 32.9 g/dL (33.0-37.0); Mean Corpuscular Hgb 30.4 pg (27.0-31.0); Mean Corpuscular Volume 92.6 fL (81.0-99.0); Nucleated Red Blood Cells % 0 %; Platelet Count 187 10^3/uL (130-400); Red Blood Cell Count 4.04 10^6/uL (4.20-5.40); Red Cell Dist. Width 13.6 % (11.5-14.5); White Blood Cell Count 7.3 10^3/uL (4.8-10.8)
[2025-03-03 11:48] LABS: Iron 76 ug/dl (37-170)
[2025-03-03 12:00] LABS: Percent Saturation 24 % (20-50); Total Iron Binding Capacity 312 ug/dl (265-497)
== END ==
LOC: OLABWIL 10:10
PROVIDERS: ATTENDING PHYSICIAN Internal Medicine Gastroenterology
DX: D50.9 Iron deficiency anemia, unspecified (principal)
CPT/HCPCS: 36415; 82728; 83540; 83550; 85025

== ENCOUNTER 2025-03-24 22:31 | Emergency (ER) | payer OTHER, SELFPAY ==
[2025-03-24 22:34] VITALS: BP 136/52
[2025-03-24 22:38] VITALS: BP 136/52
[2025-03-24 22:45] VITALS: BMI 37.5
[2025-03-24 23:07] LABS: % Basophils 0.5 % (0-2); % Immature Granulocytes 0.4 % (0-0.5); % Lymphocytes 10.6 % (20.5-51.1); % Monocytes 12.8 % (1.7-9.3); % Neutrophils 70.7 % (42.2-75.2); Absolute Eosinophils 0.4 10^3/uL (0-0.7); Absolute Lymphocytes 0.8 10^3/uL (1.2-3.4); Absolute Neutrophils 5.6 10^3/uL (1.4-6.5); Hematocrit 33.4 % (37.0-47.0); Hemoglobin 11.1 g/dL (12.0-16.0); Mean Corp Hgb Conc. 33.2 g/dL (33.0-37.0); Mean Corpuscular Hgb 30.2 pg (27.0-31.0); Nucleated Red Blood Cells % 0 %; Platelet Count 255 10^3/uL (130-400); Red Blood Cell Count 3.67 10^6/uL (4.20-5.40); Red Cell Dist. Width 13.2 % (11.5-14.5)
[2025-03-24 23:08] VITALS: BP 114/73
[2025-03-24 23:17] LABS: ALT (SGPT) 17 U/L (0-35); AST (SGOT) 16 U/L (14-36); Albumin 3.9 g/dl (3.5-5.0); Alkaline Phosphatase 93 U/L (38-126); Blood Urea Nitrogen 24 mg/dl (7-17); Calcium 9.2 mg/dl (8.4-10.2); Carbon Dioxide 31 mmol/L (22-30); Chloride 103 mmol/L (98-107); Estimated Creatinine Clearance 63 ml/min; Glucose 113 mg/dl (70-99); Potassium 4.4 mmol/L (3.5-5.1); Sodium 139 mmol/L (135-145); Total Bilirubin 0.4 mg/dl (0.2-1.3); eGFR > 60.00
--- NOTE | 2025-03-24 23:28 | ED.GENMED ---
History of Present Illness
General
Chief Complaint: Headache
Source: patient
Exam Limitations: none
Time Seen by Provider: 03/24/25 23:05
Nursing documentation reviewed up to this point in time: agreed with
History of Present Illness
History of Present Illness:
79-year-old female past medical history of COPD CHF hypertension hyperlipidemia presenting to the emergency department today with concerns of headache over the past 4 days without any specific inciting event right sided probably achy denies any
similar symptoms in the past denies this being the worst of life. Denies this being abrupt in onset no recent trauma not on blood thinners. Additionally is felt some mild shortness of breath over the past 3 days as well. Does have a history of
COPD but does not use inhalers daily. Does not use oxygen regularly either. No chest pain no fevers no recent upper respiratory syndromes.
Past History
Past History
ED Past Medical History: CHF, COPD, HTN, Hypercholesterolemia, Psychiatric (Anxiety, Depression) and Other (OA, Restless leg syndrome, Incontinence)
ED Past Surgical History: Orthopedic (Mati second Toe amputation, Right Total knee replacement, Right shoulder replacement, Mati carpal tunnel) and Other (cataracts, )
PSI?: No
Social History
Tobacco: Former smoker
Alcohol: Occasional
Drug: None
Personal:
Living: assisted living
Employment: Retired
Review of Systems
Review of Systems
Allergies reviewed?: Yes
All Other Systems: ROS reviewed and negative except as documented in HPI and ROS
Phy Exam
Physical Exam
Physical Exam:
GENERAL: Alert , in no apparent distress
EYE: pupils equal and reactive
NECK: Supple, no significant adenopathy.
ENT: o/p clr, mmm.
CARDIAC: Regular rate and rhythm .
LUNGS: End expiratory wheezing diffusely
ABDOMEN: Soft, without focal tenderness, no r/g, no cvat
NEUROLOGICAL: Alert and oriented, no focal neuro deficits 5 out of 5 upper and lower extremity strength normal sensation with palpating bilaterally normal finger-nose and [id number] no pronator drift
SKIN: Warm and dry, skin intact.
MUSCULOSKELETAL: No edema, well perfused.
PSYCH: Normal and appropriate interaction.
Course
Orders/Labs/Results
Orders:
Orders
03/24/25 22:51
Comprehensive Metabolic Panel Urgent
03/24/25 22:52
Complete Blood Count/With Diff Urgent
03/24/25 23:24
Electrocardiogram (*1) Stat
Reason for Study: Other
Other Reason for Exam: neuro symptoms
EKG- Treatment ONCE
03/24/25 23:27
CT Head W/o Iv Contrast Urgent
Comment:
Reason For Exam: OCHOA 4 days new
Dexamethasone Sod Phosphate [Decadron] 10 mg IV NOW STA
Ipratropium/Albuterol Sulfate [Duoneb] 3 ml INH R NOW ONE
Chest [CR Chest - 2 Views ] Urgent
Comment:
Reason For Exam: sob
Abnormal Lab Results
03/24/25 03/24/25
22:51 22:52
RBC 3.67 L 10^6/uL
(4.20-5.40)
Hgb 11.1 L g/dL
(12.0-16.0)
Hct 33.4 L %
(37.0-47.0)
Absolute Lymphs (auto) 0.8 L 10^3/uL
(1.2-3.4)
Absolute Monos (auto) 1.0 H 10^3/uL
(0.1-0.6)
Lymphocytes % 10.6 L %
(20.5-51.1)
Monocytes % 12.8 H %
(1.7-9.3)
Carbon Dioxide 31 H mmol/L
(22-30)
BUN 24 H mg/dl
(7-17)
Glucose 113 H mg/dl
(70-99)
03/24/25 22:52
03/24/25 22:51
Vital Signs
Initial and Last Documented VS:
Initial Vital Signs
Temp Pulse Resp BP Pulse Ox
98.9 F 71 19 136/52 100
03/24/25 22:34 03/24/25 22:34 03/24/25 22:34 03/24/25 22:34 03/24/25 22:34
Last Documented Vital Signs
Temp Pulse Resp BP Pulse Ox
98.9 F 66 18 114/73 99
03/24/25 22:34 03/25/25 00:16 03/25/25 00:16 03/24/25 23:08 03/24/25 22:45
MDM/Problems Addressed
MDM/Problems Addressed:
79-year-old female presenting to the today with concerns of headache and shortness of breath over the past 4 days or so. Denies having history of migraines or headache syndromes. Right-sided headache mainly. No neurologic symptoms. Normal
neurologic evaluation here. Vital signs normal. Expiratory wheezing diffusely. Patient was given DuoNeb as well as steroid. Breathing significantly improved after treatment. Patient breathing normally no distress at this point. Head CT without
emergent findings no evidence of life-threatening causing the headache at this time stable for outpatient management. Return precautions given.
*Critical Care Note
Total Time (30-74mins, 75-104mins- exclusive of procedures): Not Applicable
ED Attending Note
-
Portions of this chart may have been created with voice recognition software.� Occasional wrong word or��sound alike� substitutions may have occurred due to the inherent limitations of voice recognition software.
Discharge Plan
Departure
Patient Disposition: Home (Routine Discharge)
Date of Disposition: 03/25/25
Time of Disposition: 02:30
Patient with high blood pressure during this ER visit?: No
Condition: Good
Covid-19: Not Applicable
Discharge Problem:
Wheeze, Headache
Instructions: Headache, Adult (DC)
Prescriptions:
New
methylprednisolone [Medrol (Cuong)] 4 mg tablets,dose pack
See Rx Instructions .ROUTE .COMPLEX Qty: 21 0RF
Rx Instructions:
for 6 days
No Action
atorvastatin 20 mg tablet
20 mg PO HS
escitalopram oxalate 10 mg tablet
10 mg PO DAILY
cholecalciferol (vitamin D3) 25 mcg (1,000 unit) Tablet
500 unit PO DAILY Qty: 0 0RF
cyanocobalamin (vitamin B-12) 1,000 mcg Tablet
1,000 mcg PO DAILY Qty: 0 0RF
aspirin 81 mg Tablet,Delayed Release (Dr/Ec)
81 mg PO HS
gabapentin 100 mg capsule
100 mg PO HS
ropinirole 1 mg Tablet
1 mg PO TID Qty: 0 0RF
metoprolol succinate 25 mg Tablet Extended Release 24 Hr
12.5 mg PO BID Qty: 0 0RF
diphenhydramine HCl [Benadryl] 25 mg Capsule
25 mg PO HSPRN PRN (Reason: pruitis)
albuterol sulfate 90 mcg/actuation HFA aerosol inhaler
2 puff inhalation R Q6HPRN PRN (Reason: shortness of breath or wheezing)
acetaminophen 325 mg tablet
650 mg PO Q6HPRN MDD 3000 mg PRN (Reason: mild pain/ fever>100F)
ammonium lactate [AmLactin] 12 % Lotion
1 applic TOPICAL DAILY
polyethylene glycol 3350 [Miralax] 17 gram Powder In Packet
17 g PO DAILYPRN PRN (Reason: constipation)
sennosides-docusate sodium [Senna-S] 8.6-50 mg Tablet
1 tab-cap PO [id number] PRN (Reason: constipation)
famotidine 20 mg Tablet
20 mg PO DAILY
magnesium hydroxide [Milk of Magnesia] 400 mg/5 mL Suspension
30 ml PO DAILYPRN PRN (Reason: if no bm x 2 days)
Saccharomyces boulardii 250 mg Capsule
250 mg PO DAILY
lorazepam 1 mg tablet
1 mg PO HSPRN PRN (Reason: anxiety)
furosemide 20 mg Tablet
20 mg PO DAILY
fluticasone propionate 50 mcg/actuation [place],Suspension
2 spray INTRANASAL DAILY PRN (Reason: seasonal allergies)
oxycodone 5 mg tablet
5 mg PO Q4HPRN PRN (Reason: breakthrough/severe pain) Qty: 12 0RF
Referrals:
Eugenio Ley MD [Family Provider] -
Activity Restrictions/Additional Instructions:
You came to the emergency department today with concerns of headache and shortness of breath. Here your head CT did not show any findings. You were found to have a very slight expiratory wheeze and were given medication for this with improvement.
Please take the prescribed steroids. Return for any worsening, new or concerning symptoms.
Interventions
Interventions:
*Risk Screen - Suicide Last Done: 03/24/25 22:34
*General Assessment Last Done: 03/24/25 22:34
*Neglect/Abuse Screening Last Done: 03/24/25 22:34
*ED- Fall Risk Assessment Last Done: 03/24/25 22:45
*ED COVID-19 Vaccine History Last Done: 03/24/25 22:45
ED- Neurological Assessment Last Done: 03/24/25 22:45
Discharge Date and Time
Print Language: [place]
[2025-03-25] MEDS: DUONEB 3 ML INH (00:17)
[2025-03-25] MEDS: DECADRON 10 MG IV (00:22)
== END 2025-03-25 03:15 | disposition home or self-care (01) ==
LOC: EMR 22:31
PROVIDERS: EMERGENCY PHYSICIAN Emergency Medicine; FAMILY PHYSICIAN Family Medicine
DX: R06.2 Wheezing (principal); R51.9 Headache, unspecified; J44.9 Chronic obstructive pulmonary disease, unspecified; I11.0 Hypertensive heart disease with heart failure; I50.9 Heart failure, unspecified; E78.00 Pure hypercholesterolemia, unspecified; Z87.891 Personal history of nicotine dependence
CPT/HCPCS: 94640; 96374; 70450; 71046; 80053; 85025; 93005; 99285

== ENCOUNTER 2025-03-30 06:48 | Day surgery (SDC) | payer OTHER, SELFPAY ==
[2025-03-30] VITALS (7 sets, daily range): BP systolic 100–133; BP diastolic 39–87
[2025-03-30] MEDS: NORMOSOL-R/PLASMALYTE-A 1000 IV (08:55)
[2025-03-30 09:09] LABS: Hematocrit 32.7 % (37.0-47.0); Mean Corp Hgb Conc. 33.6 g/dL (33.0-37.0); Mean Corpuscular Hgb 29.9 pg (27.0-31.0); Mean Corpuscular Volume 88.9 fL (81.0-99.0); Mean Platelet Volume 9.3 fL (7.4-10.4); Platelet Count 245 10^3/uL (130-400); Red Blood Cell Count 3.68 10^6/uL (4.20-5.40); Red Cell Dist. Width 13.3 % (11.5-14.5); White Blood Cell Count 8.4 10^3/uL (4.8-10.8)
== END 2025-03-30 12:40 | disposition home or self-care (01) ==
LOC: SDS 06:48
PROVIDERS: ATTENDING PHYSICIAN Podiatrist
DX: M20.41 Other hammer toe(s) (acquired), right foot (principal); M19.071 Primary osteoarthritis, right ankle and foot; M20.5X9 Other deformities of toe(s) (acquired), unspecified foot
CPT/HCPCS: 28820; 88305; 88311; 85027

== ENCOUNTER 2025-04-06 15:55 | Inpatient (IN) | payer OTHER, SELFPAY ==
[2025-04-06] VITALS (9 sets, daily range): BP systolic 95–164; BP diastolic 49–76; BMI 30.2; BMI 30.3
--- NOTE | 2025-04-06 10:46 | ED.GENMED ---
History of Present Illness
General
Chief Complaint: Breathing Problem
Time Seen by Provider: 04/06/25 10:42
History of Present Illness
History of Present Illness:
TIME OF INITIAL ENCOUNTER: 10:45 AM
HPI: Patient comes in by ambulance due to shortness of breath along with back pain. She has a history of COPD and CHF. EMS gave 4 L/min nasal cannula oxygen. 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
deformity/hammertoe/crossover toe by Dr. Kidd 1 week ago. The patient tells me that she has not had Lasix in the last 2 days as she does not 'want to pee all the time'. Occasional cough. She has no chest pain. She reports no changes in her
weight.,
EXAM:
GENERAL: Well appearing in no distress, room air sats 86%, Temperature 100.9.
HEENT: Moist oral mucosa
CARDIOVASCULAR: No murmurs, normal heart rate, regular rhythm, No chest wall tenderness
PULMONARY: While on nasal cannula oxygen at 2 L/min, she is in no respiratory distress however she does have some decreased breath sounds with some rales at the bases
ABDOMEN: Soft with no peritoneal signs, no tenderness
NEUROLOGIC: Excellent strength all extremities, no coordination deficits
PSYCHIATRIC: Appropriate mental status, normal insight and judgement
EXTREMITIES: Nontender, 1+ bilateral right greater than left lower extremity edema, moves all extremities equally, dressing noted to the right foot with no obvious sign of infection
SKIN: No rash, no lesions
NUMBER AND COMPLEXITY OF PROBLEMS ADDRESSED AT THE ENCOUNTER
� Chronic conditions affecting care: COPD, CHF, high blood pressure
� Acute Exacerbation and/or Progression of Chronic Illness: This is an acute problem
� Differential Diagnosis includes: COPD exacerbation, CHF exacerbation/noncompliance with diuretic, given abnormal lung sounds, very low suspicion for PE
AMOUNT AND/OR COMPLEXITY OF DATA TO BE REVIEWED AND ANALYZED
� I performed an independent evaluation of and my interpretation is:
EKG: Sinus 71, normal axis, no acute ST abnormality
CT:
X-rays: Chest x-ray shows no significant abnormality however tiny left pleural effusion noted which is new
Laboratory Studies: BNP 590, otherwise chemistries unremarkable, white count normal, hemoglobin 10.4
Other:
� Review of other/old records: I reviewed records, the patient was seen here with a COPD exacerbation in August 2024 and was admitted for COPD in 2021.
� Clinical information was obtained by an independent historian: None needed
� Prescriptions/Medications Considered but not given:
� Further testing considered but not performed:
RISK OF COMPLICATIONS AND/OR MORBIDITY OR MORTALITY OF PATIENT MANAGEMENT
� Social determinants of health affecting care: Lives at home
� Discussion with other providers:
� Escalation of care including admission/observation vs risk of discharge considered: Patient's room air sats only 86 to 88%.
ANY OTHER UPDATES:
1 PM: On reassessment, the patient states that her symptoms are improving after nebs given. COVID and flu negative. She does complain of exacerbation of her restless legs�will give a dose of ropinirole.
Past History
Past History
ED Past Medical History: CHF, COPD, HTN, Hypercholesterolemia, Psychiatric (Anxiety, Depression) and Other (OA, Restless leg syndrome, Incontinence)
ED Past Surgical History: Orthopedic (Mati second Toe amputation, Right Total knee replacement, Right shoulder replacement, Mati carpal tunnel) and Other (cataracts, )
PSI?: No
Social History
Tobacco: Former smoker
Alcohol: Occasional
Drug: None
Personal:
Living: assisted living
Employment: Retired
Phy Exam
Physical Exam
Physical Exam:
See HPI
Scores
Heart Failure Risk
Heart Failure Risk Score: Not Applicable
Sepsis
Sepsis Screening
Sepsis Assessment: Sepsis Ruled Out
Sepsis Screen
Sepsis Screen: Sepsis Ruled Out
Date: 04/06/25
Time: 15:44
Course
Orders/Labs/Results
Orders:
Orders
04/06/25 10:44
EKG [Electrocardiogram (*1)] Urgent
Reason for Study: Shortness of Breath
EKG- Treatment ONCE
CXR2 [CR Chest - 2 Views ] Urgent
Comment:
Reason For Exam: SOB
04/06/25 11:00
Ipratropium/Albuterol Sulfate [Duoneb] 3 ml INH R NOW STA
MethylPREDNISolone PF [Solu-Medrol Pf] 125 mg IV NOW STA
04/06/25 11:01
Acetaminophen [Tylenol] 1,000 mg PO NOW STA
04/06/25 11:10
Basic Metabolic Panel Urgent
COVID-19 Antigen Urgent
Source: Nasal Swab
Complete Blood Count/With Diff Urgent
Lactic Acid Urgent
NT-proBNP Urgent
Blood Culture Urgent
LILI Source: Blood/Venous
Specimen Description:
Blood Culture Urgent
LILI Source: Blood/Venous
Specimen Description:
Influenza A+B Rapid Molecular Urgent
LILI Source: Nasal Swab
Specimen Description:
04/06/25 13:13
CT Chest PE Study Urgent
Comment:
Reason For Exam: post op hypoxia
04/06/25 14:20
Ropinirole [Requip] 1 mg PO NOW STA
Abnormal Lab Results
04/06/25
11:10
RBC 3.46 L 10^6/uL
(4.20-5.40)
Hgb 10.4 L g/dL
(12.0-16.0)
Hct 31.4 L %
(37.0-47.0)
Absolute Lymphs (auto) 0.6 L 10^3/uL
(1.2-3.4)
Absolute Monos (auto) 1.0 H 10^3/uL
(0.1-0.6)
Neutrophils % 75.8 H %
(42.2-75.2)
Lymphocytes % 7.1 L %
(20.5-51.1)
Monocytes % 12.2 H %
(1.7-9.3)
BUN 19 H mg/dl
(7-17)
Glucose 109 H mg/dl
(70-99)
04/06/25 11:10
04/06/25 11:10
Vital Signs
Initial and Last Documented VS:
Initial Vital Signs
BP
150/57
04/06/25 10:41
Last Documented Vital Signs
Temp Pulse Resp BP Pulse Ox
36.9 C 69 18 138/58 99
04/06/25 13:12 04/06/25 11:45 04/06/25 11:45 04/06/25 11:00 04/06/25 11:45
*Critical Care Note
Total Time (30-74mins, 75-104mins- exclusive of procedures): Not Applicable
ED Attending Note
-
Portions of this chart may have been created with voice recognition software.� Occasional wrong word or��sound alike� substitutions may have occurred due to the inherent limitations of voice recognition software.
Discharge Plan
Departure
Patient Disposition: Admit
Date of Disposition: 04/06/25
Time of Disposition: 15:22
Presentation/result/management discussed w/ accepting MD/DO: Hospitalist
Patient with high blood pressure during this ER visit?: Yes
Discharge Problem:
Acute exacerbation of chronic obstructive pulmonary disease (COPD)
Prescriptions:
No Action
atorvastatin 20 mg tablet
20 mg PO HS
escitalopram oxalate 10 mg tablet
10 mg PO DAILY
cyanocobalamin (vitamin B-12) 1,000 mcg Tablet
1,000 mcg PO DAILY Qty: 0 0RF
aspirin 81 mg Tablet,Delayed Release (Dr/Ec)
81 mg PO HS
gabapentin 100 mg capsule
100 mg PO HS
metoprolol succinate 25 mg Tablet Extended Release 24 Hr
12.5 mg PO BID Qty: 0 0RF
diphenhydramine HCl [Benadryl] 25 mg Capsule
25 mg PO HSPRN PRN (Reason: pruitis)
albuterol sulfate 90 mcg/actuation HFA aerosol inhaler
2 puff inhalation R Q6HPRN PRN (Reason: shortness of breath or wheezing)
acetaminophen 325 mg tablet
650 mg PO Q6HPRN PRN (Reason: mild pain/ fever>100F)
ammonium lactate [AmLactin] 12 % Lotion
1 applic TOPICAL DAILY
polyethylene glycol 3350 [Miralax] 17 gram Powder In Packet
17 g PO DAILYPRN PRN (Reason: constipation)
sennosides-docusate sodium [Senna-S] 8.6-50 mg Tablet
1 tab-cap PO [id number] PRN (Reason: constipation)
famotidine 20 mg Tablet
20 mg PO DAILY
magnesium hydroxide [Milk of Magnesia] 400 mg/5 mL Suspension
30 ml PO DAILYPRN PRN (Reason: if no bm x 2 days)
lorazepam 1 mg tablet
0.5 mg PO BIDPRN PRN (Reason: anxiety)
furosemide 20 mg Tablet
20 mg PO DAILY
fluticasone propionate 50 mcg/actuation [place],Suspension
2 spray INTRANASAL DAILYPRN PRN (Reason: seasonal allergies)
Visbiome 112.5 billion cell Capsule
1 cap PO NOON
ropinirole 1 mg tablet
1 mg PO QID
oxycodone 5 mg tablet
5 mg PO [id number] PRN (Reason: breakthrough/severe pain)
cholecalciferol (vitamin D3) 25 mcg (1,000 unit) tablet
1,000 unit PO DAILY
Referrals:
Eugenio Ley MD [Family Provider, Family Practice]
Interventions
Interventions:
*Risk Screen - Suicide Last Done: 04/06/25 10:44
*General Assessment Last Done: 04/06/25 10:44
*Neglect/Abuse Screening Last Done: 04/06/25 10:44
*ED COVID-19 Vaccine History Last Done: 04/06/25 10:44
ED- Cardiac Assessment Last Done: 04/06/25 10:59
ED- Pulmonary Assessment Last Done: 04/06/25 10:59
Discharge Date and Time
Print Language: [place]
[2025-04-06] MEDS: SOLU-MEDROL PF 125 MG IV (11:17)
[2025-04-06] MEDS: TYLENOL 1000 MG PO (11:17)
[2025-04-06] MEDS: DUONEB 3 ML INH ×2 (11:17→19:29)
[2025-04-06 11:23] LABS: % Basophils 0.4 % (0-2); % Immature Granulocytes 0.5 % (0-0.5); % Lymphocytes 7.1 % (20.5-51.1); % Monocytes 12.2 % (1.7-9.3); % Neutrophils 75.8 % (42.2-75.2); Absolute Eosinophils 0.3 10^3/uL (0-0.7); Absolute Lymphocytes 0.6 10^3/uL (1.2-3.4); Absolute Neutrophils 6.3 10^3/uL (1.4-6.5); Hematocrit 31.4 % (37.0-47.0); Hemoglobin 10.4 g/dL (12.0-16.0); Mean Corp Hgb Conc. 33.1 g/dL (33.0-37.0); Mean Corpuscular Hgb 30.1 pg (27.0-31.0); Mean Corpuscular Volume 90.8 fL (81.0-99.0); Mean Platelet Volume 9.7 fL (7.4-10.4); Nucleated Red Blood Cells % 0 %; Platelet Count 241 10^3/uL (130-400); Red Blood Cell Count 3.46 10^6/uL (4.20-5.40); Red Cell Dist. Width 13.3 % (11.5-14.5); White Blood Cell Count 8.4 10^3/uL (4.8-10.8)
[2025-04-06 11:35] LABS: Lactic Acid 0.8 mmol/L (0.7-2.0)
[2025-04-06 11:39] LABS: COVID-19 Antigen Negative (Negative)
[2025-04-06 11:45] LABS: NT-proBNP 590 pg/ml
[2025-04-06 11:46] LABS: Blood Urea Nitrogen 19 mg/dl (7-17); Calcium 8.7 mg/dl (8.4-10.2); Carbon Dioxide 27 mmol/L (22-30); Chloride 104 mmol/L (98-107); Estimated Creatinine Clearance 56 ml/min; Glucose 109 mg/dl (70-99); Sodium 138 mmol/L (135-145); eGFR > 60.00
[2025-04-06] MEDS: REQUIP 1 MG PO ×3 (14:30→21:06)
--- NOTE | 2025-04-06 15:50 | HPS.HSE ---
Family Physician
-
Family Physician: Eugenio Ley MD
Chief Complaint
-
SOB
History of Present Illness
79yo F with anxiety, CHF, HTN, neuropathy, Right 3rd toe amputation on 03/2725 came with SOB gradually worsening for few days. Patient missed few doses of Lasixsince she did not want to urinate so much. In ED chest XR without overt CHF, proBNP lower
then prior, but patient februile to 100.9. No pneumonia on XR. Patient desat to 85% on RA, recovered on2L O2. ALso c/o somne dyscomfort in RLE, but no overt signs of cellulitis.
Medical History
Past Medical History
Past Medical History: Reports Other
Additional Past Medical History:
see HPI
Past Surgical History: Reports Other
Additional Past Surgical History:
See HPI
Social History
Tobacco: Former Smoker
Alcohol: None
Drug: None
Family History
Family History: Not pertinent
Allergies / Home Medications
Allergies reflects when Allergies were last updated in [employer]
Home Medications with original date entered in [employer]
Allergy/Medication List:
Allergies
Allergy/AdvReac Type Severity Reaction Status Date / Time
Penicillins Allergy Swelling Verified 04/06/25 10:53
sulfamethoxazole (From Allergy unknown, Verified 04/06/25 10:53
Bactrim) nursing
home
recored
tramadol Allergy Rash Verified 04/06/25 10:53
trimethoprim (From Bactrim) Allergy unknown, Verified 04/06/25 10:53
nursing
home
recored
Home Medications
atorvastatin 20 mg tablet 20 mg PO HS High cholesterol 05/22/22
escitalopram oxalate 10 mg tablet 10 mg PO DAILY Depression 05/22/22
cyanocobalamin (vitamin B-12) 1,000 mcg tablet 1,000 mcg PO DAILY defeciancy #0 tabs 07/08/22
aspirin 81 mg tablet,delayed release 81 mg PO HS Blood Clot Prevention/Tx 09/04/23
gabapentin 100 mg capsule 100 mg PO HS neuropathic pain, anxiety, sleep, shoulder pain 09/04/23
metoprolol succinate 25 mg tablet,extended release 24 hr 12.5 mg (1/2 x 25 mg) PO BID #0 tabs 04/03/24
albuterol sulfate 90 mcg/actuation aerosol inhaler 2 puff inhalation R Q6HPRN PRN shortness of breath or wheezing 07/18/24
diphenhydramine HCl 25 mg capsule (Benadryl) 25 mg PO HSPRN PRN pruitis 07/18/24
acetaminophen 325 mg tablet 650 mg PO Q6HPRN PRN mild pain/ fever>100F 08/21/24
ammonium lactate 12 % lotion (AmLactin) 1 applic topical DAILY b/l legs & left foot 09/25/24
famotidine 20 mg tablet 20 mg PO DAILY 09/25/24
lorazepam 1 mg tablet 0.5 mg PO BIDPRN PRN anxiety 09/25/24
magnesium hydroxide 400 mg/5 mL oral suspension (Milk of Magnesia) 30 ml PO DAILYPRN PRN if no bm x 2 days 09/25/24
polyethylene glycol 3350 17 gram oral powder packet (Miralax) 17 g PO DAILYPRN PRN constipation 09/25/24
sennosides 8.6 mg-docusate sodium 50 mg tablet (Senna-S) 1 tab-cap PO [id number] PRN constipation 09/25/24
fluticasone propionate 50 mcg/actuation nasal spray,suspension 2 spray intranasal DAILYPRN PRN seasonal allergies 01/21/25
furosemide 20 mg tablet 20 mg PO DAILY 01/21/25
Lactobac no.2-Bifidobac no.1-S. thermo 112.5 billion cell capsule (Visbiome) 1 cap PO NOON 04/06/25
cholecalciferol (vitamin D3) 25 mcg (1,000 unit) tablet 1,000 unit PO DAILY Supplement 04/06/25
oxycodone 5 mg tablet 5 mg PO [id number] PRN breakthrough/severe pain 04/06/25
ropinirole 1 mg tablet 1 mg PO QID 04/06/25
Review of Systems
-
History Source: Patient
A 12 point ROS was completed and negative except as noted: Yes
Respiratory: Reports See HPI
Physical Exam
Vital Signs
Vital Signs
Temp Pulse Resp BP Pulse Ox
98.4 F 69 18 138/58 99
04/06/25 13:12 04/06/25 11:45 04/06/25 11:45 04/06/25 11:00 04/06/25 11:45
Physical Exam
General: Well Developed, Well Nourished and No Apparent Distress
HEENT: NormoCephalic, Anicteric and Moist mucous membranes
Respiratory: Clear; No Wheezes or Crackles
Cardiac: S1/S2 and Regular Rhythm; No Murmur
GI: Soft, Non Tender and Non Distended
Genito-urinary: No costovertebral tender
Musculoskeletal: No Clubbing, No Cyanosis and No Edema
Skin: Warm; No Rash or Jaundice
Neuro: Awake, Alert, Oriented and AO x 3
Psych: Calm
Laboratory Results
-
04/06/25 11:10
04/06/25 11:10
Laboratory Results
Lactic Acid 0.8 mmol/L (0.7-2.0) 04/06/25 11:10
Total Bilirubin Cancelled 04/06/25 11:10
AST Cancelled 04/06/25 11:10
ALT Cancelled 04/06/25 11:10
Alkaline Phosphatase Cancelled 04/06/25 11:10
Data Reviewed
-
Diagnostic Radiology: Report Reviewed by me
Impression/Plan
-
A/P:
#Acute hypoxic insufficiency
Possibly 2/2 missing Lasix - start IV
check Echo
daily weight and follow electrolytes
Wean off O2
#HX of COPD
was wheezing few days ago, not anymore
bronchodilators
Prednisone for 3 - 5 days reasonable
#Fever, unclear origin
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
CTA chest pending - might reveal hidden pneumonia
Ceftriaxone (tolerated Ancef before)/Doxy meanwhile
Podiatry for postOP wound assessment
Check UA
Check LE US
Bcx
#Neuropathy
#b2 deficiency anemia
#HLD
#ASCVD
#Anxiety
cont hoem meds
DVT ppx loveox
Full code
I have spent at least 76min admitting the patient
--- NOTE | 2025-04-06 19:00 | PTCARENOTE ---
Patient arrived from ED via stretcher. Patient pulled over from stretcher to bed. IV's flushed and patent. Patient aaox3 able to make needs known. Patient on 2LNC.
[2025-04-06] MEDS: STERILE WATER FOR INJECTION 10 ML IV (19:22)
[2025-04-06] MEDS: TOPROL XL 12.5 MG PO (19:23)
[2025-04-06] MEDS: VIBRAMYCIN 100 MG PO (19:23)
[2025-04-06] MEDS: ROCEPHIN 1000 MG IV (19:23)
[2025-04-06] MEDS: LOVENOX 40 MG SC (19:23)
[2025-04-06] MEDS: LIPITOR 20 MG PO (21:06)
[2025-04-06] MEDS: ASPIR LOW (ENTERIC COATED) 81 MG PO (21:07)
[2025-04-06] MEDS: NEURONTIN 100 MG PO (21:07)
[2025-04-07 07:10] VITALS: BP 162/67
[2025-04-07 07:23] LABS: % Basophils 0.3 % (0-2); % Immature Granulocytes 0.7 % (0-0.5); % Lymphocytes 8.2 % (20.5-51.1); % Monocytes 9.6 % (1.7-9.3); % Neutrophils 81.2 % (42.2-75.2); Absolute Immature Granulocytes 0.1 10^3/uL (0-0.05); Absolute Lymphocytes 0.6 10^3/uL (1.2-3.4); Absolute Monocytes 0.7 10^3/uL (0.1-0.6); Absolute Neutrophils 6.2 10^3/uL (1.4-6.5); Hemoglobin 10.9 g/dL (12.0-16.0); Mean Corp Hgb Conc. 32.1 g/dL (33.0-37.0); Mean Corpuscular Hgb 29.4 pg (27.0-31.0); Mean Corpuscular Volume 91.6 fL (81.0-99.0); Mean Platelet Volume 10.2 fL (7.4-10.4); Nucleated Red Blood Cells % 0 %; Platelet Count 260 10^3/uL (130-400); Red Blood Cell Count 3.71 10^6/uL (4.20-5.40); Red Cell Dist. Width 13.1 % (11.5-14.5); White Blood Cell Count 7.6 10^3/uL (4.8-10.8)
--- NOTE | 2025-04-07 07:46 | W.PN.HOSP.TC ---
Today's Communication/Plan
-
See plan
Assessment / Plan
Assessment / Plan
Physical Exam
General: Well Developed, Well Nourished and No Apparent Distress
HEENT: Normocephalic, Moist mucous membranes
Respiratory: Clear to Auscultation Bilaterally
Cardiac: S1/S2 and Regular Rhythm
GI: Soft, Non Tender and Non Distended. Positive bowel sounds.
Musculoskeletal: No Cyanosis and No Edema
Skin: Warm; Dry.
Neuro: Awake, Alert, Oriented and AO x 3
Psych: Calm
Assessment/Plan
79yo F with anxiety, CHF, HTN, neuropathy, Right 3rd toe amputation on 03/2725 came with SOB gradually worsening for few days. Patient missed few doses of Lasixsince she did not want to urinate so much. In ED chest XR without overt CHF, proBNP lower
then prior, but patient februile to 100.9 F on 04/06/25. No pneumonia. Patient desat to 85% on RA, recovered on2L O2. ALso c/o somne dyscomfort in RLE, but no overt signs of cellulitis.
#Acute hypoxic insufficiency
Possibly secondary to missing Lasix -continue IV Lasix
Echo with LVEF 65 to 70%, mild concentric left ventricular hypertrophy, stage II diastolic dysfunction, normal right ventricular size and function, mild mitral regurgitation, mild aortic stenosis, mild tricuspid regurgitation; estimated pulmonary
artery pressure of 38 mmHg assuming a right atrial pressure of 3 mmHg.
daily weight and follow electrolytes
CTA chest without PE or any acute disease of the chest
Weaned off O2
#HX of COPD
was wheezing few days ago, not anymore
bronchodilators
Prednisone for 3 - 5 days reasonable
#Fever, unclear origin -- last fever was 100.9 F on 04/07/25
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
Ceftriaxone (tolerated Ancef before)/Doxy was previously started -- since patient does not have any source of infection, stopped antibiotics. COVID and Flu negative. Patient has denied any UTI symptoms or signs.
Podiatry for postOP wound assessment
Follow Bcx and microbiology results
#Small complex fluid collection compatible with a left popliteal/Real's cyst
-Present on ultrasound
-Will need ortho follow-up outpatient
#Neuropathy
#b2 deficiency anemia
#HLD
#ASCVD
#Anxiety
cont home meds
DVT ppx lovenox
Full code
Anticipated Discharge: 24 - 48 hours
Subjective/Interval History
-
Date of Service: April 07, 2025
Patient was seen and examined. She reported that her shortness of breath is better. She denied any chest pain.
Objective Data
-
Labs:
Laboratory Results
04/07/25
06:29
WBC 7.6
Hgb 10.9 L
Hct 34.0 L
Plt Count 260
Sodium Pending
Potassium Pending
Chloride Pending
Carbon Dioxide Pending
BUN Pending
Creatinine Pending
Glucose Pending
Calcium Pending
Total Bilirubin Pending
AST Pending
ALT Pending
Alkaline Phosphatase Pending
Vital Signs:
Vital Signs
Temp Pulse Resp BP Pulse Ox
98.1 F 60 18 123/55 96
04/06/25 23:24 04/06/25 23:24 04/06/25 23:24 04/06/25 23:24 04/06/25 23:24
[2025-04-07] MEDS: DUONEB 3 ML INH ×4 (07:56→19:45)
[2025-04-07 08:04] LABS: ALT (SGPT) 19 U/L (0-35); AST (SGOT) 17 U/L (14-36); Albumin 3.6 g/dl (3.5-5.0); Alkaline Phosphatase 79 U/L (38-126); Blood Urea Nitrogen 19 mg/dl (7-17); Carbon Dioxide 26 mmol/L (22-30); Chloride 108 mmol/L (98-107); Estimated Creatinine Clearance 64 ml/min; Glucose 122 mg/dl (70-99); Magnesium 2.5 mg/dl (1.6-2.3); Potassium 4.7 mmol/L (3.5-5.1); Sodium 142 mmol/L (135-145); Total Bilirubin 0.5 mg/dl (0.2-1.3); Total Protein 6.7 g/dl (6.3-8.2); eGFR > 60.00
[2025-04-07] MEDS: TOPROL XL 12.5 MG PO ×2 (08:33→21:15)
[2025-04-07] MEDS: VIBRAMYCIN 100 MG PO (08:34)
[2025-04-07] MEDS: VITAMIN B-12 1000 MCG PO (08:34)
[2025-04-07] MEDS: LASIX 40 MG IV (08:34)
[2025-04-07] MEDS: DELTASONE 40 MG PO (08:34)
[2025-04-07] MEDS: LEXAPRO 10 MG PO (08:35)
[2025-04-07] MEDS: REQUIP 1 MG PO ×4 (08:38→21:15)
[2025-04-07 10:00] VITALS: BMI 30.3
--- NOTE | 2025-04-07 12:53 | CON.MD ---
Consultation - Medical
-
CC:
Patient is admitted for SOB. Podiatry consulted for evaluation of recent right 3rd toe amputation site.
History of Present Illness:
Ms. Prince is an 79 year old female with underwent Right 3rd toe amputation on 03/28. She recently presented to the ED with SOB gradually worsening for few days and fever of 100.9. Patient missed few doses of Lasix since she did not want to
urinate so much.
Past Medical History
CHF, COPD, HTN, Hypercholesterolemia, Psychiatric (Anxiety, Depression), OA, Restless leg syndrome, Incontinence
Surgical History:
Right 2nd and 3rd toe amputations, Left 2nd toe amputation, Right Total knee replacement, Right shoulder replacement, Bilateral carpal tunnel release, cataracts
Social History
Tobacco: Former Smoker
Alcohol: None
Drug: None
Family History
Family History: Not pertinent
Allergies
Allergy/AdvReac Type Severity Reaction Status Date / Time
Penicillins Allergy Swelling Verified 04/06/25 10:53
sulfamethoxazole (From Allergy unknown, Verified 04/06/25 10:53
Bactrim) nursing
home
recored
tramadol Allergy Rash Verified 04/06/25 10:53
trimethoprim (From Bactrim) Allergy unknown, Verified 04/06/25 10:53
nursing
home
recored
Home Medications
atorvastatin 20 mg tablet 20 mg PO HS High cholesterol 05/22/22
escitalopram oxalate 10 mg tablet 10 mg PO DAILY Depression 05/22/22
cyanocobalamin (vitamin B-12) 1,000 mcg tablet 1,000 mcg PO DAILY defeciancy #0 tabs 07/08/22
aspirin 81 mg tablet,delayed release 81 mg PO HS Blood Clot Prevention/Tx 09/04/23
gabapentin 100 mg capsule 100 mg PO HS neuropathic pain, anxiety, sleep, shoulder pain 09/04/23
metoprolol succinate 25 mg tablet,extended release 24 hr 12.5 mg (1/2 x 25 mg) PO BID #0 tabs 04/03/24
albuterol sulfate 90 mcg/actuation aerosol inhaler 2 puff inhalation R Q6HPRN PRN shortness of breath or wheezing 07/18/24
diphenhydramine HCl 25 mg capsule (Benadryl) 25 mg PO HSPRN PRN pruitis 07/18/24
acetaminophen 325 mg tablet 650 mg PO Q6HPRN PRN mild pain/ fever>100F 08/21/24
ammonium lactate 12 % lotion (AmLactin) 1 applic topical DAILY b/l legs & left foot 09/25/24
famotidine 20 mg tablet 20 mg PO DAILY 09/25/24
lorazepam 1 mg tablet 0.5 mg PO BIDPRN PRN anxiety 09/25/24
magnesium hydroxide 400 mg/5 mL oral suspension (Milk of Magnesia) 30 ml PO DAILYPRN PRN if no bm x 2 days 09/25/24
polyethylene glycol 3350 17 gram oral powder packet (Miralax) 17 g PO DAILYPRN PRN constipation 09/25/24
sennosides 8.6 mg-docusate sodium 50 mg tablet (Senna-S) 1 tab-cap PO [id number] PRN constipation 09/25/24
fluticasone propionate 50 mcg/actuation nasal spray,suspension 2 spray intranasal DAILYPRN PRN seasonal allergies 01/21/25
furosemide 20 mg tablet 20 mg PO DAILY 01/21/25
Lactobac no.2-Bifidobac no.1-S. thermo 112.5 billion cell capsule (Visbiome) 1 cap PO NOON 04/06/25
cholecalciferol (vitamin D3) 25 mcg (1,000 unit) tablet 1,000 unit PO DAILY Supplement 04/06/25
oxycodone 5 mg tablet 5 mg PO [id number] PRN breakthrough/severe pain 04/06/25
ropinirole 1 mg tablet 1 mg PO QID 04/06/25
Physical Exam:
Pulses palpable right foot. Sutures intact along the 3rd toe amputation site. Site is dry with no drainage, No fluctuance, no evidence of hematoma or infection. She has some flavia venous congestion at the site that improves with elevation of the
extremity. Leg have some chronic redness sand stasis changes. Calves are supples, no tender no pain with compression.
Assessment: S/P right 3rd toe amputation - POD #8, healing nicely
Plan: Site is evaluated at bedside. Bandages are reapplied - adaptic, gauze, DSD and janneth wrap. Continue to ambulate in surgical shoe. Elevate extremities. Follow up next week in my office for suture removal.
Consultation
-
Date/Time Consultation Requested: 04/06/25 15:36pm
Date/Time Consultation Performed: 04/07/25 - 8:30am
Requesting Provider: Cuate Wong
Performing Provider: Mera Kidd
Reason for Consultation: Right foot - S/P 3rd toe amputation, wound check
--- NOTE | 2025-04-07 12:54 | CM ---
Patient seen bedside, initial assessment completed. Patient is a 79yo F with anxiety, CHF, HTN, neuropathy, Right 3rd toe amputation on 03/2725 came with SOB gradually worsening for few days.
Patient resides in personal care at [facility]. Patient uses RW to ambulate, has an electric w/c that she uses to go to the dining [place]. Patient stated she is only assisted w/ showering. [facility] SNF in the past.
PCP: Eugenio Ley
Pharmacy: [facility]
Plan: Return to [facility] personal care when stable
[2025-04-07 14:41] LABS: Urine Albumin Negative (Neg - Trace); Urine Bilirubin Negative (Negative); Urine Character Clear (Clear); Urine Color Yellow; Urine Glucose Negative (Negative); Urine Ketone Negative (Negative); Urine Leukocyte Negative (Negative); Urine Nitrite Negative (Negative); Urine Occult Blood Negative (Negative); Urine Urobilinogen Negative (Neg - 1+)
[2025-04-07 15:00] VITALS: BP 125/67
[2025-04-07] MEDS: LOVENOX 40 MG SC (16:28)
[2025-04-07] MEDS: STERILE WATER FOR INJECTION 10 ML IV (16:29)
[2025-04-07] MEDS: ROCEPHIN 1000 MG IV (16:30)
[2025-04-07] MEDS: ATIVAN 0.5 MG PO (19:25)
[2025-04-07] MEDS: LIPITOR 20 MG PO (21:15)
[2025-04-07] MEDS: ASPIR LOW (ENTERIC COATED) 81 MG PO (21:15)
[2025-04-07] MEDS: NEURONTIN 100 MG PO (21:15)
[2025-04-07 23:31] VITALS: BP 111/59
[2025-04-08] MEDS: TYLENOL 650 MG PO (05:50)
[2025-04-08 06:00] VITALS: BMI 28.7
[2025-04-08 07:00] VITALS: BP 144/66
[2025-04-08] MEDS: DELTASONE 40 MG PO (07:38)
[2025-04-08] MEDS: VITAMIN B-12 1000 MCG PO (07:38)
[2025-04-08] MEDS: REQUIP 1 MG PO ×4 (07:39→21:37)
[2025-04-08] MEDS: LEXAPRO 10 MG PO (07:39)
[2025-04-08] MEDS: TOPROL XL 12.5 MG PO ×2 (07:39→21:36)
[2025-04-08] MEDS: LASIX 40 MG IV (07:39)
[2025-04-08] MEDS: DUONEB 3 ML INH ×2 (07:54→11:55)
[2025-04-08] MEDS: LASIX PO (08:10)
[2025-04-08 08:30] LABS: % Basophils 0.3 % (0-2); % Eosinophils 0.2 % (0-6); % Immature Granulocytes 0.6 % (0-0.5); % Lymphocytes 11.6 % (20.5-51.1); % Neutrophils 80.3 % (42.2-75.2); Absolute Immature Granulocytes 0.1 10^3/uL (0-0.05); Absolute Lymphocytes 1.4 10^3/uL (1.2-3.4); Absolute Monocytes 0.8 10^3/uL (0.1-0.6); Absolute Neutrophils 9.5 10^3/uL (1.4-6.5); Hematocrit 32.8 % (37.0-47.0); Hemoglobin 10.7 g/dL (12.0-16.0); Mean Corp Hgb Conc. 32.6 g/dL (33.0-37.0); Mean Corpuscular Hgb 29.5 pg (27.0-31.0); Mean Corpuscular Volume 90.4 fL (81.0-99.0); Mean Platelet Volume 9.5 fL (7.4-10.4); Nucleated Red Blood Cells % 0 %; Platelet Count 279 10^3/uL (130-400); Red Blood Cell Count 3.63 10^6/uL (4.20-5.40); Red Cell Dist. Width 13.2 % (11.5-14.5); White Blood Cell Count 11.8 10^3/uL (4.8-10.8)
[2025-04-08 10:22] LABS: Blood Urea Nitrogen 27 mg/dl (7-17); Calcium 9.5 mg/dl (8.4-10.2); Carbon Dioxide 28 mmol/L (22-30); Chloride 106 mmol/L (98-107); Estimated Creatinine Clearance 49 ml/min; Glucose 119 mg/dl (70-99); Potassium 4.1 mmol/L (3.5-5.1); Sodium 143 mmol/L (135-145); eGFR > 60.00
--- NOTE | 2025-04-08 11:55 | PN.CDI ---
CDI
- -
CDI:
Physician Documentation Request
Admit Date: 04/06/25 15:55
Dear Doctor Kristian,
Progress note states 'Hx of COPD. was wheezing few days ago, not anymore, bronchodilators. Prednisone for 3-5 days reasonable.'
Please clarify which of the following accurately represents the acuity of the COPD
Acute on Chronic
Chronic
____ Other
Use of terms such as suspected, likely, concern for, or probable (associated with a specific diagnosis that is being evaluated, monitored, or treated as if it exists) are acceptable and can be coded in the inpatient setting, when documented at the
time of discharge.
Thank you,
Leola Sheldon RN, BSN
CDI Specialist
tiger text
Please use your independent medical judgment in providing your response.
--- NOTE | 2025-04-08 11:58 | PN.CDI ---
CDI
- -
CDI:
Physician Documentation Request
Admit Date: 04/06/25 15:55
Dear Doctor Kristian,
Patient has history of CHF. Presented to ED due to shortness of breath.
Pt reports she had not been taking her Lasix as she 'does not 'want to pee all the time'.
ED assessment reports 1+ bilateral lower extremity edema, decreased breath sounds with some rales at bases.
04/07 Echo shows an EF of 65-70%. Compared to prior study 11/28/2023
IV Lasix given 04/07 and 04/08
Please provide further specificity regarding the most likely type and acuity of CHF you are evaluating, treating or monitoring.
Type Acuity
Systolic Acute
Diastolic Chronic
Combined Systolic/Diastolic Acute on Chronic
Other
Use of terms such as suspected, likely, concern for, or probable (associated with a specific diagnosis that is being evaluated, monitored, or treated as if it exists) are acceptable and can be coded in the inpatient setting, when documented at the
time of discharge.
Thank you,
Leloa Sheldon RN, BSN
CDI Specialist
tiger text
Please use your independent medical judgment in providing your response.
--- NOTE | 2025-04-08 13:33 | CON.PUL ---
Consultation
Consultation Request
Date/Time Consultation Requested: 04/08/2025
Date/Time Consultation Performed: 04/08/2025
Requesting Provider: Dr. Grove
Performing Provider: Dr. Piyush Main
Reason for Consultation: Hypoxemic respiratory failure
Medical History
-
History of Present Illness:
79yo F with anxiety, CHF, HTN, neuropathy, Right 3rd toe amputation on in March 2025 came with SOB gradually worsening for few days.
Patient missed few doses of Lasixsince she did not want to urinate so much.
In ED chest XR without overt CHF, proBNP lower then prior.
patient februile to 100.9. No pneumonia on XR. Patient desat to 85% on RA, recovered on2L O2. ALso c/o somne dyscomfort in RLE, but no overt signs of cellulitis.
Past Medical History
Past Medical History: Other (See assessment and plan)
Social History
Tobacco: Former Smoker
Alcohol: None
Drug: None
Family History
Family History: Reviewed & Not Pertinent
Allergies / Home Medications
Allergies
Allergy/AdvReac Type Severity Reaction Status Date / Time
Penicillins Allergy Swelling Verified 04/06/25 10:53
sulfamethoxazole (From Allergy unknown, Verified 04/06/25 10:53
Bactrim) nursing
home
recored
tramadol Allergy Rash Verified 04/06/25 10:53
trimethoprim (From Bactrim) Allergy unknown, Verified 04/06/25 10:53
nursing
home
recored
Home Medications
�Medication �Instructions �Recorded �Confirmed �Last Taken �Type
atorvastatin 20 mg tablet 20 mg PO HS High cholesterol 05/22/22 04/06/25 03/29/25 20:00 History
escitalopram oxalate 10 mg tablet 10 mg PO DAILY Depression 05/22/22 04/06/25 03/30/25 07:30 History
cyanocobalamin (vitamin B-12) 1,000 mcg PO DAILY defeciancy #0 07/08/22 04/06/25 1 Week Ago Rx
1,000 mcg tablet tabs ~03/23/25
aspirin 81 mg tablet,delayed 81 mg PO HS Blood Clot 09/04/23 04/06/25 03/29/25 20:00 History
release Prevention/Tx
gabapentin 100 mg capsule 100 mg PO HS neuropathic pain, 09/04/23 04/06/25 03/29/25 20:00 History
anxiety, sleep, shoulder pain
metoprolol succinate 25 mg 12.5 mg (1/2 x 25 mg) PO BID #0 04/03/24 04/06/25 03/30/25 07:30 Rx
tablet,extended release 24 hr tabs
albuterol sulfate 90 mcg/actuation 2 puff inhalation R Q6HPRN PRN 07/18/24 04/06/25 1 Month Ago History
aerosol inhaler shortness of breath or wheezing ~08/16/24
diphenhydramine HCl 25 mg capsule 25 mg PO HSPRN PRN pruitis 07/18/24 04/06/25 09/14/24 History
(Benadryl)
acetaminophen 325 mg tablet 650 mg PO Q6HPRN PRN mild pain/ 08/21/24 04/06/25 03/30/25 07:30 History
fever>100F
ammonium lactate 12 % lotion 1 applic topical DAILY b/l legs & 09/25/24 04/06/25 Unknown History
(AmLactin) left foot
famotidine 20 mg tablet 20 mg PO DAILY Gastrointestinal 09/25/24 04/06/25 03/30/25 07:30 History
Issue
lorazepam 1 mg tablet 0.5 mg PO BIDPRN PRN anxiety 09/25/24 04/06/25 2 Days Ago History
~03/28/25
magnesium hydroxide 400 mg/5 mL 30 ml PO DAILYPRN PRN if no bm x 2 09/25/24 04/06/25 Unknown History
oral suspension (Milk of Magnesia) days
polyethylene glycol 3350 17 gram 17 g PO DAILYPRN PRN constipation 09/25/24 04/06/25 Unknown History
oral powder packet (Miralax)
sennosides 8.6 mg-docusate sodium 1 tab-cap PO [id number] PRN 09/25/24 04/06/25 Unknown History
50 mg tablet (Senna-S) constipation
fluticasone propionate 50 2 spray intranasal DAILYPRN PRN 01/21/25 04/06/25 Unknown History
mcg/actuation nasal seasonal allergies
spray,suspension
furosemide 20 mg tablet 20 mg PO DAILY Fluid 01/21/25 04/06/25 03/28/25 History
Retention/Swelling
Lactobac no.2-Bifidobac no.1-S. 1 cap PO NOON Supplement 04/06/25 04/06/25 Unknown History
thermo 112.5 billion cell capsule
(Visbiome)
cholecalciferol (vitamin D3) 25 1,000 unit PO DAILY Supplement 04/06/25 04/06/25 Unknown History
mcg (1,000 unit) tablet
oxycodone 5 mg tablet 5 mg PO [id number] PRN 04/06/25 04/06/25 Unknown History
breakthrough/severe pain
ropinirole 1 mg tablet 1 mg PO QID Anti-Parkinson Agent 04/06/25 04/06/25 Unknown History
Review of Systems
-
History Source: Patient
All other systems: Negative unless noted
Vitals / Labs / Diagnostic Testing
Vital Signs
Temp Pulse Resp BP Pulse Ox
97.9 F 62 18 144/66 96
04/08/25 07:00 04/08/25 07:39 04/08/25 11:57 04/08/25 07:39 04/08/25 11:57
Lab Data
04/08/25 08:16
04/08/25 08:16
Microbiology
04/06/25 11:10 Blood/Venous Blood Culture - Preliminary
No Growth in 48 hours- Final report to follow
04/06/25 11:10 Blood/Venous Blood Culture - Preliminary
No Growth in 48 hours- Final report to follow
04/06/25 19:47 Nose MRSA Screen - Final
No Methicillin Resistant Staphylococcus aureus isolated.
04/06/25 11:10 Nasal Swab Influenza Types A & B (YUNIER) - Final
Negative for Influenza A & B, NAAT
Negative results must be combined with clinical observations
and patient history.
Nucleic Acid Amplification test (NAAT)performed on the
[employer] platform.
Diagnostic Testing:
Physical Exam
-
HEENT: Normocephalic
Cardiovascular: S1/S2
Respiratory: Non-Labored Respirations
GI: Non Distended
Neurology: Awake and Alert
Skin: Warm
General: Comfortable
Assessment
-
79-year-old woman with history of recent right toe amputation due to osteomyelitis, admitted to the hospital complaining of few days of worsening shortness of breath. She has missed few doses of Lasix in the outpatient setting. She has history of
COPD reported some wheezing previously. She was found to be hypoxemic down to 85% requiring 2 L of supplemental oxygen in the emergency room.
We were consulted on 04/08/2025 for evaluation of hypoxemia, we also were consulted for evaluation of her underlying COPD.
Hypoxemic respiratory insufficiency: Possibly volume overload/subsegmental atelectasis-patient missed few doses of Lasix prior admission. [address] angiogram 04/06/2025: Negative for pulmonary embolism. Mild left lower lobe abnormalities possibly atelectasis versus scarring
Lower extremity Dopplers: Negative for DVT
proBNP not significantly elevated
Echocardiogram: Normal LVEF. Normal RV function.
History of COPD: No PFT available.
Possible mild acute exacerbation.
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
Conditions present prior admission:
Former smoker 30+ pack year history of smoking quit 5 years ago
COPD-does not recall severity. No PFT available.
Neuropathy
b2 deficiency anemia
HLD
ASCVD
Anxiety
Assessment and plan:
Patient is clinically improved since admission: Oxygen supplementations has been weaned off.
She was treated with IV diuretics-encouraged to maintain a low-sodium diet and continue oral diuretics.
-
Also treated for mild exacerbation of COPD. Clinically improved.
Lung exam clear on exam. Good air movement.
On room air
Currently on prednisone not unreasonable to treat for 5 to 7 days with oral prednisone
Discontinue DuoNebs
Transition to Symbicort 160/4.52 puffs twice a day.until seen in my office.
Eventual full pulmonary function testing in our office and at that time we can decide depending on symptoms and pulmonary function testing additional interventions.
-
Incentive spirometry encouraged
Increase activity as able.
-
CT chest reviewed: Discussed with patient. Left lower lobe abnormality likely will need to be followed in the outpatient setting given risk of cancer with prior smoking.
-
Advised to follow-up in our office upon discharge.
-
Will follow while in the hospital. Hopefully discharge soon.
--- NOTE | 2025-04-08 14:05 | W.PN.HOSP.TC ---
Today's Communication/Plan
-
Patient at first was okay with going back to her [facility] today, but now she wants SNF
PT/OT
Case management working on placement
Assessment / Plan
Assessment / Plan
Physical Exam
General: Well Developed, Well Nourished and No Apparent Distress
HEENT: Normocephalic, Moist mucous membranes
Respiratory: Clear to Auscultation Bilaterally
Cardiac: S1/S2 and Regular Rhythm
GI: Soft, Non Tender and Non Distended. Positive bowel sounds.
Musculoskeletal: No Cyanosis and No Edema
Skin: Warm; Dry.
Neuro: Awake, Alert, Oriented and AO x 3
Psych: Calm
Assessment/Plan
79yo F with anxiety, CHF, HTN, neuropathy, Right 3rd toe amputation on 03/2725 came with SOB gradually worsening for few days. Patient missed few doses of Lasixsince she did not want to urinate so much. In ED chest XR without overt CHF, proBNP lower
then prior, but patient februile to 100.9 F on 04/06/25. No pneumonia. Patient desat to 85% on RA, recovered on2L O2. ALso c/o somne dyscomfort in RLE, but no overt signs of cellulitis.
#Acute hypoxic insufficiency
#Concern for Possible Acute CHF
Possibly secondary to missing Lasix -continue IV Lasix
Echo with LVEF 65 to 70%, mild concentric left ventricular hypertrophy, stage II diastolic dysfunction, normal right ventricular size and function, mild mitral regurgitation, mild aortic stenosis, mild tricuspid regurgitation; estimated pulmonary
artery pressure of 38 mmHg assuming a right atrial pressure of 3 mmHg.
daily weight and follow electrolytes
CTA chest without PE or any acute disease of the chest
Weaned off O2
#Possible Acute on Chronic COPD
was wheezing few days ago, not anymore
bronchodilators
Prednisone for 3 - 5 days reasonable
Symbicort
Appreciate pulmonary
#Fever, unclear origin -- last fever was 100.9 F on 04/07/25
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
Ceftriaxone (tolerated Ancef before)/Doxy was previously started -- since patient does not have any source of infection, stopped antibiotics. COVID and Flu negative. Patient has denied any UTI symptoms or signs.
Podiatry for postOP wound assessment
Follow Bcx and microbiology results -- negative so far
#Small complex fluid collection compatible with a left popliteal/Real's cyst
-Present on ultrasound
-Will need ortho follow-up outpatient
#Neuropathy
#b2 deficiency anemia
#HLD
#ASCVD
#Anxiety
cont home meds
DVT ppx lovenox
Full code
Anticipated Discharge: Within 24 hours
Subjective/Interval History
-
Date of Service: April 08, 2025
Patient was seen and examined. She reported doing better and denied any new complaints.
Objective Data
-
Labs:
Laboratory Results
04/08/25
08:16
WBC 11.8 H
Hgb 10.7 L
Hct 32.8 L
Plt Count 279
Sodium 143
Potassium 4.1
Chloride 106
Carbon Dioxide 28
BUN 27 H
Creatinine 0.9
Glucose 119 H
Calcium 9.5
Vital Signs:
Vital Signs
Temp Pulse Resp BP Pulse Ox
97.9 F 62 18 144/66 96
04/08/25 07:00 04/08/25 07:39 04/08/25 11:57 04/08/25 07:39 04/08/25 11:57
[2025-04-08 15:00] VITALS: BP 119/62
[2025-04-08] MEDS: LOVENOX 40 MG SC (16:48)
[2025-04-08] MEDS: SYMBICORT 160/4.5 MCG INHALER 2 PUFF INH (19:36)
[2025-04-08] MEDS: ASPIR LOW (ENTERIC COATED) 81 MG PO (21:37)
[2025-04-08] MEDS: LIPITOR 20 MG PO (21:37)
[2025-04-08] MEDS: NEURONTIN 100 MG PO (21:37)
[2025-04-08 23:33] VITALS: BP 133/60
[2025-04-09] MEDS: TYLENOL 650 MG PO (05:05)
[2025-04-09 06:00] VITALS: BMI 28.4
[2025-04-09] MEDS: LEXAPRO 10 MG PO (07:29)
[2025-04-09] MEDS: VITAMIN B-12 1000 MCG PO (07:29)
[2025-04-09] MEDS: DELTASONE 40 MG PO (07:29)
[2025-04-09] MEDS: LASIX 20 MG PO (07:29)
[2025-04-09] MEDS: REQUIP 1 MG PO ×4 (07:29→21:23)
[2025-04-09] MEDS: TOPROL XL 12.5 MG PO ×2 (07:31→20:50)
[2025-04-09] MEDS: SENOKOT-S 1 TABLET PO (07:42)
[2025-04-09] MEDS: MIRALAX 17 GRAMS PO (07:42)
[2025-04-09 08:01] VITALS: BP 128/44
[2025-04-09] MEDS: SYMBICORT 160/4.5 MCG INHALER 2 PUFF INH ×2 (08:01→19:43)
--- NOTE | 2025-04-09 09:36 | CM ---
Addendum entered by Leanna Leblanc 04/09/25 09:58:
IMM explained & signed. In chart
Original Note:
PT/OT rec SNF
Referral in [facility] for [facility]
Spoke with [facility] bed available today
Jorge A NPI #: [id number]
Dr. Eugenio Ley NPI #' [id number]
tt hospitalist
[facility] states if auth not approved today can accept over weekend
Will initiate ins auth through [employer]
PLAN: [place] SN[facility], once insurance auth obtained
Rept: [phone], Fax #: [phone]
--- NOTE | 2025-04-09 10:11 | CM ---
Insurance authorization initiated in [facility] for skilled rehab at [facility].
Pended for review.
Clinicals uploaded into [facility].
Pended reference# [id number]
--- NOTE | 2025-04-09 12:55 | W.PN.PUL3 ---
Today's Communication / Plan
-
DC planning.
Outpx pulmonary follow up
prednisone course
DC on Symbicort.
Sign off
Assessment
-
79-year-old woman with history of recent right toe amputation due to osteomyelitis, admitted to the hospital complaining of few days of worsening shortness of breath. She has missed few doses of Lasix in the outpatient setting. She has history of
COPD reported some wheezing previously. She was found to be hypoxemic down to 85% requiring 2 L of supplemental oxygen in the emergency room.
We were consulted on 04/08/2025 for evaluation of hypoxemia, we also were consulted for evaluation of her underlying COPD.
Hypoxemic respiratory insufficiency: Possibly volume overload/subsegmental atelectasis-patient missed few doses of Lasix prior admission. [address] cann[address] angiogram 04/06/2025: Negative for pulmonary embolism. Mild left lower lobe abnormalities possibly atelectasis versus scarring
Lower extremity Dopplers: Negative for DVT
proBNP not significantly elevated
Echocardiogram: Normal LVEF. Normal RV function.
History of COPD: No PFT available.
Possible mild acute exacerbation.
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
Conditions present prior admission:
Former smoker 30+ pack year history of smoking quit 5 years ago
COPD-does not recall severity. No PFT available.
Neuropathy
b2 deficiency anemia
HLD
ASCVD
Anxiety
Assessment and plan:
Patient is clinically improved since admission: Oxygen supplementations has been weaned off.
She was treated with IV diuretics-encouraged to maintain a low-sodium diet and continue oral diuretics.
-
Also treated for mild exacerbation of COPD. Clinically improved.
Not bronchospastic on exam 04/09/2025
On room air
Cont. Short prednisone course
PRN DuoNebs
Transition to Symbicort 160/4.52 puffs twice a day.until seen in my office.
May use acapella PRN.
Eventual full pulmonary function testing in our office and at that time we can decide depending on symptoms and pulmonary function testing additional interventions.
-
Incentive spirometry encouraged
Increase activity as able.
-
CT chest reviewed: Discussed with patient. Left lower lobe abnormality likely will need to be followed in the outpatient setting given risk of cancer with prior smoking.
-
Advised to follow-up in our office upon discharge.
-
Agree with DC planning.
Information left on chart for follow up.
Sign off.
Subjective Data
-
Date of Service:
Date of Service: April 09, 2025
Chief Complaint: Pulmonary Follow Up (COPD)
Subjective:
Denies respiratory complaints.
Feels better.
Objective Data
Data Reviewed
Vital Signs / I&O / Oxygen:
Vital Signs
Temp Pulse Resp BP Pulse Ox
97.8 F 61 16 128/44 96
04/09/25 08:01 04/09/25 08:01 04/09/25 08:06 04/09/25 08:01 04/09/25 08:06
Intake and Output
04/08/25 04/09/25 04/10/25
06:59 06:59 06:59
Intake Total 960 / 960
Balance 960 / 960
SaO2 96
Nasal Cannula flow liters per 2
minute
Labs/Micro/Reports
Lab Data
04/08/25 08:16
04/08/25 08:16
Microbiology
04/06/25 11:10 Blood/Venous Blood Culture - Preliminary
No Growth in 72 hours- Final report to follow
04/06/25 11:10 Blood/Venous Blood Culture - Preliminary
No Growth in 72 hours- Final report to follow
04/06/25 19:47 Nose MRSA Screen - Final
No Methicillin Resistant Staphylococcus aureus isolated.
04/06/25 11:10 Nasal Swab Influenza Types A & B (YUNIER) - Final
Negative for Influenza A & B, NAAT
Negative results must be combined with clinical observations
and patient history.
Nucleic Acid Amplification test (NAAT)performed on the
[employer] platform.
--- NOTE | 2025-04-09 13:05 | W.PN.HOSP.TC ---
Today's Communication/Plan
-
Case management working on auth for placement
Assessment / Plan
Assessment / Plan
Physical Exam
General: Well Developed, Well Nourished and No Apparent Distress
HEENT: Normocephalic, Moist mucous membranes
Respiratory: Clear to Auscultation Bilaterally
Cardiac: S1/S2 and Regular Rhythm
GI: Soft, Non Tender and Non Distended. Positive bowel sounds.
Musculoskeletal: No Cyanosis and No Edema
Skin: Warm; Dry.
Neuro: Awake, Alert, Oriented and AO x 3
Psych: Calm
Assessment/Plan
79yo F with anxiety, CHF, HTN, neuropathy, Right 3rd toe amputation on 03/2725 came with SOB gradually worsening for few days. Patient missed few doses of Lasixsince she did not want to urinate so much. In ED chest XR without overt CHF, proBNP lower
then prior, but patient februile to 100.9 F on 04/06/25. No pneumonia. Patient desat to 85% on RA, recovered on2L O2. ALso c/o somne dyscomfort in RLE, but no overt signs of cellulitis.
#Acute hypoxic insufficiency
#Concern for Possible Acute CHF
Possibly secondary to missing Lasix -continue IV Lasix
Echo with LVEF 65 to 70%, mild concentric left ventricular hypertrophy, stage II diastolic dysfunction, normal right ventricular size and function, mild mitral regurgitation, mild aortic stenosis, mild tricuspid regurgitation; estimated pulmonary
artery pressure of 38 mmHg assuming a right atrial pressure of 3 mmHg.
daily weight and follow electrolytes
CTA chest without PE or any acute disease of the chest
Previously was weaned off O2
#Possible Acute on Chronic COPD
was wheezing few days ago, not anymore
bronchodilators
Prednisone for 3 - 5 days reasonable
Symbicort 160/4.5 -- 2 puffs twice a day -- until seen in outpatient pulmonary office
Appreciate pulmonary
#Fever, unclear origin -- last fever was 100.9 F on 04/07/25
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
Ceftriaxone (tolerated Ancef before)/Doxy was previously started -- since patient does not have any source of infection, stopped antibiotics. COVID and Flu negative. Patient has denied any UTI symptoms or signs.
Podiatry for postOP wound assessment
Follow Bcx and microbiology results -- negative so far
#Small complex fluid collection compatible with a left popliteal/Real's cyst
-Present on ultrasound
-Will need ortho follow-up outpatient
#Neuropathy
#b2 deficiency anemia
#HLD
#ASCVD
#Anxiety
cont home meds
DVT ppx lovenox
Full code
Anticipated Discharge: 24 - 48 hours
Subjective/Interval History
-
Date of Service: April 09, 2025
Patient was seen and examined. She reports doing much better and she also reported that her dizziness is better.
Objective Data
-
Vital Signs:
Vital Signs
Temp Pulse Resp BP Pulse Ox
97.8 F 61 16 128/44 96
04/09/25 08:01 04/09/25 08:01 04/09/25 08:06 04/09/25 08:01 04/09/25 08:06
I&O
04/08/25 04/09/25 04/10/25
06:59 06:59 06:59
Intake Total 960 / 960
Balance 960 / 960
[2025-04-09 15:51] VITALS: BP 134/65
[2025-04-09] MEDS: LOVENOX 40 MG SC (17:00)
[2025-04-09 20:30] VITALS: BP 132/60
[2025-04-09] MEDS: NEURONTIN 100 MG PO (21:18)
[2025-04-09] MEDS: ASPIR LOW (ENTERIC COATED) 81 MG PO (21:18)
[2025-04-09] MEDS: LIPITOR 20 MG PO (21:18)
[2025-04-09 23:34] VITALS: BP 131/70
[2025-04-10 06:00] VITALS: BMI 28.5
[2025-04-10] MEDS: TOPROL XL 12.5 MG PO ×2 (07:19→20:01)
[2025-04-10] MEDS: LASIX 20 MG PO (07:28)
[2025-04-10] MEDS: REQUIP 1 MG PO ×4 (07:29→21:19)
[2025-04-10] MEDS: DELTASONE 40 MG PO (07:29)
[2025-04-10] MEDS: VITAMIN B-12 1000 MCG PO (07:29)
[2025-04-10] MEDS: LEXAPRO 10 MG PO (07:29)
[2025-04-10] MEDS: SYMBICORT 160/4.5 MCG INHALER 2 PUFF INH ×2 (07:44→19:57)
[2025-04-10 07:46] VITALS: BP 125/58
--- NOTE | 2025-04-10 12:27 | CM ---
CM reviewed chart, checked auth status on Availity this am and again in afternoon, auth remains pending. CM will continue to follow for all discharge planning needs.
Plan; [facility] once auth approved
Rept: [phone], Fax #: [phone]
--- NOTE | 2025-04-10 14:29 | W.PN.HOSP.TC ---
Today's Communication/Plan
-
SNF Auth pending
Assessment / Plan
Assessment / Plan
Physical Exam
General: Well Developed, Well Nourished and No Apparent Distress
HEENT: Normocephalic, Moist mucous membranes
Respiratory: Clear to Auscultation Bilaterally
Cardiac: S1/S2 and Regular Rhythm
GI: Soft, Non Tender and Non Distended. Positive bowel sounds.
Musculoskeletal: No Cyanosis and No Edema
Skin: Warm; Dry.
Neuro: Awake, Alert, Oriented and AO x 3
Psych: Calm
Assessment/Plan
79yo F with anxiety, CHF, HTN, neuropathy, Right 3rd toe amputation on 03/2725 came with SOB gradually worsening for few days. Patient missed few doses of Lasixsince she did not want to urinate so much. In ED chest XR without overt CHF, proBNP lower
then prior, but patient februile to 100.9 F on 04/06/25. No pneumonia. Patient desat to 85% on RA, recovered on2L O2. ALso c/o somne dyscomfort in RLE, but no overt signs of cellulitis.
#Acute hypoxic insufficiency
#Concern for Possible Acute CHF
Possibly secondary to missing Lasix -continue IV Lasix
Echo with LVEF 65 to 70%, mild concentric left ventricular hypertrophy, stage II diastolic dysfunction, normal right ventricular size and function, mild mitral regurgitation, mild aortic stenosis, mild tricuspid regurgitation; estimated pulmonary
artery pressure of 38 mmHg assuming a right atrial pressure of 3 mmHg.
daily weight and follow electrolytes
CTA chest without PE or any acute disease of the chest
Previously was weaned off O2
#Possible Acute on Chronic COPD
was wheezing few days ago, not anymore
bronchodilators
Prednisone for 3 - 5 days reasonable
Symbicort 160/4.5 -- 2 puffs twice a day -- until seen in outpatient pulmonary office
Appreciate pulmonary
#Fever, unclear origin -- last fever was 100.9 F on 04/07/25
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
Ceftriaxone (tolerated Ancef before)/Doxy was previously started -- since patient does not have any source of infection, stopped antibiotics. COVID and Flu negative. Patient has denied any UTI symptoms or signs.
Podiatry for postOP wound assessment
Follow Bcx and microbiology results -- negative so far
#Small complex fluid collection compatible with a left popliteal/Real's cyst
-Present on ultrasound
-Will need ortho follow-up outpatient
#Neuropathy
#b2 deficiency anemia
#HLD
#ASCVD
#Anxiety
cont home meds
DVT ppx lovenox
Full code
Anticipated Discharge: 24 - 48 hours
Subjective/Interval History
-
Date of Service: April 10, 2025
Patient was seen and examined. She reported feeling even better and denied any chest pain, shortness of breath or any other complaints.
Objective Data
-
Vital Signs:
Vital Signs
Temp Pulse Resp BP Pulse Ox
97.9 F 61 18 125/58 95
04/10/25 07:46 04/10/25 07:46 04/10/25 07:46 04/10/25 07:46 04/10/25 07:46
I&O
04/09/25 04/10/25 04/11/25
06:59 06:59 06:59
Intake Total 960 / 960
Balance 960 / 960
[2025-04-10 16:04] VITALS: BP 142/61
[2025-04-10] MEDS: LOVENOX 40 MG SC (17:31)
[2025-04-10] MEDS: LIPITOR 20 MG PO (21:16)
[2025-04-10] MEDS: ASPIR LOW (ENTERIC COATED) 81 MG PO (21:16)
[2025-04-10] MEDS: NEURONTIN 100 MG PO (21:16)
[2025-04-10 23:14] VITALS: BP 119/58
[2025-04-11 06:00] VITALS: BMI 28.5
[2025-04-11 07:15] VITALS: BP 146/53
[2025-04-11] MEDS: VITAMIN B-12 1000 MCG PO (07:54)
[2025-04-11] MEDS: TOPROL XL 12.5 MG PO ×2 (07:54→20:14)
[2025-04-11] MEDS: REQUIP 1 MG PO ×4 (07:55→21:24)
[2025-04-11] MEDS: DELTASONE 40 MG PO (07:55)
[2025-04-11] MEDS: LEXAPRO 10 MG PO (07:55)
[2025-04-11] MEDS: LASIX 20 MG PO (07:55)
[2025-04-11] MEDS: SYMBICORT 160/4.5 MCG INHALER 2 PUFF INH ×2 (08:23→20:31)
--- NOTE | 2025-04-11 08:51 | CM ---
CM reviewed chart, checked auth status on Availity, auth remains pending. CM will continue to follow for all discharge planning needs.
Plan; [facility] once auth approved
Rept: [phone], Fax #: [phone]
--- NOTE | 2025-04-11 14:24 | W.PN.HOSP.TC ---
Today's Communication/Plan
-
Per case management, placement pending
Assessment / Plan
Assessment / Plan
Physical Exam
General: Well Developed, Well Nourished and No Apparent Distress
HEENT: Normocephalic, Moist mucous membranes
Respiratory: Clear to Auscultation Bilaterally
Cardiac: S1/S2 and Regular Rhythm
GI: Soft, Non Tender and Non Distended. Positive bowel sounds.
Musculoskeletal: No Cyanosis and No Edema
Skin: Warm; Dry.
Neuro: Awake, Alert, Oriented and AO x 3
Psych: Calm
Assessment/Plan
79yo F with anxiety, CHF, HTN, neuropathy, Right 3rd toe amputation on 03/2725 came with SOB gradually worsening for few days. Patient missed few doses of Lasixsince she did not want to urinate so much. In ED chest XR without overt CHF, proBNP lower
then prior, but patient februile to 100.9 F on 04/06/25. No pneumonia. Patient desat to 85% on RA, recovered on2L O2. ALso c/o somne dyscomfort in RLE, but no overt signs of cellulitis.
#Acute hypoxic insufficiency
#Concern for Possible Acute CHF
Possibly secondary to missing Lasix -continue IV Lasix
Echo with LVEF 65 to 70%, mild concentric left ventricular hypertrophy, stage II diastolic dysfunction, normal right ventricular size and function, mild mitral regurgitation, mild aortic stenosis, mild tricuspid regurgitation; estimated pulmonary
artery pressure of 38 mmHg assuming a right atrial pressure of 3 mmHg.
daily weight and follow electrolytes
CTA chest without PE or any acute disease of the chest
Previously was weaned off O2
#Possible Acute on Chronic COPD
was wheezing few days ago, not anymore
bronchodilators
Completed 5-day Prednisone course (04/07 to 04/11)
Symbicort 160/4.5 -- 2 puffs twice a day -- until seen in outpatient pulmonary office
Appreciate pulmonary evaluation
#Fever, unclear origin -- last fever was 100.9 F on 04/06/25
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
Ceftriaxone (tolerated Ancef before)/Doxy was previously started -- since patient does not have any source of infection, stopped antibiotics. COVID and Flu negative. Patient has denied any UTI symptoms or signs.
Podiatry for postOP wound assessment -- no concern for infection from their standpoint
Followed Bcx and microbiology results -- negative
#Small complex fluid collection compatible with a left popliteal/Real's cyst
-Present on ultrasound
-Will need ortho follow-up outpatient
#Neuropathy
#b2 deficiency anemia
#HLD
#ASCVD
#Anxiety
cont home meds
DVT ppx lovenox
Full code
Anticipated Discharge: 24 - 48 hours
Subjective/Interval History
-
Date of Service: April 11, 2025
Patient was seen and examined. She denied any symptoms or complaints.
Objective Data
-
Vital Signs:
Vital Signs
Temp Pulse Resp BP Pulse Ox
97.8 F 68 16 146/53 95
04/11/25 07:15 04/11/25 08:26 04/11/25 08:26 04/11/25 07:54 04/11/25 08:26
I&O
04/10/25 04/11/25 04/12/25
06:59 06:59 06:59
Intake Total 1440 / 1440
Balance 1440 / 1440
[2025-04-11 15:11] VITALS: BP 143/51
[2025-04-11] MEDS: LOVENOX 40 MG SC (17:23)
[2025-04-11] MEDS: NEURONTIN 100 MG PO (21:24)
[2025-04-11] MEDS: LIPITOR 20 MG PO (21:24)
[2025-04-11] MEDS: ASPIR LOW (ENTERIC COATED) 81 MG PO (21:24)
[2025-04-11 23:29] VITALS: BP 136/56
[2025-04-12 06:00] VITALS: BMI 28.4
[2025-04-12 07:00] VITALS: BP 158/57
[2025-04-12] MEDS: SYMBICORT 160/4.5 MCG INHALER 2 PUFF INH (07:52)
[2025-04-12] MEDS: REQUIP 1 MG PO ×2 (08:39→13:32)
[2025-04-12] MEDS: TOPROL XL 12.5 MG PO (08:39)
[2025-04-12] MEDS: LEXAPRO 10 MG PO (08:39)
[2025-04-12] MEDS: VITAMIN B-12 1000 MCG PO (08:39)
[2025-04-12] MEDS: LASIX 20 MG PO (08:39)
--- NOTE | 2025-04-12 10:10 | CM ---
Raquel zayas approved for SNF. Spoke w/ [facility] admissions, confirmed bed today for patient
Auth approved beginning today, 04/12 next review is 04/18. Facility to call [phone] for updates
Auth ref [id number]
Hospitalist agreeable to d/c today
Updated patient bedside. IMM verbally reviewed, copy provided, copy on chart
Patient agreeable to van transport, aware of out of pocket cost. Will call acute care to arrange credit card payment
[facility]
Report: [phone]

Plan: D/c to [facility] today
--- NOTE | 2025-04-12 10:12 | W.PN.HOSP.TC ---
Today's Communication/Plan
-
Discharge
Assessment / Plan
Assessment / Plan
Gen-AAOx3, NAD
HEENT-NC, AT, anicteric, clear oral mm
Neck-supple
CV-reg, no M, +S1/S2
Lungs-clear B/L
Abd-soft, NT, ND
Ext-no edema
Musculoskeletal-no cyanosis, clubbing
Skin-warm and dry
Neuro-grossly non-focal
Psych-calm, cooperative
Acute hypoxic respiratory insufficiency -due to acute heart failure exacerbation, acute COPD exacerbation. Improved. Now on room air.
Acute on chronic heart failure with preserved EF exacerbation -due to missed doses of Lasix prior to admission. Improved clinically.
Echo with LVEF 65 to 70%, mild concentric left ventricular hypertrophy, stage II diastolic dysfunction, normal right ventricular size and function, mild mitral regurgitation, mild aortic stenosis, mild tricuspid regurgitation; estimated pulmonary
artery pressure of 38 mmHg assuming a right atrial pressure of 3 mmHg.
daily weight and follow electrolytes
CTA chest without PE or any acute disease of the chest
Acute on Chronic COPD exacerbation -improved. Follow-up with pulmonary after discharge.
was wheezing few days ago, not anymore
bronchodilators
Completed 5-day Prednisone course (04/07 to 04/11)
Symbicort 160/4.5 -- 2 puffs twice a day -- until seen in outpatient pulmonary office
Appreciate pulmonary evaluation
Fever -isolated fever on presentation then resolved. Sepsis and infection ruled out. Antibiotics discontinued.
Small complex fluid collection compatible with a left popliteal/Real's cyst
-Present on ultrasound
-Will need ortho follow-up outpatient
Neuropathy
B12 deficiency anemia
Hyperlipidemia -atorvastatin.
ASCVD
Anxiety
Full code
Dispo -medically stable for discharge to SNF today. Case management aware. Outpatient follow-up.
32 minutes spent in discharge process.
Anticipated Discharge: Today
Subjective/Interval History
-
Date of Service: April 12, 2025
Patient seen and examined. No complaints. Shortness of breath resolved.
Objective Data
-
Vital Signs:
Vital Signs
Temp Pulse Resp BP Pulse Ox
97.4 F 65 16 158/57 97
04/12/25 07:00 04/12/25 08:39 04/12/25 07:54 04/12/25 08:39 04/12/25 07:54
I&O
04/11/25 04/12/25 04/13/25
06:59 06:59 06:59
Intake Total 1440 / 1440 1510 / 1510
Balance 1440 / 1440 1510 / 1510
Review of Systems
-
History Source: Patient
All other systems: Reviewed and negative
--- NOTE | 2025-04-12 10:20 | W.DS.TRANS ---
DC Summary - Director Case
-
Discharge Instructions:
Sleep Apnea Risk Intermediate
Discharge Diagnosis/Procedures COPD exacerbation, heart failure exacerbation
Diet Low Cholesterol,2 Gram Sodium
Activity With assistance
Driving Restrictions No driving
Bathing Restrictions None
Instructions:
Stand-Alone Forms:
Changes to Home Medications: No
Discharge Medications:
DC Medications w/original date entered in [facility]
atorvastatin 20 mg tablet 20 mg PO HS High cholesterol 05/22/22
escitalopram oxalate 10 mg tablet 10 mg PO DAILY Depression 05/22/22
cyanocobalamin (vitamin B-12) 1,000 mcg tablet 1,000 mcg PO DAILY defeciancy #0 tabs 07/08/22
aspirin 81 mg tablet,delayed release 81 mg PO HS Blood Clot Prevention/Tx 09/04/23
gabapentin 100 mg capsule 100 mg PO HS neuropathic pain, anxiety, sleep, shoulder pain 09/04/23
metoprolol succinate 25 mg tablet,extended release 24 hr 12.5 mg (1/2 x 25 mg) PO BID #0 tabs 04/03/24
albuterol sulfate 90 mcg/actuation aerosol inhaler 2 puff inhalation R Q6HPRN PRN shortness of breath or wheezing 07/18/24
acetaminophen 325 mg tablet 650 mg PO Q6HPRN PRN mild pain/ fever>100F 08/21/24
ammonium lactate 12 % lotion (AmLactin) 1 applic topical DAILY b/l legs & left foot 09/25/24
famotidine 20 mg tablet 20 mg PO DAILY Gastrointestinal Issue 09/25/24
lorazepam 1 mg tablet 0.5 mg PO BIDPRN PRN anxiety 09/25/24
magnesium hydroxide 400 mg/5 mL oral suspension (Milk of Magnesia) 30 ml PO DAILYPRN PRN if no bm x 2 days 09/25/24
polyethylene glycol 3350 17 gram oral powder packet (Miralax) 17 g PO DAILYPRN PRN constipation 09/25/24
sennosides 8.6 mg-docusate sodium 50 mg tablet (Senna-S) 1 tab-cap PO [id number] PRN constipation 09/25/24
fluticasone propionate 50 mcg/actuation nasal spray,suspension 2 spray intranasal DAILYPRN PRN seasonal allergies 01/21/25
furosemide 20 mg tablet 20 mg PO DAILY Fluid Retention/Swelling 01/21/25
Lactobac no.2-Bifidobac no.1-S. thermo 112.5 billion cell capsule (Visbiome) 1 cap PO NOON Supplement 04/06/25
cholecalciferol (vitamin D3) 25 mcg (1,000 unit) tablet 1,000 unit PO DAILY Supplement 04/06/25
ropinirole 1 mg tablet 1 mg PO QID Anti-Parkinson Agent 04/06/25
budesonide-formoterol HFA 160 mcg-4.5 mcg/actuation aerosol inhaler (Symbicort) 2 puff inhalation R BID #0 grams 04/12/25
Home Medication Changes
Pending Results: No
[2025-04-12 14:05] LABS: % Basophils 0.4 % (0-2); % Eosinophils 2.6 % (0-6); % Immature Granulocytes 0.8 % (0-0.5); % Lymphocytes 9.7 % (20.5-51.1); % Monocytes 8.2 % (1.7-9.3); % Neutrophils 78.3 % (42.2-75.2); Absolute Basophils 0.1 10^3/uL (0-0.2); Absolute Eosinophils 0.3 10^3/uL (0-0.7); Absolute Immature Granulocytes 0.1 10^3/uL (0-0.05); Absolute Lymphocytes 1.2 10^3/uL (1.2-3.4); Absolute Neutrophils 9.4 10^3/uL (1.4-6.5); Hematocrit 38.2 % (37.0-47.0); Hemoglobin 12.6 g/dL (12.0-16.0); Mean Corpuscular Hgb 29.6 pg (27.0-31.0); Mean Corpuscular Volume 89.7 fL (81.0-99.0); Mean Platelet Volume 9.6 fL (7.4-10.4); Nucleated Red Blood Cells % 0 %; Platelet Count 319 10^3/uL (130-400); Red Blood Cell Count 4.26 10^6/uL (4.20-5.40); Red Cell Dist. Width 13.3 % (11.5-14.5)
[2025-04-12 15:15] VITALS: BP 103/70
== END 2025-04-12 16:17 | DRG 291 ==
LOC: 4 WEST ACU 15:55
PROVIDERS: Hospitalist; ADMITTING PHYSICIAN Internal Medicine; ATTENDING PHYSICIAN Hospitalist; CONSULT PHYSICIAN Internal Medicine Critical Care Medicine; CONSULT PHYSICIAN Podiatrist; EMERGENCY PHYSICIAN Emergency Medicine; FAMILY PHYSICIAN Family Medicine
DX: I11.0 Hypertensive heart disease with heart failure (principal); I50.33 Acute on chronic diastolic (congestive) heart failure; J44.1 Chronic obstructive pulmonary disease with (acute) exacerbation; M54.9 Dorsalgia, unspecified; E78.00 Pure hypercholesterolemia, unspecified; F32.A Depression, unspecified; F41.9 Anxiety disorder, unspecified; G25.81 Restless legs syndrome; D53.9 Nutritional anemia, unspecified; I25.10 Atherosclerotic heart disease of native coronary artery without angina pectoris; G62.9 Polyneuropathy, unspecified; M71.22 Synovial cyst of popliteal space [Baker], left knee; R06.89 Other abnormalities of breathing; R32 Unspecified urinary incontinence; Z96.651 Presence of right artificial knee joint; Z96.611 Presence of right artificial shoulder joint; Z91.148 Patient's other noncompliance with medication regimen for other reason; Z87.891 Personal history of nicotine dependence; Z89.422 Acquired absence of other left toe(s); Z89.421 Acquired absence of other right toe(s); Z79.82 Long term (current) use of aspirin; Z79.51 Long term (current) use of inhaled steroids; Z88.1 Allergy status to other antibiotic agents; Z88.5 Allergy status to narcotic agent; Z88.0 Allergy status to penicillin; Z88.2 Allergy status to sulfonamides; Z11.52 Encounter for screening for COVID-19
CPT/HCPCS: 71046; 71275; 80048; 80053; 81003; 83605; 83735; 83880; 85025; 87040; 87070; 87502; 87811; 93005; 93306; 93970; 94640; 96374; 97110; 97116; 97163; 97167; 97530; 99285; Q9967

== ENCOUNTER → 2025-04-15 12:02 | Outpatient (REF) | payer OTHER, SELFPAY ==
[2025-04-15 13:35] LABS: % Basophils 0.5 % (0-2); % Eosinophils 6.7 % (0-6); % Immature Granulocytes 0.9 % (0-0.5); % Lymphocytes 11.1 % (20.5-51.1); % Monocytes 12.4 % (1.7-9.3); % Neutrophils 68.4 % (42.2-75.2); Absolute Eosinophils 0.6 10^3/uL (0-0.7); Absolute Immature Granulocytes 0.1 10^3/uL (0-0.05); Absolute Monocytes 1.1 10^3/uL (0.1-0.6); Absolute Neutrophils 5.9 10^3/uL (1.4-6.5); Hematocrit 38.5 % (37.0-47.0); Hemoglobin 12.2 g/dL (12.0-16.0); Mean Corp Hgb Conc. 31.7 g/dL (33.0-37.0); Mean Corpuscular Volume 91.7 fL (81.0-99.0); Mean Platelet Volume 10.9 fL (7.4-10.4); Nucleated Red Blood Cells % 0 %; Platelet Count 280 10^3/uL (130-400); White Blood Cell Count 8.6 10^3/uL (4.8-10.8)
[2025-04-15 14:54] LABS: ALT (SGPT) 30 U/L (0-35); AST (SGOT) 21 U/L (14-36); Albumin 3.8 g/dl (3.5-5.0); Alkaline Phosphatase 88 U/L (38-126); Blood Urea Nitrogen 16 mg/dl (7-17); Calcium 9.1 mg/dl (8.4-10.2); Carbon Dioxide 30 mmol/L (22-30); Chloride 103 mmol/L (98-107); Glucose 87 mg/dl (70-99); Magnesium 2.3 mg/dl (1.6-2.3); Sodium 139 mmol/L (135-145); Total Bilirubin 0.8 mg/dl (0.2-1.3); Total Protein 6.9 g/dl (6.3-8.2); eGFR > 60.00
== END ==
LOC: OLABWHC 12:02
PROVIDERS: ATTENDING PHYSICIAN Family Medicine
DX: I10 Essential (primary) hypertension (principal); D64.9 Anemia, unspecified; E78.5 Hyperlipidemia, unspecified; Z79.82 Long term (current) use of aspirin
CPT/HCPCS: 36415; 80053; 83735; 85025

== ENCOUNTER 2025-06-14 20:10 | Observation (INO) | payer OTHER, SELFPAY ==
[2025-06-14 14:09] VITALS: BP 90/54
[2025-06-14 14:35] LABS: Hematocrit 33.8 % (37.0-47.0); Hemoglobin 10.9 g/dL (12.0-16.0); Mean Corp Hgb Conc. 32.2 g/dL (33.0-37.0); Mean Corpuscular Volume 91.4 fL (81.0-99.0); Nucleated Red Blood Cells % 0 %; Platelet Count 269 10^3/uL (130-400); Red Cell Dist. Width 14.6 % (11.5-14.5)
[2025-06-14 15:01] LABS: ALT (SGPT) 18 U/L (0-35); AST (SGOT) 20 U/L (14-36); Albumin 4.5 g/dl (3.5-5.0); Alkaline Phosphatase 97 U/L (38-126); Blood Urea Nitrogen 31 mg/dl (7-17); Calcium 8.7 mg/dl (8.4-10.2); Carbon Dioxide 27 mmol/L (22-30); Chloride 105 mmol/L (98-107); Glucose 104 mg/dl (70-99); Potassium 4.0 mmol/L (3.5-5.1); Sodium 140 mmol/L (135-145); Total Protein 7.5 g/dl (6.3-8.2); eGFR > 60.00
[2025-06-14 16:35] VITALS: BMI 30.1
[2025-06-14 16:47] VITALS: BP 123/72
--- NOTE | 2025-06-14 16:53 | ED.GENMED ---
History of Present Illness
General
Chief Complaint: Vascular Symptoms
Source: patient
Exam Limitations: none
Time Seen by Provider: 06/14/25 16:31
Nursing documentation reviewed up to this point in time: agreed with
History of Present Illness
History of Present Illness:
Patient diagnosed with bilateral DVT 1 week ago, already on Eliquis for 2 months (patient does not know why), presents to ED secondary to worsening lower leg swelling with redness. Patient reports pain behind the right knee. Denies fever or
chills. Denies nausea or vomiting. Denies loss of sensation. Denies chest pain or shortness of breath.
Past History
Past History
ED Past Medical History: CHF, COPD, HTN, Hypercholesterolemia, Psychiatric (Anxiety, Depression) and Other (OA, Restless leg syndrome, Incontinence)
ED Past Surgical History: Orthopedic (Mati second Toe amputation, Right Total knee replacement, Right shoulder replacement, Mati carpal tunnel) and Other (cataracts, )
PSI?: No
Social History
Tobacco: Former smoker
Alcohol: Occasional
Drug: None
Personal:
Living: assisted living
Employment: Retired
Review of Systems
Review of Systems
Allergies reviewed?: Yes
All Other Systems: ROS reviewed and negative except as documented in HPI and ROS
Constitutional: Reports no symptoms
Respiratory: Reports no symptoms; Denies trouble breathing
Cardiac: Reports no symptoms; Denies chest pain
ABD/GI: Reports no symptoms
Musculoskeletal: Reports edema
Skin: Reports other (Bilateral leg redness )
Neurological: Reports no symptoms
Phy Exam
Physical Exam
Physical Exam:
Physical Exam
General: no apparent distress, not acutely ill. afebrile
Head: nc/at. eomi
Neck: supple. normal range of motion
Heart: s1/s2 regular rate and rhythm
Lungs: no acute respiratory distress. clear bilaterally
Abdomen: normal bowel sounds. not tender.
Neuro: alert and oriented x 3. no focal neurological deficits
Skin: no rash
Psychiatric: well kept. interactive and cooperative
Extremities: LE edema w erythema, R>L.
Course
Orders/Labs/Results
Orders:
Orders
06/14/25 14:24
Complete Blood Count/With Diff Urgent
Comprehensive Metabolic Panel Urgent
06/14/25 Dinner
Cholesterol Lowering
At Your Request: Full Participation
Cholesterol Lowering: Sodium, 2 Gram
06/14/25 16:31
US Legs, Bilateral [US Periph Venous LOWER Ext Mati] Urgent
Comment:
Reason For Exam: leg swelling
06/14/25 18:27
Ropinirole [Requip] 1 mg PO NOW STA
06/14/25 18:28
Vancomycin [Vancocin] 2,000 mg 0.9% Sodium Chloride 500 ml [Nss] 500 ml IV NOW
06/14/25 19:40
Admit/Transfer Patient As Directed
Co-Sign Provider:
Level of Care: Observation services
Assign to:: Medical/Surgical
Physician / Group: Marge Morales
Diagnosis: cellulitis
Acetaminophen [Tylenol] 650 mg PO NOW STA
06/14/25 19:41
PRN Pain Medication Management As Directed
May give lesser potent ordered pain med per pt: Yes
preference::
Protocol:: Medication orders for pain may be administered in a
manner that supports deferring to patient preference
when the pt is:
- Requesting an ordered lesser potent pain medication.
Least to most potent pain medications are defined
as: acetaminophen < NSAID < tramadol < opioids
(morphine, oxycodone, hydromorphone).
- Requesting a lesser dose of the same medication IF
ORDERED.
- Requesting a less intrusive route of administration
if both routes are prescribed by the provider (PO <
IV).
06/14/25 19:43
Code Status As Directed
Resuscitation Status: Full Code
06/14/25 20:25
Acetaminophen [Tylenol] 650 mg PO Q6HPRN PRN mild pain/ fever>100.4F mild pain/ fever>100.4F
Albuterol [ProAIR HFA INHALER] 2 puff INH R Q6HPRN PRN shortness of breath or wheezing
Docusate W/Senna [Senokot-S] 1 tablet PO [id number] PRN constipation
Meclizine [Antivert] 25 mg PO Q8HPRN PRN dizziness
Oxycodone [Roxicodone] 5 mg PO [id number] PRN severe pains
Polyethylene Glycol Powder [Miralax] 17 grams PO DAILYPRN PRN constipation
Rivaroxaban [Xarelto] 15 mg PO BID
fluticasone propionate 2 spray NASAL DAILYPRN PRN
06/14/25 20:25
Activity As Directed
Activity Level: As Tolerated
Intake/ Output As Directed
Frequency: Per unit guidelines
Vital Signs As Directed
Frequency: Per unit guidelines
Weight As Directed
Frequency: Daily
Type of Scale: Standing Scale
Comment: Daily morning weight. If unable to stand, use balanced bed scale.
Weight As Directed
Frequency: Once
Type of Scale: Standing Scale
Comment: Upon Admission. If unable to stand, use balanced bed scale.
Pulse Ox/cont/shift [RESP] Routine
Quantity: 1
Special Instructions: Daily pulse oximetry at rest. If greater than 92% at rest also obtain pulse oximetry
while ambulating as tolerated.
06/14/25 20:58
Lorazepam [Ativan] 0.5 mg PO BIDPRN PRN anxiety
06/14/25 21:30
Fluticasone/Salmeterol 230/21 [Advair Hfa 230/21 Mcg Inhaler] 2 puff INH R BID
06/14/25 22:00
Atorvastatin [Lipitor] 20 mg PO HS
CeFAZolin 1 GRAM [Ancef] 1 gram in 5 ml IV Q8H
Gabapentin [Neurontin] 100 mg PO HS
Metoprolol Xl [Toprol Xl] 12.5 mg PO BID
Ropinirole [Requip] 1 mg PO QID
06/15/25 06:04
Basic Metabolic Panel IN AM
Complete Blood Count/No Diff IN AM
06/15/25 08:00
Ammonium Lactate 12% [Lac Hydrin, Am Lactin Lotion] 1 applic TOPICAL DAILY
Cholecalciferol (Vitamin D3) [VITAMIN D3 (cholecalciferol)] 25 mcg PO DAILY
Cyanocobalamin [Vitamin B-12] 1,000 mcg PO DAILY
Escitalopram Oxalate [Lexapro] 10 mg PO DAILY
Famotidine [Pepcid] 20 mg PO DAILY
Furosemide [Lasix] 20 mg PO DAILY
Lactobac/Bifidobac [Visbiome] 1 cap PO DAILY
Abnormal Lab Results
06/14/25
14:24
RBC 3.70 L 10^6/uL
(4.20-5.40)
Hgb 10.9 L g/dL
(12.0-16.0)
Hct 33.8 L %
(37.0-47.0)
MCHC 32.2 L g/dL
(33.0-37.0)
RDW 14.6 H %
(11.5-14.5)
Absolute Neuts (auto) 8.1 H 10^3/uL
(1.4-6.5)
Absolute Lymphs (auto) 1.0 L 10^3/uL
(1.2-3.4)
Absolute Monos (auto) 0.9 H 10^3/uL
(0.1-0.6)
Neutrophils % 76.8 H %
(42.2-75.2)
Lymphocytes % 9.5 L %
(20.5-51.1)
BUN 31 H mg/dl
(7-17)
Glucose 104 H mg/dl
(70-99)
06/14/25 14:24
06/14/25 14:24
Vital Signs
Initial and Last Documented VS:
Initial Vital Signs
Temp Pulse Resp BP Pulse Ox
98.4 F 77 18 90/54 94
06/14/25 14:09 06/14/25 14:09 06/14/25 14:09 06/14/25 14:09 06/14/25 14:09
Last Documented Vital Signs
Temp Pulse Resp BP Pulse Ox
98.3 F 77 16 113/92 94
06/15/25 07:30 06/15/25 07:30 06/15/25 07:30 06/15/25 07:30 06/15/25 07:35
MDM/Problems Addressed
MDM/Problems Addressed:
Ultrasound lower extremity: No evidence of DVT.
History and exam consistent with likely lower leg cellulitis, failing outpatient therapy, as patient recently completed course of doxycycline. As such, patient will be admitted for IV antibiotics.
*Pulse Oximetry
SaO2: 94
Oxygen Mode of Delivery: Room air
Patient hypoxic: no
*Critical Care Note
Total Time (30-74mins, 75-104mins- exclusive of procedures): Not Applicable
ED Attending Note
-
Portions of this chart may have been created with voice recognition software.� Occasional wrong word or��sound alike� substitutions may have occurred due to the inherent limitations of voice recognition software.
Discharge Plan
Departure
Patient Disposition: Admit
Date of Disposition: 06/14/25
Time of Disposition: 18:29
Admit to: Med/Surg
Presentation/result/management discussed w/ accepting MD/DO: Hospitalist
Discharge Problem:
Cellulitis
Interventions
Interventions:
*Risk Screen - Suicide Last Done: 06/14/25 14:09
*General Assessment Last Done: 06/14/25 14:09
*Neglect/Abuse Screening Last Done: 06/14/25 14:09
*ED- Fall Risk Assessment Last Done: 06/14/25 16:35
*ED COVID-19 Vaccine History Last Done: 06/14/25 16:35
*Nursing Disposition Last Done: 06/14/25 20:25
ED- Cardiac Assessment Last Done: 06/14/25 16:35
ED- Pulmonary Assessment Last Done: 06/14/25 16:35
ED-Peripheral Vascular Assessment Last Done: 06/14/25 16:35
ED-Skin Assessment Last Done: 06/14/25 16:35
Discharge Date and Time
Discharge Date/Time: 06/14/25 20:25
--- NOTE | 2025-06-14 18:46 | HPS.HSE ---
Addendum entered and electronically signed by Marge Morales MD 06/14/25 20:40:
This is an addendum to H&P written by Blank Hayes on 06/14/2025. �Patient seen and examined independently with DIGITAL FORENSICS INVESTIGATOR.
79-year-old female past medical history of COPD, HFpEF, GERD, depression/anxiety, left popliteal Real's cyst, neuropathy, B12 deficiency, hyperlipidemia, CAD, anxiety, restless leg syndrome, history of DVT, presenting with bilateral leg redness,
swelling and pain worse on the right side. �She completed doxycycline which she finished yesterday with some improvement but not completely.
Was diagnosed with bilateral DVTs earlier this month and started on Xarelto.
Vital signs normal.
Labs unremarkable. �Venous ultrasound showed resolution of DVTs.
Given vancomycin persistent cellulitis of of right lower extremity. �Changed to Ancef.� No DVTs anymore but can follow up with primary care doc regarding discontinuing Xarelto.�
Original Note:
Family Physician
-
Family Physician: Eugenio Ley MD
Chief Complaint
-
cellulitis failed out patient therapy
History of Present Illness
Patient is a 79-year-old female with past medical history significant for hyperlipidemia, HFpEF, COPD, GERD, depression/anxiety, peripheral polyneuropathy and restless leg syndrome who presented to [facility] for evaluation of at recommendation of DIGITAL FORENSICS INVESTIGATOR,
patient recently diagnosed with BLLE DVTs and started on Xarelto and lower extremity cellulitis. Patient reports primary started antibiotics for cellulitis, she finished prescribed doxycycline yesterday with some improvement. Patient states that
legs have improved significantly but she continues with edema, pain and itching even despite antibiotic treatment. Patient denies fever, chills, cough, shortness of breath, chest pain, nausea, vomiting, constipation, diarrhea and urinary symptoms.
Medical History
Past Medical History
Past Medical History: Reports Other
Additional Past Medical History:
hyperlipidemia
HFpEF
COPD
GERD
depression/anxiety
peripheral polyneuropathy
restless leg syndrome
Past Surgical History: Reports Other
Additional Past Surgical History:
second toe on left foot amputated 02/2021
Bilateral cataract surgery with lens implants
Appendectomy as a child
ORIF left wrist fracture
Right total shoulder replacement
Right total knee replacement
left 2nd toe amptutated 02/2021
Second toe amputation 06/2022
L5-S1 ILESI NO SED 12/25/22
LT C7-T1 ILESI NO SED 12.25.2022
B/L L5 TFESI NO SED 01/22/23
B/L L4-5,L5-S1 MBB NO SED MRSA PROTOCOL 02/19/2023 NDS
B/L L4-5,L5-S1 MBB NO SED 03/14/23
B/L L4-5, L5-S1 RFA WITH SED MSA PROTOCOL 04.11.23
B/L SIJI NO SED 01/07/24
robotic asst lap umbilical hernia repair with mesh ([facility]) 01/29/2025
Social History
Tobacco: Former Smoker (quit 5 years ago,, approximate 30 pack year history )
Alcohol: Occasional
Drug: None
Personal:
Living: Alone
Employment: Retired
Family History
Family History: Not pertinent
Allergies / Home Medications
Allergies reflects when Allergies were last updated in [employer].
Home Medications with original date entered in [employer]
Allergy/Medication List:
Allergies
Allergy/AdvReac Type Severity Reaction Status Date / Time
Penicillins Allergy Swelling Verified 06/14/25 14:09
sulfamethoxazole (From Allergy unknown, Verified 06/14/25 14:09
Bactrim) nursing
home
recored
tramadol Allergy Rash Verified 06/14/25 14:09
trimethoprim (From Bactrim) Allergy unknown, Verified 06/14/25 14:09
nursing
home
recored
Home Medications
atorvastatin 20 mg tablet 20 mg PO HS High cholesterol 05/22/22
escitalopram oxalate 10 mg tablet 10 mg PO DAILY Depression 05/22/22
cyanocobalamin (vitamin B-12) 1,000 mcg tablet 1,000 mcg PO DAILY defeciancy #0 tabs 07/08/22
gabapentin 100 mg capsule 100 mg PO HS neuropathic pain 09/04/23
metoprolol succinate 25 mg tablet,extended release 24 hr 12.5 mg (1/2 x 25 mg) PO BID #0 tabs 04/03/24
albuterol sulfate 90 mcg/actuation aerosol inhaler 2 puff inhalation R Q6HPRN PRN shortness of breath or wheezing 07/18/24
acetaminophen 325 mg tablet 650 mg PO Q6HPRN PRN mild pain/ fever>100F 08/21/24
ammonium lactate 12 % lotion (AmLactin) 1 applic topical DAILY b/l legs & left foot 09/25/24
famotidine 20 mg tablet 20 mg PO DAILY Gastrointestinal Issue 09/25/24
lorazepam 1 mg tablet 0.5 mg PO BIDPRN PRN anxiety 09/25/24
polyethylene glycol 3350 17 gram oral powder packet (Miralax) 17 g PO DAILYPRN PRN constipation 09/25/24
sennosides 8.6 mg-docusate sodium 50 mg tablet (Senna-S) 1 tab-cap PO [id number] PRN constipation 09/25/24
fluticasone propionate 50 mcg/actuation nasal spray,suspension 2 spray intranasal DAILYPRN PRN seasonal allergies 01/21/25
furosemide 20 mg tablet 20 mg PO DAILY Fluid Retention/Swelling 01/21/25
Lactobac no.2-Bifidobac no.1-S. thermo 112.5 billion cell capsule (Visbiome) 1 cap PO DAILY Supplement 04/06/25
cholecalciferol (vitamin D3) 25 mcg (1,000 unit) tablet 1,000 unit PO DAILY Supplement 04/06/25
ropinirole 1 mg tablet 1 mg PO QID Anti-Parkinson Agent 04/06/25
doxycycline hyclate 100 mg tablet 100 mg PO BID 06/14/25
fluticasone 232mcg-salmeterol 14mcg/actuation breath act,powder sensor (AirDuo Digihaler) 1 inh inhalation R BID 06/14/25
meclizine 25 mg tablet 25 mg PO Q8HPRN PRN dizziness 06/14/25
oxycodone 5 mg tablet 5 mg PO [id number] PRN severe pains 06/14/25
rivaroxaban 15 mg tablet (Xarelto) 15 mg PO BID 06/14/25
Review of Systems
-
History Source: Patient
Constitutional: Reports No Symptoms
EENT: Reports No Symptoms
Respiratory: Reports No Symptoms
Cardiac: Reports No Symptoms
Abdomen/GI: Reports No Symptoms
: Reports No Symptoms
Musculoskeletal: Reports Other (BLLE edema, pain and itching )
Skin: Reports No Symptoms
Neurological: Reports No Symptoms
Endocrine: Reports No Symptoms
Hematologic/Lymphatic: Reports No Symptoms
Psych: Reports No Symptoms
Physical Exam
Vital Signs
Vital Signs
Temp Pulse Resp BP Pulse Ox
98.4 F 77 24 123/72 94
06/14/25 14:09 06/14/25 17:30 06/14/25 17:30 06/14/25 16:47 06/14/25 16:56
Physical Exam
General: Well Developed, Well Nourished, No Apparent Distress, Comfortable, Conversant and Obese
HEENT: NormoCephalic, Moist mucous membranes and Atraumatic
Respiratory: Clear and Non Labored Respirations
Cardiac: S1/S2 and Regular Rhythm; No Murmur, Rub or Gallop
GI: Soft, Non Tender, Non Distended and Normal Bowel Sounds; No Organomegaly
Rectal: Deferred by Provider
Musculoskeletal: No Clubbing, No Cyanosis and Other (BLLE edematous, erythema, pain and itching, R>L)
Skin: Warm, IV/Catheter Site and Other (BLLE edematous, erythema, pain and itching, R>L)
Neuro: Awake, AO x 3 and Nonfocal/grossly intact
Psych: Calm and Intact Judgment/Insight
Laboratory Results
-
06/14/25 14:24
06/14/25 14:24
Laboratory Results
Total Bilirubin 0.6 mg/dl (0.2-1.3) 06/14/25 14:24
AST 20 U/L (14-36) 06/14/25 14:24
ALT 18 U/L (0-35) 06/14/25 14:24
Alkaline Phosphatase 97 U/L (38-126) 06/14/25 14:24
Data Reviewed
-
Ultrasound: Report Reviewed by me (BLLE US: No sonographic evidence for lower extremity venous thrombosis.)
Lab Data: Labs Reviewed by me
Impression/Plan
-
IMPRESSION/PLAN:
#cellulitis
treated with Doxycycline out patient and completed yesterday, improvement in right leg
BLLE US: No sonographic evidence for lower extremity venous thrombosis.
- Admit to med/surg
- IV Ancef
- supportive care
#Hx DVT
diagnosed 06/08/2025
- continue Xarelto
#hyperlipidemia
- continue atorvastatin
#HFpEF
- daily weights
- I & Os
- continue furosemide
#COPD
- continue albuterol and fluticasone
#GERD
- continue famotidine
#depression/anxiety
- continue escitalopram and lorazepam
#peripheral polyneuropathy
- continue gabapentin
#restless leg syndrome
- continue ropinirole
Code status: full code
DVT prophylaxis: Xarelto
[2025-06-14] MEDS: REQUIP 1 MG PO ×2 (18:49→23:08)
[2025-06-14] MEDS: VANCOCIN 540 MG IV (18:50)
[2025-06-14] MEDS: TYLENOL 650 MG PO (19:46)
[2025-06-14 20:46] VITALS: BMI 30.1
[2025-06-14 20:47] VITALS: BP 108/61
[2025-06-14 21:34] VITALS: BMI 31.8
[2025-06-14] MEDS: ADVAIR HFA 230/21 MCG INHALER 2 PUFF INH (21:38)
[2025-06-14] MEDS: ANCEF 5 IV (22:09)
[2025-06-14] MEDS: NEURONTIN 100 MG PO (22:13)
[2025-06-14] MEDS: TOPROL XL 12.5 MG PO (22:13)
[2025-06-14] MEDS: LIPITOR 20 MG PO (22:13)
[2025-06-14] MEDS: XARELTO 15 MG PO (22:13)
[2025-06-14 23:21] VITALS: BP 174/67
[2025-06-15] MEDS: ANCEF 5 IV ×3 (05:42→21:54)
[2025-06-15] MEDS: TYLENOL 650 MG PO (05:43)
[2025-06-15 06:57] LABS: Hematocrit 32.0 % (37.0-47.0); Hemoglobin 10.3 g/dL (12.0-16.0); Mean Corp Hgb Conc. 32.2 g/dL (33.0-37.0); Mean Corpuscular Volume 91.4 fL (81.0-99.0); Platelet Count 224 10^3/uL (130-400); Red Cell Dist. Width 14.6 % (11.5-14.5)
[2025-06-15 07:20] LABS: Blood Urea Nitrogen 23 mg/dl (7-17); Calcium 9.1 mg/dl (8.4-10.2); Carbon Dioxide 25 mmol/L (22-30); Chloride 109 mmol/L (98-107); Estimated Creatinine Clearance 64 ml/min; Glucose 105 mg/dl (70-99); Potassium 4.0 mmol/L (3.5-5.1); Sodium 141 mmol/L (135-145); eGFR > 60.00
[2025-06-15] MEDS: ADVAIR HFA 230/21 MCG INHALER 2 PUFF INH ×2 (07:23→20:04)
[2025-06-15 07:30] VITALS: BP 113/92
[2025-06-15] MEDS: PEPCID 20 MG PO (07:33)
[2025-06-15] MEDS: LEXAPRO 10 MG PO (07:33)
[2025-06-15] MEDS: VISBIOME 1 CAP PO (07:33)
[2025-06-15] MEDS: TOPROL XL 12.5 MG PO ×2 (07:33→20:14)
[2025-06-15] MEDS: VITAMIN B-12 1000 MCG PO (07:33)
[2025-06-15] MEDS: XARELTO 15 MG PO ×2 (07:34→20:14)
[2025-06-15] MEDS: VITAMIN D3 (cholecalciferol) 25 MCG PO (07:34)
[2025-06-15] MEDS: LASIX 20 MG PO (07:35)
[2025-06-15] MEDS: LAC HYDRIN, AM LACTIN LOTION 1 APPLIC TOPICAL (07:35)
[2025-06-15] MEDS: REQUIP 1 MG PO ×4 (07:44→21:54)
--- NOTE | 2025-06-15 08:16 | W.PN.HOSP.TC ---
Today's Communication/Plan
-
Continue antibiotics
See plan
Assessment / Plan
Assessment / Plan
Physical Exam
General: Well Developed, Well Nourished, No Apparent Distress, Comfortable, Conversant and Obese
HEENT: Normocephalic, Moist mucous membranes
Respiratory: Clear to Auscultation Bilaterally
Cardiac: S1/S2 and Regular Rhythm
GI: Soft, Non Tender, Non Distended and Normal Bowel Sounds
Musculoskeletal: No Cyanosis and Other (BLLE edematous, erythema, pain and itching, R>L)
Skin: Warm, IV/Catheter Site and Other (BLLE edematous, erythema, pain and itching, R>L)
Neuro: Awake, AO x 3 and Nonfocal/grossly intact
Psych: Calm and Intact Judgment/Insight
Assessment/Plan
79-year-old female with past medical history significant for hyperlipidemia, HFpEF, COPD, GERD, depression/anxiety, peripheral polyneuropathy and restless leg syndrome who presented to [facility] for evaluation at recommendation of CLAIMS VICE PRESIDENT, patient recently
diagnosed with bilateral LE DVTs and started on Xarelto and lower extremity cellulitis. Patient reported that her primary care provider started her on antibiotics for cellulitis, she finished prescribed doxycycline 06/13/25 with some improvement.
Patient stated that her legs have improved significantly but she continues with edema, pain and itching even despite antibiotic treatment. Patient denied fever, chills, cough, shortness of breath, chest pain, nausea, vomiting, constipation, diarrhea
and urinary symptoms. She completed doxycycline which she finished on 06/13/25 with some improvement but not completely.
#Presentation with bilateral leg redness, swelling and pain worse on the right side.
#cellulitis
treated with Doxycycline out patient and completed yesterday, improvement in right leg
BLLE US: No sonographic evidence for lower extremity venous thrombosis.
- Continue IV Ancef
- Follow MRSA swab result
- supportive care
#History of DVT
diagnosed 06/08/2025
- Venous ultrasound showed resolution of DVTs however the the right peroneal vein was not well visualized and there was limited evaluation of the right posterior tibial vein.
- Continue Xarelto
#hyperlipidemia
- continue atorvastatin
#HFpEF
- daily weights
- I & Os
- continue furosemide
#CAD
#Hyperlipidemia
#COPD
- continue albuterol and fluticasone
#GERD
- continue famotidine
#depression/anxiety
- continue escitalopram and lorazepam
#peripheral polyneuropathy
- continue gabapentin
#Vitamin B12 Deficiency
#left popliteal Real's cyst
#restless leg syndrome
- continue ropinirole
Code status: full code
DVT prophylaxis: Xarelto
Anticipated Discharge: 24 - 48 hours
Subjective/Interval History
-
Date of Service: June 15, 2025
Patient was seen and examined. She reported the redness symptoms in her legs are getting better.
Objective Data
-
Labs:
Laboratory Results
06/15/25
06:04
WBC 7.4
Hgb 10.3 L
Hct 32.0 L
Plt Count 224
Sodium 141
Potassium 4.0
Chloride 109 H
Carbon Dioxide 25
BUN 23 H
Creatinine 0.7
Glucose 105 H
Calcium 9.1
Vital Signs:
Vital Signs
Temp Pulse Resp BP Pulse Ox
98.3 F 77 16 113/92 94
06/15/25 07:30 06/15/25 07:30 06/15/25 07:30 06/15/25 07:30 06/15/25 07:35
--- NOTE | 2025-06-15 11:41 | CM ---
Patient seen at bedside
Dx: Cellulitis
IA completed
BOWEN form explained & signed. In chart
Patient resides at [facility]
spoke with Betty from [facility]
PLOF: independent with walker, motorized scooter for longer distances
DME: Walker, cane, shower chair
denies VN/has been at [facility] in past
Denies insecurities
PCP: Eugenio Ley
Pharmacy: [facility], [facility] mail-in
PLAN: return to [facility] when stable
[place] report #: [phone] Fax #: [phone]
[2025-06-15 16:23] VITALS: BP 149/59
[2025-06-15] MEDS: LIPITOR 20 MG PO (21:54)
[2025-06-15] MEDS: NEURONTIN 100 MG PO (21:54)
[2025-06-15 23:00] VITALS: BP 137/71
[2025-06-16] MEDS: TYLENOL 650 MG PO (04:38)
[2025-06-16 06:00] VITALS: BMI 31.7
[2025-06-16] MEDS: ANCEF 5 IV ×2 (06:28→14:27)
[2025-06-16 07:00] VITALS: BP 113/52
[2025-06-16 07:19] LABS: Hematocrit 32.8 % (37.0-47.0); Hemoglobin 10.6 g/dL (12.0-16.0); Mean Corp Hgb Conc. 32.3 g/dL (33.0-37.0); Mean Corpuscular Volume 91.1 fL (81.0-99.0); Platelet Count 251 10^3/uL (130-400); Red Cell Dist. Width 14.5 % (11.5-14.5)
[2025-06-16 07:54] LABS: Blood Urea Nitrogen 20 mg/dl (7-17); Calcium 9.5 mg/dl (8.4-10.2); Carbon Dioxide 26 mmol/L (22-30); Chloride 106 mmol/L (98-107); Estimated Creatinine Clearance 64 ml/min; Glucose 106 mg/dl (70-99); Potassium 4.2 mmol/L (3.5-5.1); Sodium 139 mmol/L (135-145); eGFR > 60.00
[2025-06-16] MEDS: ADVAIR HFA 230/21 MCG INHALER 2 PUFF INH (07:56)
[2025-06-16] MEDS: TOPROL XL 12.5 MG PO (08:59)
[2025-06-16] MEDS: LASIX 20 MG PO (08:59)
[2025-06-16] MEDS: VITAMIN D3 (cholecalciferol) 25 MCG PO (08:59)
[2025-06-16] MEDS: LEXAPRO 10 MG PO (08:59)
[2025-06-16] MEDS: VITAMIN B-12 1000 MCG PO (09:00)
[2025-06-16] MEDS: REQUIP 1 MG PO ×3 (09:00→17:17)
[2025-06-16] MEDS: VISBIOME 1 CAP PO (09:00)
[2025-06-16] MEDS: PEPCID 20 MG PO (09:00)
[2025-06-16] MEDS: XARELTO 15 MG PO (09:00)
[2025-06-16] MEDS: LAC HYDRIN, AM LACTIN LOTION 1 APPLIC TOPICAL (09:02)
--- NOTE | 2025-06-16 11:48 | W.PN.HOSP.TC ---
Addendum entered and electronically signed by Tucker Townsend MD 06/16/25 15:23:
Given patient's penicillin allergy (swelling in her face when she was a child, no other issues according to the patient), concern whether okay to do Cephalexin on discharge. Based on review of patient's records, patient tolerated Cephalexin in the
past (she was prescribed it in May 2024 and tolerated it). I spoke to the patient today and she said that when she took Cephalexin last year after her May 2024 hospitalization, she tolerated the Cephalexin well without any issues.
I discussed this with clinical pharmacist Anyi Castro, and I agreed with her that in general, it is okay to give the Cephalexin in patients with penicillin allergy except in certain cases (this case is not one of those certain cases). We also
discussed how patient has tolerated Cephalexin before in 2023 so good to give the Cephalexin on discharge.
Patient is agreeable to getting Cephalexin on discharge.
Original Note:
Today's Communication/Plan
-
Discharge today
Assessment / Plan
Assessment / Plan
Physical Exam
General: Not in acute distress
HEENT: Normocephalic, Moist mucous membranes
Respiratory: Clear to Auscultation Bilaterally
Cardiac: S1/S2 and Regular Rhythm
GI: Soft, Non Tender, Non Distended and Normal Bowel Sounds
Musculoskeletal: No Cyanosis and Other (BLLE edematous, erythema, pain and itching, R>L -- IMPROVED)
Skin: Warm, IV/Catheter Site and Other (BLLE edematous, erythema, pain and itching, R>L -- IMPROVED)
Neuro: Awake, AO x 3 and Nonfocal/grossly intact
Psych: Calm and Intact Judgment/Insight
Assessment/Plan
79-year-old female with past medical history significant for hyperlipidemia, HFpEF, COPD, GERD, depression/anxiety, peripheral polyneuropathy and restless leg syndrome who presented to [facility] ED for evaluation at recommendation of [employer]ES, patient recently
diagnosed with bilateral LE DVTs and started on Xarelto and lower extremity cellulitis. Patient reported that her primary care provider started her on antibiotics for cellulitis, she finished prescribed doxycycline 06/13/25 with some improvement.
Patient stated that her legs have improved significantly but she continues with edema, pain and itching even despite antibiotic treatment. Patient denied fever, chills, cough, shortness of breath, chest pain, nausea, vomiting, constipation, diarrhea
and urinary symptoms. She completed doxycycline which she finished on 06/13/25 with some improvement but not completely.
#Presentation with bilateral leg redness, swelling and pain worse on the right side.
#Cellulitis
treated with Doxycycline out patient and completed yesterday, improvement in right leg
BLLE US: No sonographic evidence for lower extremity venous thrombosis.
- Continue IV Ancef while inpatient
- MRSA swab is negative
- On discharge, will do Cephalexin 500 mg 4 times daily for 12 more days -- patient would need to see her primary care provider before then, and then primary care provider could decide whether the antibiotics can be stopped
sooner than 12 more days depending on how patient appears
#History of DVT
diagnosed 06/08/2025
- Venous ultrasound showed resolution of DVTs however the the right peroneal vein was not well visualized and there was limited evaluation of the right posterior tibial vein.
- Continue Xarelto 15 mg BID -- will need to continue for a total of 21 days since starting this 15 mg BID dose -- but likely starting on 06/30/25 will need to switch to 20 mg once daily with food
- Discuss Xarelto regimen with primary care provider
#hyperlipidemia
- continue atorvastatin
#HFpEF
- daily weights
- I & Os
- continue furosemide
#CAD
#Hyperlipidemia
#COPD
- continue albuterol and fluticasone
#GERD
- continue famotidine
#depression/anxiety
- continue escitalopram and lorazepam
#peripheral polyneuropathy
- continue gabapentin
#Vitamin B12 Deficiency
#left popliteal Real's cyst
#restless leg syndrome
- continue ropinirole
Code status: full code
DVT prophylaxis: Xarelto
More than 30 minutes spent in discharge including
Final examination of the patient
Summarizing hospital stay
Instructions for continuing care to all relevant caregivers
Preparation of discharge records, prescriptions, and referral forms
Total time spent (in minutes): 36
Anticipated Discharge: Today
Subjective/Interval History
-
Date of Service: June 16, 2025
Patient was seen and examined. She reported that the redness and swelling in her legs have gotten much better and she would like to go home today.
Objective Data
-
Labs:
Laboratory Results
06/16/25
06:57
WBC 10.0
Hgb 10.6 L
Hct 32.8 L
Plt Count 251
Sodium 139
Potassium 4.2
Chloride 106
Carbon Dioxide 26
BUN 20 H
Creatinine 0.7
Glucose 106 H
Calcium 9.5
Vital Signs:
Vital Signs
Temp Pulse Resp BP Pulse Ox
97.8 F 67 18 113/52 94
06/16/25 07:00 06/16/25 08:59 06/16/25 07:59 06/16/25 08:59 06/16/25 07:59
I&O
06/15/25 06/16/25 06/17/25
06:59 06:59 06:59
Intake Total 630 / 630
Balance 630 / 630
--- NOTE | 2025-06-16 11:52 | CM ---
Addendum entered by Leanna Leblanc 06/16/25 15:42:
patient discharged today
spoke with María at [facility] and updated
PLAN: return to [facility] today
[place] report #: [phone] Fax #: [phone]
wheelchair van to transport
Original Note:
Patient seen at bedside
Peripheral vascular US done
Patient from [facility]
PLAN: Return to [facility] when stable
patient request [facility] van to transport
[2025-06-16 15:00] VITALS: BP 133/57
--- NOTE | 2025-06-16 15:26 | W.DCSUMMARY ---
Discharge Summary
Discharge Data
Date of Admission: 06/14/25
Date of Discharge: 06/16/25
Total time spent discharging patient (in min): 36
-
Pending Results: No
Hospital Course
79-year-old female with past medical history of COPD, HFpEF, GERD, depression/anxiety, left popliteal Real's cyst, neuropathy, B12 deficiency, hyperlipidemia, CAD, anxiety, restless leg syndrome, recently diagnosed bilateral DVTs on June 08, 2025
(is on home Xarelto), presented with bilateral leg redness, swelling and pain worse on the right side. She completed doxycycline which she finished yesterday with some improvement but not completely. Patient was initially given Vancomycin but later
switched to Cefazolin. Patient had another bilateral lower extremity ultrasound this hospitalization, and it showed no DVTs. Patient's cellulitis improved and she was feeling much better, according to her.
Given patient's penicillin allergy (swelling -- after pencillin exposure -- in her face when she was a child, no other issues after that, according to the patient), there was a concern whether it was okay to do Cephalexin on discharge. Based on
review of patient's records, patient tolerated Cephalexin in the past (she was prescribed it in May 2024 and tolerated it). This hospitalization, patient stated that when she took Cephalexin last year after her May 2024 hospitalization, she
tolerated well the Cephalexin, without any issues and without any facial swelling, shortness of breath or any throat swelling/rash. Patient this hospitalization, after the above was discussed with her, was agreeable to getting Cephalexin on
discharge.
Discharge Plan
-
Patient Disposition: Home (Routine Discharge)
Discharge Diagnosis/Procedures: #Presentation with bilateral leg redness, swelling and pain worse on the right side
#Cellulitis
#History of DVT -- diagnosed on 06/08/2025
#Hyperlipidemia
#HFpEF
#CAD
#Hyperlipidemia
#COPD
#GERD
#Depression/anxiety
#Peripheral polyneuropathy
#Vitamin B12 Deficiency
#Left popliteal Real's cyst
#Restless leg syndrome
Condition: Good
Diet: Low Fat, Low Cholesterol and Low Sodium
Activity: As tolerated
Specialty Instructions: Weigh Daily- Call MD for wt gain/loss 3 lbs overnight/5 lbs in 1 week
Activity Restrictions/Additional Instructions:
Please see your primary care provider (Dr. Ley) by 06/17/25 or 06/18/25 so that he can take a look at your cellulitis to make sure it is improving. You are being sent on 12 more days of antibiotics -- but if your cellulitis improves significantly
before then, your antibiotics may be able to be stopped by Dr. Ley sooner.
If your leg redness and swelling do not improve or get worse, or if you have fever, chills, dizziness, swelling, shortness of breath or any other new symptoms, please return to the emergency room right away.
Referrals:
Eugenio Ley MD [Family Provider, Family Practice] - in one to two days
Referral Note: Hospitalization and Cellulitis Follow-Up
Additional Discharge Medication Instructions: Cephalexin is a new antibiotic (you also took this antibiotic last year after your May 2024 hospitalization and you were fine taking it)
Remember that your Xarelto dose will change starting around 06/30/25 -- discuss this with your primary care physician Dr. Ley
Prescriptions:
New
cephalexin 500 mg tablet
500 mg PO QID 12 Days Qty: 48 0RF
Continued
atorvastatin 20 mg tablet
20 mg PO HS
escitalopram oxalate 10 mg tablet
10 mg PO DAILY
cyanocobalamin (vitamin B-12) 1,000 mcg Tablet
1,000 mcg PO DAILY Qty: 0 0RF
gabapentin 100 mg capsule
100 mg PO HS
metoprolol succinate 25 mg Tablet Extended Release 24 Hr
12.5 mg PO BID Qty: 0 0RF
albuterol sulfate 90 mcg/actuation HFA aerosol inhaler
2 puff inhalation R Q6HPRN PRN (Reason: shortness of breath or wheezing)
acetaminophen 325 mg tablet
650 mg PO Q6HPRN PRN (Reason: mild pain/ fever>100F)
ammonium lactate [AmLactin] 12 % Lotion
1 applic TOPICAL DAILY
polyethylene glycol 3350 [Miralax] 17 gram Powder In Packet
17 g PO DAILYPRN PRN (Reason: constipation)
sennosides-docusate sodium [Senna-S] 8.6-50 mg Tablet
1 tab-cap PO [id number] PRN (Reason: constipation)
famotidine 20 mg Tablet
20 mg PO DAILY
lorazepam 1 mg tablet
0.5 mg PO BIDPRN PRN (Reason: anxiety)
furosemide 20 mg Tablet
20 mg PO DAILY
fluticasone propionate 50 mcg/actuation [place],Suspension
2 spray INTRANASAL DAILYPRN PRN (Reason: seasonal allergies)
Visbiome 112.5 billion cell Capsule
1 cap PO DAILY
ropinirole 1 mg tablet
1 mg PO QID
cholecalciferol (vitamin D3) 25 mcg (1,000 unit) tablet
1,000 unit PO DAILY
meclizine 25 mg Tablet
25 mg PO Q8HPRN PRN (Reason: dizziness)
oxycodone 5 mg Tablet
5 mg PO [id number] PRN (Reason: severe pains)
rivaroxaban [Xarelto] 15 mg Tablet
15 mg PO BID
Rx Instructions:
15mg bid until 06/29/25 then 20mg qpm
AirDuo Digihaler 232-14 mcg/actuation Aero Powdr Breath Act W/Sensor
1 inh INHALATION R BID
Discontinued
doxycycline hyclate 100 mg Tablet
100 mg PO BID
Rx Instructions:
for 7 days until 06/15/25
Discharge Orders:
Discharge Patient (As Directed); Ordered 06/16/25
Ordered By: Tucker Townsend
Discharge Date and Time
Discharge Date/Time: 06/16/25 19:52
Print Language: SAMMARINESE
[2025-06-16] MEDS: KEFLEX 500 MG PO (17:16)
[2025-06-16 18:35] VITALS: BP 141/60
== END 2025-06-16 19:52 | disposition home or self-care (01) ==
LOC: 3 WEST ACU 20:10
PROVIDERS: Nurse Practitioner Family; ADMITTING PHYSICIAN Hospitalist; ATTENDING PHYSICIAN Hospitalist; EMERGENCY PHYSICIAN Emergency Medicine; FAMILY PHYSICIAN Family Medicine
DX: L03.116 Cellulitis of left lower limb (principal); L03.115 Cellulitis of right lower limb; J44.9 Chronic obstructive pulmonary disease, unspecified; M71.22 Synovial cyst of popliteal space [Baker], left knee; I50.32 Chronic diastolic (congestive) heart failure; K21.9 Gastro-esophageal reflux disease without esophagitis; F41.9 Anxiety disorder, unspecified; F32.A Depression, unspecified; G62.9 Polyneuropathy, unspecified; G25.81 Restless legs syndrome; I25.10 Atherosclerotic heart disease of native coronary artery without angina pectoris; I11.0 Hypertensive heart disease with heart failure; E53.8 Deficiency of other specified B group vitamins; E78.00 Pure hypercholesterolemia, unspecified; Z79.01 Long term (current) use of anticoagulants; Z79.899 Other long term (current) drug therapy; Z86.718 Personal history of other venous thrombosis and embolism; Z87.891 Personal history of nicotine dependence
CPT/HCPCS: 80048; 80053; 85025; 85027; 87070; 93970; 93971; 94640; 96374; 99285; G0378

== ENCOUNTER 2025-07-31 22:47 | Inpatient (IN) | payer OTHER, SELFPAY ==
[2025-07-31 20:09] VITALS: BMI 31.1
[2025-07-31 20:10] VITALS: BP 150/83
[2025-07-31 20:30] LABS: Hematocrit 32.0 % (37.0-47.0); Hemoglobin 10.4 g/dL (12.0-16.0); Mean Corp Hgb Conc. 32.5 g/dL (33.0-37.0); Mean Corpuscular Volume 91.2 fL (81.0-99.0); Nucleated Red Blood Cells % 0 %; Platelet Count 237 10^3/uL (130-400); Red Cell Dist. Width 14.8 % (11.5-14.5)
[2025-07-31 20:53] LABS: Urine Character Clear (Clear)
[2025-07-31 21:00] VITALS: BP 145/112
[2025-07-31 21:04] LABS: ALT (SGPT) 20 U/L (0-35); AST (SGOT) 24 U/L (14-36); Albumin 4.3 g/dl (3.5-5.0); Alkaline Phosphatase 82 U/L (38-126); Blood Urea Nitrogen 24 mg/dl (7-17); Calcium 9.1 mg/dl (8.4-10.2); Carbon Dioxide 28 mmol/L (22-30); Chloride 103 mmol/L (98-107); Estimated Creatinine Clearance 37 ml/min; Glucose 115 mg/dl (70-99); Potassium 4.8 mmol/L (3.5-5.1); Sodium 138 mmol/L (135-145); Total Protein 7.8 g/dl (6.3-8.2); eGFR 45.19
[2025-07-31 21:06] LABS: COVID-19 Antigen Negative (Negative)
[2025-07-31 21:15] LABS: Urine Squamous Cell 21-25 /LPF (Few)
[2025-07-31 21:18] LABS: Urine Red Blood Cell None Seen /HPF (0-2); Urine White Cell 0-2 /HPF (0-5)
--- NOTE | 2025-07-31 21:50 | ED.GENMED ---
History of Present Illness
General
Chief Complaint: Breathing Problem
Source: patient
Exam Limitations: none
Time Seen by Provider: 07/31/25 20:10
History of Present Illness
History of Present Illness:
Patient presents with shortness of breath hypoxia general weakness. Progressive over 24 hours. Room air pulse ox 83% on medic arrival. No urinary symptoms.
Past History
Past History
ED Past Medical History: CHF, COPD, HTN, Hypercholesterolemia, Psychiatric (Anxiety, Depression) and Other (OA, Restless leg syndrome, Incontinence)
ED Past Surgical History: Orthopedic (Mati second Toe amputation, Right Total knee replacement, Right shoulder replacement, Mati carpal tunnel) and Other (cataracts, )
PSI?: No
Social History
Tobacco: Former smoker
Alcohol: Occasional
Drug: None
Personal:
Living: assisted living
Employment: Retired
Review of Systems
Review of Systems
All Other Systems: Not applicable
Constitutional: Reports fever
Cardiac: Denies chest pain
ABD/GI: Reports no symptoms
: Reports no symptoms
Phy Exam
Physical Exam
Physical Exam:
GENERAL: Alert and oriented in no apparent distress. Elderly and frail. Generally weak
EYE: Orbits normal.
NECK: Supple, no significant adenopathy.
ENT: Pharynx without erythema
CARDIAC: Regular rate and rhythm without any obvious murmurs.
LUNGS: Mild tachypnea. Borderline pulse ox's. Some rhonchi and decreased breath sounds
ABDOMEN: Soft, without focal tenderness or distention
NEUROLOGICAL: Alert and oriented , grossly non-focal
SKIN: Warm and dry, no rash or lesion, no discoloration, skin intact.
MUSCULOSKELETAL: Chronic erythema to both lower extremities with a dressing to the right posterior foot. Some warmth.
PSYCH: Normal and appropriate interaction.
Scores
Heart Failure Risk
Heart Failure Risk Score: Not Applicable
Sepsis
Sepsis Screening
Sepsis Assessment: Sepsis Ruled Out
Sepsis Screen
Sepsis Screen: Sepsis Ruled Out
Date: 08/03/25
Time: 08:03
Course
Orders/Labs/Results
Orders:
Orders
07/31/25 20:16
Electrocardiogram (*1) Urgent
Reason for Study: Other
Other Reason for Exam: Possible Sepsis
Cardiac Monitoring- Treatment ONCE
EKG- Treatment ONCE
IV Insert/Care/Rem.- Treatment PRN
Straight cath- Treatment ONCE
O2 Therapy [RESP] Urgent
Titrate/Wean O2 to maintain O2 sat greater than (%): 93
Special Instructions: TO MAINTAIN CONTINUOUS O2 SATS > OR = 93%
Pulse Ox/cont/shift [RESP] Urgent
Quantity: 1
Special Instructions: CONTINUOUS
07/31/25 20:18
Complete Blood Count/With Diff Urgent
Comprehensive Metabolic Panel Urgent
Lactic Acid Q4H
Comment: ON ICE, CANCEL 2ND ORDER IF FIRST LACTIC ACID LEVEL <2
NT-proBNP Urgent
Comment: ADD ON
Urinalysis Reflex To Culture Urgent
Date Specimen was Collected: 07/31/25
Time Specimen was Collected: 20:16
Urine Microscopic Reflex Cult Urgent
Blood Culture Q20M
LILI Source: Blood/Venous
Specimen Description:
Comment: Urgent from separate sites. If patient screens positive for possible sepsis
Blood Culture Q20M
LILI Source: Blood/Venous
Specimen Description:
Comment: Urgent from separate sites. If patient screens positive for possible sepsis
07/31/25 20:25
COVID-19 Antigen Urgent
Source: Nasal Swab
Influenza A+B Rapid Molecular Urgent
LILI Source: Nasal Swab
Specimen Description:
07/31/25 20:29
CXR2 [CR Chest - 2 Views ] Urgent
Comment:
Reason For Exam: Short of breath/fever
07/31/25 21:53
Acetaminophen [Tylenol] 650 mg PO NOW STA
07/31/25 21:55
CefTRIAXone [Rocephin] 1,000 mg IV NOW STA
07/31/25 21:56
Doxycycline Hyclate [Vibramycin] 100 mg 0.9% Sodium Chloride 250 ml [Nss] 250 ml IV NOW
07/31/25 22:[address] Non Medication Order As Directed
Physician Order: please complete med rec. thanks
Above order entered?: Yes
07/31/25 22:[address] Non Medication Order As Directed
Physician Order: please complete med rec. thanks
Above order entered?: Yes
07/31/25 22:09
Add On- LAB Stat
Tests Added?: BNP
07/31/25 22:28
Admit/Transfer Patient As Directed
Co-Sign Provider:
Level of Care: Inpatient admission
Assign to:: Medical/Surgical
Physician / Group: maximiliano sorto
Diagnosis: acute hypoxia
Reason for Hospitalization: acute hypoxia
Expected length of stay greater than two midnights?: Yes
ELOS- Estimated Length of Stay in days: 3
I certify the patient meets the requirements for IP care: Yes
PRN Pain Medication Management As Directed
May give lesser potent ordered pain med per pt: Yes
preference::
Protocol:: Medication orders for pain may be administered in a
manner that supports deferring to patient preference
when the pt is:
- Requesting an ordered lesser potent pain medication.
Least to most potent pain medications are defined
as: acetaminophen < NSAID < tramadol < opioids
(morphine, oxycodone, hydromorphone).
- Requesting a lesser dose of the same medication IF
ORDERED.
- Requesting a less intrusive route of administration
if both routes are prescribed by the provider (PO <
IV).
07/31/25 22:30
Code Status As Directed
Resuscitation Status: Full Code
07/31/25 23:00
0.9% Sodium Chloride 500 ml [Nss] 500 ml IV 40 mls/hr
08/01/25 00:57
Acetaminophen [Tylenol] 650 mg PO Q4HPRN PRN
Ipratropium/Albuterol Sulfate [Duoneb] 3 ml INH R Q4HPRN PRN
Lorazepam [Ativan] 0.5 mg PO BIDPRN PRN anxiety
Oxycodone [Roxicodone] 5 mg PO [id number] PRN severe pains
08/01/25 00:57
Consult Notification Routine
Specialty to Notify: Infectious Disease
Date consulting provider notified: 08/01/25
Time consulting provider notified: 07:57
Notified:: Provider
Comment: TT'd Physician On-Call(Emiliano)
INFECTIOUS DISEASE CONSULT Routine
Consulting Provider: Mitzi Cummings
Was physician already notified: No
Reason for consult: cellulitis.
Activity As Directed
Activity Level: As Tolerated
Intake/ Output As Directed
Frequency: Per unit guidelines
Vital Signs As Directed
Frequency: Per unit guidelines
Weight As Directed
Frequency: Daily
Copd Education [RESP] Routine
O2 Therapy [RESP] Routine
Titrate/Wean O2 to maintain O2 sat greater than (%): 92
Special Instructions: adjust, if necessary, to avoid hyperoxia in CO2 retainers.
Use High Flow O2 if necessary
Pt Eval And Treat Routine
Activity Level: As Tolerated
08/01/25 01:45
Dexamethasone Sod Phosphate [Decadron] 2 mg IV Q12@0000,1200
08/01/25 05:24
Basic Metabolic Panel IN AM
Complete Blood Count/With Diff IN AM
08/01/25 Breakfast
Cholesterol Lowering
At Your Request: Non-Participating
Cholesterol Lowering: Sodium, 2 Gram
CeFAZolin 1 GRAM [Ancef] 1 gram in 5 ml IV Q8H
08/01/25 08:00
Escitalopram Oxalate [Lexapro] 10 mg PO DAILY
Famotidine [Pepcid] 20 mg PO DAILY
Ipratropium/Albuterol Sulfate [Duoneb] 3 ml INH R QID
Metoprolol Xl [Toprol Xl] 12.5 mg PO BID
Rivaroxaban [Xarelto] 15 mg PO BID
Ropinirole [Requip] 1 mg PO QID
08/01/25 22:00
Atorvastatin [Lipitor] 20 mg PO HS
Gabapentin [Neurontin] 100 mg PO HS
08/02/25 05:27
Basic Metabolic Panel IN AM
Complete Blood Count/With Diff IN AM
08/03/25 07:00
Basic Metabolic Panel IN AM
Complete Blood Count/With Diff IN AM
08/04/25 06:00
Basic Metabolic Panel IN AM
Complete Blood Count/With Diff IN AM
08/05/25 06:00
Basic Metabolic Panel IN AM
Abnormal Lab Results
07/31/25
20:18
WBC 13.4 H 10^3/uL
(4.8-10.8)
RBC 3.51 L 10^6/uL
(4.20-5.40)
Hgb 10.4 L g/dL
(12.0-16.0)
Hct 32.0 L %
(37.0-47.0)
MCHC 32.5 L g/dL
(33.0-37.0)
RDW 14.8 H %
(11.5-14.5)
Abs Immat Gran (auto) 0.1 H 10^3/uL
(0-0.05)
Absolute Neuts (auto) 11.3 H 10^3/uL
(1.4-6.5)
Absolute Lymphs (auto) 0.7 L 10^3/uL
(1.2-3.4)
Absolute Monos (auto) 1.1 H 10^3/uL
(0.1-0.6)
Neutrophils % 84.5 H %
(42.2-75.2)
Lymphocytes % 5.2 L %
(20.5-51.1)
BUN 24 H mg/dl
(7-17)
Creatinine 1.2 H mg/dL
(0.6-1.0)
Glucose 115 H mg/dl
(70-99)
Urine Albumin (Reflex) 1+ A
(Neg - Trace)
07/31/25 20:18
07/31/25 20:18
Vital Signs
Initial and Last Documented VS:
Initial Vital Signs
Temp Pulse Resp BP Pulse Ox
102.2 F H 102 22 150/83 91
07/31/25 20:10 07/31/25 20:10 07/31/25 20:10 07/31/25 20:10 07/31/25 20:10
Last Documented Vital Signs
Temp Pulse Resp BP Pulse Ox
98.2 F 75 16 180/80 92
08/03/25 07:56 08/03/25 07:56 08/03/25 07:56 08/03/25 07:56 08/03/25 07:56
MDM/Problems Addressed
Differential Diagnosis Includes:
Fever/hypoxia. Respiratory symptoms. Leukocytosis. Admission for further care. COPD exacerbation
*Radiology
Radiology exam reviewed: preliminary read by ED provider (Questionable infiltrate left base)
*Pulse Oximetry
SaO2: 92
Oxygen Mode of Delivery: Room air
Patient hypoxic: yes
*Engineering Group Manager Interpretation
Rate: normal
Interpretation: normal
Heart Rate: 90
*Critical Care Note
Total Time (30-74mins, 75-104mins- exclusive of procedures): Not Applicable
Data Reviewed
Review of Other/Old Records Reveals: Labs, Records, Radiology Studies, Testing and Discharge Summary
ED Attending Note
-
Portions of this chart may have been created with voice recognition software.� Occasional wrong word or��sound alike� substitutions may have occurred due to the inherent limitations of voice recognition software.
Discharge Plan
Departure
Patient Disposition: Admit
Date of Disposition: 07/31/25
Time of Disposition: 21:57
Presentation/result/management discussed w/ accepting MD/DO: Hospitalist
Discharge Problem:
Fever/hypoxia, COPD exacerbation, Possible lower extremity cellulitis
Interventions
Interventions:
*Risk Screen - Suicide Last Done: 08/01/25 01:11
*General Assessment Last Done: 07/31/25 20:22
*Neglect/Abuse Screening Last Done: 07/31/25 20:22
*ED- Fall Risk Assessment Last Done: 07/31/25 20:22
*ED COVID-19 Vaccine History Last Done: 08/01/25 01:11
*Nursing Disposition Last Done: 08/01/25 00:46
ED- Cardiac Assessment Last Done: 07/31/25 20:51
ED- Pulmonary Assessment Last Done: 07/31/25 20:51
Discharge Date and Time
Discharge Date/Time: 08/01/25 01:00
[2025-07-31] MEDS: TYLENOL 650 MG PO (21:56)
--- NOTE | 2025-07-31 21:59 | HPS.HSE ---
Family Physician
-
Family Physician: Eugenio Ley MD
Chief Complaint
-
Short of breath, wheezing
History of Present Illness
80-year-old with past medical history of CHF, COPD, hypertension, hypercholesteremia, anxiety, depression, restless leg syndrome presented to us with shortness of breath since his evening. Patient stated wheezing and short of breath with exertion.
Patient denied any cough, congestion, fever or chills at home. Patient denies headache, dizziness or syncope. Patient denied any abdominal pain, nausea, vomiting or diarrhea. Patient denied dysuria,hematuria. Patient has a chronic right foot
wound. She was noted to have worsening redness swelling to bilateral lower extremities.
Upon arrival patient was hypoxic requiring 2 to 3 L of oxygen. Patient received a dose of Tylenol, ceftriaxone and Doxy in the ER. Admitted for further management
Medical History
Past Medical History
Past Medical History: Reports Other
Additional Past Medical History:
Anemia, hyperlipidemia, depression, anxiety, restless leg syndrome, insomnia, polyneuropathy, hypertension, diastolic CHF, COPD, cellulitis, osteoarthritis, spinal stenosis, disc degeneration, sciatica,
Past Surgical History: Reports Other
Additional Past Surgical History:
Second toe on left foot amputated, bilateral cataract surgery, appendectomy, ORIF of left wrist fracture, right total shoulder replacement, right total knee replacement, 2 hernia repair with mesh
Social History
Tobacco: Former Smoker
Alcohol: None
Living: Longterm
Family History
Family History: Not pertinent
Allergies / Home Medications
Allergies reflects when Allergies were last updated in [facility].
Home Medications with original date entered in [facility]
Allergy/Medication List:
Allergies
Allergy/AdvReac Type Severity Reaction Status Date / Time
Penicillins Allergy Swelling Verified 06/14/25 14:09
sulfamethoxazole (From Allergy unknown, Verified 06/14/25 14:09
Bactrim) nursing
home
recored
tramadol Allergy Rash Verified 06/14/25 14:09
trimethoprim (From Bactrim) Allergy unknown, Verified 06/14/25 14:09
nursing
home
recored
Home Medications
atorvastatin 20 mg tablet 20 mg PO HS High cholesterol 05/22/22
escitalopram oxalate 10 mg tablet 10 mg PO DAILY Depression 05/22/22
cyanocobalamin (vitamin B-12) 1,000 mcg tablet 1,000 mcg PO DAILY defeciancy #0 tabs 07/08/22
gabapentin 100 mg capsule 100 mg PO HS neuropathic pain 09/04/23
metoprolol succinate 25 mg tablet,extended release 24 hr 12.5 mg (1/2 x 25 mg) PO BID #0 tabs 04/03/24
albuterol sulfate 90 mcg/actuation aerosol inhaler 2 puff inhalation R Q6HPRN PRN shortness of breath or wheezing 07/18/24
acetaminophen 325 mg tablet 650 mg PO Q6HPRN PRN mild pain/ fever>100F 08/21/24
ammonium lactate 12 % lotion (AmLactin) 1 applic topical DAILY b/l legs & left foot 09/25/24
famotidine 20 mg tablet 20 mg PO DAILY Gastrointestinal Issue 09/25/24
lorazepam 1 mg tablet 0.5 mg PO BIDPRN PRN anxiety 09/25/24
polyethylene glycol 3350 17 gram oral powder packet (Miralax) 17 g PO DAILYPRN PRN constipation 09/25/24
sennosides 8.6 mg-docusate sodium 50 mg tablet (Senna-S) 1 tab-cap PO [id number] PRN constipation 09/25/24
fluticasone propionate 50 mcg/actuation nasal spray,suspension 2 spray intranasal DAILYPRN PRN seasonal allergies 01/21/25
furosemide 20 mg tablet 20 mg PO DAILY Fluid Retention/Swelling 01/21/25
Lactobac no.2-Bifidobac no.1-S. thermo 112.5 billion cell capsule (Visbiome) 1 cap PO DAILY Supplement 04/06/25
cholecalciferol (vitamin D3) 25 mcg (1,000 unit) tablet 1,000 unit PO DAILY Supplement 04/06/25
ropinirole 1 mg tablet 1 mg PO QID Anti-Parkinson Agent 04/06/25
fluticasone 232mcg-salmeterol 14mcg/actuation breath act,powder sensor (AirDuo Digihaler) 1 inh inhalation R BID 06/14/25
meclizine 25 mg tablet 25 mg PO Q8HPRN PRN dizziness 06/14/25
oxycodone 5 mg tablet 5 mg PO [id number] PRN severe pains 06/14/25
rivaroxaban 15 mg tablet (Xarelto) 15 mg PO BID 06/14/25
cephalexin 500 mg tablet 500 mg PO QID 12 days #48 tabs 06/16/25
Review of Systems
-
Constitutional: Reports No Symptoms
EENT: Reports No Symptoms
Respiratory: Reports Trouble Breathing
Cardiac: Reports No Symptoms
Abdomen/GI: Reports No Symptoms
: Reports No Symptoms
Musculoskeletal: Reports No Symptoms
Skin: Reports Other (Redness, right foot wound)
Neurological: Reports No Symptoms
Endocrine: Reports No Symptoms
Hematologic/Lymphatic: Reports No Symptoms
Psych: Reports No Symptoms
Physical Exam
Vital Signs
Vital Signs
Temp Pulse Resp BP Pulse Ox
102.2 F H 93 22 150/83 92
07/31/25 20:10 07/31/25 20:45 07/31/25 20:45 07/31/25 20:10 07/31/25 21:53
Physical Exam
General: Well Developed, Well Nourished and No Apparent Distress
HEENT: NormoCephalic, Moist mucous membranes and Atraumatic
Respiratory: Clear
Cardiac: S1/S2 and Regular Rhythm; No Murmur or Rub
GI: Soft, Non Tender, Non Distended and Normal Bowel Sounds; No Organomegaly
Rectal: Deferred by Provider
Musculoskeletal: No Clubbing, No Cyanosis and No Edema
Skin: Rash and Other (Erythema noted bilateral lower extremities, warm to touch)
Neuro: Nonfocal/grossly intact
Laboratory Results
-
07/31/25 20:18
07/31/25 20:18
Laboratory Results
Lactic Acid 1.3 mmol/L (0.7-2.0) 07/31/25 20:18
Total Bilirubin 0.6 mg/dl (0.2-1.3) 07/31/25 20:18
AST 24 U/L (14-36) 07/31/25 20:18
ALT 20 U/L (0-35) 07/31/25 20:18
Alkaline Phosphatase 82 U/L (38-126) 07/31/25 20:18
Data Reviewed
-
Diagnostic Radiology: Report Reviewed by me
Lab Data: Labs Reviewed by me
Impression/Plan
-
# Acute hypoxia likely secondary to COPD exacerbation
- Continue supplemental oxygen to keep sat greater than 95, wean as tolerated
- Chest x-ray Lungs appear radiographically clear.Cardiomegaly with no evidence for pulmonary edema pattern.
- Nebs as needed for short of breath or wheezing
- Decadron 2 mg every 12 hours
#Fever generalized weakness secondary to lower extremity cellulitis
- PT consulted for weakness
- WBC 13.4
-IV ceftriaxone and doxycycline continued
- Tylenol as needed for fever
- Blood culture sent from ED
-ID consulted
# Anemia of chronic disease
- Hemoglobin stable at 10, no active bleeding
- Continue to monitor
# Acute kidney injury concern for dehydration
- Creatinine 1.2
- Continue to monitor BMP
#History of DVT
-Xarelto continued
#hyperlipidemia
- continue atorvastatin
#HFpEF
- daily weights
- I & Os
-hold furosemide
#CAD
#Hyperlipidemia
#COPD
- continue albuterol and fluticasone
#GERD
- continue famotidine
#depression/anxiety
- continue escitalopram and lorazepam
#peripheral polyneuropathy
- continue gabapentin
#restless leg syndrome
- continue ropinirole
Code status: full code
DVT prophylaxis: Xarelto
[2025-07-31 22:00] VITALS: BP 100/76
--- NOTE | 2025-07-31 22:01 | W.PN.UPDATE ---
Update Note
Progress Note Update
This note serves as an addendum to the H&P by lan/wan engineer BRIDGETT�
Angela BONG�
HPI�
80F Former smoker , HX COPD, chr HFpEF, HTN, B/L second Toe amputation seen @ ER
- pw shortness of breath, hypoxia and general weakness.
- Progressive over 24 hours.
- POx 83% on RA on medic arrival.
PHX; see above
Relevant VS
Temp Pulse Resp BP Pulse Ox
102.2 F H 93 22 150/83 92
07/31/25 20:10 07/31/25 20:45 07/31/25 20:45 07/31/25 20:10 07/31/25 21:53
PE
Gen: Not toxic,
HEENT: wearing NC O2
Neck: supple
Lungs: exp wheeze both lungs
Cor: RRR S 1S2
Abdomen:�soft BS
TIRE INSPECTOR: AAO3
MS:b/l Caren tender erythema with warmth, Open wound at dorsum of Rt foot , b/l 2nd toe amputee
Psych:
Relevant Data�
06/16/25 07/31/25 07/31/25
06:57 20:18 20:25
WBC 10.0 13.4 H
Hgb 10.6 L 10.4 L
BUN 20 H 24 H
Creatinine 0.7 1.2 H
eGFR > 60.00 45.19
SARS-CoV-2 Antigen Negative
CXR
- Lungs appear radiographically clear.
- Cardiomegaly with no evidence for pulmonary edema pattern.
04/07/25 TTE
- Normal left ventricular size and systolic function.
- No regional wall motion abnormalities are seen.
- LVEF 65-70% by visual assessment.
- Mild concentric left ventricular hypertrophy.
- Stage II diastolic dysfunction
- Normal right ventricular size and function.
- Mild mitral regurgitation.
- Mild aortic stenosis. Peak/mean gradients across the aortic valve are 39/22 mmHg.
- Aortic valve by the Continuity equation is calculated at 1.7 cm2.
- Mild tricuspid regurgitation.
- Estimated pulmonary artery pressure of 38 mmHg assuming a right atrial pressure of 3 mmHg.
Last hospitalist admission: Date of Admission: 06/14/25 - Date of Discharge: 06/16/25
DC DX: - Cellulitis bilateral Caren R > L
ASSESSMENT & PLAN
SIRS picture ( T 102, RR22, WCC 13.4) but source of infection is not definitive - likely recurrent Caren cellulitis with open foot with small opened wound
HX PCN allergy but tolerate to recent Cephalexin
NEG CXR for PNA
No Prior HX POS MRSA screen
- switch to IV Cefazolin in place of IV CFTZ and PO Doxy
- Tylenol PRN
- Trend T curve and WCC
- ID consult
Acute Hypoxic RI with Bronchospasm
- suspect COPD flare
- IV Decadron 2mg q12h
- Nebs qid and PRN
- No indication for targeted ABx for chest infection
DEB ? dehydration
- IV NS 40/H x 500 cc only
- Hold PO Lasix and observe Cr
- Trend BMP daily
HX Chr HFpEF
Clinically not in acute HF
- check proBNP
- hold PO Frusemide du to DEB
- daily Wt. and daily BMP
HX DVT on Xarelto
Known PMHX - stable
Neuropathy
B12 deficiency anemia
Hyperlipidemia -atorvastatin.
ASCVD
Depression/anxiety
Peripheral polyneuropathy
Vitamin B12 Deficiency
Left popliteal Real's cyst
Restless leg syndrome
DVT Px: on Xarelto
Code: Full code
IP MS
[2025-07-31] MEDS: ROCEPHIN 1000 MG IV (22:02)
[2025-07-31] MEDS: VIBRAMYCIN 260 MG IV (22:16)
[2025-07-31 23:00] VITALS: BP 129/50
[2025-07-31] MEDS: NSS 500 IV (23:25)
[2025-08-01] VITALS (7 sets, daily range): BP systolic 110–149; BP diastolic 38–78; PULSE 89; O2SAT 100; BMI 30.4
[2025-08-01] MEDS: ROXICODONE 5 MG PO (01:51)
[2025-08-01] MEDS: REQUIP 1 MG PO ×5 (02:06→22:05)
[2025-08-01] MEDS: FLUSH (NSS) 2 FLUSH IV ×3 (02:07→14:59)
[2025-08-01] MEDS: DECADRON 2 MG IV ×3 (02:07→23:30)
[2025-08-01] MEDS: ANCEF 5 IV ×2 (05:18→13:27)
[2025-08-01] MEDS: TYLENOL 650 MG PO (05:23)
[2025-08-01 05:52] LABS: Hematocrit 28.5 % (37.0-47.0); Hemoglobin 9.1 g/dL (12.0-16.0); Mean Corp Hgb Conc. 31.9 g/dL (33.0-37.0); Mean Corpuscular Volume 92.5 fL (81.0-99.0); Nucleated Red Blood Cells % 0 %; Platelet Count 209 10^3/uL (130-400); Red Cell Dist. Width 14.8 % (11.5-14.5)
[2025-08-01 06:17] LABS: Blood Urea Nitrogen 21 mg/dl (7-17); Calcium 8.6 mg/dl (8.4-10.2); Carbon Dioxide 25 mmol/L (22-30); Chloride 107 mmol/L (98-107); Estimated Creatinine Clearance 41 ml/min; Glucose 150 mg/dl (70-99); Potassium 4.2 mmol/L (3.5-5.1); Sodium 138 mmol/L (135-145); eGFR 50.17
[2025-08-01] MEDS: DUONEB 3 ML INH ×4 (08:02→19:25)
--- NOTE | 2025-08-01 08:45 | W.PN.HOSP.TC ---
Today's Communication/Plan
-
see bold
Assessment / Plan
Assessment / Plan
80-year-old with past medical history of CHF, COPD, hypertension, hypercholesteremia, anxiety, depression, restless leg syndrome presented to us with shortness of breath since his evening. Patient stated wheezing and short of breath with exertion.
Patient denied any cough, congestion, fever or chills at home. Patient denies headache, dizziness or syncope. Patient denied any abdominal pain, nausea, vomiting or diarrhea. Patient denied dysuria,hematuria. Patient has a chronic right foot
wound. She was noted to have worsening redness swelling to bilateral lower extremities. Upon arrival patient was hypoxic requiring 2 to 3 L of oxygen. Patient received a dose of Tylenol, ceftriaxone and Doxy in the ER.
# Acute hypoxic respiratory insufficiency
# Acute COPD exacerbation
- Covid neg, flu neg. Chest x-ray Lungs appear radiographically clear. Cardiomegaly with no evidence for pulmonary edema pattern.
- Nebs as needed for short of breath or wheezing
- Continue Decadron 2 mg every 12 hours, bronchodilators
- Satting 97% on 2 L, wean oxygen. She does not wear oxygen at home
# Fever generalized weakness secondary to R lower extremity cellulitis
- Continue IV Rocephin and doxycycline, ID consult requested
- PT consulted for weakness, follow-up blood cultures, trend fever and white count
# Anemia of chronic disease
- Hemoglobin stable at 10, no active bleeding
- Continue to monitor
# Acute kidney injury concern for dehydration
- Creatinine improved at 1.1, was 1.2
- Stop IVFs, monitor BMP
#History of DVT
-Xarelto continued
#hyperlipidemia
- continue atorvastatin
#HFpEF
- daily weights
- I & Os
- hold furosemide
#Hyperlipidemia
#GERD
- continue famotidine
#depression/anxiety
- continue escitalopram and lorazepam
#peripheral polyneuropathy
- continue gabapentin
#restless leg syndrome
- continue ropinirole
#Obesity due to excess calories
- Affects all aspects of care
DVT prophylaxis: Xarelto
Code status: full code
Total time spent to see the patient on the floor, examine the patient, review data and lab results, discuss treatment plan with patient, nursing staff around 50 minutes.
Physical Exam
General: Obese, no acute distress
HEENT: Normocephalic, Atraumatic, EOMI, MMM
Respiratory: Diminished breath sounds with faint wheezing
Cardiac: Normal S1/S2, Regular Rate and Rhythm
GI: Soft, Nontender, Nondistended, Normal Bowel Sounds
Extremities: No Clubbing, Cyanosis
Bilateral lower extremity edema and erythema noted
Right foot wound with right foot erythema noted
Neuro: Nonfocal/Grossly Intact
Anticipated Discharge: 24 - 48 hours
Subjective/Interval History
-
Date of Service: August 01, 2025
Patient reports that her shortness of breath is improved. She continues to have right lower extremity pain. Denies chest pain. No fever, no vomiting.
Objective Data
-
Labs:
Laboratory Results
07/31/25 08/01/25
20:18 05:24
WBC 10.9 H
Hgb 9.1 L
Hct 28.5 L
Plt Count 209
Sodium 138 138
Potassium 4.8 4.2
Chloride 103 107
Carbon Dioxide 28 25
BUN 24 H 21 H
Creatinine 1.2 H 1.1 H
Glucose 115 H 150 H
Calcium 9.1 8.6
Total Bilirubin 0.6
AST 24
ALT 20
Alkaline Phosphatase 82
Vital Signs:
Vital Signs
Temp Pulse Resp BP Pulse Ox
99.2 F 87 18 138/78 97
08/01/25 07:00 08/01/25 08:05 08/01/25 08:05 08/01/25 07:00 08/01/25 08:05
I&O
07/31/25 08/01/25 08/02/25
06:59 06:59 06:59
Intake Total 250 / 250
Balance 250 / 250
[2025-08-01] MEDS: PEPCID 20 MG PO (09:44)
[2025-08-01] MEDS: XARELTO 15 MG PO ×2 (09:44→19:55)
[2025-08-01] MEDS: LEXAPRO 10 MG PO (09:44)
[2025-08-01] MEDS: TOPROL XL 12.5 MG PO ×2 (09:47→19:55)
[2025-08-01] MEDS: NSS 500 IV ×2 (11:30→23:30)
--- NOTE | 2025-08-01 12:09 | CM ---
CM following re: discharge planning.
Reviewed pt's chart, met with pt.
Pt is an 80 year old female, admitted with primary dx of SOB/Hypoxia
Patient reports she resides at [facility] , independent with walker, motorized scooter for longer distances, has a Walker, cane, shower chair. Pt reports she was at [facility] and [facility] in the past, known to [facility]. Pt expressed her
desire to return back to [facility].
PCP: Eugenio Ley
Pharmacy: [facility], [facility] mail-in
[facility] nursing report #: [phone]
Discharge instructions Fax #: [phone]
D/C: per pt's desire, return back to [facility] when medically stable.
CM will follow with discharge plan updates as hospitalization progresses.
--- NOTE | 2025-08-01 14:52 | CON.ID ---
Consultation
-
Date/Time Consultation Requested: August 01, 2025 0057
Date/Time Consultation Performed: August 01, 2025 1500
Requesting Provider: Angela Vasquez
Performing Provider: Dr. Mitzi Cummings
Reason for Consultation: Cellulitis
Chief Complaint / Past History
Chief Complaint
shortness of breath
History of Present Illness
80-year-old female with history of COPD, heart failure with preserved EF, polyneuropathy who presented from [facility] due to dyspnea on exertion. She also complains of a week of wheezing. Positive malaise. No fever or chills outpatient.
Approximately a week ago she noted a wound on top of her right foot. Past few days, the right foot is more swollen, red, and painful. She normally wear compression for both legs. However due to the wound she has been off of compression modality
for the past week. No cough. No nausea vomiting or abdominal pain. No urine symptoms. In the ER temperature 102.2, white count 13.4. Chest x-ray no parenchymal opacity. She was hypoxic requiring 3 L of oxygen. She is currently on steroid for
COPD exacerbation. She received ceftriaxone and doxycycline in the ER for lower extremity cellulitis. She is now on cefazolin. She reports foot discomfort has improved.
Past History
Additional Past Medical History:
COPD
Hypertension
Polyneuropathy
HFpEF
Dyslipidemia
Depression/anxiety
Restless legs syndrome
Spinal stenosis
Insomnia
Osteoarthritis
Additional Past Surgical History:
L 2nd toe amputation
R 3rd toe amp
Left second toe amputation
Appendectomy
Right total shoulder replacement
Right total knee replacement
Umbilical Hernia repair x 2 with mesh
Left wrist fracture ORIF
Allergy History:
Penicillins Allergy (Verified 06/14/25 14:09)
Swelling
sulfamethoxazole (From Bactrim) Allergy (Verified 06/14/25 14:09)
unknown, detention recored
tramadol Allergy (Verified 06/14/25 14:09)
Rash
trimethoprim (From Bactrim) Allergy (Verified 06/14/25 14:09)
unknown, detention recored
Medications Reviewed: Yes
Current Antibiotics:
cefazolin
Social History
Tobacco: Former Smoker
Alcohol: None
Drug: None
Living: [facility]
Family History
Family History: Not Pertinent
Review of Systems
Review of Systems
General: Negative Chills or Change in Appetite
HEENT: Negative Headache or Pharyngitis
Cardiovascular: Dyspnea and Edema; Negative Chest Pain
Respiratory: Negative Cough or Sputum Production
Gasteroenterology: Negative Nausea, Vomiting or Diarrhea
Genital / Urological: Negative Dysuria or Flank Pain
Endocrine: Weakness and Fatigue
All systems: All other systems were reviewed and were negative
Vital Signs
Temp Pulse Resp BP Pulse Ox
99.2 F 85 18 138/78 97
08/01/25 07:00 08/01/25 11:17 08/01/25 11:17 08/01/25 07:00 08/01/25 11:17
Selected Entries
07/31/25
20:10
Temp 102.2 F H
Physical Exam
Physical Exam
Constitutional: No Acute Distress and Comfortable
Eyes: No Conjunctival Hemorrhage and Sclera Anicteric
Cardiovascular: Regular Rate and S1/S2
Pulmonary: Clear
Gastrointestinal: Soft, Non Tender, Non Distended and Decreased Bowel Sounds
Genito-Urinary: Negative CVA Tenderness
Extremities: Edema (RLE 1+ edema, R foot 2-3+ edema. ) and Erythema (Dorsum of right foot bright erytehma + warmth. )
Skin: Dry (Dry skin BLE)
Wound: Other (Dorsum of right foot wound with light yellow fibrin and serous drainage)
Neurological: AO x 3
Lab / Diagnostic Study Results
08/01/25 05:24
08/01/25 05:24
Abs Immat Gran (auto) 0.1 10^3/uL (0-0.05) H 08/01/25 05:24
Absolute Neuts (auto) 10.0 10^3/uL (1.4-6.5) H 08/01/25 05:24
Absolute Lymphs (auto) 0.3 10^3/uL (1.2-3.4) L 08/01/25 05:24
Absolute Monos (auto) 0.5 10^3/uL (0.1-0.6) 08/01/25 05:24
Absolute Basos (auto) 0.0 10^3/uL (0-0.2) 08/01/25 05:24
Immature Gran % 0.5 % (0-0.5) 08/01/25 05:24
Neutrophils % 91.4 % (42.2-75.2) H 08/01/25 05:24
Lymphocytes % 2.6 % (20.5-51.1) L 08/01/25 05:24
Monocytes % 4.9 % (1.7-9.3) 08/01/25 05:24
Eosinophils % 0.3 % (0-6) 08/01/25 05:24
Basophils % 0.3 % (0-2) 08/01/25 05:24
Lactic Acid 1.3 mmol/L (0.7-2.0) 07/31/25 20:18
Ur Squamous Epith Cells - /LPF (Few) 07/31/25 20:18
Microbiology Results
Micro:
08/01/25 09:09 MRSA Screen - Pending
Nose
07/31/25 20:18 Blood Culture - Pending
Blood/Venous
07/31/25 20:25 Influenza Types A & B (YUNIER) - Final
Nasal Swab Negative for Influenza A & B, NAAT
Negative results must be combined with clinical observations
and patient history.
Nucleic Acid Amplification test (NAAT)performed on the
[employer] platform.
07/31/25 20:18 Blood Culture - Pending
Blood/Venous
08/01/25 CXR: Lungs appear radiographically clear.
Assessment / Plan
# R foot cellulitis
# Fever
# leukocytosis
# COPD exacerbation
- Bcx's pending
- Increase cefazolin to 2g IV q8.
- Elevate LE
- Moisturize dry skin
- Follow temps/wbc
[2025-08-01] MEDS: ATIVAN 0.5 MG PO (19:55)
[2025-08-01] MEDS: LAC HYDRIN, AM LACTIN LOTION 1 APPLIC TOPICAL (19:58)
[2025-08-01] MEDS: LIPITOR 20 MG PO (22:05)
[2025-08-01] MEDS: NEURONTIN 100 MG PO (22:05)
[2025-08-01] MEDS: ANCEF 10 IV (23:44)
[2025-08-02 04:53] VITALS: BMI 31.4
[2025-08-02] MEDS: ANCEF 10 IV ×3 (05:47→21:45)
[2025-08-02 06:32] LABS: Hematocrit 30.5 % (37.0-47.0); Hemoglobin 10.0 g/dL (12.0-16.0); Mean Corp Hgb Conc. 32.8 g/dL (33.0-37.0); Mean Corpuscular Volume 95.0 fL (81.0-99.0); Nucleated Red Blood Cells % 0 %; Platelet Count 235 10^3/uL (130-400); Red Cell Dist. Width 14.8 % (11.5-14.5)
[2025-08-02] MEDS: DUONEB 3 ML INH (07:05)
[2025-08-02 07:20] LABS: Blood Urea Nitrogen 19 mg/dl (7-17); Calcium 9.2 mg/dl (8.4-10.2); Carbon Dioxide 24 mmol/L (22-30); Chloride 107 mmol/L (98-107); Estimated Creatinine Clearance 56 ml/min; Glucose 149 mg/dl (70-99); Potassium 5.3 mmol/L (3.5-5.1); Sodium 138 mmol/L (135-145); eGFR > 60.00
--- NOTE | 2025-08-02 07:56 | W.PN.HOSP.TC ---
Today's Communication/Plan
-
Pulmonology consult
Continue steroid.
Ambulatory pulse ox
Assessment / Plan
Assessment / Plan
Impression:
80-year-old with past medical history of CHF, COPD, hypertension, hypercholesteremia, anxiety, depression, restless leg syndrome presented to us with shortness of breath since his evening. Patient stated wheezing and short of breath with exertion.
Patient denied any cough, congestion, fever or chills at home. Patient denies headache, dizziness or syncope. Patient denied any abdominal pain, nausea, vomiting or diarrhea. Patient denied dysuria,hematuria. Patient has a chronic right foot
wound. She was noted to have worsening redness swelling to bilateral lower extremities. Upon arrival patient was hypoxic requiring 2 to 3 L of oxygen. Patient received a dose of Tylenol, ceftriaxone and Doxy in the ER, started on cefazolin 1 mg
every 8, seen by infectious disease, advised to increase cefazolin to 2 g every 8
Patient still hypoxic with ambulation, pulmonology consulted.
Assessment/plan:
Acute hypoxic respiratory failure secondary to acute COPD exacerbation
- Covid neg, flu neg. Chest x-ray Lungs appear radiographically clear. Cardiomegaly with no evidence for pulmonary edema pattern.
- Nebs as needed for short of breath or wheezing
- Continue Decadron 2 mg every 12 hours, bronchodilators (consider increase steroid dose, will follow pulmonology recommendations)
- Patient dropped oxygen level to 83% on presentation, no oxygen at home.
-Currently satting 94% on room air, but hypoxic with ambulation, pulmonology consulted.
- Ambulatory pulse ox before discharge
Sever Sepsis with acute organ dysfunction.
Patient meets sepsis criteria on admission with leukocytosis, tachycardia and fever.
Acute organ dysfunction in form of acute renal failure, acute respiratory failure.
Source of infection R lower extremity cellulitis
Continue IV cefazolin, appreciate ID consult input, follow-up blood cultures, trend fever and white count.
- PT consulted---> SNF vs
Anemia of chronic disease
- Hemoglobin stable, no active bleeding
- Continue to monitor
Acute kidney injury
- Resolved
Hyperkalemia
Monitor potassium
History of DVT
-Xarelto continued
hyperlipidemia
- continue atorvastatin
HFpEF
- daily weights
- I & Os
- hold furosemide ---> resume on discharge
GERD
- continue famotidine
Depression/anxiety
- continue escitalopram and lorazepam
Peripheral polyneuropathy
- continue gabapentin
Restless leg syndrome
- continue ropinirole
Obesity due to excess calories
CODE STATUS: Full code
DVT prophylaxis: Xarelto
Diet: Regular diet
Disposition: Pulmonology consult
Continue steroid.
Ambulatory pulse ox
Total time spent on today's encounter was 55 minutes which included time spent in counseling the patient/family regarding diagnosis and treatment plan as listed above, goals of care, and symptom management. Case was discussed with nursing staff,
specialists, and care coordinators/case management. All labs and imaging personally reviewed by me. Remainder the time spent in detailed review of previous records, lab data, imaging, and other medical provider documentation.
Anticipated Discharge: 24 - 48 hours
Subjective/Interval History
-
Date of Service: August 02, 2025
Patient seen and examined at bedside, denies any chest pain , shortness of breath Improved, but still drops oxygen level with ambulation, no abdominal pain, no nausea, no vomiting, no diarrhea or constipation.
lower extremity redness improved.
Objective Data
-
Labs:
Laboratory Results
08/02/25
05:27
WBC 7.1
Hgb 10.0 L
Hct 30.5 L
Plt Count 235
Sodium 138
Potassium 5.3 H D
Chloride 107
Carbon Dioxide 24
BUN 19 H
Creatinine 0.8
Glucose 149 H
Calcium 9.2
Vital Signs:
Vital Signs
Temp Pulse Resp BP Pulse Ox
98.8 F 77 20 121/58 91
08/01/25 23:20 08/02/25 07:12 08/02/25 07:12 08/01/25 23:20 08/02/25 07:35
I&O
08/01/25 08/02/25 08/03/25
06:59 06:59 06:59
Intake Total 250 / 250 1690 / 1690
Balance 250 / 250 1690 / 1690
Physical Exam
-
General: Well Developed, Well Nourished, No Apparent Distress and Comfortable
HEENT: Normocephalic, Atraumatic, Moist Mucous Membranes, No Ptosis, PERRLA and Nose Appears Normal
Respiratory: Rales, Rhonchi and Non Labored Respirations
Cardiac: Regular Rhythm and S1/S2
Breast: Deferred by me
GI: Soft, Nontender, Nondistended and Normal Bowel Sounds
Genito-urinary: No Costovertebral Tender
Musculoskeletal: No Clubbing, No Cyanosis and Other (Bilateral lower extremity redness)
Skin: Other (Erythema bilateral lower EXTR)
Neuro: Awake, Alert, Oriented, AO x 3 and No Motor Deficits
Psych: Calm
Data Reviewed
-
Diagnostic Radiology: Image personally visualized and interpreted and Report Reviewed by me
CT Scan: Image personally visualized and interpreted and Report Reviewed by me
Ultrasound: Image personally visualized and interpreted and Report Reviewed by me
MRI: Image personally visualized and interpreted and Report Reviewed by me
Medical Tests (Nuc Med, Echo etc): Image personally visualized and interpreted and Report Reviewed by me
Labs: Labs Reviewed by me
Old Records: Reviewed
[2025-08-02 07:59] VITALS: BP 157/70
[2025-08-02] MEDS: LEXAPRO 10 MG PO (08:02)
[2025-08-02] MEDS: PEPCID 20 MG PO (08:02)
[2025-08-02] MEDS: XARELTO 15 MG PO ×2 (08:02→19:28)
[2025-08-02] MEDS: REQUIP 1 MG PO ×4 (08:02→21:45)
[2025-08-02] MEDS: TOPROL XL 12.5 MG PO ×2 (08:03→19:29)
[2025-08-02] MEDS: LAC HYDRIN, AM LACTIN LOTION 1 APPLIC TOPICAL ×2 (08:04→19:29)
--- NOTE | 2025-08-02 11:07 | CM ---
Patient seen at bedside on . Patient off of O2 at this time. Therapy recommendation is for SNF vs . Patient lives at [facility]. CM will follow for possible VN at personal care facility vs SNF. CM will continue to follow for
discharge planning needs.
Plan; return to personal care at [facility] vs SNF
[2025-08-02] MEDS: DECADRON 2 MG IV (12:15)
--- NOTE | 2025-08-02 12:23 | W.PN.ID1 ---
Date of Service
Date of Service: August 02, 2025
Today's Communication
See below.
Assessment / Plan
# R foot cellulitis, improving
# Fever - resolved
# leukocytosis - resolved
# COPD exacerbation
- Bcx's x2 pending
- Elevate LE
- Continue moisturize dry skin
- Continue Cefazolin to 2g IV q8.
- At time of dc, can transition to cephalexin 1000mg po q8 through 08/07.
Conditions present on admission:
COPD
Hypertension
Polyneuropathy
HFpEF
Dyslipidemia
Depression/anxiety
Restless legs syndrome
Spinal stenosis
Insomnia
Osteoarthritis
L 2nd toe amputation
R 2nd,3rd toe amp
Left second toe amputation
Appendectomy
Right total shoulder replacement
Right total knee replacement
Umbilical Hernia repair x 2 with mesh
Left wrist fracture ORIF
Chief Complaint
-: Cellulitis
Subjective / Review of Systems
Wheezing/SOB resolved.
Right foot pain improved.
Vital Signs / Physical Exam
Vital Signs
Vital Signs
Temp Pulse Resp BP Pulse Ox
98.0 F 98 20 157/70 94
08/02/25 07:59 08/02/25 07:59 08/02/25 07:59 08/02/25 07:59 08/02/25 09:11
Physical Exam
Constitutional: No Acute Distress
Cardiovascular: Regular Rate and S1/S2
Pulmonary: Clear
Gastrointestinal: Soft, Non Tender and Non Distended
Extremities: Edema (BLE decreased)
Wound: Other (right foot decreased edema/erythema; superficial wound yellow fibrin, scant serous drainage.)
Neurological: AO x 3
Objective Data
Lab Data
Lab Results
08/02/25 05:27
08/02/25 05:27
Estimated Creat Clear 56 ml/min 08/02/25 05:27
Lactic Acid 1.3 mmol/L (0.7-2.0) 07/31/25 20:18
Total Bilirubin 0.6 mg/dl (0.2-1.3) 07/31/25 20:18
AST 24 U/L (14-36) 07/31/25 20:18
ALT 20 U/L (0-35) 07/31/25 20:18
Alkaline Phosphatase 82 U/L (38-126) 07/31/25 20:18
Most recent labs reviewed.
Micro Results:
07/31/25 20:18 Blood Culture - Preliminary
Blood/Venous No Growth in 24 hours- Final report to follow
07/31/25 20:18 Blood Culture - Preliminary
Blood/Venous No Growth in 24 hours- Final report to follow
08/01/25 09:09 MRSA Screen - Pending
Nose
07/31/25 20:25 Influenza Types A & B (YUNIER) - Final
Nasal Swab Negative for Influenza A & B, NAAT
Negative results must be combined with clinical observations
and patient history.
Nucleic Acid Amplification test (NAAT)performed on the
[employer] platform.
08/01/25 CXR: Lungs appear radiographically clear.
--- NOTE | 2025-08-02 13:09 | CON.PUL ---
Consultation
Consultation Request
Date/Time Consultation Requested: 08/02/2025
Date/Time Consultation Performed: 08/02/2025
Requesting Provider: Dr. Obregon
Performing Provider: Dr. Piyush Main
Reason for Consultation: Acute exacerbatoin of COPD
Medical History
-
History of Present Illness:
80-year-old male with past medical history significant for congestive heart failure, COPD, hypertension, hypercholesterolemia, anxiety, depression, restless leg syndrome presented to the emergency room complaining of shortness of breath for 1 day.
Patient reported some wheezing and exertional symptoms that were progressive. No report of cough, congestion, fevers, chills or purulent sputum production. Denies any sick contacts or
Denies nausea, vomiting or aspiration events.
Patient has a history of chronic right foot wound.
Patient was found to be hypoxemic requiring 2 to 3 L supplemental oxygen. She was started on antibiotics in the emergency room.
Past Medical History
Past Medical History: Other (See assesement and plan section)
Social History
Tobacco: Former Smoker
Alcohol: None
Drug: None
Family History
Family History: Reviewed & Not Pertinent
Allergies / Home Medications
Allergies
Allergy/AdvReac Type Severity Reaction Status Date / Time
Penicillins Allergy Swelling Verified 06/14/25 14:09
sulfamethoxazole (From Allergy unknown, Verified 06/14/25 14:09
Bactrim) nursing
home
recored
tramadol Allergy Rash Verified 06/14/25 14:09
trimethoprim (From Bactrim) Allergy unknown, Verified 06/14/25 14:09
nursing
home
recored
Home Medications
�Medication �Instructions �Recorded �Confirmed �Last Taken �Type
atorvastatin 20 mg tablet 20 mg PO HS High cholesterol 05/22/22 08/01/25 07/31/25 22:00 History
escitalopram oxalate 10 mg tablet 10 mg PO DAILY Depression 05/22/22 08/01/25 07/31/25 08:00 History
cyanocobalamin (vitamin B-12) 1,000 mcg PO DAILY defeciancy #0 07/08/22 08/01/25 07/31/25 08:00 Rx
1,000 mcg tablet tabs
gabapentin 100 mg capsule 100 mg PO HS neuropathic pain 09/04/23 08/01/25 07/31/25 22:00 History
metoprolol succinate 25 mg 12.5 mg (1/2 x 25 mg) PO BID #0 04/03/24 08/01/25 07/31/25 08:00 Rx
tablet,extended release 24 hr tabs
albuterol sulfate 90 mcg/actuation 2 puff inhalation R Q6HPRN PRN 07/18/24 08/01/25 07/31/25 15:00 History
aerosol inhaler shortness of breath or wheezing
acetaminophen 325 mg tablet 650 mg PO Q6HPRN PRN mild pain/ 08/21/24 08/01/25 07/31/25 17:00 History
fever>100F
famotidine 20 mg tablet 20 mg PO DAILY Gastrointestinal 09/25/24 08/01/25 07/31/25 08:00 History
Issue
lorazepam 1 mg tablet 0.5 mg PO BIDPRN PRN anxiety 09/25/24 08/01/25 07/31/25 13:00 History
polyethylene glycol 3350 17 gram 17 g PO DAILYPRN PRN constipation 09/25/24 07/31/25 Unknown History
oral powder packet (Miralax)
sennosides 8.6 mg-docusate sodium 1 tab-cap PO [id number] PRN 09/25/24 08/01/25 07/31/25 08:00 History
50 mg tablet (Senna-S) constipation
fluticasone propionate 50 2 spray intranasal DAILYPRN PRN 01/21/25 08/01/25 07/31/25 08:00 History
mcg/actuation nasal seasonal allergies
spray,suspension
furosemide 20 mg tablet 20 mg PO DAILY Fluid 01/21/25 07/31/25 06/14/25 History
Retention/Swelling
cholecalciferol (vitamin D3) 25 1,000 unit PO DAILY Supplement 04/06/25 08/01/25 07/31/25 08:00 History
mcg (1,000 unit) tablet
ropinirole 1 mg tablet 1 mg PO QID Anti-Parkinson Agent 04/06/25 08/01/25 07/31/25 20:00 History
meclizine 25 mg tablet 25 mg PO Q8HPRN PRN dizziness 06/14/25 08/01/25 07/30/25 08:00 History
oxycodone 5 mg tablet 5 mg PO [id number] PRN severe pains 06/14/25 08/01/25 07/31/25 11:00 History
rivaroxaban 15 mg tablet (Xarelto) 15 mg PO BID 06/14/25 07/31/25 06/14/25 History
acidophilus 100 million 1 cap PO DAILY 07/31/25 08/01/25 07/31/25 08:00 History
cell-pectin, citrus 10 mg capsule
loratadine 10 mg tablet (Claritin) 10 mg PO DAILY 07/31/25 07/31/25 Unknown History
Review of Systems
-
History Source: Patient
All other systems: Negative unless noted
Vitals / Labs / Diagnostic Testing
Vital Signs
Temp Pulse Resp BP Pulse Ox
98.0 F 98 20 157/70 94
08/02/25 07:59 08/02/25 07:59 08/02/25 07:59 08/02/25 07:59 08/02/25 09:11
Lab Data
08/02/25 05:27
08/02/25 05:27
Microbiology
07/31/25 20:18 Blood/Venous Blood Culture - Preliminary
No Growth in 24 hours- Final report to follow
07/31/25 20:18 Blood/Venous Blood Culture - Preliminary
No Growth in 24 hours- Final report to follow
09/27/25 20:25 Nasal Swab Influenza Types A & B (YUNIER) - Final
Negative for Influenza A & B, NAAT
Negative results must be combined with clinical observations
and patient history.
Nucleic Acid Amplification test (NAAT)performed on the
[employer] platform.
Diagnostic Testing:
Physical Exam
-
HEENT: Normocephalic
Cardiovascular: S1/S2
Respiratory: Wheeze and Non-Labored Respirations
GI: Soft and Non Distended
Neurology: Awake, Alert and No Motor Deficits
Skin: Warm
General: Comfortable
Assessment
-
79-year-old woman with history of recent right toe amputation due to osteomyelitis, admitted to the hospital complaining of few days of worsening shortness of breath. She has missed few doses of Lasix in the outpatient setting. She has history of
COPD reported some wheezing previously. She was found to be hypoxemic down to 85% requiring 2 L of supplemental oxygen in the emergency room.
We were consulted on 04/08/2025 for evaluation of hypoxemia, we also were consulted for evaluation of her underlying COPD.
Hypoxemic respiratory insufficiency:Due to acute exacerbation of COPD.
Initially on 3L (usually not on oxygen supplmentation)
proBNP 540
Negative COVID/negative flu
Chronic exertional dyspnea: Multiple mechanisms including diastolic heart failure, obesity, deconditioning and untreated COPD.
Right foot cellulitis
Conditions present prior admission:
Admission to 04/2025: mild AECOPD and also diuresed.
DC on Symbicort at that time.
Former smoker 30+ pack year history of smoking quit 5 years ago
History of heart failure with preserved ejection fraction
COPD-Moderate.
-Full pulmonary function testing 03/19/2024.
FEV1/FVC 61%, FEV1 1.21 L - 63%, FVC 1.97 L - 76%. Total lung capacity 77%. Residual volume 79%. RV/TLC ratio 46%. DLCO 43%
Neuropathy
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
b2 deficiency anemia
HLD
h/o DVT on Xarelto.
Spinal stenosis
ASCVD
Anxiety
Assessment and plan:
-
Clinical picture consistent with acute exacerbation of COPD-Acute component improved.
Patient has component of chronic exertional dyspnea: Likely related to deconditioning, Diastolic dysfunction,obesity and also not treated COPD.
She states that she is always short of breath with any activity.
-
Patient does have moderate airflow obstruction on pulmonary function testing-in March 2025 she was recommended to follow-up with pulmonary but she did not follow through.
At that time she was discharged on Symbicort it does not not appear that she is using any inhalers.
-
Overall since admission she feels better-to my exam not bronchospastic, able to move air and this is improved. Suspect symptoms are more chronic in nature.
Doubt increase corticosteroids will be helpful
Will optimize COPD management
-
Discussed with patient need to follow-up but she states she is she has difficulty going to appointments from [place].-
-
Will transition to triple therapy while in the hospital Symbicort/Spiriva-Discussed with respiratory therapist
Transition nebulizer to as needed
Upon discharge recommending either Delmar or Julia.
-
Transition to prednisone 40 mg and decrease by 10 mg every 48 hours to off.Will try to minimize high-dose of steroids as the patient has lower extremity cellulitis.
Incentive spirometry- Encouraged.
-
Exertional hypoxemia:
Pulse ox at rest 94%
With ambulation required 2L ---> should be DC on supplemental oxygen.
-
Physical therapy as tolerated- Pt is deconditioned.
-
Antibiotics for LE cellulitis per infectious disease
-
Monitor blood sugars on IV corticosteroids.
-
DVT prophylaxis: Continue Xarelto
-
Again recommend outpatient pulmonary follow-up for optimization of COPD management.

Data reviewed:
Echocardiogram 04/07/2025:
Normal left ventricular size and systolic function. No regional wall motion
abnormalities are seen. LV ejection fraction is 65-70% by visual assessment.
Mild concentric left ventricular hypertrophy. Stage II diastolic dysfunction
suggestive of abnormal relaxation and increased filling pressures.
Normal right ventricular size and function.
Mild mitral regurgitation.
Mild aortic stenosis. Peak/mean gradients across the aortic valve are 39/22
mmHg. Aortic valve by the Continuity equation is calculated at 1.7 cm2.
Mild tricuspid regurgitation. Estimated pulmonary artery pressure of 38 mmHg
assuming a right atrial pressure of 3 mmHg.
Compared to prior study dated 11/28/2023, there is no significant change
Chest x-ray 07/31/2025: Clear lungs.
CT chest 04/06/2025: No evidence for pulmonary embolism.
Bilateral lower lobe and lingular atelectasis versus scarring.
[2025-08-02] MEDS: SPIRIVA RESPIMAT 2.5 MCG INH (14:12)
[2025-08-02 16:00] VITALS: BP 144/73
[2025-08-02 17:02] VITALS: O2SAT 94
[2025-08-02] MEDS: SYMBICORT 160/4.5 MCG INHALER 2 PUFF INH (20:28)
[2025-08-02] MEDS: NEURONTIN 100 MG PO (21:45)
[2025-08-02] MEDS: LIPITOR 20 MG PO (21:45)
[2025-08-02] MEDS: ATIVAN 0.5 MG PO (21:51)
[2025-08-02 23:22] VITALS: BP 170/75
[2025-08-02 23:53] VITALS: BP 142/84
[2025-08-03] MEDS: ROXICODONE 5 MG PO ×2 (02:21→22:44)
[2025-08-03] MEDS: ANCEF 10 IV ×3 (05:12→21:58)
[2025-08-03 06:00] VITALS: BMI 30.8
[2025-08-03 07:18] VITALS: BP 169/65
[2025-08-03 07:42] LABS: Hematocrit 31.9 % (37.0-47.0); Hemoglobin 10.1 g/dL (12.0-16.0); Mean Corp Hgb Conc. 31.7 g/dL (33.0-37.0); Mean Corpuscular Volume 93.3 fL (81.0-99.0); Nucleated Red Blood Cells % 0 %; Platelet Count 272 10^3/uL (130-400); Red Cell Dist. Width 14.6 % (11.5-14.5)
[2025-08-03] MEDS: SPIRIVA RESPIMAT 2.5 MCG 2 PUFF INH (07:47)
[2025-08-03] MEDS: SYMBICORT 160/4.5 MCG INHALER 2 PUFF INH ×2 (07:48→19:56)
[2025-08-03 07:56] VITALS: BP 180/80
[2025-08-03 07:56] LABS: Blood Urea Nitrogen 21 mg/dl (7-17); Calcium 9.4 mg/dl (8.4-10.2); Carbon Dioxide 28 mmol/L (22-30); Chloride 106 mmol/L (98-107); Estimated Creatinine Clearance 56 ml/min; Glucose 91 mg/dl (70-99); Potassium 4.7 mmol/L (3.5-5.1); Sodium 140 mmol/L (135-145); eGFR > 60.00
[2025-08-03] MEDS: TOPROL XL 12.5 MG PO ×2 (08:30→19:24)
[2025-08-03] MEDS: REQUIP 1 MG PO ×4 (08:30→21:58)
[2025-08-03] MEDS: LEXAPRO 10 MG PO (08:30)
[2025-08-03] MEDS: LAC HYDRIN, AM LACTIN LOTION 1 APPLIC TOPICAL ×2 (08:31→19:22)
[2025-08-03] MEDS: PEPCID 20 MG PO (08:31)
[2025-08-03] MEDS: XARELTO 15 MG PO ×2 (08:31→19:24)
[2025-08-03] MEDS: DELTASONE 40 MG PO (08:31)
[2025-08-03] MEDS: TYLENOL 650 MG PO ×2 (09:19→21:57)
--- NOTE | 2025-08-03 10:31 | W.PN.ID1 ---
Date of Service
Date of Service: August 03, 2025
Today's Communication
- At time of dc, can transition to cephalexin 1000mg po q8 through 08/07.
Assessment / Plan
# R foot cellulitis, continues to improve
# Fever - resolved
# leukocytosis - resolved
# COPD exacerbation
- Bcx's x2 pending
- Elevate LE
- Continue moisturize dry skin
- Continue Cefazolin to 2g IV q8.
- At time of dc, can transition to cephalexin 1000mg po q8 through 08/07.
Conditions present on admission:
COPD
Hypertension
Polyneuropathy
HFpEF
Dyslipidemia
Depression/anxiety
Restless legs syndrome
Spinal stenosis
Insomnia
Osteoarthritis
L 2nd toe amputation
R 2nd,3rd toe amp
Left second toe amputation
Appendectomy
Right total shoulder replacement
Right total knee replacement
Umbilical Hernia repair x 2 with mesh
Left wrist fracture ORIF
Chief Complaint
-: Cellulitis
Subjective / Review of Systems
No new complaints
Vital Signs / Physical Exam
Vital Signs
Vital Signs
Temp Pulse Resp BP Pulse Ox
98.2 F 65 16 169/65 92
08/03/25 07:56 08/03/25 08:30 08/03/25 07:56 08/03/25 08:30 08/03/25 07:56
Physical Exam
Constitutional: No Acute Distress
Cardiovascular: Regular Rate and S1/S2
Pulmonary: Clear
Gastrointestinal: Soft, Non Tender and Non Distended
Extremities: Edema (BLE decreased)
Wound: Other (right foot decreased edema/erythema; superficial wound yellow fibrin.)
Neurological: AO x 3
Objective Data
Lab Data
Lab Results
08/03/25 07:00
08/03/25 07:00
Estimated Creat Clear 56 ml/min 08/03/25 07:00
Lactic Acid 1.3 mmol/L (0.7-2.0) 07/31/25 20:18
Total Bilirubin 0.6 mg/dl (0.2-1.3) 07/31/25 20:18
AST 24 U/L (14-36) 07/31/25 20:18
ALT 20 U/L (0-35) 07/31/25 20:18
Alkaline Phosphatase 82 U/L (38-126) 07/31/25 20:18
Most recent labs reviewed.
Micro Results:
07/31/25 20:18 Blood Culture - Preliminary
Blood/Venous No Growth in 48 hours- Final report to follow
07/31/25 20:18 Blood Culture - Preliminary
Blood/Venous No Growth in 48 hours- Final report to follow
08/01/25 09:09 MRSA Screen - Final
Nose No Methicillin Resistant Staphylococcus aureus isolated.
07/31/25 20:25 Influenza Types A & B (YUNIER) - Final
Nasal Swab Negative for Influenza A & B, NAAT
Negative results must be combined with clinical observations
and patient history.
Nucleic Acid Amplification test (NAAT)performed on the
[employer] platform.
08/01/25 CXR: Lungs appear radiographically clear.
--- NOTE | 2025-08-03 10:56 | W.PN.PUL3 ---
Today's Communication / Plan
-
From the pulmonary perspective discharge planning:
Transition to Trelegy
Prednisone taper 40 mg and decrease by 10 mg every 72 hours to off.
Albuterol HFA as needed
Nocturnal supplemental oxygen 2 L
Physical therapy
Outpatient pulmonary follow-up
Assessment
-
79-year-old woman with history of recent right toe amputation due to osteomyelitis, admitted to the hospital complaining of few days of worsening shortness of breath. She has missed few doses of Lasix in the outpatient setting. She has history of
COPD reported some wheezing previously. She was found to be hypoxemic down to 85% requiring 2 L of supplemental oxygen in the emergency room.
We were consulted on 04/08/2025 for evaluation of hypoxemia, we also were consulted for evaluation of her underlying COPD.
Hypoxemic respiratory insufficiency:Due to acute exacerbation of COPD.
Initially on 3L (usually not on oxygen supplmentation)
proBNP 540
Negative COVID/negative flu
Chronic exertional dyspnea: Multiple mechanisms including diastolic heart failure, obesity, deconditioning and untreated COPD.
Right foot cellulitis
Conditions present prior admission:
Admission to 04/2025: mild AECOPD and also diuresed.
DC on Symbicort at that time.
Former smoker 30+ pack year history of smoking quit 5 years ago
History of heart failure with preserved ejection fraction
COPD-Moderate.
-Full pulmonary function testing 03/19/2024.
FEV1/FVC 61%, FEV1 1.21 L - 63%, FVC 1.97 L - 76%. Total lung capacity 77%. Residual volume 79%. RV/TLC ratio 46%. DLCO 43%
Neuropathy
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
b2 deficiency anemia
HLD
h/o DVT on Xarelto.
Spinal stenosis
ASCVD
Anxiety
Assessment and plan:
-
Clinical picture consistent with acute exacerbation of COPD-Acute component improved.
Patient has component of chronic exertional dyspnea: Likely related to deconditioning, Diastolic dysfunction,obesity and also not treated COPD.
She states that she is always short of breath with any activity.
-
Patient does have moderate airflow obstruction on pulmonary function testing-in March 2025 she was recommended to follow-up with pulmonary but she did not follow through.
At that time she was discharged on Symbicort it does not not appear that she is using any inhalers.
-
06/02/2024 -Able to speak in full sentences. Clear lung exam.
Is sitting in a chair comfortably without supplemental oxygen.
Suspect symptoms are more chronic in nature-as above.
-
From the pulmonary perspective: Optimizing COPD management.
Discussed with patient need to follow-up but she states she is she has difficulty going to appointments from [place]. She has not been able to follow-up in the office.
I told her to try to at least follow-up once a year. She will try to schedule an appointment.
-
Continue triple therapy while in the hospital Symbicort/Spiriva-Discussed with respiratory therapist
Nebulizer as needed.
Upon discharge recommending either Delmar or Julia.
-
Transitioned to prednisone 40 mg and decrease by 10 mg every 48 hours to off.Will try to minimize high-dose of steroids as the patient has lower extremity cellulitis.
Incentive spirometry- Encouraged.
-
Exertional hypoxemia:
Pulse ox at rest 94%
With ambulation required 2L ---> should be DC on supplemental oxygen.
-
Physical therapy as tolerated- Pt is deconditioned.
Should ambulate with a walker
-
Significant deconditioning/weakness: Continue physical therapy/Occupational Therapy.
Hopefully can continue in the outpatient setting
Ideally she was benefit from a longterm facility but she would like to go back to her facility.
-
Antibiotics for LE cellulitis per infectious disease
Upon discharge to be transition to oral antibiotic
-
Monitor blood sugars on high-dose of steroids.
-
DVT prophylaxis: Continue Xarelto
-
Again recommend outpatient pulmonary follow-up for optimization of COPD management. Information will be left in the chart.
-
Hopefully can be discharged soon.

Data reviewed:
Echocardiogram 04/07/2025:
Normal left ventricular size and systolic function. No regional wall motion
abnormalities are seen. LV ejection fraction is 65-70% by visual assessment.
Mild concentric left ventricular hypertrophy. Stage II diastolic dysfunction
suggestive of abnormal relaxation and increased filling pressures.
Normal right ventricular size and function.
Mild mitral regurgitation.
Mild aortic stenosis. Peak/mean gradients across the aortic valve are 39/22
mmHg. Aortic valve by the Continuity equation is calculated at 1.7 cm2.
Mild tricuspid regurgitation. Estimated pulmonary artery pressure of 38 mmHg
assuming a right atrial pressure of 3 mmHg.
Compared to prior study dated 11/28/2023, there is no significant change
Chest x-ray 07/31/2025: Clear lungs.
CT chest 04/06/2025: No evidence for pulmonary embolism.
Bilateral lower lobe and lingular atelectasis versus scarring.
Subjective Data
-
Date of Service:
Date of Service: August 03, 2025
Chief Complaint: Pulmonary Follow Up (Shortness of breath/acute exacerbation of COPD)
Review of Systems
Cardiopulmonary: Dyspnea (Chronic), Dyspnea on Exertion (Chronic) and Wheezing (Improved)
GI: Abdominal Pain (n), Nausea (n) and Vomiting (n)
Objective Data
Data Reviewed
Vital Signs / I&O / Oxygen:
Vital Signs
Temp Pulse Resp BP Pulse Ox
98.2 F 65 16 169/65 92
08/03/25 07:56 08/03/25 08:30 08/03/25 07:56 08/03/25 08:30 08/03/25 07:56
Intake and Output
08/02/25 08/03/25 08/04/25
06:59 06:59 06:59
Intake Total 1690 / 1690 1190 / 1190
Balance 1690 / 1690 1190 / 1190
SaO2 92
Nasal Cannula flow liters per 2
minute
Physical Exam
General: Comfortable
HEENT: Normocephalic
Cardiovascular: S1-S2
Respiratory: Non-Labored Respirations
GI: Soft and Non Distended
Neurology: Awake, Alert, Oriented and No Motor Deficits
Skin: Warm
Labs/Micro/Reports
Lab Data
08/03/25 07:00
08/03/25 07:00
Microbiology
07/31/25 20:18 Blood/Venous Blood Culture - Preliminary
No Growth in 48 hours- Final report to follow
07/31/25 20:18 Blood/Venous Blood Culture - Preliminary
No Growth in 48 hours- Final report to follow
08/01/25 09:09 Nose MRSA Screen - Final
No Methicillin Resistant Staphylococcus aureus isolated.
07/31/25 20:25 Nasal Swab Influenza Types A & B ([facility]IER) - Final
Negative for Influenza A & B, NAAT
Negative results must be combined with clinical observations
and patient history.
Nucleic Acid Amplification test (NAAT)performed on the
[employer] platform.
--- NOTE | 2025-08-03 11:45 | RESPNOTE ---
home 02 assessment completed as ordered,
RA 02 Sat 88% at rest
applied 2L 02 via nasal cannula, sats increased to 96%
pt unsteady on her feet, walked approximately 10 feet with a walker, assisted by 2 people
--- NOTE | 2025-08-03 11:59 | CM ---
Reviewed the chart notes and spoke with the patient at the bedside. Patient continues with supplement O2. Left voice message to [facility] personal care to review if patient is able to return to her personal care apartment. If not SNF will be needed
which will required an auth. CM continues to be available to patient/family and is monitoring medical plan for needs at discharge.
Plan: Discharge plans will depend on if [facility] personal care is able to accept the patient back.
[2025-08-03 12:00] VITALS: BP 152/59
--- NOTE | 2025-08-03 12:30 | W.DCSUMMARY ---
Discharge Summary
Discharge Data
Date of Admission: 07/31/25
Date of Discharge: 08/03/25
Total time spent discharging patient (in min): 40
-
Pending Results: No
Hospital Course
Hospital course
80-year-old with past medical history of CHF, COPD, hypertension, hypercholesteremia, anxiety, depression, restless leg syndrome presented to us with shortness of breath since his evening. Patient stated wheezing and short of breath with exertion.
Patient denied any cough, congestion, fever or chills at home. Patient denies headache, dizziness or syncope. Patient denied any abdominal pain, nausea, vomiting or diarrhea. Patient denied dysuria,hematuria. Patient has a chronic right foot
wound. She was noted to have worsening redness swelling to bilateral lower extremities. Upon arrival patient was hypoxic requiring 2 to 3 L of oxygen. Patient received a dose of Tylenol, ceftriaxone and Doxy in the ER, started on cefazolin 1 mg
every 8, seen by infectious disease, advised to increase cefazolin to 2 g every 8, infectious is recommending discharge on cephalexin 1000 mg every 8 hours through August 07.
Patient was still hypoxic with ambulation, pulmonology consulted, will be discharged on prednisone tapering and Trelegy.
Will be discharged on oxygen.
Seen by physical therapy recommended rehab but patient wants to go back to [facility] with home physical therapy.
During hospitalization patient was treated from the following
Acute hypoxic respiratory failure secondary to acute COPD exacerbation
- Covid neg, flu neg. Chest x-ray Lungs appear radiographically clear. Cardiomegaly with no evidence for pulmonary edema pattern.
- Nebs as needed for short of breath or wheezing
- Continue Decadron 2 mg every 12 hours, bronchodilators (consider increase steroid dose, will follow pulmonology recommendations)
- Patient dropped oxygen level to 83% on presentation, no oxygen at home.
-Currently satting 94% on room air, but hypoxic with ambulation, pulmonology consulted.
- Ambulatory pulse ox before discharge
08/03
pulmonology consulted, will be discharged on prednisone tapering and Trelegy.
Will be discharged on oxygen.
Sever Sepsis with acute organ dysfunction.
Patient meets sepsis criteria on admission with leukocytosis, tachycardia and fever.
Acute organ dysfunction in form of acute renal failure, acute respiratory failure.
Source of infection R lower extremity cellulitis
Continue IV cefazolin, appreciate ID consult input, follow-up blood cultures, trend fever and white count.
- PT consulted---> SNF vs
08/03
infectious is recommending discharge on cephalexin 1000 mg every 8 hours through August 07.
Anemia of chronic disease
- Hemoglobin stable, no active bleeding
- Continue to monitor
Acute kidney injury
- Resolved
Hyperkalemia
Monitor potassium
History of DVT
-Xarelto continued
hyperlipidemia
- continue atorvastatin
HFpEF
- daily weights
- I & Os
- hold furosemide ---> resume on discharge
GERD
- continue famotidine
Depression/anxiety
- continue escitalopram and lorazepam
Peripheral polyneuropathy
- continue gabapentin
Restless leg syndrome
- continue ropinirole
Obesity due to excess calories
CODE STATUS: Full code
DVT prophylaxis: Xarelto
Diet: Regular diet
Disposition: PT recommends SNF, but patient refused and will be discharged to personal care with Home physical therapy .
Total time spent on today's encounter was 40 minutes which included time spent in counseling the patient/family regarding diagnosis and treatment plan as listed above, goals of care, and symptom management. Case was discussed with nursing staff,
specialists, and care coordinators/case management. All labs and imaging personally reviewed by me. Remainder the time spent in detailed review of previous records, lab data, imaging, and other medical provider documentation.
Anticipated Discharge: Today
Discharge Plan
-
Patient Disposition: Home with Home Care
Discharge Diagnosis/Procedures: Acute hypoxic respiratory failure secondary to acute COPD exacerbation.
Sever Sepsis with acute organ dysfunction.
Anemia of chronic disease.
Acute kidney injury
Diet: Low Cholesterol
Activity: With assistance and As tolerated
Other Services: PT and OT
Referrals:
Piyush Sen MD [Active, Pulmonary Medicine] - in two to three weeks
Referral Note: May see [employer] first visit and then on next see me.
Eugenio Ley MD [Family Provider, [facility]]
Prescriptions:
New
Trelegy Ellipta 100-62.5-25 mcg blister with device
1 inh inhalation DAILY Qty: 60 0RF
prednisone 10 mg tablet
10 mg PO DIRECTED Qty: 30 0RF
Rx Instructions:
40 mg (4 tabs) X 3days then 30 mg (3 tab) X 3 days, then 20mg (2 tabs)X 3 days then 10 mg X 3 day
cephalexin 500 mg capsule
1,000 mg PO Q8H 5 Days Qty: 30 0RF
Continued
atorvastatin 20 mg tablet
20 mg PO HS
escitalopram oxalate 10 mg tablet
10 mg PO DAILY
cyanocobalamin (vitamin B-12) 1,000 mcg Tablet
1,000 mcg PO DAILY Qty: 0 0RF
gabapentin 100 mg capsule
100 mg PO HS
metoprolol succinate 25 mg Tablet Extended Release 24 Hr
12.5 mg PO BID Qty: 0 0RF
albuterol sulfate 90 mcg/actuation HFA aerosol inhaler
2 puff inhalation R Q6HPRN PRN (Reason: shortness of breath or wheezing)
acetaminophen 325 mg tablet
650 mg PO Q6HPRN PRN (Reason: mild pain/ fever>100F)
polyethylene glycol 3350 [Miralax] 17 gram Powder In Packet
17 g PO DAILYPRN PRN (Reason: constipation)
sennosides-docusate sodium [Senna-S] 8.6-50 mg Tablet
1 tab-cap PO [id number] PRN (Reason: constipation)
famotidine 20 mg Tablet
20 mg PO DAILY
lorazepam 1 mg tablet
0.5 mg PO BIDPRN PRN (Reason: anxiety)
furosemide 20 mg Tablet
20 mg PO DAILY
fluticasone propionate 50 mcg/actuation [place],Suspension
2 spray INTRANASAL DAILYPRN PRN (Reason: seasonal allergies)
ropinirole 1 mg tablet
1 mg PO QID
cholecalciferol (vitamin D3) 25 mcg (1,000 unit) tablet
1,000 unit PO DAILY
meclizine 25 mg Tablet
25 mg PO Q8HPRN PRN (Reason: dizziness)
oxycodone 5 mg Tablet
5 mg PO [id number] PRN (Reason: severe pains)
Xarelto 15 mg Tablet
15 mg PO BID
Rx Instructions:
15mg bid until 06/29/25 then 20mg qpm
loratadine [Claritin] 10 mg Tablet
10 mg PO DAILY
acidophilus-pectin, citrus 100 million cell-10 mg Capsule
1 cap PO DAILY
Discharge Orders:
Discharge Patient (As Directed); Ordered 08/03/25
Ordered By: Abril Obregon
Discharge Date and Time
Print Language: SLOVAK
[2025-08-03] MEDS: ANTIVERT 25 MG PO (12:45)
--- NOTE | 2025-08-03 13:39 | CM ---
Addendum entered by Violet Cardenas RN 08/03/25 15:16:
IMM reviewed. [facility] can take patient tomorrow.
[facility] NPI# [id number]
Dr. Ley NPI# [id number]
Original Note:
Reviewed the chart notes and spoke with the patient at the bedside. Personal care is unable to accept the patient back at this time. SNF referral sent to [facility] with [facility]. [facility] will be required. CM continues to be available to patient/family
and is monitoring medical plan for needs at discharge.
Plan: Discharge to SNF once bed secured and auth obtained.
[2025-08-03 15:07] VITALS: BP 149/56
[2025-08-03 15:35] VITALS: BP 154/57
[2025-08-03] MEDS: LIPITOR 20 MG PO (21:58)
[2025-08-03] MEDS: NEURONTIN 100 MG PO (21:58)
[2025-08-03 23:25] VITALS: BP 150/66
[2025-08-04] MEDS: ANCEF 10 IV (05:12)
[2025-08-04 05:22] VITALS: BMI 30.6
[2025-08-04 07:39] LABS: Hematocrit 29.5 % (37.0-47.0); Hemoglobin 9.3 g/dL (12.0-16.0); Mean Corp Hgb Conc. 31.5 g/dL (33.0-37.0); Mean Corpuscular Volume 90.8 fL (81.0-99.0); Nucleated Red Blood Cells % 0 %; Platelet Count 243 10^3/uL (130-400); Red Cell Dist. Width 14.3 % (11.5-14.5)
[2025-08-04] MEDS: SYMBICORT 160/4.5 MCG INHALER 2 PUFF INH ×2 (07:56→19:24)
[2025-08-04] MEDS: SPIRIVA RESPIMAT 2.5 MCG 2 PUFF INH (07:56)
[2025-08-04 08:01] VITALS: BP 140/64
[2025-08-04] MEDS: PEPCID 20 MG PO (08:02)
[2025-08-04] MEDS: DELTASONE 40 MG PO (08:02)
[2025-08-04] MEDS: TOPROL XL 12.5 MG PO ×2 (08:02→20:37)
[2025-08-04] MEDS: XARELTO 15 MG PO ×2 (08:02→20:17)
[2025-08-04] MEDS: REQUIP 1 MG PO ×4 (08:02→22:17)
[2025-08-04] MEDS: LEXAPRO 10 MG PO (08:02)
[2025-08-04] MEDS: LAC HYDRIN, AM LACTIN LOTION 1 APPLIC TOPICAL ×2 (08:06→20:20)
[2025-08-04 08:17] LABS: Blood Urea Nitrogen 23 mg/dl (7-17); Calcium 9.4 mg/dl (8.4-10.2); Carbon Dioxide 27 mmol/L (22-30); Chloride 106 mmol/L (98-107); Estimated Creatinine Clearance 64 ml/min; Glucose 87 mg/dl (70-99); Potassium 4.6 mmol/L (3.5-5.1); Sodium 140 mmol/L (135-145); eGFR > 60.00
[2025-08-04 10:15] VITALS: BP 115/55; PULSE 77; O2SAT 91
--- NOTE | 2025-08-04 10:15 | W.PN.ID1 ---
Date of Service
Date of Service: August 04, 2025
Today's Communication
- Transition to cephalexin 1000mg po q8 through 08/07.
- ID will sign off.
Assessment / Plan
# R foot cellulitis, continues to improve
# Fever - resolved
# leukocytosis - resolved
# COPD exacerbation
- Bcx's x2 pending
- Elevate LE
- Continue moisturize dry skin
- DC Cefazolin to 2g IV q8.
- Transition to cephalexin 1000mg po q8 through 08/07.
ID will sign off.
Conditions present on admission:
COPD
Hypertension
Polyneuropathy
HFpEF
Dyslipidemia
Depression/anxiety
Restless legs syndrome
Spinal stenosis
Insomnia
Osteoarthritis
L 2nd toe amputation
R 2nd,3rd toe amp
Left second toe amputation
Appendectomy
Right total shoulder replacement
Right total knee replacement
Umbilical Hernia repair x 2 with mesh
Left wrist fracture ORIF
Chief Complaint
-: Cellulitis
Subjective / Review of Systems
Going to rehab.
Vital Signs / Physical Exam
Vital Signs
Vital Signs
Temp Pulse Resp BP Pulse Ox
97.9 F 71 20 140/64 94
08/04/25 08:01 08/04/25 08:01 08/04/25 08:01 08/04/25 08:01 08/04/25 08:01
Physical Exam
Constitutional: No Acute Distress
Cardiovascular: Regular Rate and S1/S2
Pulmonary: Clear
Gastrointestinal: Soft, Non Tender and Non Distended
Extremities: Edema (BLE decreased)
Wound: Other (right foot decreased edema, erythema resolving; superficial wound yellow fibrin.)
Neurological: AO x 3
Objective Data
Lab Data
Lab Results
08/04/25 07:17
08/04/25 07:17
Estimated Creat Clear 64 ml/min 08/04/25 07:17
Lactic Acid 1.3 mmol/L (0.7-2.0) 07/31/25 20:18
Total Bilirubin 0.6 mg/dl (0.2-1.3) 07/31/25 20:18
AST 24 U/L (14-36) 07/31/25 20:18
ALT 20 U/L (0-35) 07/31/25 20:18
Alkaline Phosphatase 82 U/L (38-126) 07/31/25 20:18
Most recent labs reviewed.
Micro Results:
07/31/25 20:18 Blood Culture - Preliminary
Blood/Venous No Growth in 72 hours- Final report to follow
07/31/25 20:18 Blood Culture - Preliminary
Blood/Venous No Growth in 72 hours- Final report to follow
08/01/25 09:09 MRSA Screen - Final
Nose No Methicillin Resistant Staphylococcus aureus isolated.
07/31/25 20:25 Influenza Types A & B ([facility]) - Final
Nasal Swab Negative for Influenza A & B, NAAT
Negative results must be combined with clinical observations
and patient history.
Nucleic Acid Amplification test (NAAT)performed on the
[employer] platform.
08/01/25 CXR: Lungs appear radiographically clear.
[2025-08-04 10:18] VITALS: O2SAT 91
--- NOTE | 2025-08-04 10:21 | W.PN.PUL3 ---
Today's Communication / Plan
-
Continue with current plan
Discharge today
Sign off
Assessment
-
79-year-old woman with history of recent right toe amputation due to osteomyelitis, admitted to the hospital complaining of few days of worsening shortness of breath. She has missed few doses of Lasix in the outpatient setting. She has history of
COPD reported some wheezing previously. She was found to be hypoxemic down to 85% requiring 2 L of supplemental oxygen in the emergency room.
We were consulted on 04/08/2025 for evaluation of hypoxemia, we also were consulted for evaluation of her underlying COPD.
Hypoxemic respiratory insufficiency:Due to acute exacerbation of COPD.
Initially on 3L (usually not on oxygen supplmentation)
proBNP 540
Negative COVID/negative flu
Chronic exertional dyspnea: Multiple mechanisms including diastolic heart failure, obesity, deconditioning and untreated COPD.
Right foot cellulitis
Conditions present prior admission:
Admission to 04/2025: mild AECOPD and also diuresed.
DC on Symbicort at that time.
Former smoker 30+ pack year history of smoking quit 5 years ago
History of heart failure with preserved ejection fraction
COPD-Moderate.
-Full pulmonary function testing 03/19/2024.
FEV1/FVC 61%, FEV1 1.21 L - 63%, FVC 1.97 L - 76%. Total lung capacity 77%. Residual volume 79%. RV/TLC ratio 46%. DLCO 43%
Neuropathy
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
b2 deficiency anemia
HLD
h/o DVT on Xarelto.
Spinal stenosis
ASCVD
Anxiety
Assessment and plan:
-
Clinical picture consistent with acute exacerbation of COPD-Acute component improved.
Patient has component of chronic exertional dyspnea: Likely related to deconditioning, Diastolic dysfunction,obesity and also not treated COPD.
She states that she is always short of breath with any activity.
Stable overnight.
No oxygen requirements at rest
Waiting for placement
-
Patient does have moderate airflow obstruction on pulmonary function testing-in March 2025 she was recommended to follow-up with pulmonary but she did not follow through.
At that time she was discharged on Symbicort it does not not appear that she is using any inhalers.
-
Suspect symptoms are more chronic in nature-as above.
-
From the pulmonary perspective: Optimizing COPD management.
Discussed with patient need to follow-up but she states she is she has difficulty going to appointments from [place]. She has not been able to follow-up in the office.
I told her to try to at least follow-up once a year. She will try to schedule an appointment.
-
Continue triple therapy while in the hospital Symbicort/Spiriva-Discussed with respiratory therapist
Nebulizer as needed.
Upon discharge recommending either Delmar or Julia.
-
Continue prednisone 40 mg and decrease by 10 mg every 48 hours to off.Will try to minimize high-dose of steroids as the patient has lower extremity cellulitis.
Incentive spirometry- Encouraged.
-
Exertional hypoxemia:
Pulse ox at rest 94%
With ambulation required 2L ---> should be DC on supplemental oxygen.
-
Physical therapy as tolerated- Pt is deconditioned.
Should ambulate with a walker
-
Significant deconditioning/weakness: Continue physical therapy/Occupational Therapy.
Hopefully can continue in the outpatient setting
[facility] she [facility] but she would like to go back to her facility.
-
Antibiotics for LE cellulitis per infectious disease
Upon discharge to be transition to oral antibiotic
-
DVT prophylaxis: Continue Xarelto
-
Again recommend outpatient pulmonary follow-up for optimization of COPD management. Information will be left in the chart.
-
For discharge today.
Sign off

Data reviewed:
Echocardiogram 04/07/2025:
Normal left ventricular size and systolic function. No regional wall motion
abnormalities are seen. LV ejection fraction is 65-70% by visual assessment.
Mild concentric left ventricular hypertrophy. Stage II diastolic dysfunction
suggestive of abnormal relaxation and increased filling pressures.
Normal right ventricular size and function.
Mild mitral regurgitation.
Mild aortic stenosis. Peak/mean gradients across the aortic valve are 39/22
mmHg. Aortic valve by the Continuity equation is calculated at 1.7 cm2.
Mild tricuspid regurgitation. Estimated pulmonary artery pressure of 38 mmHg
assuming a right atrial pressure of 3 mmHg.
Compared to prior study dated 11/28/2023, there is no significant change
Chest x-ray 07/31/2025: Clear lungs.
CT chest 04/06/2025: No evidence for pulmonary embolism.
Bilateral lower lobe and lingular atelectasis versus scarring.
Subjective Data
-
Date of Service:
Date of Service: August 04, 2025
Chief Complaint: Pulmonary Follow Up (Shortness of breath/acute exacerbation of COPD)
Subjective:
No new symptoms overnight
Waiting for discharge
Objective Data
Data Reviewed
Vital Signs / I&O / Oxygen:
Vital Signs
Temp Pulse Resp BP Pulse Ox
97.9 F 71 20 140/64 94
08/04/25 08:01 08/04/25 08:01 08/04/25 08:01 08/04/25 08:01 08/04/25 08:01
Intake and Output
08/03/25 08/04/25 08/05/25
06:59 06:59 06:59
Intake Total 1190 / 1190 1060 / 1060 240 / 240
Balance 1190 / 1190 1060 / 1060 240 / 240
SaO2 94
Nasal Cannula flow liters per 2
minute
Physical Exam
General: Comfortable
HEENT: Normocephalic
Cardiovascular: S1-S2
Respiratory: Non-Labored Respirations
GI: Soft and Non Distended
Neurology: Awake, Alert, Oriented and No Motor Deficits
Skin: Warm
Labs/Micro/Reports
Lab Data
08/04/25 07:17
08/04/25 07:17
Microbiology
07/31/25 20:18 Blood/Venous Blood Culture - Preliminary
No Growth in 72 hours- Final report to follow
07/31/25 20:18 Blood/Venous Blood Culture - Preliminary
No Growth in 72 hours- Final report to follow
08/01/25 09:09 Nose MRSA Screen - Final
No Methicillin Resistant Staphylococcus aureus isolated.
--- NOTE | 2025-08-04 11:08 | W.PN.HOSP.TC ---
Today's Communication/Plan
-
Discharge to rehab
Assessment / Plan
Assessment / Plan
Impression:
80-year-old with past medical history of CHF, COPD, hypertension, hypercholesteremia, anxiety, depression, restless leg syndrome presented to us with shortness of breath since his evening. Patient stated wheezing and short of breath with exertion.
Patient denied any cough, congestion, fever or chills at home. Patient denies headache, dizziness or syncope. Patient denied any abdominal pain, nausea, vomiting or diarrhea. Patient denied dysuria,hematuria. Patient has a chronic right foot
wound. She was noted to have worsening redness swelling to bilateral lower extremities. Upon arrival patient was hypoxic requiring 2 to 3 L of oxygen. Patient received a dose of Tylenol, ceftriaxone and Doxy in the ER, started on cefazolin 1 mg
every 8, seen by infectious disease, advised to increase cefazolin to 2 g every 8, infectious is recommending discharge on cephalexin 1000 mg every 8 hours through August 07.
Patient was still hypoxic with ambulation, pulmonology consulted, will be discharged on prednisone tapering and Trelegy.
Will be discharged on oxygen.
Seen by physical therapy recommended rehab but patient wants to go back to [facility] with home physical therapy.
Patient was not accepted at her personal care and will be discharged to rehab once bed available.
Assessment/plan:
Acute hypoxic respiratory failure secondary to acute COPD exacerbation
- Covid neg, flu neg. Chest x-ray Lungs appear radiographically clear. Cardiomegaly with no evidence for pulmonary edema pattern.
- Nebs as needed for short of breath or wheezing
- Continue Decadron 2 mg every 12 hours, bronchodilators (consider increase steroid dose, will follow pulmonology recommendations)
- Patient dropped oxygen level to 83% on presentation, no oxygen at home.
-Currently satting 94% on room air, but hypoxic with ambulation, pulmonology consulted.
- Ambulatory pulse ox before discharge---> patient needs 2 L of ox
will be discharged on prednisone tapering and Trelegy.
Sever Sepsis with acute organ dysfunction.
Patient meets sepsis criteria on admission with leukocytosis, tachycardia and fever.
Acute organ dysfunction in form of acute renal failure, acute respiratory failure.
Source of infection R lower extremity cellulitis
Continue IV cefazolin, appreciate ID consult input, follow-up blood cultures, trend fever and white count.
- PT consulted---> SNF
discharge on cephalexin 1000 mg every 8 hours through August 07.
Anemia of chronic disease
- Hemoglobin stable, no active bleeding
- Continue to monitor
Acute kidney injury
- Resolved
Hyperkalemia
Monitor potassium
History of DVT
-Xarelto continued
hyperlipidemia
- continue atorvastatin
HFpEF
- daily weights
- I & Os
- Resumed furosemide
GERD
- continue famotidine
Depression/anxiety
- continue escitalopram and lorazepam
Peripheral polyneuropathy
- continue gabapentin
Restless leg syndrome
- continue ropinirole
Obesity due to excess calories
CODE STATUS: Full code
DVT prophylaxis: Xarelto
Diet: Regular diet
Disposition: Medically clear for discharge to rehab
Total time spent on today's encounter was 55 minutes which included time spent in counseling the patient/family regarding diagnosis and treatment plan as listed above, goals of care, and symptom management. Case was discussed with nursing staff,
specialists, and care coordinators/case management. All labs and imaging personally reviewed by me. Remainder the time spent in detailed review of previous records, lab data, imaging, and other medical provider documentation.
Anticipated Discharge: Today
Subjective/Interval History
-
Date of Service: August 04, 2025
Patient seen and examined at bedside, denies any chest pain or shortness of breath, no abdominal pain, no nausea, no vomiting, no diarrhea or constipation.
Objective Data
-
Labs:
Laboratory Results
08/04/25
07:17
WBC 6.5
Hgb 9.3 L
Hct 29.5 L
Plt Count 243
Sodium 140
Potassium 4.6
Chloride 106
Carbon Dioxide 27
BUN 23 H
Creatinine 0.7
Glucose 87
Calcium 9.4
Vital Signs:
Vital Signs
Temp Pulse Resp BP Pulse Ox
97.9 F 71 20 140/64 94
08/04/25 08:01 08/04/25 08:01 08/04/25 08:01 08/04/25 08:01 08/04/25 08:01
I&O
08/03/25 08/04/25 08/05/25
06:59 06:59 06:59
Intake Total 1190 / 1190 1060 / 1060 240 / 240
Balance 1190 / 1190 1060 / 1060 240 / 240
Physical Exam
-
General: Well Developed, Well Nourished, No Apparent Distress and Comfortable
HEENT: Normocephalic, Atraumatic, Moist Mucous Membranes, No Ptosis, PERRLA and Nose Appears Normal
Respiratory: Rales and Non Labored Respirations
Cardiac: Regular Rhythm and S1/S2
Breast: Deferred by me
GI: Soft, Nontender, Nondistended and Normal Bowel Sounds
Genito-urinary: No Costovertebral Tender
Musculoskeletal: No Clubbing, No Cyanosis and Other (Bilateral lower extremity redness)
Skin: Other (Erythema bilateral lower EXTR)
Neuro: Awake, Alert, Oriented, AO x 3 and No Motor Deficits
Psych: Calm
[2025-08-04] MEDS: LASIX 20 MG PO (13:20)
[2025-08-04] MEDS: KEFLEX 1000 MG PO ×2 (13:20→22:16)
--- NOTE | 2025-08-04 14:27 | CM ---
Reviewed the chart notes and started auth for [facility]. Ref # [id number]; clinicals faxed to [phone]. Patient now off supplemental O2. CM continues to be available to patient/family and is monitoring medical plan for needs at discharge.
Plan: Discharge to [facility] once auth obtained.
[2025-08-04 15:00] VITALS: BP 140/57
[2025-08-04] MEDS: ATIVAN 0.5 MG PO (20:17)
[2025-08-04] MEDS: NEURONTIN 100 MG PO (22:16)
[2025-08-04] MEDS: LIPITOR 20 MG PO (22:16)
[2025-08-04 23:44] VITALS: BP 168/66
[2025-08-05] MEDS: ATIVAN 0.5 MG PO (04:27)
[2025-08-05 05:45] VITALS: BMI 29.0
[2025-08-05] MEDS: KEFLEX 1000 MG PO ×2 (06:35→13:33)
[2025-08-05 07:12] LABS: Blood Urea Nitrogen 25 mg/dl (7-17); Calcium 9.3 mg/dl (8.4-10.2); Carbon Dioxide 28 mmol/L (22-30); Chloride 104 mmol/L (98-107); Estimated Creatinine Clearance 62 ml/min; Glucose 85 mg/dl (70-99); Potassium 4.5 mmol/L (3.5-5.1); Sodium 138 mmol/L (135-145); eGFR > 60.00
[2025-08-05] MEDS: SPIRIVA RESPIMAT 2.5 MCG 2 PUFF INH (07:31)
[2025-08-05] MEDS: SYMBICORT 160/4.5 MCG INHALER 2 PUFF INH (07:31)
[2025-08-05 08:11] VITALS: BP 147/65
[2025-08-05] MEDS: DELTASONE 40 MG PO (08:27)
[2025-08-05] MEDS: LAC HYDRIN, AM LACTIN LOTION 1 APPLIC TOPICAL (08:27)
[2025-08-05] MEDS: LASIX 20 MG PO (08:28)
[2025-08-05] MEDS: LEXAPRO 10 MG PO (08:28)
[2025-08-05] MEDS: REQUIP 1 MG PO ×2 (08:28→13:33)
[2025-08-05] MEDS: TOPROL XL 12.5 MG PO (08:28)
[2025-08-05] MEDS: XARELTO 15 MG PO (08:29)
[2025-08-05] MEDS: PEPCID 20 MG PO (08:29)
[2025-08-05] MEDS: ROXICODONE 5 MG PO (08:31)
--- NOTE | 2025-08-05 10:22 | CM ---
Addendum entered by Violet Cardenas RN 08/05/25 12:41:
Left voice message for the patient's son to discuss transportation.
Plan: Discharge to [facility].
Call report to: [phone]
Fax report to: [phone]
Addendum entered by Violet Cardenas RN 08/05/25 12:33:
Received fax from [facility]:
Approved Sub Scute Level 2; 6 days (08/05-08/10); Auth# [id number]
Original Note:
Reviewed the chart notes and contacted [facility] for status of auth. Still in review. CM continues to be available to patient/family and is monitoring medical plan for needs at discharge.
Plan: Discharge to [facility] once auth obtained.
--- NOTE | 2025-08-05 12:12 | W.PN.HOSP.TC ---
Today's Communication/Plan
-
Discharge to rehab
Assessment / Plan
Assessment / Plan
Impression:
80-year-old with past medical history of CHF, COPD, hypertension, hypercholesteremia, anxiety, depression, restless leg syndrome presented to us with shortness of breath since his evening. Patient stated wheezing and short of breath with exertion.
Patient denied any cough, congestion, fever or chills at home. Patient denies headache, dizziness or syncope. Patient denied any abdominal pain, nausea, vomiting or diarrhea. Patient denied dysuria,hematuria. Patient has a chronic right foot
wound. She was noted to have worsening redness swelling to bilateral lower extremities. Upon arrival patient was hypoxic requiring 2 to 3 L of oxygen. Patient received a dose of Tylenol, ceftriaxone and Doxy in the ER, started on cefazolin 1 mg
every 8, seen by infectious disease, advised to increase cefazolin to 2 g every 8, infectious is recommending discharge on cephalexin 1000 mg every 8 hours through August 07.
Patient was still hypoxic with ambulation, pulmonology consulted, will be discharged on prednisone tapering and Trelegy.
Will be discharged on oxygen.
Seen by physical therapy recommended rehab but patient wants to go back to [facility] with home physical therapy.
Patient was not accepted at her personal care and will be discharged to rehab once bed available.
Assessment/plan:
Acute hypoxic respiratory failure secondary to acute COPD exacerbation
- Covid neg, flu neg. Chest x-ray Lungs appear radiographically clear. Cardiomegaly with no evidence for pulmonary edema pattern.
- Nebs as needed for short of breath or wheezing
- Continue Decadron 2 mg every 12 hours, bronchodilators (consider increase steroid dose, will follow pulmonology recommendations)
- Patient dropped oxygen level to 83% on presentation, no oxygen at home.
-Currently satting 94% on room air, but hypoxic with ambulation, pulmonology consulted.
- Ambulatory pulse ox before discharge---> patient needs 2 L of ox
will be discharged on prednisone tapering and Trelegy.
Sever Sepsis with acute organ dysfunction.
Patient meets sepsis criteria on admission with leukocytosis, tachycardia and fever.
Acute organ dysfunction in form of acute renal failure, acute respiratory failure.
Source of infection R lower extremity cellulitis
Continue IV cefazolin, appreciate ID consult input, follow-up blood cultures, trend fever and white count.
- PT consulted---> SNF
discharge on cephalexin 1000 mg every 8 hours through August 07.
Anemia of chronic disease
- Hemoglobin stable, no active bleeding
- Continue to monitor
Acute kidney injury
- Resolved
Hyperkalemia
Monitor potassium
History of DVT
-Xarelto continued
hyperlipidemia
- continue atorvastatin
HFpEF
- daily weights
- I & Os
- Resumed furosemide
GERD
- continue famotidine
Depression/anxiety
- continue escitalopram and lorazepam
Peripheral polyneuropathy
- continue gabapentin
Restless leg syndrome
- continue ropinirole
Obesity due to excess calories
CODE STATUS: Full code
DVT prophylaxis: Xarelto
Diet: Regular diet
Disposition: Medically clear for discharge to rehab
Total time spent on today's encounter was 55 minutes which included time spent in counseling the patient/family regarding diagnosis and treatment plan as listed above, goals of care, and symptom management. Case was discussed with nursing staff,
specialists, and care coordinators/case management. All labs and imaging personally reviewed by me. Remainder the time spent in detailed review of previous records, lab data, imaging, and other medical provider documentation.
Anticipated Discharge: Today
Subjective/Interval History
-
Date of Service: August 05, 2025
Patient seen and examined at bedside, denies any chest pain or shortness of breath, no abdominal pain, no nausea, no vomiting, no diarrhea or constipation.
Objective Data
-
Labs:
Laboratory Results
08/05/25
06:29
Sodium 138
Potassium 4.5
Chloride 104
Carbon Dioxide 28
BUN 25 H
Creatinine 0.7
Glucose 85
Calcium 9.3
Vital Signs:
Vital Signs
Temp Pulse Resp BP Pulse Ox
98.5 F 78 18 147/65 94
08/05/25 08:11 08/05/25 08:28 08/05/25 08:11 08/05/25 08:28 08/05/25 09:18
I&O
08/04/25 08/05/25 08/06/25
06:59 06:59 06:59
Intake Total 1060 / 1060 2310 / 2310
Balance 1060 / 1060 2310 / 2310
Physical Exam
-
General: Well Developed, Well Nourished, No Apparent Distress and Comfortable
HEENT: Normocephalic, Atraumatic, Moist Mucous Membranes, No Ptosis, PERRLA and Nose Appears Normal
Respiratory: Rales and Non Labored Respirations
Cardiac: Regular Rhythm and S1/S2
Breast: Deferred by me
GI: Soft, Nontender, Nondistended and Normal Bowel Sounds
Genito-urinary: No Costovertebral Tender
Musculoskeletal: No Clubbing, No Cyanosis and Other (Bilateral lower extremity redness)
Skin: Other (Erythema bilateral lower EXTR)
Neuro: Awake, Alert, Oriented, AO x 3 and No Motor Deficits
Psych: Calm
--- NOTE | 2025-08-05 14:23 | W.DCSUMMARY ---
Discharge Summary
Discharge Data
Date of Admission: 07/31/25
Date of Discharge: 08/05/25
Total time spent discharging patient (in min): 40
-
Pending Results: No
Hospital Course
Hospital course
80-year-old with past medical history of CHF, COPD, hypertension, hypercholesteremia, anxiety, depression, restless leg syndrome presented to us with shortness of breath since his evening. Patient stated wheezing and short of breath with exertion.
Patient denied any cough, congestion, fever or chills at home. Patient denies headache, dizziness or syncope. Patient denied any abdominal pain, nausea, vomiting or diarrhea. Patient denied dysuria,hematuria. Patient has a chronic right foot
wound. She was noted to have worsening redness swelling to bilateral lower extremities. Upon arrival patient was hypoxic requiring 2 to 3 L of oxygen. Patient received a dose of Tylenol, ceftriaxone and Doxy in the ER, started on cefazolin 1 mg
every 8, seen by infectious disease, advised to increase cefazolin to 2 g every 8, infectious is recommending discharge on cephalexin 1000 mg every 8 hours through August 07.
Patient was still hypoxic with ambulation, pulmonology consulted, will be discharged on prednisone tapering and Trelegy.
Will be discharged on oxygen.
Seen by physical therapy recommended rehab but patient wants to go back [facility] with home physical therapy.
Patient was not accepted at her personal care and will be discharged to rehab .
During hospitalization patient was treated from the following
Acute hypoxic respiratory failure secondary to acute COPD exacerbation
- Covid neg, flu neg. Chest x-ray Lungs appear radiographically clear. Cardiomegaly with no evidence for pulmonary edema pattern.
- Nebs as needed for short of breath or wheezing
- Continue Decadron 2 mg every 12 hours, bronchodilators (consider increase steroid dose, will follow pulmonology recommendations)
- Patient dropped oxygen level to 83% on presentation, no oxygen at home.
-Currently satting 94% on room air, but hypoxic with ambulation, pulmonology consulted.
- Ambulatory pulse ox before discharge---> patient needs 2 L of ox
will be discharged on prednisone tapering and Trelegy.
Sever Sepsis with acute organ dysfunction.
Patient meets sepsis criteria on admission with leukocytosis, tachycardia and fever.
Acute organ dysfunction in form of acute renal failure, acute respiratory failure.
Source of infection R lower extremity cellulitis
Continue IV cefazolin, appreciate ID consult input, follow-up blood cultures, trend fever and white count.
- PT consulted---> SNF
discharge on cephalexin 1000 mg every 8 hours through August 07.
Anemia of chronic disease
- Hemoglobin stable, no active bleeding
- Continue to monitor
Acute kidney injury
- Resolved
Hyperkalemia
Monitor potassium
History of DVT
-Xarelto continued
hyperlipidemia
- continue atorvastatin
HFpEF
- daily weights
- I & Os
- Resumed furosemide
GERD
- continue famotidine
Depression/anxiety
- continue escitalopram and lorazepam
Peripheral polyneuropathy
- continue gabapentin
Restless leg syndrome
- continue ropinirole
Obesity due to excess calories
CODE STATUS: Full code
DVT prophylaxis: Xarelto
Diet: Regular diet
Disposition: Medically clear for discharge to rehab
Total time spent on today's encounter was 40 minutes which included time spent in counseling the patient/family regarding diagnosis and treatment plan as listed above, goals of care, and symptom management. Case was discussed with nursing staff,
specialists, and care coordinators/case management. All labs and imaging personally reviewed by me. Remainder the time spent in detailed review of previous records, lab data, imaging, and other medical provider documentation.
Anticipated Discharge: Today
Discharge Plan
-
Patient Disposition: Long-Term/SNF
Discharge Diagnosis/Procedures: Acute hypoxic respiratory failure secondary to acute COPD exacerbation.
Sever Sepsis with acute organ dysfunction.
Anemia of chronic disease.
Acute kidney injury
Diet: Low Cholesterol
Activity: With assistance and As tolerated
Other Services: PT and OT
Referrals:
Piyush Sen MD [Active, Pulmonary Medicine] - in two to three weeks
Referral Note: May see [employer] first visit and then on next see me.
Eugenio Ley MD [Family Provider, Family Practice]
Prescriptions:
New
Trelegy Ellipta 100-62.5-25 mcg blister with device
1 inh inhalation DAILY Qty: 60 0RF
prednisone 10 mg tablet
10 mg PO DIRECTED Qty: 30 0RF
Rx Instructions:
40 mg (4 tabs) X 3days then 30 mg (3 tab) X 3 days, then 20mg (2 tabs)X 3 days then 10 mg X 3 day
cephalexin 500 mg capsule
1,000 mg PO Q8H 5 Days Qty: 30 0RF
Continued
atorvastatin 20 mg tablet
20 mg PO HS
escitalopram oxalate 10 mg tablet
10 mg PO DAILY
cyanocobalamin (vitamin B-12) 1,000 mcg Tablet
1,000 mcg PO DAILY Qty: 0 0RF
gabapentin 100 mg capsule
100 mg PO HS
metoprolol succinate 25 mg Tablet Extended Release 24 Hr
12.5 mg PO BID Qty: 0 0RF
albuterol sulfate 90 mcg/actuation HFA aerosol inhaler
2 puff inhalation R Q6HPRN PRN (Reason: shortness of breath or wheezing)
acetaminophen 325 mg tablet
650 mg PO Q6HPRN PRN (Reason: mild pain/ fever>100F)
polyethylene glycol 3350 [Miralax] 17 gram Powder In Packet
17 g PO DAILYPRN PRN (Reason: constipation)
sennosides-docusate sodium [Senna-S] 8.6-50 mg Tablet
1 tab-cap PO [id number] PRN (Reason: constipation)
famotidine 20 mg Tablet
20 mg PO DAILY
lorazepam 1 mg tablet
0.5 mg PO BIDPRN PRN (Reason: anxiety)
furosemide 20 mg Tablet
20 mg PO DAILY
fluticasone propionate 50 mcg/actuation [place],Suspension
2 spray INTRANASAL DAILYPRN PRN (Reason: seasonal allergies)
ropinirole 1 mg tablet
1 mg PO QID
cholecalciferol (vitamin D3) 25 mcg (1,000 unit) tablet
1,000 unit PO DAILY
meclizine 25 mg Tablet
25 mg PO Q8HPRN PRN (Reason: dizziness)
oxycodone 5 mg Tablet
5 mg PO [id number] PRN (Reason: severe pains)
Xarelto 15 mg Tablet
15 mg PO BID
Rx Instructions:
15mg bid until 06/29/25 then 20mg qpm
loratadine [Claritin] 10 mg Tablet
10 mg PO DAILY
acidophilus-pectin, citrus 100 million cell-10 mg Capsule
1 cap PO DAILY
Discharge Orders:
Discharge Patient (As Directed); Ordered 08/03/25
Ordered By: Abril Obregon
Discharge Date and Time
Print Language: CZECH
[2025-08-05 15:54] VITALS: BP 130/45
== END 2025-08-05 16:42 | DRG 871 ==
LOC: 2 NORTH 22:47
PROVIDERS: Registered Nurse; ADMITTING PHYSICIAN Internal Medicine; ATTENDING PHYSICIAN General Practice; CONSULT PHYSICIAN Internal Medicine Critical Care Medicine; CONSULT PHYSICIAN Internal Medicine Infectious Disease; EMERGENCY PHYSICIAN Emergency Medicine; FAMILY PHYSICIAN Family Medicine
PROC: 5A0935A Assistance with Respiratory Ventilation, Less than 24 Consecutive Hours, High Flow/Velocity Cannula (ICD-10-PCS; 2025-08-03)
DX: A41.9 Sepsis, unspecified organism (principal); J96.01 Acute respiratory failure with hypoxia; J44.1 Chronic obstructive pulmonary disease with (acute) exacerbation; I50.32 Chronic diastolic (congestive) heart failure; N17.9 Acute kidney failure, unspecified; L03.115 Cellulitis of right lower limb; I11.0 Hypertensive heart disease with heart failure; I25.10 Atherosclerotic heart disease of native coronary artery without angina pectoris; D51.9 Vitamin B12 deficiency anemia, unspecified; R65.20 Severe sepsis without septic shock; E87.5 Hyperkalemia; E86.0 Dehydration; E78.00 Pure hypercholesterolemia, unspecified; E66.09 Other obesity due to excess calories; D63.8 Anemia in other chronic diseases classified elsewhere; F32.A Depression, unspecified; F41.9 Anxiety disorder, unspecified; G25.81 Restless legs syndrome; G47.00 Insomnia, unspecified; G62.9 Polyneuropathy, unspecified; J30.2 Other seasonal allergic rhinitis; K21.9 Gastro-esophageal reflux disease without esophagitis; M48.00 Spinal stenosis, site unspecified; Z68.31 Body mass index [BMI] 31.0-31.9, adult; Z88.0 Allergy status to penicillin; Z88.1 Allergy status to other antibiotic agents; Z88.2 Allergy status to sulfonamides; Z79.01 Long term (current) use of anticoagulants; Z79.899 Other long term (current) drug therapy; Z86.718 Personal history of other venous thrombosis and embolism; Z87.891 Personal history of nicotine dependence; Z96.611 Presence of right artificial shoulder joint; Z96.612 Presence of left artificial shoulder joint; Z96.651 Presence of right artificial knee joint; Z11.52 Encounter for screening for COVID-19
CPT/HCPCS: 51701; 71046; 80048; 80053; 81003; 81015; 83605; 83880; 85025; 87040; 87070; 87502; 87811; 93005; 94640; 94760; 96361; 96365; 96375; 97163; 97166; 97530; 99285

== ENCOUNTER → 2025-08-09 09:53 | Outpatient (REF) | payer OTHER, SELFPAY ==
[2025-08-09 10:31] LABS: Hematocrit 33.6 % (37.0-47.0); Hemoglobin 10.7 g/dL (12.0-16.0); Mean Corp Hgb Conc. 31.8 g/dL (33.0-37.0); Mean Corpuscular Volume 92.3 fL (81.0-99.0); Platelet Count 312 10^3/uL (130-400); Red Cell Dist. Width 14.3 % (11.5-14.5)
[2025-08-09 10:46] LABS: ALT (SGPT) 29 U/L (0-35); AST (SGOT) 23 U/L (14-36); Albumin 3.7 g/dl (3.5-5.0); Alkaline Phosphatase 69 U/L (38-126); Blood Urea Nitrogen 26 mg/dl (7-17); Calcium 8.9 mg/dl (8.4-10.2); Carbon Dioxide 30 mmol/L (22-30); Chloride 105 mmol/L (98-107); Glucose 90 mg/dl (70-99); Magnesium 2.3 mg/dl (1.6-2.3); Potassium 4.7 mmol/L (3.5-5.1); Sodium 140 mmol/L (135-145); Total Protein 6.7 g/dl (6.3-8.2); eGFR > 60.00
== END ==
LOC: OLABWHC 09:53
PROVIDERS: ATTENDING PHYSICIAN Family Medicine
DX: I50.9 Heart failure, unspecified (principal)
CPT/HCPCS: 80053; 83735; 85027

== ENCOUNTER 2025-08-25 15:34 | Inpatient (IN) | payer OTHER, SELFPAY ==
[2025-08-25] VITALS (9 sets, daily range): BP systolic 90–153; BP diastolic 37–78; BMI 32.3
[2025-08-25] MEDS: TYLENOL 1000 MG PO (13:17)
[2025-08-25 13:27] LABS: Hematocrit 32.1 % (37.0-47.0); Hemoglobin 10.0 g/dL (12.0-16.0); Mean Corp Hgb Conc. 31.2 g/dL (33.0-37.0); Mean Corpuscular Volume 95.8 fL (81.0-99.0); Nucleated Red Blood Cells % 0 %; Platelet Count 171 10^3/uL (130-400); Red Cell Dist. Width 15.2 % (11.5-14.5)
[2025-08-25 13:39] LABS: ALT (SGPT) 20 U/L (0-35); AST (SGOT) 20 U/L (14-36); Albumin 3.8 g/dl (3.5-5.0); Alkaline Phosphatase 71 U/L (38-126); Blood Urea Nitrogen 18 mg/dl (7-17); Calcium 8.7 mg/dl (8.4-10.2); Carbon Dioxide 29 mmol/L (22-30); Chloride 104 mmol/L (98-107); Estimated Creatinine Clearance 65 ml/min; Glucose 112 mg/dl (70-99); Potassium 4.6 mmol/L (3.5-5.1); Sodium 135 mmol/L (135-145); Total Protein 6.9 g/dl (6.3-8.2); eGFR > 60.00
[2025-08-25 13:43] LABS: COVID-19 Antigen Negative (Negative)
--- NOTE | 2025-08-25 14:15 | ED.GENMED ---
History of Present Illness
General
Chief Complaint: Fever
Time Seen by Provider: 08/25/25 14:00
History of Present Illness
History of Present Illness:
80-year-old female with history of COPD/chronic respiratory failure, recurrent bilateral lower extremity cellulitis, CHF, DVT, hypertension, and hyperlipidemia presents to the emergency department for evaluation of increasing pain and redness to the
right lower extremity. She has chronic venous stasis dermatitis but does get recurrent cellulitis, noted to be febrile on arrival.
Past History
Past History
ED Past Medical History: CHF, COPD, HTN, Hypercholesterolemia, Psychiatric (Anxiety, Depression) and Other (OA, Restless leg syndrome, Incontinence)
ED Past Surgical History: Orthopedic (Mati second Toe amputation, Right Total knee replacement, Right shoulder replacement, Mati carpal tunnel) and Other (cataracts, )
PSI?: No
Social History
Tobacco: Former smoker
Alcohol: Occasional
Drug: None
Personal:
Living: assisted living
Employment: Retired
Review of Systems
Review of Systems
Allergies reviewed?: Yes
All Other Systems: ROS reviewed and negative except as documented in HPI and ROS
Phy Exam
Physical Exam
Physical Exam:
GEN: Well appearing, NAD, WDWN
HEENT: Oral mucosa moist, no scleral icterus
Cardiac: Regular rate
Lung: No respiratory distress, no tachypnea
MSK: Marked erythema circumferentially to bilateral lower extremities, erythema on the right leg is extending beyond the knee with moderate tenderness to palpation
Skin: Good color, no pallor or jaundice, no rashes
Neuro: AO x3, moves all extremities freely
Psych: Calm, cooperative
Sepsis
Sepsis Screening
Sepsis Assessment: Sepsis
Sepsis Screen
Sepsis Screen: Sepsis
Date: 08/25/25
Time: 19:40
Course
Orders/Labs/Results
Orders:
Orders
08/25/25 12:59
Electrocardiogram (*1) Urgent
Reason for Study: Other
Other Reason for Exam: Possible Sepsis
Cardiac Monitoring- Treatment ONCE
EKG- Treatment ONCE
IV Insert/Care/Rem.- Treatment PRN
CR Chest - 2 Views Urgent
Comment:
Reason For Exam: suspected infection
O2 Therapy [RESP] Urgent
Titrate/Wean O2 to maintain O2 sat greater than (%): 93
Special Instructions: TO MAINTAIN CONTINUOUS O2 SATS > OR = 93%
Pulse Ox/cont/shift [RESP] Urgent
Quantity: 1
Special Instructions: CONTINUOUS
08/25/25 13:04
Acetaminophen [Tylenol] 1,000 mg PO NOW STA
08/25/25 13:11
Complete Blood Count/With Diff Urgent
Comprehensive Metabolic Panel Urgent
08/25/25 13:12
COVID-19 Antigen Urgent
Source: Nasal Swab
Lactic Acid Q4H
Comment: ON ICE, CANCEL 2ND ORDER IF FIRST LACTIC ACID LEVEL <2
Pro-BNP [NT-proBNP] Urgent
Blood Culture Q20M
LILI Source: Blood/Venous
Specimen Description:
Comment: Urgent from separate sites. If patient screens positive for possible sepsis
Influenza A+B Rapid Molecular Urgent
LILI Source: Nasal Swab
Specimen Description:
08/25/25 14:14
HYDROmorphone [Dilaudid] 0.5 mg IV NOW STA
08/25/25 14:15
CeFAZolin 2 GRAM [Ancef] 2 grams in 10 ml IV NOW
08/25/25 14:56
Blood Culture Q20M
LILI Source: Blood/Venous
Specimen Description:
Comment: Urgent from separate sites. If patient screens positive for possible sepsis
08/25/25 15:09
Admit/Transfer Patient As Directed
Co-Sign Provider:
Level of Care: Inpatient admission
Assign to:: Telemetry
Physician / Group: perfecto
Diagnosis: fever cellulitis
Reason for Telemetry: Arrhythmia
Date to Stop Telemetry: 08/28/25
Time to Stop Telemetry: 11:00
Reason for Hospitalization: fever cellulitis
Expected length of stay greater than two midnights?: Yes
ELOS- Estimated Length of Stay in days: 2
I certify the patient meets the requirements for IP care: Yes
08/25/25 15:10
PRN Pain Medication Management As Directed
May give lesser potent ordered pain med per pt: Yes
preference::
Protocol:: Medication orders for pain may be administered in a
manner that supports deferring to patient preference
when the pt is:
- Requesting an ordered lesser potent pain medication.
Least to most potent pain medications are defined
as: acetaminophen < NSAID < tramadol < opioids
(morphine, oxycodone, hydromorphone).
- Requesting a lesser dose of the same medication IF
ORDERED.
- Requesting a less intrusive route of administration
if both routes are prescribed by the provider (PO <
IV).
08/25/25 15:17
PRN Pain Medication Management As Directed
May give lesser potent ordered pain med per pt: Yes
preference::
Protocol:: Medication orders for pain may be administered in a
manner that supports deferring to patient preference
when the pt is:
- Requesting an ordered lesser potent pain medication.
Least to most potent pain medications are defined
as: acetaminophen < NSAID < tramadol < opioids
(morphine, oxycodone, hydromorphone).
- Requesting a lesser dose of the same medication IF
ORDERED.
- Requesting a less intrusive route of administration
if both routes are prescribed by the provider (PO <
IV).
08/25/25 17:51
Acetaminophen [Tylenol] 650 mg PO Q6HPRN PRN mild pain/ fever>100F
Albuterol [ProAIR HFA INHALER] 2 puff INH R Q6HPRN PRN shortness of breath or wheezing
Docusate W/Senna [Senokot-S] 1 tablet PO [id number] PRN constipation
Lorazepam [Ativan] 0.5 mg PO [id number] PRN anxiety
Meclizine [Antivert] 25 mg PO Q8HPRN PRN dizziness
Oxycodone [Roxicodone] 5 mg PO [id number] PRN severe pains
fluticasone propionate 2 spray NASAL DAILYPRN PRN
08/25/25 17:51
DVT Contraindication [VTE Contraindication] Routine
VTE Mechanical Device Contraindication: Medical Contraindication
Pharmocologic Contraindication: Medical Contraindication
08/25/25 18:00
Rivaroxaban [Xarelto] 20 mg PO QPM
Ropinirole [Requip] 1 mg PO QID
08/25/25 20:00
Fluticasone/Salmeterol 115/21 [Advair Hfa 115/21 Mcg Inhaler] 2 puff INH R BID
Metoprolol Xl [Toprol Xl] 12.5 mg PO BID
08/25/25 22:00
CeFAZolin 2 GRAM [Ancef] 2 grams in 10 ml IV Q8H
Gabapentin [Neurontin] 100 mg PO HS
08/26/25 08:00
Cholecalciferol (Vitamin D3) [VITAMIN D3 (cholecalciferol)] 25 mcg PO DAILY
Cyanocobalamin [Vitamin B-12] 1,000 mcg PO DAILY
Escitalopram Oxalate [Lexapro] 10 mg PO DAILY
Furosemide [Lasix] 20 mg PO DAILY
08/28/25 11:00
DC Protocol for Telemetry ONCE
Abnormal Lab Results
08/25/25
13:11
RBC 3.35 L 10^6/uL
(4.20-5.40)
Hgb 10.0 L g/dL
(12.0-16.0)
Hct 32.1 L %
(37.0-47.0)
MCHC 31.2 L g/dL
(33.0-37.0)
RDW 15.2 H %
(11.5-14.5)
Abs Immat Gran (auto) 0.1 H 10^3/uL
(0-0.05)
Absolute Neuts (auto) 8.0 H 10^3/uL
(1.4-6.5)
Absolute Lymphs (auto) 0.4 L 10^3/uL
(1.2-3.4)
Neutrophils % 86.4 H %
(42.2-75.2)
Lymphocytes % 4.5 L %
(20.5-51.1)
BUN 18 H mg/dl
(7-17)
Glucose 112 H mg/dl
(70-99)
08/25/25 13:11
08/25/25 13:11
Vital Signs
Initial and Last Documented VS:
Initial Vital Signs
Pulse Ox
89
08/25/25 12:54
Last Documented Vital Signs
Temp Pulse Resp BP Pulse Ox
97.9 F 80 16 153/58 95
08/25/25 18:03 08/25/25 19:30 08/25/25 19:30 08/25/25 18:03 08/25/25 19:30
MDM/Problems Addressed
MDM/Problems Addressed:
Patient is febrile and remainder of workup is unremarkable thus source is most likely cellulitis of the right lower extremity given pain and worsening erythema. Will cover with IV antibiotics and admit to the hospital due to febrile illness in an
elderly pt
*Pulse Oximetry
SaO2: 89
Oxygen Mode of Delivery: Room air
Patient hypoxic: no
*Critical Care Note
Total Time (30-74mins, 75-104mins- exclusive of procedures): Not Applicable
ED Attending Note
-
Portions of this chart may have been created with voice recognition software.� Occasional wrong word or��sound alike� substitutions may have occurred due to the inherent limitations of voice recognition software.
Discharge Plan
Departure
Patient Disposition: Admit
Date of Disposition: 08/25/25
Time of Disposition: 14:52
Presentation/result/management discussed w/ accepting MD/DO: Hospitalist
Discharge Problem:
Cellulitis of right lower extremity
Interventions
Interventions:
*Risk Screen - Suicide Last Done: 08/25/25 13:00
*General Assessment Last Done: 08/25/25 13:00
*Neglect/Abuse Screening Last Done: 08/25/25 13:00
*ED- Fall Risk Assessment Last Done: 08/25/25 13:00
*ED COVID-19 Vaccine History Last Done: 08/25/25 13:00
*ED Influenza Vaccine History Last Done: 08/25/25 13:00
*Nursing Disposition Last Done: 08/25/25 17:45
ED- Neurological Assessment Last Done: 08/25/25 13:00
ED-Skin Assessment Last Done: 08/25/25 13:00
Discharge Date and Time
Discharge Date/Time: 08/25/25 17:59
[2025-08-25] MEDS: DILAUDID 0.5 MG IV (14:44)
[2025-08-25] MEDS: ANCEF 10 IV ×2 (14:56→21:23)
--- NOTE | 2025-08-25 15:09 | PHANOTE ---
Med Rec Note:
Called [facility] at 1345 & 1411 with no answer. Called number listed on voicemail ([phone]) spoke with someone at [facility] regarding pt's provided med list missing frequency of medication. Nurse at [facility] stated they would
fax over med rec, still waiting for fax.
Med list compiled from Dr Gardner and Incomplete Long-Term paperwork.
--- NOTE | 2025-08-25 15:19 | HPS.HSE ---
Family Physician
-
Family Physician: Eugenio Ley MD
Chief Complaint
-
leg swelling and pain
History of Present Illness
80-year-old female past medical history of recurrent cellulitis, CHF, COPD, hypertension, hypercholesteremia, anxiety/depression, restless leg syndrome, anemia of chronic disease, history of DVT on Xarelto, GERD, peripheral polyneuropathy, obesity,
venous stasis dermatitis, presenting with increasing pain and redness of both lower extremities particularly the right starting yesterday. She did not have any sweats. She did have a little bit of diarrhea today. Denies abdominal pain. Denies
vomiting. The swelling in her legs did give her some difficulty ambulating. She denies
She has also been short of breath with exertion since yesterday without cough. She thinks she may have gained weight recently due to not moving around is much in rehab.
She is a former smoker. Denies alcohol.
Medical History
Past Medical History
Past Medical History: Reports Other (recurrent cellulitis, CHF, COPD, hypertension, hypercholesteremia, anxiety/depression, restless leg syndrome, anemia of chronic disease, history of DVT on Xarelto, GERD, peripheral polyneuropathy, obesity, venous
stasis dermatitis)
Past Surgical History: Reports Other (Orthopedic (Mati second Toe amputation, Right Total knee replacement, Right shoulder replacement, Mati carpal tunnel) and Other (cataracts, ))
Social History
Tobacco: Former Smoker
Alcohol: None
Family History
Family History: Not pertinent
Allergies / Home Medications
Allergies reflects when Allergies were last updated in [email or web address].
Home Medications with original date entered in [email or web address]
Allergy/Medication List:
Allergies
Allergy/AdvReac Type Severity Reaction Status Date / Time
Penicillins Allergy Swelling Verified 08/25/25 12:57
sulfamethoxazole (From Allergy unknown, Verified 08/25/25 12:57
Bactrim) nursing
home
recored
tramadol Allergy Rash Verified 08/25/25 12:57
trimethoprim (From Bactrim) Allergy unknown, Verified 08/25/25 12:57
nursing
home
recored
Home Medications
escitalopram oxalate 10 mg tablet 10 mg PO DAILY Depression 05/22/22
cyanocobalamin (vitamin B-12) 1,000 mcg tablet 1,000 mcg PO DAILY defeciancy #0 tabs 07/08/22
gabapentin 100 mg capsule 100 mg PO HS neuropathic pain 09/04/23
metoprolol succinate 25 mg tablet,extended release 24 hr 12.5 mg (1/2 x 25 mg) PO BID #0 tabs 04/03/24
albuterol sulfate 90 mcg/actuation aerosol inhaler 2 puff inhalation R Q6HPRN PRN shortness of breath or wheezing 07/18/24
acetaminophen 325 mg tablet 650 mg PO Q6HPRN PRN mild pain/ fever>100F 08/21/24
sennosides 8.6 mg-docusate sodium 50 mg tablet (Senna-S) 1 tab-cap PO [id number] PRN constipation 09/25/24
fluticasone propionate 50 mcg/actuation nasal spray,suspension 2 spray intranasal DAILYPRN PRN seasonal allergies 01/21/25
furosemide 20 mg tablet 20 mg PO DAILY Fluid Retention/Swelling 01/21/25
cholecalciferol (vitamin D3) 25 mcg (1,000 unit) tablet 1,000 unit PO DAILY Supplement 04/06/25
ropinirole 1 mg tablet 1 mg PO QID Anti-Parkinson Agent 04/06/25
meclizine 25 mg tablet 25 mg PO Q8HPRN PRN dizziness 06/14/25
oxycodone 5 mg tablet 5 mg PO [id number] PRN severe pains 06/14/25
loratadine 10 mg tablet (Claritin) 10 mg PO DAILY 07/31/25
cephalexin 500 mg capsule 1,000 mg PO 08/25/25
fluticasone 113 mcg-salmeterol 14 mcg/actuation breath activated powdr 1 inh inhalation R BID 08/25/25
lorazepam 0.5 mg tablet 0.5 mg PO 08/25/25
lorazepam 0.5 mg tablet 0.5 mg PO [id number] PRN anxiety 08/25/25
rivaroxaban 20 mg tablet (Xarelto) 20 mg PO QPM 08/25/25
Review of Systems
-
History Source: Patient
A 12 point ROS was completed and negative except as noted: Yes
Constitutional: Reports No Symptoms
EENT: Reports No Symptoms
Respiratory: Reports No Symptoms
Cardiac: Reports No Symptoms
Abdomen/GI: Reports No Symptoms
: Reports No Symptoms
Musculoskeletal: Reports No Symptoms
Skin: Reports See HPI
Neurological: Reports No Symptoms
Endocrine: Reports No Symptoms
Hematologic/Lymphatic: Reports No Symptoms
Psych: Reports No Symptoms
Physical Exam
Vital Signs
Vital Signs
Temp Pulse Resp BP Pulse Ox
102.8 F H 98 17 134/72 89
08/25/25 13:00 08/25/25 13:00 08/25/25 13:00 08/25/25 13:00 08/25/25 14:15
Physical Exam
General: Well Developed, Well Nourished and No Apparent Distress
HEENT: NormoCephalic, Moist mucous membranes and Atraumatic
Respiratory: Clear
Cardiac: S1/S2 and Regular Rhythm; No Murmur or Rub
GI: Soft, Non Tender, Non Distended and Normal Bowel Sounds; No Organomegaly
Rectal: Deferred by Provider
Musculoskeletal: No Clubbing, No Cyanosis and No Edema
Skin: Other (bilteral lower extremity erythema ); No Rash
Neuro: Nonfocal/grossly intact
Laboratory Results
-
08/25/25 13:11
08/25/25 13:11
Laboratory Results
Lactic Acid Cancelled 08/25/25 17:00
Total Bilirubin 0.8 mg/dl (0.2-1.3) 08/25/25 13:11
AST 20 U/L (14-36) 08/25/25 13:11
ALT 20 U/L (0-35) 08/25/25 13:11
Alkaline Phosphatase 71 U/L (38-126) 08/25/25 13:11
Data Reviewed
-
Lab Data: Labs Reviewed by me
Old Records: Reviewed
Impression/Plan
-
IMPRESSION:
PLAN:
# Fever secondary to bilateral lower extremity cellulitis, worse on the right
-Not septic
- Blood cultures
- Cefazolin
- Dilaudid for pain
# Dyspnea with exertion likely from deconditioning/underlying CHF
-Chest x-ray shows no cardiopulmonary process, cardiac BNP of 780
- Not currently in CHF exacerbation
History of recurrent cellulitis bilaterally
History of venous stasis dermatitis
Chronic HFpEF
- Continue Lasix
COPD
- Continue albuterol
Essential hypertension
- Continue metoprolol
Hypercholesterolemia
Anxiety/depression
- Continue Lexapro
- Continue Ativan
Restless leg syndrome
- Continue ropinirole
Anemia of chronic disease
History of DVT
-Continue Xarelto
GERD
Peripheral neuropathy
- Continue gabapentin
Obesity
Full code
DVT prophylaxis-Xarelto
Cardiac diet
[2025-08-25] MEDS: XARELTO 20 MG PO (18:26)
[2025-08-25] MEDS: REQUIP 1 MG PO ×2 (18:28→21:22)
[2025-08-25] MEDS: ADVAIR HFA 115/21 MCG INHALER 2 PUFF INH (19:28)
[2025-08-25] MEDS: ROXICODONE 5 MG PO (19:57)
[2025-08-25] MEDS: TOPROL XL 12.5 MG PO (19:58)
[2025-08-25] MEDS: NEURONTIN 100 MG PO (21:22)
[2025-08-26] VITALS (7 sets, daily range): BP systolic 107–158; BP diastolic 53–92; BMI 32.8
[2025-08-26] MEDS: ANCEF 10 IV ×3 (05:24→21:19)
[2025-08-26] MEDS: ADVAIR HFA 115/21 MCG INHALER 2 PUFF INH ×2 (07:12→19:28)
[2025-08-26] MEDS: ROXICODONE 5 MG PO ×2 (09:14→18:37)
[2025-08-26] MEDS: LASIX 20 MG PO (09:24)
[2025-08-26] MEDS: VITAMIN D3 (cholecalciferol) 25 MCG PO (09:25)
[2025-08-26] MEDS: REQUIP 1 MG PO ×4 (09:26→21:19)
[2025-08-26] MEDS: TOPROL XL 12.5 MG PO ×2 (09:26→19:59)
[2025-08-26] MEDS: VITAMIN B-12 1000 MCG PO (09:38)
[2025-08-26] MEDS: LEXAPRO 10 MG PO (09:39)
--- NOTE | 2025-08-26 10:30 | CM ---
Addendum entered by Danielle Lee 08/26/25 14:56:
Patient seen at bedside on . Patient admitted from [facility]. Patient states that [facility] insists on her going to SNF when discharged but she doesn't like to do so. CM will call to [facility] and confirm plan on discharge.
Original Note:
Patient has been living at [facility]. Patient previousl was at [facility] and previously in personal care. CM sent update requesting current status to Admissions at [facility]. CM will continue to follow for discharge planning
needs.
Plan; return to SNF vs personal care pending medical treatment plan
[2025-08-26 11:43] LABS: Hematocrit 28.8 % (37.0-47.0); Hemoglobin 9.3 g/dL (12.0-16.0); Mean Corp Hgb Conc. 32.3 g/dL (33.0-37.0); Mean Corpuscular Volume 92.9 fL (81.0-99.0); Nucleated Red Blood Cells % 0 %; Platelet Count 180 10^3/uL (130-400); Red Cell Dist. Width 15.1 % (11.5-14.5)
--- NOTE | 2025-08-26 11:48 | W.PN.HOSP.TC ---
Addendum entered and electronically signed by Katie Lua MD 08/26/25 18:27:
I saw and evaluated the patient independently. I reviewed and discussed the resident�s note and agree with findings and plan as documented by Dr. Baig.
GENERAL: well developed, well nourished, female in no apparent distress
HEENT: NC/AT--O2 NC in place
HEART: regular rate and rhythm, +S1, +S2
LUNGS : clear to auscultation bilaterally
ABDOM: soft, nontender, nondistended, + bowel sounds
EXT: bilateral legs with compression socks--peeled back top and bottom and saw redness receding from ink outlines with lesion on dorsum of right foot
NEUROLOGIC: grossly intact
Bilateral lower extremity swelling, worse on the right--possibly bilateral cellulitis vs lymphedema with venous stasis changes--cont ancef 2gms K5V--ysdqnh clinically--blood cultures negative--cont compression--PT/OT--consult wound care
Chronic HFpEF--without exacerbation-- Most recent echocardiogram showed an ejection fraction of 65 to 70%--pro BNP 780 which is indeterminate in her age group--cont outpt lasix
acute hypoxemic resp insufficiency--does not wear O2 at home per pt--likely due to COPD with possible exacerbation--wean O2 to off--cont fluticasone/salmeterol
Essential hypertension--well-controlled- Continue metoprolol
HLD--diet controlled
Anxiety/depression-- Continue Lexapro-- Continue Ativan as needed
Restless leg syndrome- Continue ropinirole and gabapentin
Anemia of chronic disease--baseline is 10 to 10.5--current is 9.3--trend
History of DVT--Continue Xarelto
GERD--not on treatment
Peripheral neuropathy-- Continue gabapentin
DVT proph-- Xarelto
code status--Full code
Original Note:
Today's Communication/Plan
-
- trend labs, continue to observe for resolution of cellulitis, await blood cultures
Assessment / Plan
Assessment / Plan
1. Bilateral lower extremity swelling, worse on the right:
- She does not meet sepsis criteria even though she she had a elevated temperature and hypotension. There was only 1 episode of hypotension and it was not sustained plus she was not symptomatic.
- Physical exam shows bilateral lower extremity swelling, erythema, mildly tender, ill-defined area with no fluctuance, purulence, drainage, active bleeding, crepitus.
-Differential is cellulitis of the bilateral lower extremities versus stasis dermatitis versus lymphedema
- Blood cultures are pending
- Continue with cefazolin 2 g as empiric for streptococcus which is the most common in non purulent cellulitis
- Ordered tubigrip to help swelling
- Trend temp, wbc, and cbc
- Ordered labs today as they were not ordered yesterday
- Physical therapy has been consulted
2. Chronic HFpEF:
- Most recent echocardiogram showed an ejection fraction of 65 to 70%
- Labs show a mildly elevated proBNP of 780 which is indicative of mild fluid overload
- Physical examination normal to respiratory auscultation. There is bilateral lower extremity edema, however this could be due to the cellulitis
- Physical examination
- Continue Lasix
3. COPD:
- Continue fluticasone/salmeterol
- Physical examination the respiratory system to auscultation is benign
- Continue patient on 2 L of oxygen she is currently saturating 92%
4 Essential hypertension:
-Today blood pressure is 107/53 and well-controlled
- Continue metoprolol
5. Hypercholesterolemia:
- Do not see any medications for high cholesterol on patient's medication list, will consult with patient and see if anything was left out
6. Anxiety/depression
- Continue Lexapro
- Continue Ativan as needed
7. Restless leg syndrome
- Continue ropinirole and gabapentin
8. Anemia of chronic disease
-Today her hemoglobin is 9.3, MCV is normal range indicating normocytic anemia
- Her hemoglobin normally is around 10-10.5
- Will continue to trend hemoglobin and if it goes less than 7 will transfuse with 1 unit of blood
9. History of DVT
-Continue Xarelto
10. GERD
11. Peripheral neuropathy
- Continue gabapentin
DVT prophylaxis Xarelto
Full code
Anticipated Discharge: 24 - 48 hours
Subjective/Interval History
-
Date of Service: August 26, 2025
80-year-old female past medical history of recurrent cellulitis, CHF, COPD, hypertension, hypercholesteremia, anxiety/depression, restless leg syndrome, anemia of chronic disease, history of DVT on Xarelto, GERD, peripheral polyneuropathy, obesity,
venous stasis dermatitis, presenting to the emergency department on 08/25/2025 with increasing pain and redness of both lower extremities bilaterally particularly the right starting yesterday. She states that she has has had a total of 6 episodes
of cellulitis her entire life with 3 in the past year. No fever, chills, nausea, vomiting, diarrhea, abdominal pain, urinary symptoms, altered mental status, visual changes, headache, weight loss. When she presented to ED she had temperature of
102.8, a one-time reading of blood pressure of 90/37, normal WBC, normal heart rate. Blood cultures were drawn. Chest x-ray was normal. EKG showed normal sinus rhythm. Patient was then admitted for bilateral cellulitis.
Objective Data
-
Labs:
Laboratory Results
08/26/25
10:54
WBC 6.6
Hgb 9.3 L
Hct 28.8 L
Plt Count 180
Sodium Pending
Potassium Pending
Chloride Pending
Carbon Dioxide Pending
BUN Pending
Creatinine Pending
Glucose Pending
Calcium Pending
Total Bilirubin Pending
AST Pending
ALT Pending
Alkaline Phosphatase Pending
Vital Signs:
Vital Signs
Temp Pulse Resp BP Pulse Ox
98.3 F 77 16 107/53 92
08/26/25 11:00 08/26/25 11:00 08/26/25 11:00 08/26/25 11:00 08/26/25 11:00
I&O
08/25/25 08/26/25 08/27/25
06:59 06:59 06:59
Intake Total 240 / 240 120 / 120
Output Total 200 / 200
Balance 40 / 40 120 / 120
Review of Systems
-
History Source: Patient
All other systems: Reviewed and negative
Physical Exam
-
General: Well Developed, Well Nourished, No Apparent Distress and Comfortable
HEENT: Normocephalic, Atraumatic, Moist Mucous Membranes, No Ptosis, PERRLA and Nose Appears Normal
Respiratory: Rales and Non Labored Respirations
Cardiac: Regular Rhythm and S1/S2
Breast: Deferred by me
GI: Soft, Nontender, Nondistended and Normal Bowel Sounds
Genito-urinary: No Costovertebral Tender
Musculoskeletal: No Clubbing and No Cyanosis
Skin: Other (Bilateral lower extremity ill defined, warm, mildly tender area. No purulence, wounds, drainage, fluctuance, active bleeding.)
Neuro: Awake, Alert, Oriented, AO x 3 and No Motor Deficits
Psych: Calm
Data Reviewed
-
CT Scan: Report Reviewed by me
Labs: Labs Reviewed by me and Discussed with Physician
[2025-08-26 12:17] LABS: ALT (SGPT) 14 U/L (0-35); AST (SGOT) 17 U/L (14-36); Albumin 3.5 g/dl (3.5-5.0); Alkaline Phosphatase 79 U/L (38-126); Blood Urea Nitrogen 15 mg/dl (7-17); Calcium 8.7 mg/dl (8.4-10.2); Carbon Dioxide 29 mmol/L (22-30); Chloride 106 mmol/L (98-107); Estimated Creatinine Clearance 64 ml/min; Glucose 105 mg/dl (70-99); Magnesium 2.2 mg/dl (1.6-2.3); Potassium 4.5 mmol/L (3.5-5.1); Sodium 139 mmol/L (135-145); Total Protein 6.2 g/dl (6.3-8.2); eGFR > 60.00
[2025-08-26] MEDS: XARELTO 20 MG PO (17:08)
[2025-08-26] MEDS: DESENEX/MITRAZOL/ZEASORB 1 APPLIC TOPICAL (19:59)
[2025-08-26] MEDS: NEURONTIN 100 MG PO (21:19)
[2025-08-27] VITALS (7 sets, daily range): BP systolic 107–138; BP diastolic 53–64; PULSE 77–88; O2SAT 98; BMI 32.4
[2025-08-27] MEDS: ANCEF 10 IV ×3 (05:12→21:14)
[2025-08-27] MEDS: ADVAIR HFA 115/21 MCG INHALER 2 PUFF INH ×2 (07:44→20:03)
[2025-08-27 07:51] LABS: Hematocrit 30.8 % (37.0-47.0); Hemoglobin 9.7 g/dL (12.0-16.0); Mean Corp Hgb Conc. 31.5 g/dL (33.0-37.0); Mean Corpuscular Volume 93.6 fL (81.0-99.0); Nucleated Red Blood Cells % 0 %; Platelet Count 217 10^3/uL (130-400); Red Cell Dist. Width 15.0 % (11.5-14.5)
[2025-08-27] MEDS: TOPROL XL 12.5 MG PO ×2 (07:56→21:15)
[2025-08-27] MEDS: VITAMIN B-12 1000 MCG PO (08:08)
[2025-08-27] MEDS: VITAMIN D3 (cholecalciferol) 25 MCG PO (08:08)
[2025-08-27] MEDS: REQUIP 1 MG PO ×4 (08:08→21:14)
[2025-08-27] MEDS: LASIX 20 MG PO (08:08)
[2025-08-27] MEDS: LEXAPRO 10 MG PO (08:09)
[2025-08-27] MEDS: DESENEX/MITRAZOL/ZEASORB 1 APPLIC TOPICAL ×2 (08:09→21:14)
[2025-08-27 08:13] LABS: ALT (SGPT) 10 U/L (0-35); AST (SGOT) 14 U/L (14-36); Albumin 3.6 g/dl (3.5-5.0); Alkaline Phosphatase 82 U/L (38-126); Blood Urea Nitrogen 15 mg/dl (7-17); Calcium 8.9 mg/dl (8.4-10.2); Carbon Dioxide 31 mmol/L (22-30); Chloride 104 mmol/L (98-107); Estimated Creatinine Clearance 63 ml/min; Glucose 111 mg/dl (70-99); Magnesium 2.3 mg/dl (1.6-2.3); Potassium 4.3 mmol/L (3.5-5.1); Sodium 137 mmol/L (135-145); Total Protein 6.6 g/dl (6.3-8.2); eGFR > 60.00
[2025-08-27] MEDS: HYDROPHOR 1 APPLIC TOPICAL (11:00)
--- NOTE | 2025-08-27 12:46 | WOUNDNOTE ---
RIGHT DORSAL FOOT
--- NOTE | 2025-08-27 12:46 | WOUNDNOTE ---
[facility] RN note: Patient admitted with leg swelling and pain
See H&P for complete history.
PMH: history of recurrent cellulitis, CHF, COPD, hypertension, hypercholesteremia, anxiety/depression, restless leg syndrome, anemia of chronic disease, history of DVT on Xarelto, GERD, peripheral polyneuropathy, obesity, venous stasis dermatitis,
Wound Location and type/assessment: Patient admitted with newly healed right dorsal foot wound. Patient reported that staff at facility have been applying Betadine to wound daily, but she feels it grant. LE with venous stasis changes and dry skin.
Patient wears compression daily and it has been ordered by Hospitalist. Patient said she will want to re-apply after AM care. Sacrum and heels intact. Patient needs assistance turning in bed.
Appetite: Good
Pressure redistribution devices in place: Will recommend static air overlay be added to bed. Patient to use air cushion when sitting in chair. Patients heels were off-loaded at time of assessment.
Plan: Will recommend mineral oil for dry skin on legs. Vaseline and dry dressing applied to right dorsal foot wound.
Will confirm orders with hospitalist and update nurse. Updated care plan and will follow as needed.
Note to case management of equipment requested for discharge:
Recommend follow up at wound care center upon discharge.
--- NOTE | 2025-08-27 13:55 | W.PN.HOSP.TC ---
Addendum entered and electronically signed by Katie Lua MD 08/27/25 16:13:
I saw and evaluated the patient independently. I reviewed and discussed the resident�s note and agree with findings and plan as documented by Dr. Baig.
GENERAL: well developed, well nourished, female in no apparent distress
HEENT: NC/AT--O2 NC in place
HEART: regular rate and rhythm, +S1, +S2
LUNGS : clear to auscultation bilaterally
ABDOM: soft, nontender, nondistended, + bowel sounds
EXT: bilateral legs with compression socks--peeled back top and bottom and saw redness receding from ink outlines with lesion on dorsum of right foot--not much change
NEUROLOGIC: grossly intact
Bilateral lower extremity swelling, worse on the right--possibly bilateral cellulitis vs lymphedema with venous stasis changes--cont ancef 2gms V3Q--cucwwr clinically--blood cultures negative--cont compression--PT/OT rec SNF--apprec wound care
Chronic HFpEF--without exacerbation-- Most recent echocardiogram showed an ejection fraction of 65 to 70%--pro BNP 780 which is indeterminate in her age group--cont outpt lasix
acute hypoxemic resp insufficiency--does not wear O2 at home per pt, wean to off 08/27/25--likely due to COPD with possible exacerbation--cont fluticasone/salmeterol
Essential hypertension--well-controlled- Continue metoprolol
HLD--diet controlled
Anxiety/depression-- Continue Lexapro-- Continue Ativan as needed
Restless leg syndrome- Continue ropinirole and gabapentin
Anemia of chronic disease--baseline is 10 to 10.5--current is 9.7--trend
History of DVT--Continue Xarelto
GERD--not on treatment
Peripheral neuropathy-- Continue gabapentin
DVT proph-- Xarelto
code status--Full code
Original Note:
Today's Communication/Plan
-
- continue to follow up with case managements, continue wound care, continue to observe for regression of erythema and swelling
Assessment / Plan
Assessment / Plan
1. Bilateral lower extremity swelling, worse on the right:
- She does not meet sepsis criteria even though she she had a elevated temperature and hypotension. There was only 1 episode of hypotension and it was not sustained plus she was not symptomatic.
- Physical exam shows bilateral lower extremity swelling, erythema, mildly tender, ill-defined area with no fluctuance, purulence, drainage, active bleeding, crepitus.
-Differential is cellulitis of the bilateral lower extremities versus stasis dermatitis versus lymphedema
- Trend temp, wbc, and cbc
- Physical therapy recommends skilled rehab, case management will find SNF to place patient
- Blood cultures negative
- Continue with cefazolin 2 g as empiric for streptococcus which is the most common in non purulent cellulitis
- Continue with Tubigrip's to help swelling
- wound care recommends mineral oil, Vaseline, and dry dressings and have placed the orders
2. Chronic HFpEF:
- Most recent echocardiogram showed an ejection fraction of 65 to 70%
- Labs show a mildly elevated proBNP of 780 which is indicative of mild fluid overload
- Physical examination normal to respiratory auscultation. There is bilateral lower extremity edema, however this could be due to the cellulitis
- Physical examination
- Continue Lasix
3. COPD:
- Continue fluticasone/salmeterol
- Physical examination the respiratory system to auscultation is benign
- Continue patient on 2 L of oxygen she is currently saturating 92%
4 Essential hypertension:
-Today blood pressure is 107/53 and well-controlled
- Continue metoprolol
5. Hypercholesterolemia:
- Do not see any medications for high cholesterol on patient's medication list, will consult with patient and see if anything was left out
6. Anxiety/depression
- Continue Lexapro
- Continue Ativan as needed
7. Restless leg syndrome
- Continue ropinirole and gabapentin
8. Anemia of chronic disease
-Today her hemoglobin is 9.3, MCV is normal range indicating normocytic anemia
- Her hemoglobin normally is around 10-10.5
- Will continue to trend hemoglobin and if it goes less than 7 will transfuse with 1 unit of blood
9. History of DVT
-Continue Xarelto
10. GERD
11. Peripheral neuropathy
- Continue gabapentin
DVT prophylaxis Xarelto
Full code
Anticipated Discharge: 24 - 48 hours
Subjective/Interval History
-
Date of Service: August 27, 2025
No acute overnight events.
Patient states that she feels much better, still has erythema, edema, pain of the bilateral lower extremities.
No fever, chills, nausea, vomiting, diarrhea, abdominal pain, urinary symptoms, altered mental status, visual changes, headache, weight loss.
Objective Data
-
Labs:
Laboratory Results
08/27/25
07:17
WBC 7.0
Hgb 9.7 L
Hct 30.8 L
Plt Count 217 D
Sodium 137
Potassium 4.3
Chloride 104
Carbon Dioxide 31 H
BUN 15
Creatinine 0.7
Glucose 111 H
Calcium 8.9
Total Bilirubin 0.5
AST 14
ALT 10
Alkaline Phosphatase 82
Vital Signs:
Vital Signs
Temp Pulse Resp BP Pulse Ox
99.0 F 72 18 137/53 97
08/27/25 11:05 08/27/25 11:05 08/27/25 11:05 08/27/25 11:05 08/27/25 08:30
I&O
08/26/25 08/27/25 08/28/25
06:59 06:59 06:59
Intake Total 240 / 240 360 / 360
Output Total 200 / 200 1725 / 1725
Balance 40 / 40 -1365 / -1365
Review of Systems
-
History Source: Patient
All other systems: Reviewed and negative
Physical Exam
-
General: Well Developed, Well Nourished, No Apparent Distress and Comfortable
HEENT: Normocephalic, Atraumatic, Moist Mucous Membranes, No Ptosis, PERRLA and Nose Appears Normal
Respiratory: Rales and Non Labored Respirations
Cardiac: Regular Rhythm and S1/S2
Breast: Deferred by me
GI: Soft, Nontender, Nondistended and Normal Bowel Sounds
Genito-urinary: No Costovertebral Tender
Musculoskeletal: No Clubbing and No Cyanosis
Skin: Other (Bilateral lower extremity ill defined, warm, mildly tender area. No purulence, wounds, drainage, fluctuance, active bleeding.)
Neuro: Awake, Alert, Oriented, AO x 3 and No Motor Deficits
Psych: Calm
Data Reviewed
-
CT Scan: Report Reviewed by me
Labs: Labs Reviewed by me and Discussed with Physician
[2025-08-27] MEDS: ATIVAN 0.5 MG PO (14:06)
[2025-08-27] MEDS: TYLENOL 650 MG PO (14:06)
[2025-08-27] MEDS: XARELTO 20 MG PO (17:20)
--- NOTE | 2025-08-27 17:44 | CM ---
Patient seen at bedside with physicians. Patient from [facility]; therapy recommending SNF, referral sent to [facility]. Patient considering options if no beds available. CM will continue to follow for discharge planning needs.
Plan; SNF
[2025-08-27] MEDS: NEURONTIN 100 MG PO (21:12)
[2025-08-28] MEDS: ATIVAN 0.5 MG PO (03:40)
[2025-08-28 03:41] VITALS: BP 151/63
[2025-08-28] MEDS: ANCEF 10 IV ×3 (05:51→22:32)
[2025-08-28 06:00] VITALS: BMI 33.4
[2025-08-28 07:00] VITALS: BP 138/65
[2025-08-28] MEDS: ADVAIR HFA 115/21 MCG INHALER 2 PUFF INH ×2 (07:30→19:46)
[2025-08-28 07:33] LABS: Hematocrit 30.9 % (37.0-47.0); Hemoglobin 9.4 g/dL (12.0-16.0); Mean Corp Hgb Conc. 30.4 g/dL (33.0-37.0); Mean Corpuscular Volume 95.1 fL (81.0-99.0); Nucleated Red Blood Cells % 0 %; Platelet Count 214 10^3/uL (130-400); Red Cell Dist. Width 14.8 % (11.5-14.5)
[2025-08-28 08:06] LABS: ALT (SGPT) < 10 U/L (0-35); AST (SGOT) 14 U/L (14-36); Albumin 3.4 g/dl (3.5-5.0); Alkaline Phosphatase 74 U/L (38-126); Blood Urea Nitrogen 17 mg/dl (7-17); Calcium 8.6 mg/dl (8.4-10.2); Carbon Dioxide 31 mmol/L (22-30); Chloride 104 mmol/L (98-107); Estimated Creatinine Clearance 64 ml/min; Glucose 107 mg/dl (70-99); Magnesium 2.3 mg/dl (1.6-2.3); Potassium 4.1 mmol/L (3.5-5.1); Sodium 139 mmol/L (135-145); Total Protein 6.3 g/dl (6.3-8.2); eGFR > 60.00
[2025-08-28] MEDS: LEXAPRO 10 MG PO (09:03)
[2025-08-28] MEDS: TOPROL XL 12.5 MG PO ×2 (09:03→20:41)
[2025-08-28] MEDS: LASIX 20 MG PO (09:03)
[2025-08-28] MEDS: REQUIP 1 MG PO ×4 (09:03→21:36)
[2025-08-28] MEDS: VITAMIN B-12 1000 MCG PO (09:04)
[2025-08-28] MEDS: VITAMIN D3 (cholecalciferol) 25 MCG PO (09:04)
[2025-08-28] MEDS: HYDROPHOR 1 APPLIC TOPICAL (09:05)
[2025-08-28] MEDS: DESENEX/MITRAZOL/ZEASORB 1 APPLIC TOPICAL ×2 (09:05→20:41)
[2025-08-28 11:00] VITALS: BP 131/51
[2025-08-28 15:00] VITALS: BP 118/58
--- NOTE | 2025-08-28 16:42 | W.PN.UPDATE ---
Update Note
Progress Note Update
attempted to see patient, she is in ultrasound, will re-attempt evaluation tomorrow
--- NOTE | 2025-08-28 17:25 | W.PN.HOSP.TC ---
Addendum entered and electronically signed by Katie Lua MD 08/28/25 19:01:
I saw and evaluated the patient independently. I reviewed and discussed the resident�s note and agree with findings and plan as documented by Dr. Baig.
GENERAL: well developed, well nourished, female in no apparent distress
HEENT: NC/AT--O2 NC in place
HEART: regular rate and rhythm, +S1, +S2
LUNGS : clear to auscultation bilaterally
ABDOM: soft, nontender, nondistended, + bowel sounds
EXT: chronic redness, not hot or warm--swelling improved
NEUROLOGIC: grossly intact
Bilateral lower extremity swelling, worse on the right--suspect more venous stasis changes--ancef 2gms Q8H without change---blood cultures negative--cont compression--PT/OT rec SNF--apprec wound care--await ID input
Chronic HFpEF--without exacerbation-- Most recent echocardiogram showed an ejection fraction of 65 to 70%--pro BNP 780 which is indeterminate in her age group--cont outpt lasix
acute hypoxemic resp insufficiency--does not wear O2 at home per pt, weaned off 08/27/25--likely due to COPD with possible exacerbation--cont fluticasone/salmeterol
Essential hypertension--well-controlled- Continue metoprolol
HLD--diet controlled
Anxiety/depression-- Continue Lexapro-- Continue Ativan as needed
Restless leg syndrome- Continue ropinirole and gabapentin
Anemia of chronic disease--baseline is 10 to 10.5--current is 9.7--trend
History of DVT--Continue Xarelto
GERD--not on treatment
Peripheral neuropathy-- Continue gabapentin
DVT proph-- Xarelto
code status--Full code
medically stable for d/c once SNF bed obtained
Original Note:
Today's Communication/Plan
-
- continue to follow up with case managements, continue wound care, continue to observe for regression of erythema and swelling
Assessment / Plan
Assessment / Plan
1. Bilateral lower extremity swelling, worse on the right:
- She does not meet sepsis criteria even though she she had a elevated temperature and hypotension. There was only 1 episode of hypotension and it was not sustained plus she was not symptomatic.
- Physical exam shows bilateral lower extremity swelling, erythema, mildly tender, ill-defined area with no fluctuance, purulence, drainage, active bleeding, crepitus.
-Differential is cellulitis of the bilateral lower extremities versus stasis dermatitis versus lymphedema
- Trend temp, wbc, and cbc
- Physical therapy recommends skilled rehab, case management will find SNF to place patient
- Blood cultures negative
- Continue with cefazolin 2 g as empiric for streptococcus which is the most common in non purulent cellulitis, the erythema is still not improving
- Continue with Tubigrip's to help swelling
- wound care recommends mineral oil, Vaseline, and dry dressings and have placed the orders
- Infectious disease consulted
- bilateral ultrasound of the legs ordered to check for clots
- PT/OT
2. Chronic HFpEF:
- Most recent echocardiogram showed an ejection fraction of 65 to 70%
- Labs show a mildly elevated proBNP of 780 which is indicative of mild fluid overload
- Physical examination normal to respiratory auscultation. There is bilateral lower extremity edema, however this could be due to the cellulitis
- Physical examination
- Continue Lasix
3. COPD:
- Continue fluticasone/salmeterol
- Physical examination the respiratory system to auscultation is benign
- Continue patient on 2 L of oxygen she is currently saturating 92%
- Incentive spirometry
4 Essential hypertension:
-Today blood pressure is 118/58 and well-controlled
- Continue metoprolol
5. Hypercholesterolemia:
- Do not see any medications for high cholesterol on patient's medication list, will consult with patient and see if anything was left out
6. Anxiety/depression
- Continue Lexapro
- Continue Ativan as needed
7. Restless leg syndrome
- Continue ropinirole and gabapentin
8. Anemia of chronic disease
-Today her hemoglobin is 9.4, MCV is normal range indicating normocytic anemia
- Her hemoglobin normally is around 10-10.5
- Will continue to trend hemoglobin and if it goes less than 7 will transfuse with 1 unit of blood
9. History of DVT
-Continue Xarelto
10. GERD
11. Peripheral neuropathy
- Continue gabapentin
DVT prophylaxis Xarelto
Full code
Anticipated Discharge: 24 - 48 hours
Subjective/Interval History
-
Date of Service: August 28, 2025
No acute overnight events.
Patient states that she feels much better, still has erythema, edema, pain of the bilateral lower extremities.
No fever, chills, nausea, vomiting, diarrhea, abdominal pain, urinary symptoms, altered mental status, visual changes, headache, weight loss.
Objective Data
-
Labs:
Laboratory Results
08/28/25
07:04
WBC 5.9
Hgb 9.4 L
Hct 30.9 L
Plt Count 214
Sodium 139
Potassium 4.1
Chloride 104
Carbon Dioxide 31 H
BUN 17
Creatinine 0.7
Glucose 107 H
Calcium 8.6
Total Bilirubin 0.3
AST 14
ALT < 10
Alkaline Phosphatase 74
Vital Signs:
Vital Signs
Temp Pulse Resp BP Pulse Ox
99.1 F 68 16 118/58 95
08/28/25 15:00 08/28/25 15:00 08/28/25 15:00 08/28/25 15:00 08/28/25 15:00
I&O
08/27/25 08/28/25 08/29/25
06:59 06:59 06:59
Intake Total 360 / 360 1020 / 1020
Output Total 1725 / 1725
Balance -1365 / -1365 1020 / 1020
Review of Systems
-
History Source: Patient
All other systems: Reviewed and negative
Physical Exam
-
General: Well Developed, Well Nourished, No Apparent Distress and Comfortable
HEENT: Normocephalic, Atraumatic, Moist Mucous Membranes, No Ptosis, PERRLA and Nose Appears Normal
Respiratory: Rales and Non Labored Respirations
Cardiac: Regular Rhythm and S1/S2
Breast: Deferred by me
GI: Soft, Nontender, Nondistended and Normal Bowel Sounds
Genito-urinary: No Costovertebral Tender
Musculoskeletal: No Clubbing and No Cyanosis
Skin: Other (Bilateral lower extremity ill defined, warm, mildly tender area. No purulence, wounds, drainage, fluctuance, active bleeding.)
Neuro: Awake, Alert, Oriented, AO x 3 and No Motor Deficits
Psych: Calm
Data Reviewed
-
Labs: Labs Reviewed by me and Discussed with Physician
[2025-08-28] MEDS: XARELTO 20 MG PO (17:43)
[2025-08-28 19:34] VITALS: BP 121/54
[2025-08-28] MEDS: ROXICODONE 5 MG PO (20:40)
[2025-08-28] MEDS: NEURONTIN 100 MG PO (21:36)
[2025-08-28] MEDS: ANCEF IV (21:36)
[2025-08-28 23:55] VITALS: BP 131/57
[2025-08-29 03:39] VITALS: BP 144/64
[2025-08-29] MEDS: ANCEF 10 IV (05:40)
[2025-08-29 06:00] VITALS: BMI 32.7
[2025-08-29 07:00] VITALS: BP 110/66
[2025-08-29] MEDS: LASIX 20 MG PO (08:07)
[2025-08-29] MEDS: VITAMIN D3 (cholecalciferol) 25 MCG PO (08:07)
[2025-08-29] MEDS: VITAMIN B-12 1000 MCG PO (08:07)
[2025-08-29] MEDS: LEXAPRO 10 MG PO (08:07)
[2025-08-29] MEDS: REQUIP 1 MG PO ×4 (08:07→22:11)
[2025-08-29] MEDS: TOPROL XL 12.5 MG PO ×2 (08:07→19:33)
[2025-08-29] MEDS: HYDROPHOR 1 APPLIC TOPICAL (08:08)
[2025-08-29] MEDS: DESENEX/MITRAZOL/ZEASORB 1 APPLIC TOPICAL ×2 (08:08→19:38)
[2025-08-29] MEDS: ROXICODONE 5 MG PO ×2 (08:14→19:33)
[2025-08-29] MEDS: ADVAIR HFA 115/21 MCG INHALER 2 PUFF INH (08:19)
[2025-08-29 08:48] LABS: Hematocrit 31.7 % (37.0-47.0); Hemoglobin 10.2 g/dL (12.0-16.0); Mean Corp Hgb Conc. 32.2 g/dL (33.0-37.0); Mean Corpuscular Volume 91.6 fL (81.0-99.0); Nucleated Red Blood Cells % 0 %; Platelet Count 280 10^3/uL (130-400); Red Cell Dist. Width 14.7 % (11.5-14.5)
[2025-08-29 09:06] LABS: ALT (SGPT) < 10 U/L (0-35); AST (SGOT) 15 U/L (14-36); Albumin 3.7 g/dl (3.5-5.0); Alkaline Phosphatase 78 U/L (38-126); Blood Urea Nitrogen 15 mg/dl (7-17); Calcium 9.0 mg/dl (8.4-10.2); Carbon Dioxide 31 mmol/L (22-30); Chloride 103 mmol/L (98-107); Estimated Creatinine Clearance 63 ml/min; Glucose 145 mg/dl (70-99); Sodium 136 mmol/L (135-145); Total Protein 6.9 g/dl (6.3-8.2); eGFR > 60.00
[2025-08-29 09:12] LABS: Potassium 4.4 mmol/L (3.5-5.1)
[2025-08-29 11:00] VITALS: BP 138/59
--- NOTE | 2025-08-29 11:07 | CM ---
Addendum entered by Lisa Miles 08/29/25 11:52:
[facility] is alternate SNF preference if [facility] cannot accept patient; referral sent via [facility]
Original Note:
Plan: Discharge to SNF pending bed availability @ [facility] where she currently resides in [facility]
--- NOTE | 2025-08-29 12:14 | CON.ID ---
Consultation
-
Date/Time Consultation Requested: 08/28/25 14:18
Date/Time Consultation Performed: 08/28/25 12:14
Requesting Provider: Dr Baig
Performing Provider: Dr Conley
Reason for Consultation: cellulitis
Chief Complaint / Past History
Chief Complaint
leg swelling and pain
History of Present Illness
Ms Prince is an 80 year old female with history of venous stasis dermatitis, obesity, recurrent cellulitis who presented here on 08/25 for swelling and tenderness of the bilateral lower extremities. She has some difficulty with ambulating due to
the swelling. She believes she has gained some weight at rehab and has been short of breath with exertion, also with cough.
Since arrival here she has had a fever to 102.8, bp stable, wbc initially 9.2 today 6.0 both WNL, hgb 10.2, plt 280, L shift has been present, na 136, cr 0.7, an US of the lower extremities had no DVT but did show a L sided bakers cyst, mrsa screen
negative, blood cultures x2 no growth at 72 hours, patient has been on compression with tubigrips and cefazolin throughout her stay. ID is asked to comment on cellulitis vs venous stasis dermatitis.
Past History
Additional Past Medical History:
recurrent cellulitis, CHF, COPD, hypertension, hypercholesteremia, anxiety/depression, restless leg syndrome, anemia of chronic disease, history of DVT on Xarelto, GERD, peripheral polyneuropathy, obesity, venous stasis dermatitis
Additional Past Surgical History:
Mati second Toe amputation, Right Total knee replacement, Right shoulder replacement, Mati carpal tunnel) and Other (cataracts, )
Allergy History:
Penicillins Allergy (Verified 08/25/25 12:57)
Swelling
sulfamethoxazole (From Bactrim) Allergy (Verified 08/25/25 12:57)
unknown, prison recored
tramadol Allergy (Verified 08/25/25 12:57)
Rash
trimethoprim (From Bactrim) Allergy (Verified 08/25/25 12:57)
unknown, prison recored
Medications Reviewed: Yes
Social History
Tobacco: Former Smoker
Alcohol: None
Family History
Family History: Not Pertinent
Review of Systems
Review of Systems
Constitutional: Reports No Symptoms
EENT: Reports No Symptoms
Respiratory: Reports No Symptoms
Cardiac: Reports No Symptoms
Abdomen/GI: Reports No Symptoms
: Reports No Symptoms
Musculoskeletal: Reports No Symptoms
Skin: Reports See HPI
Neurological: Reports No Symptoms
Endocrine: Reports No Symptoms
Hematologic/Lymphatic: Reports No Symptoms
Psych: Reports No Symptoms
Vital Signs
Temp Pulse Resp BP Pulse Ox
98.5 F 65 20 138/59 97
08/29/25 11:00 08/29/25 11:00 08/29/25 11:00 08/29/25 11:00 08/29/25 11:00
Physical Exam
Physical Exam
Constitutional: No Acute Distress
Cardiovascular: Regular Rate and S1/S2; Negative Murmur or Rub
Pulmonary: Clear and Symmetric; Negative Wheezes, Rales or Rhonchi
Gastrointestinal: Soft, Non Tender, Non Distended and Normal Bowel Sounds
Skin: Warm and Dry; Negative Rash or Jaundice
Lab / Diagnostic Study Results
08/29/25 08:11
08/29/25 08:11
Abs Immat Gran (auto) 0.0 10^3/uL (0-0.05) 08/29/25 08:11
Absolute Neuts (auto) 4.6 10^3/uL (1.4-6.5) 08/29/25 08:11
Absolute Lymphs (auto) 0.5 10^3/uL (1.2-3.4) L 08/29/25 08:11
Absolute Monos (auto) 0.4 10^3/uL (0.1-0.6) 08/29/25 08:11
Absolute Basos (auto) 0.0 10^3/uL (0-0.2) 08/29/25 08:11
Immature Gran % 0.2 % (0-0.5) 08/29/25 08:11
Neutrophils % 76.4 % (42.2-75.2) H 08/29/25 08:11
Lymphocytes % 9.0 % (20.5-51.1) L 08/29/25 08:11
Monocytes % 6.4 % (1.7-9.3) 08/29/25 08:11
Eosinophils % 7.5 % (0-6) H 08/29/25 08:11
Basophils % 0.5 % (0-2) 08/29/25 08:11
Lactic Acid Cancelled 08/25/25 17:00
Microbiology Results
Micro:
08/25/25 14:56 Blood Culture - Preliminary
Blood/Venous No Growth in 72 hours- Final report to follow
08/25/25 13:12 Blood Culture - Preliminary
Blood/Venous No Growth in 72 hours- Final report to follow
08/25/25 18:59 MRSA Screen - Final
Nose No Methicillin Resistant Staphylococcus aureus isolated.
08/25/25 13:12 Influenza Types A & B ([facility]) - Final
Nasal Swab Negative for Influenza A & B, NAAT
Negative results must be combined with clinical observations
and patient history.
Nucleic Acid Amplification test (NAAT)performed on the
[employer] NOW platform.
Assessment / Plan
Venous Stasis Dermatitis
- will require daily use of compression stocking to manage the edema
- referral to the lymphedema center
- no benefit to further antibiotics at this time - stopped
- she will see her wildland firefighter for a wound on her dorsal right foot, clinically it does not appear infected at this time
- stable for dc from ID perspective
[2025-08-29 15:00] VITALS: BP 135/60
--- NOTE | 2025-08-29 15:06 | W.PN.HOSP.TC ---
Addendum entered and electronically signed by Katie Lua MD 08/29/25 15:21:
I saw and evaluated the patient independently. I reviewed and discussed the resident�s note and agree with findings and plan as documented by Dr. Baig.
GENERAL: well developed, well nourished, female in no apparent distress
HEENT: NC/AT--O2 NC in place
HEART: regular rate and rhythm, +S1, +S2
LUNGS : clear to auscultation bilaterally
ABDOM: soft, nontender, nondistended, + bowel sounds
EXT: chronic redness, not hot or warm--swelling improved
NEUROLOGIC: grossly intact
medically stable for d/c once SNF bed obtained
Bilateral lower extremity swelling, worse on the right--suspect more venous stasis changes rather than bilateral cellulitis--ancef 2gms Q8H not changing physical exam findings, so stopped---blood cultures negative--cont compression--PT/OT rec
SNF--apprec wound care--apprec ID input
Chronic HFpEF--without exacerbation-- Most recent echocardiogram showed an ejection fraction of 65 to 70%--pro BNP 780 which is indeterminate in her age group--cont outpt lasix
acute hypoxemic resp insufficiency--does not wear O2 at home per pt, weaned off 08/27/25--likely due to COPD with possible exacerbation--cont fluticasone/salmeterol
Essential hypertension--well-controlled- Continue metoprolol
HLD--diet controlled
Anxiety/depression-- Continue Lexapro-- Continue Ativan as needed
Restless leg syndrome- Continue ropinirole and gabapentin
Anemia of chronic disease--baseline is 10 to 10.5--current is 9.7--trend
History of DVT--Continue Xarelto
GERD--not on treatment
Peripheral neuropathy-- Continue gabapentin
DVT proph-- Xarelto
code status--Full code
Original Note:
Today's Communication/Plan
-
- discharge pt tomm
Assessment / Plan
Assessment / Plan
1. Bilateral lower extremity swelling, worse on the right:
- She does not meet sepsis criteria even though she she had a elevated temperature and hypotension. There was only 1 episode of hypotension and it was not sustained plus she was not symptomatic.
- Physical exam shows bilateral lower extremity swelling, erythema, mildly tender, ill-defined area with no fluctuance, purulence, drainage, active bleeding, crepitus.
-Differential is cellulitis of the bilateral lower extremities versus stasis dermatitis versus lymphedema
- Trend temp, wbc, and cbc
- Physical therapy recommends skilled rehab, case management will find SNF to place patient
- Blood cultures negative
- antibiotics dc'd as per recc of ID, they believe this is venous stasis dermatitis
- Continue with Tubigrip's to help swelling
- wound care recommends mineral oil, Vaseline, and dry dressings and have placed the orders
- Infectious disease consulted and recc outpatient to lymphedema center and patient will also see her retail zone specialist
- bilateral ultrasound of the legs ordered to check for clots negative
- PT/OT
2. Chronic HFpEF:
- Most recent echocardiogram showed an ejection fraction of 65 to 70%
- Labs show a mildly elevated proBNP of 780 which is indicative of mild fluid overload
- Physical examination normal to respiratory auscultation. There is bilateral lower extremity edema, however this could be due to the cellulitis
- Physical examination
- Continue Lasix
3. COPD:
- Continue fluticasone/salmeterol
- Physical examination the respiratory system to auscultation is benign
- Continue patient on 2 L of oxygen she is currently saturating 92%
- Incentive spirometry
4 Essential hypertension:
-Today blood pressure is 118/58 and well-controlled
- Continue metoprolol
5. Hypercholesterolemia:
- Do not see any medications for high cholesterol on patient's medication list, will consult with patient and see if anything was left out
6. Anxiety/depression
- Continue Lexapro
- Continue Ativan as needed
7. Restless leg syndrome
- Continue ropinirole and gabapentin
8. Anemia of chronic disease
-Today her hemoglobin is 9.4, MCV is normal range indicating normocytic anemia
- Her hemoglobin normally is around 10-10.5
- Will continue to trend hemoglobin and if it goes less than 7 will transfuse with 1 unit of blood
9. History of DVT
-Continue Xarelto
10. GERD
11. Peripheral neuropathy
- Continue gabapentin
DVT prophylaxis Xarelto
Full code
Anticipated Discharge: Today
Subjective/Interval History
-
Date of Service: August 29, 2025
Patient states overnight she had a burning and itching sensation from a covered wound on the dorsal surface of foot
Patient states that she feels much better, still has erythema, edema, pain of the bilateral lower extremities.
No fever, chills, nausea, vomiting, diarrhea, abdominal pain, urinary symptoms, altered mental status, visual changes, headache, weight loss.
Objective Data
-
Labs:
Laboratory Results
08/29/25
08:11
WBC 6.0
Hgb 10.2 L
Hct 31.7 L
Plt Count 280 D
Sodium 136
Potassium 4.4
Chloride 103
Carbon Dioxide 31 H
BUN 15
Creatinine 0.7
Glucose 145 H
Calcium 9.0
Total Bilirubin 0.4
AST 15
ALT < 10
Alkaline Phosphatase 78
Vital Signs:
Vital Signs
Temp Pulse Resp BP Pulse Ox
98.5 F 65 20 138/59 97
08/29/25 11:00 08/29/25 11:00 08/29/25 11:00 08/29/25 11:00 08/29/25 11:00
I&O
08/28/25 08/29/25 08/30/25
06:59 06:59 06:59
Intake Total 1020 / 1020 760 / 760
Balance 1020 / 1020 760 / 760
Review of Systems
-
History Source: Patient
All other systems: Reviewed and negative
Physical Exam
-
General: Well Developed, Well Nourished, No Apparent Distress and Comfortable
HEENT: Normocephalic, Atraumatic, Moist Mucous Membranes, No Ptosis, PERRLA and Nose Appears Normal
Respiratory: Rales and Non Labored Respirations
Cardiac: Regular Rhythm and S1/S2
Breast: Deferred by me
GI: Soft, Nontender, Nondistended and Normal Bowel Sounds
Genito-urinary: No Costovertebral Tender
Musculoskeletal: No Clubbing and No Cyanosis
Skin: Other (Bilateral lower extremity ill defined, warm, mildly tender area. No purulence, wounds, drainage, fluctuance, active bleeding. There is light yellow discharge from small covered wound on dorsal surface foot, non tender to touch.)
Neuro: Awake, Alert, Oriented, AO x 3 and No Motor Deficits
Psych: Calm
Data Reviewed
-
Labs: Labs Reviewed by me and Discussed with Physician
[2025-08-29] MEDS: XARELTO 20 MG PO (17:40)
[2025-08-29] MEDS: ADVAIR HFA 115/21 MCG INHALER INH (20:23)
[2025-08-29] MEDS: NEURONTIN 100 MG PO (22:11)
[2025-08-29 23:38] VITALS: BP 139/55
[2025-08-30] MEDS: ROXICODONE 5 MG PO ×2 (05:29→19:54)
[2025-08-30 05:31] VITALS: BMI 31.6
[2025-08-30 07:05] VITALS: BP 111/85
[2025-08-30 07:16] LABS: Hematocrit 32.6 % (37.0-47.0); Hemoglobin 10.5 g/dL (12.0-16.0); Mean Corp Hgb Conc. 32.2 g/dL (33.0-37.0); Mean Corpuscular Volume 93.9 fL (81.0-99.0); Nucleated Red Blood Cells % 0 %; Platelet Count 337 10^3/uL (130-400); Red Cell Dist. Width 14.5 % (11.5-14.5)
[2025-08-30 07:30] LABS: ALT (SGPT) < 10 U/L (0-35); AST (SGOT) 17 U/L (14-36); Albumin 4.1 g/dl (3.5-5.0); Alkaline Phosphatase 92 U/L (38-126); Blood Urea Nitrogen 21 mg/dl (7-17); Calcium 9.4 mg/dl (8.4-10.2); Carbon Dioxide 33 mmol/L (22-30); Chloride 101 mmol/L (98-107); Estimated Creatinine Clearance 62 ml/min; Glucose 103 mg/dl (70-99); Magnesium 2.3 mg/dl (1.6-2.3); Potassium 4.6 mmol/L (3.5-5.1); Sodium 136 mmol/L (135-145); Total Protein 7.6 g/dl (6.3-8.2); eGFR > 60.00
[2025-08-30] MEDS: LASIX 20 MG PO (07:38)
[2025-08-30] MEDS: VITAMIN D3 (cholecalciferol) 25 MCG PO (07:58)
[2025-08-30] MEDS: LEXAPRO 10 MG PO (07:58)
[2025-08-30] MEDS: VITAMIN B-12 1000 MCG PO (07:59)
[2025-08-30] MEDS: TOPROL XL 12.5 MG PO ×2 (07:59→20:08)
[2025-08-30] MEDS: REQUIP 1 MG PO ×4 (07:59→21:31)
[2025-08-30] MEDS: DESENEX/MITRAZOL/ZEASORB 1 APPLIC TOPICAL ×2 (07:59→19:55)
[2025-08-30] MEDS: HYDROPHOR 1 APPLIC TOPICAL (08:00)
[2025-08-30] MEDS: ATIVAN 0.5 MG PO (08:06)
[2025-08-30] MEDS: ADVAIR HFA 115/21 MCG INHALER 2 PUFF INH ×2 (08:35→19:25)
--- NOTE | 2025-08-30 10:00 | W.PN.HOSP.TC ---
Addendum entered and electronically signed by Nader Marr MD 08/30/25 21:19:
Attending Addendum-
I saw and evaluated the patient. I reviewed the resident�s note and agree with findings and plan as documented in the resident�s note. Sub: Seen during PT eval. 'This is the best mahnaz ever done!' Per PT patient very weak and in need of 2 person
assist. No fevers chills LE pain. Full 12 point ROS reviewed and negative except as documented Exam: Vitals reviewed in chart GEN-NAD heart RRR lungs clear abd soft LE venous stats changes red not warm wrapped
Plam:
Bilateral lower extremity swelling-venous stasis changes and lymphedema rather than bilateral cellulitis
-with dorsal foot wound- cont wound care
-DC ancef
-blood cultures negative
-cont compression-PT/OT rec SNF--apprec wound care--apprec ID input
-referral to [facility] clinic as OP
#Chronic HFpEF--without exacerbation-- Most recent echocardiogram showed an ejection fraction of 65 to 70%-cont outpt lasix
#Acute hypoxemic resp insufficiency--resolved, does not wear O2 at home, weaned off
#Essential hypertension--well-controlled- Continue metoprolol
# HLD--diet controlled
# Anxiety/depression-- Continue Lexapro-- Continue Ativan as needed
# Restless leg syndrome- Continue ropinirole and gabapentin
# Anemia of chronic disease--baseline is 10 to 10.5--current is 9.7--trend
# History of DVT--Continue Xarelto
# Peripheral neuropathy-- Continue gabapentin
# COPD- cont inhalers- wean o2 for sats 88-92%
DVT proph-- Xarelto
code status--Full code
Dispo- Awaiting auth for [facility] (from [facility])- medically stable for DC, DC in am
Time spent coordinating care, review of plan of care with resident, personally reviewed records in EMR, med rec, consults, notes, labs, radiology, d/w nursing PT CM � 51 mins
Original Note:
Today's Communication/Plan
-
- discharge to [facility]
Assessment / Plan
Assessment / Plan
1. Bilateral lower extremity swelling, worse on the right:
- She does not meet sepsis criteria even though she she had a elevated temperature and hypotension. There was only 1 episode of hypotension and it was not sustained plus she was not symptomatic.
- Physical exam shows bilateral lower extremity swelling, erythema, mildly tender, ill-defined area with no fluctuance, purulence, drainage, active bleeding, crepitus.
-Differential is cellulitis of the bilateral lower extremities versus stasis dermatitis versus lymphedema
- Trend temp, wbc, and cbc
- bilateral ultrasound of the legs ordered to check for clots negative
- Physical therapy recommends skilled rehab, case management found a bed at [place], waiting for authorization
- Blood cultures negative
- antibiotics dc'd as per recc of ID, they believe this is venous stasis dermatitis
- Continue with Tubigrip's to help swelling
- wound care recommends mineral oil, Vaseline, and dry dressings and have placed the orders
- recc outpatient to lymphedema center at [facility]
- bilateral ultrasound of the legs ordered to check for clots negative
2. Chronic HFpEF:
- Most recent echocardiogram showed an ejection fraction of 65 to 70%
- Labs show a mildly elevated proBNP of 780 which is indicative of mild fluid overload
- Physical examination normal to respiratory auscultation. There is bilateral lower extremity edema, however this could be due to the cellulitis
- Physical examination
- Continue Lasix
3. COPD:
- Continue fluticasone/salmeterol
- Physical examination the respiratory system to auscultation is benign
- Incentive spirometry ordered
- Wean patient off oxygen for discharge
4 Essential hypertension:
-Today blood pressure is 118/58 and well-controlled
- Continue metoprolol
5. Hypercholesterolemia:
- Do not see any medications for high cholesterol on patient's medication list, will consult with patient and see if anything was left out
6. Anxiety/depression
- Continue Lexapro
- Continue Ativan as needed
7. Restless leg syndrome
- Continue ropinirole and gabapentin
8. Anemia of chronic disease
-Today her hemoglobin is 9.4, MCV is normal range indicating normocytic anemia
- Her hemoglobin normally is around 10-10.5
- Will continue to trend hemoglobin and if it goes less than 7 will transfuse with 1 unit of blood
9. History of DVT
-Continue Xarelto
10. GERD
11. Peripheral neuropathy
- Continue gabapentin
DVT prophylaxis Xarelto
Full code
Anticipated Discharge: Today
Subjective/Interval History
-
Date of Service: August 30, 2025
Patient states that she feels much better, still has erythema, edema, pain of the bilateral lower extremities.
No fever, chills, nausea, vomiting, diarrhea, abdominal pain, urinary symptoms, altered mental status, visual changes, headache, weight loss.
Objective Data
-
Labs:
Laboratory Results
08/30/25
06:49
WBC 7.0
Hgb 10.5 L
Hct 32.6 L
Plt Count 337 D
Sodium 136
Potassium 4.6
Chloride 101
Carbon Dioxide 33 H
BUN 21 H
Creatinine 0.7
Glucose 103 H
Calcium 9.4
Total Bilirubin 0.5
AST 17
ALT < 10
Alkaline Phosphatase 92
Vital Signs:
Vital Signs
Temp Pulse Resp BP Pulse Ox
99.1 F 70 14 111/85 99
08/30/25 07:05 08/30/25 08:39 08/30/25 08:39 08/30/25 07:38 08/30/25 08:39
I&O
1008/30/25 08/31/25
06:59 06:59 06:59
Intake Total 760 / 760 720 / 720
Balance 760 / 760 720 / 720
Review of Systems
-
History Source: Patient
All other systems: Reviewed and negative
Physical Exam
-
General: Well Developed, Well Nourished, No Apparent Distress and Comfortable
HEENT: Normocephalic, Atraumatic, Moist Mucous Membranes, No Ptosis, PERRLA and Nose Appears Normal
Respiratory: Rales and Non Labored Respirations
Cardiac: Regular Rhythm and S1/S2
Breast: Deferred by me
GI: Soft, Nontender, Nondistended and Normal Bowel Sounds
Genito-urinary: No Costovertebral Tender
Musculoskeletal: No Clubbing and No Cyanosis
Skin: Other (Bilateral lower extremity ill defined, warm, mildly tender area. No purulence, wounds, drainage, fluctuance, active bleeding. There is light yellow discharge from small covered wound on dorsal surface foot, non tender to touch.)
Neuro: Awake, Alert, Oriented, AO x 3 and No Motor Deficits
Psych: Calm
Data Reviewed
-
Labs: Labs Reviewed by me and Discussed with Physician
[2025-08-30] MEDS: TYLENOL 650 MG PO (10:54)
--- NOTE | 2025-08-30 14:07 | W.PN.ID1 ---
Date of Service
Date of Service: August 30, 2025
Today's Communication
- will require daily use of compression stocking to manage the edema
- referral to the lymphedema center
Assessment / Plan
Venous Stasis Dermatitis
- will require daily use of compression stocking to manage the edema
- referral to the lymphedema center
- no benefit to further antibiotics at this time - stopped
- she will see her plant cytologist for a wound on her dorsal right foot, clinically it does not appear infected at this time
- stable for dc from ID perspective
Chief Complaint
-: Other (venous stasis dermatitis)
Subjective / Review of Systems
afebrile
bp stable
legs remain erythematous, less swelling with compression
Vital Signs / Physical Exam
Vital Signs
Vital Signs
Temp Pulse Resp BP Pulse Ox
99.1 F 70 14 111/85 91
08/30/25 07:05 08/30/25 08:39 08/30/25 08:39 08/30/25 07:38 08/30/25 12:55
Physical Exam
Constitutional: No Acute Distress
Cardiovascular: Regular Rate and S1/S2; Negative Murmur or Rub
Pulmonary: Clear and Symmetric; Negative Wheezes or Rales
Gastrointestinal: Soft, Non Tender, Non Distended and Normal Bowel Sounds
Extremities: Other (legs remain erythematous, less swelling with compression)
Skin: Warm and Dry; Negative Rash or Jaundice
Objective Data
Lab Data
Lab Results
08/30/25 06:49
08/30/25 06:49
Estimated Creat Clear 62 ml/min 08/30/25 06:49
Lactic Acid Cancelled 08/25/25 17:00
Total Bilirubin 0.5 mg/dl (0.2-1.3) 08/30/25 06:49
AST 17 U/L (14-36) 08/30/25 06:49
ALT < 10 U/L (0-35) 08/30/25 06:49
Alkaline Phosphatase 92 U/L (38-126) 08/30/25 06:49
Most recent labs reviewed.
Micro Results:
08/25/25 13:12 Blood Culture - Final
Blood/Venous No Growth - Final Report
08/25/25 14:56 Blood Culture - Preliminary
Blood/Venous No Growth in 4 days- Final report to follow
08/25/25 18:59 MRSA Screen - Final
Nose No Methicillin Resistant Staphylococcus aureus isolated.
08/25/25 13:12 Influenza Types A & B ([facility]IER) - Final
Nasal Swab Negative for Influenza A & B, NAAT
Negative results must be combined with clinical observations
and patient history.
Nucleic Acid Amplification test (NAAT)performed on the
[employer] platform.
[2025-08-30 15:05] VITALS: BP 109/55
[2025-08-30 15:17] VITALS: BP 129/65; PULSE 86; O2SAT 96
[2025-08-30 15:23] VITALS: BP 127/65; O2SAT 98
[2025-08-30] MEDS: XARELTO 20 MG PO (17:03)
--- NOTE | 2025-08-30 17:31 | CM ---
Pt successfully weaned off O2. Updated PT and OT notes obtained.
Auth pending for [employer] for discharge to [facility]. Auth obtained via [employer]
Auth # [id number]
Start date: 08/30/25
Review date:09/05/25
Admitting attending: Eugenio MENDES [phone]
Updates: fax; [phone]
Plan: DC to [facility].
[2025-08-30] MEDS: NEURONTIN 100 MG PO (21:31)
[2025-08-30 23:17] VITALS: BP 130/56
[2025-08-31] MEDS: ROXICODONE 5 MG PO ×2 (02:41→13:14)
[2025-08-31 05:05] VITALS: BMI 32.1
[2025-08-31] MEDS: ADVAIR HFA 115/21 MCG INHALER 2 PUFF INH (07:23)
[2025-08-31 07:45] VITALS: BP 144/54
[2025-08-31] MEDS: DESENEX/MITRAZOL/ZEASORB 1 APPLIC TOPICAL (07:46)
[2025-08-31] MEDS: HYDROPHOR 1 APPLIC TOPICAL (07:46)
[2025-08-31] MEDS: TOPROL XL 12.5 MG PO (07:47)
[2025-08-31] MEDS: VITAMIN B-12 1000 MCG PO (07:47)
[2025-08-31] MEDS: VITAMIN D3 (cholecalciferol) 25 MCG PO (07:47)
[2025-08-31] MEDS: LEXAPRO 10 MG PO (07:47)
[2025-08-31] MEDS: REQUIP 1 MG PO ×2 (07:47→12:11)
[2025-08-31] MEDS: LASIX 20 MG PO (07:48)
[2025-08-31 07:56] LABS: Hematocrit 31.3 % (37.0-47.0); Hemoglobin 10.2 g/dL (12.0-16.0); Mean Corp Hgb Conc. 32.6 g/dL (33.0-37.0); Mean Corpuscular Volume 88.4 fL (81.0-99.0); Nucleated Red Blood Cells % 0 %; Platelet Count 341 10^3/uL (130-400); Red Cell Dist. Width 14.4 % (11.5-14.5)
[2025-08-31 08:34] LABS: ALT (SGPT) < 10 U/L (0-35); AST (SGOT) 17 U/L (14-36); Albumin 3.8 g/dl (3.5-5.0); Alkaline Phosphatase 84 U/L (38-126); Blood Urea Nitrogen 22 mg/dl (7-17); Calcium 9.1 mg/dl (8.4-10.2); Carbon Dioxide 29 mmol/L (22-30); Chloride 102 mmol/L (98-107); Estimated Creatinine Clearance 63 ml/min; Glucose 101 mg/dl (70-99); Potassium 4.7 mmol/L (3.5-5.1); Sodium 138 mmol/L (135-145); Total Protein 7.0 g/dl (6.3-8.2); eGFR > 60.00
--- NOTE | 2025-08-31 09:28 | CM ---
Addendum entered by Esperanza Cowan 08/31/25 12:26:
Auth information given to Jorge A HARLEY
Original Note:
TC from [facility]
Approved skilled rehab
Start date 08/31/25, LCD 09/06/25, NRD 09/07/25
Auth# [id number]
Updates to fax# [phone]
--- NOTE | 2025-08-31 09:33 | CM ---
discharged today to [facility]
Jorge A HARLEY
report: [phone]
--- NOTE | 2025-08-31 10:34 | W.PN.ID1 ---
Date of Service
Date of Service: August 31, 2025
Today's Communication
venous stasis dermatitis changes
Assessment / Plan
Venous Stasis Dermatitis
- will require daily use of compression stocking to manage the edema
- referral to the lymphedema center
- antibiotics stopped
- she will see her senior systems programmer for a wound on her dorsal right foot, clinically it does not appear infected at this time
- stable for dc from ID perspective
Chief Complaint
-: Other (venous stasis dermatitis)
Subjective / Review of Systems
afebrile
bp stable
no complaints, in good spirits
Vital Signs / Physical Exam
Vital Signs
Vital Signs
Temp Pulse Resp BP Pulse Ox
98.1 F 86 20 144/54 94
08/31/25 07:45 08/31/25 07:47 08/31/25 07:45 08/31/25 07:47 08/31/25 07:45
Physical Exam
Constitutional: No Acute Distress
Cardiovascular: Regular Rate and S1/S2; Negative Murmur or Rub
Pulmonary: Clear and Symmetric; Negative Wheezes or Rales
Gastrointestinal: Soft, Non Tender, Non Distended and Normal Bowel Sounds
Skin: Warm, Dry and Other (erythema in the bilateral lower extremities consistent with venous stasis dermatitis; compression in place); Negative Rash or Jaundice
Objective Data
Lab Data
Lab Results
08/31/25 07:38
08/31/25 07:38
Estimated Creat Clear 63 ml/min 08/31/25 07:38
Lactic Acid Cancelled 08/25/25 17:00
Total Bilirubin 0.4 mg/dl (0.2-1.3) 08/31/25 07:38
AST 17 U/L (14-36) 08/31/25 07:38
ALT < 10 U/L (0-35) 08/31/25 07:38
Alkaline Phosphatase 84 U/L (38-126) 08/31/25 07:38
Most recent labs reviewed.
Micro Results:
08/25/25 14:56 Blood Culture - Final
Blood/Venous No Growth - Final Report
08/25/25 13:12 Blood Culture - Final
Blood/Venous No Growth - Final Report
08/25/25 18:59 MRSA Screen - Final
Nose No Methicillin Resistant Staphylococcus aureus isolated.
08/25/25 13:12 Influenza Types A & B (YUNIER) - Final
Nasal Swab Negative for Influenza A & B, NAAT
Negative results must be combined with clinical observations
and patient history.
Nucleic Acid Amplification test (NAAT)performed on the
[employer] platform.
[2025-08-31 12:53] VITALS: BP 159/66
--- NOTE | 2025-08-31 14:34 | W.PN.HOSP.TC ---
Addendum entered and electronically signed by Chris Baig MD, Resident 09/06/25 19:31:
3. COPD
Acute hypoxemic respiratory insufficiency:
- Continue fluticasone/salmeterol
- Physical examination the respiratory system to auscultation is benign
- Incentive spirometry ordered
- Wean patient off oxygen for discharge
Addendum entered and electronically signed by Nader Marr MD 08/31/25 21:08:
Attending Addendum-
I saw and evaluated the patient. I reviewed the resident�s note and agree with findings and plan as documented in the resident�s note. Sub: Feels weak but ready for rehab. No fevers chills LE pain. Full 12 point ROS reviewed and negative except as
documented Exam: Vitals reviewed in chart GEN-NAD heart RRR lungs clear abd soft LE venous stats changes red not warm wrapped
Plam:
#Bilateral lower extremity swelling-venous stasis changes and lymphedema rather than bilateral cellulitis
-with dorsal foot wound- cont wound care
-DC'd ancef
-blood cultures negative
-cont compression-PT/OT rec SNF--apprec wound care--apprec ID input
-referral to [facility] clinic as OP
#Chronic HFpEF--without exacerbation-- Most recent echocardiogram showed an ejection fraction of 65 to 70%-cont outpt lasix
#Acute hypoxemic resp insufficiency--resolved, does not wear O2 at home, weaned off
#Essential hypertension--well-controlled- Continue metoprolol
# HLD--diet controlled
# Anxiety/depression-- Continue Lexapro-- Continue Ativan as needed
# Restless leg syndrome- Continue ropinirole and gabapentin
# Anemia of chronic disease--baseline is 10 to 10.5--current is 9.7--trend
# History of DVT--Continue Xarelto
# Peripheral neuropathy-- Continue gabapentin
# COPD- cont inhalers- wean o2 for sats 88-92%
DVT proph-- Xarelto
code status--Full code
Dispo- DC to [facility] (from [facility])- medically stable for DC
Time spent coordinating care, DC planning, review of DC plan of care with resident, transition of care, review of records, med rec/scripts sent electronically, consults, notes, d/w consultants, nursing, PCP updated, and CM� 32 mins >50% of this time
was devoted to counseling and coordination of care
Original Note:
Today's Communication/Plan
-
- discharge to [facility]
Assessment / Plan
Assessment / Plan
1. Bilateral lower extremity swelling, worse on the right:
- She does not meet sepsis criteria even though she she had a elevated temperature and hypotension. There was only 1 episode of hypotension and it was not sustained plus she was not symptomatic.
- Physical exam shows bilateral lower extremity swelling, erythema, mildly tender, ill-defined area with no fluctuance, purulence, drainage, active bleeding, crepitus.
-Differential is cellulitis of the bilateral lower extremities versus stasis dermatitis versus lymphedema
- Trend temp, wbc, and cbc
- bilateral ultrasound of the legs ordered to check for clots negative
- Blood cultures negative
- antibiotics dc'd as per recc of ID, they believe this is venous stasis dermatitis
- wound care recommends mineral oil, Vaseline, and dry dressings and have placed the orders
- bilateral ultrasound of the legs ordered to check for clots negative
- will discharge today on 08/31 to [facility] with compression stockings, a script for oxycodone x 3 days, and ointment/ emollients provided by wound care, discontinued lorazepam as patient has not been taking since march, recc
outpatient to lymphedema center at [facility]
2. Chronic HFpEF:
- Most recent echocardiogram showed an ejection fraction of 65 to 70%
- Labs show a mildly elevated proBNP of 780 which is indicative of mild fluid overload
- Physical examination normal to respiratory auscultation. There is bilateral lower extremity edema, however this could be due to the cellulitis
- Physical examination
- Continue Lasix
3. COPD:
- Continue fluticasone/salmeterol
- Physical examination the respiratory system to auscultation is benign
- Incentive spirometry ordered
- Wean patient off oxygen for discharge
4 Essential hypertension:
-Today blood pressure is 159/66 and well-controlled
- Continue metoprolol
5. Hypercholesterolemia:
- Do not see any medications for high cholesterol on patient's medication list, will consult with patient and see if anything was left out
6. Anxiety/depression
- Continue Lexapro
- Continue Ativan as needed
7. Restless leg syndrome
- Continue ropinirole and gabapentin
8. Anemia of chronic disease
-Today her hemoglobin is 10.2, MCV is normal range indicating normocytic anemia
- Her hemoglobin normally is around 10-10.5
- Will continue to trend hemoglobin and if it goes less than 7 will transfuse with 1 unit of blood
9. History of DVT
-Continue Xarelto
10. GERD
11. Peripheral neuropathy
- Continue gabapentin
DVT prophylaxis Xarelto
Full code
Anticipated Discharge: Today
Subjective/Interval History
-
Date of Service: August 31, 2025
Patient states that she feels much better, still has erythema, edema, pain of the bilateral lower extremities.
No fever, chills, nausea, vomiting, diarrhea, abdominal pain, urinary symptoms, altered mental status, visual changes, headache, weight loss.
Objective Data
-
Labs:
Laboratory Results
08/31/25
07:38
WBC 6.5
Hgb 10.2 L
Hct 31.3 L
Plt Count 341
Sodium 138
Potassium 4.7
Chloride 102
Carbon Dioxide 29
BUN 22 H
Creatinine 0.7
Glucose 101 H
Calcium 9.1
Total Bilirubin 0.4
AST 17
ALT < 10
Alkaline Phosphatase 84
Vital Signs:
Vital Signs
Temp Pulse Resp BP Pulse Ox
97.6 F 91 18 159/66 93
08/31/25 12:53 08/31/25 12:53 08/31/25 12:53 08/31/25 12:53 08/31/25 12:53
I&O
08/30/25 08/31/25 09/01/25
06:59 06:59 06:59
Intake Total 720 / 720 1200 / 1200
Balance 720 / 720 1200 / 1200
Review of Systems
-
History Source: Patient
All other systems: Reviewed and negative
Physical Exam
-
General: Well Developed, Well Nourished, No Apparent Distress and Comfortable
HEENT: Normocephalic, Atraumatic, Moist Mucous Membranes, No Ptosis, PERRLA and Nose Appears Normal
Respiratory: Rales and Non Labored Respirations
Cardiac: Regular Rhythm and S1/S2
Breast: Deferred by me
GI: Soft, Nontender, Nondistended and Normal Bowel Sounds
Genito-urinary: No Costovertebral Tender
Musculoskeletal: No Clubbing and No Cyanosis
Skin: Other (Bilateral lower extremity ill defined, warm, mildly tender area. No purulence, wounds, drainage, fluctuance, active bleeding. There is light yellow discharge from small covered wound on dorsal surface foot, non tender to touch.)
Neuro: Awake, Alert, Oriented, AO x 3 and No Motor Deficits
Psych: Calm
Data Reviewed
-
Labs: Labs Reviewed by me and Discussed with Physician
--- NOTE | 2025-08-31 18:25 | W.DCSUMMARY ---
Addendum entered and electronically signed by Nader Marr MD 08/31/25 21:08:
Read, reviewed, and agree. See same day progress note for additional details.
Franco Marr MD
Original Note:
Documented by User: Chris Baig MD, Resident 08/31/25 19:23
Discharge Summary
Discharge Data
Date of Admission: 08/25/25
Date of Discharge: 08/31/25
-
Pending Results: No
Hospital Course
Discharging Physician : Dr. Nader Marr and Dr. Chris Baig
Disposition : [facility]
Primary care physician : Dr. Eugenio Ley
Principal Discharge diagnosis : Bilateral lower extremity swelling
Chronic Discharge diagnosis : chronic heart failure with preserved ejection fraction, COPD , essential hypertension, anxiety/depression, restless leg syndrome, anemia of chronic disease, history of DVT, GERD, peripheral neuropathy
Hospital Course : 80-year-old female past medical history of recurrent cellulitis, CHF, COPD, hypertension, hypercholesteremia, anxiety/depression, restless leg syndrome, anemia of chronic disease, history of DVT on Xarelto, GERD, peripheral
polyneuropathy, obesity, venous stasis dermatitis, presenting to the emergency department on 08/25/2025 with increasing pain and redness of both lower extremities bilaterally particularly the right starting yesterday.
Problem #1: Chronic bilateral lower extremity swelling
- Presented with bilateral lower extremity swelling associated with fever of 102.8 and one episode of hypotension 90/37 on 08/26/2025. Did not meet sepsis criteria as episode of hypotension was not sustained. She has had 3 similar clinical episodes
this year and 6 episodes over his life. Physical examination shows bilateral swelling, erythema, with mild tenderness. No active bleeding, fluctuance, purulence, and wounds. She was started on Ancef on day of admission 2 g q8h. Blood cultures
ordered which were later negative. Wound care consulted and ordered patient Tubigrips which helped to decrease her swelling over course of hospital stay. After 3 days of no improvement on antibiotics, consulted infectious disease , Ancef then
discontinued by Infectious Disease specialists as she deemed swelling not due to cellulitis but rather venous stasis dermatitis. Ultrasound bilateral lower extremities negative for DVT. On discharge, physical exam shows bilateral erythematous ,
(considerably less swollen) extremities with a small wound on dorsal surface of right with. She was discharged on Aquaphor, miconazole, and knee high compression stockings. Given referral for [facility] for venous stasis
dermatitis. Oxycodone 5 mg p.o. every 8 hours on discharge as needed for severe pains due to chronic bilateral lower extremity swelling.
Problem #2: Chronic heart failure with preserved ejection fraction
- Continued Furosemide 20 mg PO daily. Weights stable during discharge. Creatinine 0.7.
Problem #3:
Acute hypoxemic respiratory insufficiency
COPD
- Patient was initially on 4 L of oxygen on admission. Chest xray shows no acute cardiopulmonary abnormality. Gradually weaned off and discharge oxygen is 93% on room air.. She does not use home oxygen. Physical examination of respiratory system on
discharge is negative for any abnormalities. Continue fluticasone/ salmeterol.
Problem #4: Essential Hypertension:
-Patient's blood pressure is 159/66 on discharge and well-controlled. Continue on home dose metoprolol
Problem #5: Anxiety/depression
- Continue home dose Lexapro 10 mg daily. Her Ativan 0.5 mg was discontinued on discharge as we search through PDMP and saw that her last dose was March.
Problem #6: Restless leg syndrome
- Continue home dose ropinirole and gabapentin
Problem #7: Anemia of chronic disease
- Hemoglobin is 10.2 and MCV is 88.4 on discharge. This hemoglobin is usually within normal range for her.
Problem #8: History of DVT
- Continue Xarelto
Problem #9: GERD
- Not on any treatment as she does not have any active symptoms during course of hospital stay
Problem #10: Peripheral neuropathy
- Continue home dose gabapentin 100 Mg every night
Important imaging findings :
Chest x-ray 08/25/2025:
FINDINGS:
Lungs: The lungs are clear. There is likely minimal bibasilar atelectasis/scarring. No pleural effusion or pneumothorax.
Heart: Cardiac and mediastinal contours are mildly enlarged, similar to prior. Mild atherosclerotic calcifications aortic arch.
Osseous structures: No acute osseous abnormality. Right reverse total shoulder arthroplasty. Lower cervical ACDF. Prior left-sided rib fractures. Chronic degenerative changes of the thoracic spine.
IMPRESSION:
No acute cardiopulmonary abnormality.
08/28/2025 peripheral vascular ultrasound of bilateral lower extremities:
FINDINGS: Real-time grayscale and duplex ultrasound of the deep venous system of both lower extremities demonstrates no evidence of deep venous thrombosis. Normal flow is demonstrated in the posterior tibial, popliteal, superficial femoral and
common femoral veins bilaterally. These vessels are normally compressible and demonstrate normal flow augmentation with compression.
Left-sided complex popliteal/Real's cyst is seen measuring 5.0 x 2.3 x 2.3 cm.
IMPRESSION: No evidence of deep venous thrombosis of the lower extremities bilaterally.
Procedure findings :
Discharge Plan
-
Patient Disposition: Snf/SNF
Discharge Diagnosis/Procedures: b/l lower extremity swelling, Chronic HFpEF, acute hypoxemic respiratory failure, essential hypertension, HLD, Anxiety/ depression, restless leg syndrome, anemia of chronic disease, Hx of DVT, GERD, peripheral
neuropathy
Condition: Fair
Diet: Regular
Activity: As tolerated
Driving Restrictions: As prior to admission
Bathing Restrictions: None
Blood Work: CBC and CMP in 1 week with PCP
Activity Restrictions/Additional Instructions:
Wound Care Instructions Right Dorsal Foot Wound- Clean with normal saline or soap and water and apply Vaseline and silicone border foam. Change every other day and PRN if loose or soiled.
Mineral oil or lotion daily to bilateral LE
Continue with compression as ordered
Follow up with your vest front presser as planned.
Referrals:
[facility] [Other] - in less than 1 week
Referral Note: referred from Dr. Chris Baig
Eugenio Ley MD [Family Provider, [facility]] - in less than 1 week
Additional Discharge Medication Instructions: please contact [facility] for venous stasis dermatitis. Call [phone].
Ordered knee high compression stockings, please use daily as instructed.
Prescriptions:
New
miconazole nitrate [Miconazorb AF] 2 % Powder
1 applic topical BID Qty: 85 0RF
Aquaphor Healing 41 % Ointment
1 applic topical DAILY Qty: 7 0RF
(DME) compr.stocking,knee,long,x-lrg Misc
See Rx Instructions .Route Qty: 2 0RF
Rx Instructions:
As directed
Continued
escitalopram oxalate 10 mg tablet
10 mg PO DAILY
cyanocobalamin (vitamin B-12) 1,000 mcg Tablet
1,000 mcg PO DAILY Qty: 0 0RF
gabapentin 100 mg capsule
100 mg PO HS
metoprolol succinate 25 mg Tablet Extended Release 24 Hr
12.5 mg PO BID Qty: 0 0RF
albuterol sulfate 90 mcg/actuation HFA aerosol inhaler
2 puff inhalation R Q6HPRN PRN (Reason: shortness of breath or wheezing)
acetaminophen 325 mg tablet
650 mg PO Q6HPRN PRN (Reason: mild pain/ fever>100F)
sennosides-docusate sodium [Senna-S] 8.6-50 mg Tablet
1 tab-cap PO [id number] PRN (Reason: constipation)
furosemide 20 mg Tablet
20 mg PO DAILY
fluticasone propionate 50 mcg/actuation [place],Suspension
2 spray INTRANASAL DAILYPRN PRN (Reason: seasonal allergies)
ropinirole 1 mg tablet
1 mg PO QID
cholecalciferol (vitamin D3) 25 mcg (1,000 unit) tablet
1,000 unit PO DAILY
meclizine 25 mg Tablet
25 mg PO Q8HPRN PRN (Reason: dizziness)
oxycodone 5 mg Tablet
5 mg PO [id number] PRN (Reason: severe pains)
loratadine [Claritin] 10 mg Tablet
10 mg PO DAILY
Xarelto 20 mg tablet
20 mg PO QPM
fluticasone propion-salmeterol 113-14 mcg/actuation aerosol powdr breath activated
1 inh INHALATION R BID
Discontinued
lorazepam 0.5 mg tablet
0.5 mg PO [id number] PRN (Reason: anxiety)
lorazepam 0.5 mg Tablet
0.5 mg PO
cephalexin 500 mg capsule
1,000 mg PO
Discharge Orders:
Discharge Patient (As Directed); Ordered 08/31/25
Ordered By: Chris Baig
Discharge Date and Time
Discharge Date/Time: 08/31/25 13:32
Print Language: FRISIAN

Documented by User: Nader Marr MD 08/31/25 21:05
Discharge Summary
Discharge Data
Date of Admission: 08/25/25
Date of Discharge: 08/31/25
Discharge Plan
-
Patient Disposition: Snf/SNF
Discharge Diagnosis/Procedures: b/l lower extremity swelling, Chronic HFpEF, acute hypoxemic respiratory failure, essential hypertension, HLD, Anxiety/ depression, restless leg syndrome, anemia of chronic disease, Hx of DVT, GERD, peripheral
neuropathy
Condition: Fair
Diet: Regular
Activity: As tolerated
Driving Restrictions: As prior to admission
Bathing Restrictions: None
Blood Work: CBC and CMP in 1 week with PCP
Activity Restrictions/Additional Instructions:
Wound Care Instructions Right Dorsal Foot Wound- Clean with normal saline or soap and water and apply Vaseline and silicone border foam. Change every other day and PRN if loose or soiled.
Mineral oil or lotion daily to bilateral LE
Continue with compression as ordered
Follow up with your vest front presser as planned.
Referrals:
[facility] [Other] - in less than 1 week
Referral Note: referred from Dr. Chris Baig
Eugenio Ley MD [Family Provider, [facility]] - in less than 1 week
Additional Discharge Medication Instructions: please contact [facility] for venous stasis dermatitis. Call [phone].
Ordered knee high compression stockings, please use daily as instructed.
Prescriptions:
New
miconazole nitrate [Miconazorb AF] 2 % Powder
1 applic topical BID Qty: 85 0RF
Aquaphor Healing 41 % Ointment
1 applic topical DAILY Qty: 7 0RF
(DME) compr.stocking,knee,long,x-lrg Misc
See Rx Instructions .Route Qty: 2 0RF
Rx Instructions:
As directed
Continued
escitalopram oxalate 10 mg tablet
10 mg PO DAILY
cyanocobalamin (vitamin B-12) 1,000 mcg Tablet
1,000 mcg PO DAILY Qty: 0 0RF
gabapentin 100 mg capsule
100 mg PO HS
metoprolol succinate 25 mg Tablet Extended Release 24 Hr
12.5 mg PO BID Qty: 0 0RF
albuterol sulfate 90 mcg/actuation HFA aerosol inhaler
2 puff inhalation R Q6HPRN PRN (Reason: shortness of breath or wheezing)
acetaminophen 325 mg tablet
650 mg PO Q6HPRN PRN (Reason: mild pain/ fever>100F)
sennosides-docusate sodium [Senna-S] 8.6-50 mg Tablet
1 tab-cap PO [id number] PRN (Reason: constipation)
furosemide 20 mg Tablet
20 mg PO DAILY
fluticasone propionate 50 mcg/actuation [place],Suspension
2 spray INTRANASAL DAILYPRN PRN (Reason: seasonal allergies)
ropinirole 1 mg tablet
1 mg PO QID
cholecalciferol (vitamin D3) 25 mcg (1,000 unit) tablet
1,000 unit PO DAILY
meclizine 25 mg Tablet
25 mg PO Q8HPRN PRN (Reason: dizziness)
oxycodone 5 mg Tablet
5 mg PO [id number] PRN (Reason: severe pains)
loratadine [Claritin] 10 mg Tablet
10 mg PO DAILY
Xarelto 20 mg tablet
20 mg PO QPM
fluticasone propion-salmeterol 113-14 mcg/actuation aerosol powdr breath activated
1 inh INHALATION R BID
Discontinued
lorazepam 0.5 mg tablet
0.5 mg PO [id number] PRN (Reason: anxiety)
lorazepam 0.5 mg Tablet
0.5 mg PO
cephalexin 500 mg capsule
1,000 mg PO
Discharge Orders:
Discharge Patient (As Directed); Ordered 08/31/25
Ordered By: Chris Baig
Discharge Date and Time
Discharge Date/Time: 08/31/25 13:32
Print Language: FRISIAN
--- NOTE | 2025-09-01 09:36 | PN.CDI ---
CDI
- -
CDI:
Physician Documentation Request
Admit Date: 08/25/25 15:34
Dear Doctor Safia,
Clinical Indicators:
Patient admitted with venous stasis dermatitis; PMH includes COPD.
Discharge summary, 'Acute hypoxemic respiratory insufficiency...Patient was initially on 4L oxygen this
admission.'
Discharge Diagnosis/Procedures:'...acute hypoxemic respiratory failure...'
requirements on admission:
08/25/25
12:54 08/25/25
13:00
SaO2 89 97
Oxygen Mode of Delivery Room air
Nasal Cannula flow liters per minute 2
08/25/25
14:15 08/25/25
16:00
SaO2 89 98
Oxygen Mode of Delivery Room air
Nasal Cannula flow liters per minute 2
Due to conflicting documentation, please clarify which of the following accurately represents the patient's respiratory status:
Acute hypoxemic respiratory insufficiency
Acute hypoxic respiratory failure
Other, please specify
Additional information for Respiratory Failure:
Recognized criteria for Respiratory Failure (Source: Jordin Jane. 2019 September 23.
Documentation tips: Acute Respiratory Failure, The Hospitalist.)
ABGs: (1 or more) Symptoms Please indicate type if known
1. p)2 <60 or RA SPO2 <91% on RA 1. Tachypnea, SOB, dyspnea Hypoxic
2. pCO2 >45 and pH <7.35 2. Use of accessory muscles Hypercapnic
3. pO2 decrease of pCO2 increase by 3. Pallor or cyanosis Hypoxic and Hypercapnic
10 mmHg from baseline if known 4. Anxiety or restlessness Unable to determine
4. P/F Ratio (pO2/FiO2) less than 300 5. Unable to speak in full sentences
Use of terms such as suspected, likely, concern for, or probable (associated with a specific diagnosis that is being evaluated, monitored, or treated as if it exists) are acceptable and can be coded in the inpatient setting, when documented at the
time of discharge.
Thank you,
ISHMAEL Hayes RN
CDI Specialist
available via tiger text
Please use your independent medical judgment in providing your response.
== END 2025-08-31 13:32 | DRG 300 ==
LOC: 4 EAST ACU 15:34
PROVIDERS: Internal Medicine; Student in an Organized Health Care Education/Training Program; ADMITTING PHYSICIAN Hospitalist; ATTENDING PHYSICIAN Family Medicine; CONSULT PHYSICIAN Student in an Organized Health Care Education/Training Program; EMERGENCY PHYSICIAN Emergency Medicine; FAMILY PHYSICIAN Family Medicine
DX: I87.2 Venous insufficiency (chronic) (peripheral) (principal); I50.32 Chronic diastolic (congestive) heart failure; Z79.899 Other long term (current) drug therapy; I11.0 Hypertensive heart disease with heart failure; J44.9 Chronic obstructive pulmonary disease, unspecified; G25.81 Restless legs syndrome; Z86.718 Personal history of other venous thrombosis and embolism; D63.8 Anemia in other chronic diseases classified elsewhere; K21.9 Gastro-esophageal reflux disease without esophagitis; G62.9 Polyneuropathy, unspecified; Z96.611 Presence of right artificial shoulder joint; M71.20 Synovial cyst of popliteal space [Baker], unspecified knee; M47.814 Spondylosis without myelopathy or radiculopathy, thoracic region; F41.9 Anxiety disorder, unspecified; F32.A Depression, unspecified; Z87.891 Personal history of nicotine dependence; E78.00 Pure hypercholesterolemia, unspecified; E66.9 Obesity, unspecified; Z68.32 Body mass index [BMI] 32.0-32.9, adult; Z88.5 Allergy status to narcotic agent; Z88.0 Allergy status to penicillin; Z79.01 Long term (current) use of anticoagulants; Z96.612 Presence of left artificial shoulder joint; Z96.651 Presence of right artificial knee joint; R09.02 Hypoxemia
CPT/HCPCS: 71046; 80053; 83605; 83735; 83880; 85025; 87040; 87070; 87502; 87811; 93005; 93970; 94640; 96374; 96375; 97116; 97163; 97167; 97535; 99285

== ENCOUNTER → 2025-09-03 10:56 | Outpatient (REF) | payer OTHER, SELFPAY ==
[2025-09-03 11:47] LABS: Hematocrit 32.2 % (37.0-47.0); Hemoglobin 9.7 g/dL (12.0-16.0); Mean Corp Hgb Conc. 30.1 g/dL (33.0-37.0); Mean Corpuscular Volume 96.4 fL (81.0-99.0); Platelet Count 375 10^3/uL (130-400); Red Cell Dist. Width 14.5 % (11.5-14.5)
[2025-09-03 12:14] LABS: ALT (SGPT) 13 U/L (0-35); AST (SGOT) 15 U/L (14-36); Albumin 3.3 g/dl (3.5-5.0); Alkaline Phosphatase 76 U/L (38-126); Blood Urea Nitrogen 19 mg/dl (7-17); Calcium 8.6 mg/dl (8.4-10.2); Carbon Dioxide 30 mmol/L (22-30); Chloride 103 mmol/L (98-107); Glucose 90 mg/dl (70-99); Magnesium 2.3 mg/dl (1.6-2.3); Potassium 4.8 mmol/L (3.5-5.1); Sodium 139 mmol/L (135-145); Total Protein 6.2 g/dl (6.3-8.2); eGFR > 60.00
== END ==
LOC: OLABWHC 10:56
PROVIDERS: ATTENDING PHYSICIAN Family Medicine
DX: D64.9 Anemia, unspecified (principal); A41.9 Sepsis, unspecified organism; I50.9 Heart failure, unspecified; I10 Essential (primary) hypertension
CPT/HCPCS: 36415; 80053; 83735; 85027

== ENCOUNTER → 2025-09-16 10:41 | Outpatient (REF) | payer OTHER, SELFPAY ==
[2025-09-16 11:16] LABS: Hematocrit 35.5 % (37.0-47.0); Hemoglobin 11.2 g/dL (12.0-16.0); Mean Corp Hgb Conc. 31.5 g/dL (33.0-37.0); Mean Corpuscular Volume 89.6 fL (81.0-99.0); Platelet Count 270 10^3/uL (130-400); Red Cell Dist. Width 14.9 % (11.5-14.5)
[2025-09-16 11:24] LABS: Blood Urea Nitrogen 21 mg/dl (7-17); Calcium 9.3 mg/dl (8.4-10.2); Carbon Dioxide 30 mmol/L (22-30); Chloride 101 mmol/L (98-107); Glucose 97 mg/dl (70-99); Potassium 4.2 mmol/L (3.5-5.1); Sodium 136 mmol/L (135-145); eGFR > 60.00
== END ==
LOC: OLAB 10:41
PROVIDERS: ATTENDING PHYSICIAN Family Medicine
DX: D64.9 Anemia, unspecified (principal); I50.9 Heart failure, unspecified
CPT/HCPCS: 36415; 80048; 85027

== ENCOUNTER → 2025-09-20 09:34 | Outpatient (REF) | payer OTHER, SELFPAY ==
[2025-09-20 11:35] LABS: Hematocrit 35.8 % (37.0-47.0); Hemoglobin 11.2 g/dL (12.0-16.0); Mean Corp Hgb Conc. 31.3 g/dL (33.0-37.0); Mean Corpuscular Volume 94.7 fL (81.0-99.0); Platelet Count 230 10^3/uL (130-400); Red Cell Dist. Width 15.1 % (11.5-14.5)
[2025-09-20 12:17] LABS: Blood Urea Nitrogen 25 mg/dl (7-17); Calcium 9.2 mg/dl (8.4-10.2); Carbon Dioxide 28 mmol/L (22-30); Chloride 104 mmol/L (98-107); Glucose 88 mg/dl (70-99); Potassium 4.2 mmol/L (3.5-5.1); Sodium 136 mmol/L (135-145); eGFR > 60.00
== END ==
LOC: OLABWHC 09:34
PROVIDERS: ATTENDING PHYSICIAN Family Medicine
DX: I10 Essential (primary) hypertension (principal); I50.9 Heart failure, unspecified; L03.115 Cellulitis of right lower limb
CPT/HCPCS: 36415; 80048; 85027

== ENCOUNTER 2025-11-01 17:22 | Inpatient (IN) | payer OTHER, SELFPAY ==
[2025-10-29] VITALS (11 sets, daily range): BP systolic 115–182; BP diastolic 38–93; PULSE 2–131; BMI 26.2
[2025-10-29 11:32] LABS: Hematocrit 31.4 % (37.0-47.0); Hemoglobin 10.4 g/dL (12.0-16.0); Mean Corp Hgb Conc. 33.1 g/dL (33.0-37.0); Mean Corpuscular Volume 94.0 fL (81.0-99.0); Nucleated Red Blood Cells % 0 %; Platelet Count 303 10^3/uL (130-400); Red Cell Dist. Width 16.4 % (11.5-14.5)
--- NOTE | 2025-10-29 11:39 | ED.GENMED ---
History of Present Illness
General
Chief Complaint: Swelling
Time Seen by Provider: 10/29/25 11:00
History of Present Illness
History of Present Illness:
80-year-old female with history of cellulitis, hypertension, neuropathy, chronic venous stasis, diabetes, COPD presenting for right lower redness and swelling with a wound to her right foot. Notes chronic issues with cellulitis, however reports
worsening symptoms in the past few days with generalized pain. She sees daily wound care, had her wound dressed today. Denies fever. Notes chronic neuropathy, denies any increased numbness. Denies any weakness. Denies any additional acute
medical complaints such as difficulty breathing or chest pain. Denies additional medical complaints
Past History
Past History
ED Past Medical History: CHF, COPD, HTN, Hypercholesterolemia, Psychiatric (Anxiety, Depression) and Other (OA, Restless leg syndrome, Incontinence)
ED Past Surgical History: Orthopedic (Mati second Toe amputation, Right Total knee replacement, Right shoulder replacement, Mati carpal tunnel) and Other (cataracts, )
PSI?: No
Social History
Tobacco: Former smoker
Alcohol: Occasional
Drug: None
Personal:
Living: assisted living
Employment: Retired
Phy Exam
Physical Exam
Physical Exam:
General: Well-appearing, no clinical signs of dehydration, nontoxic and in no acute distress
HEENT: protecting airway
Neck: appears supple
CV: Normal heart rate, regular rhythm, no evidence of cyanosis
Resp: No accessory muscle use, no increased work of breathing
Abd: No distention
Extremities: Generalized swelling to lower extremities with diffuse redness from the kurtz down. Wound to the right anterior foot without any active drainage. Sensation and pulses intact. Generalized tenderness to palpation
Neuro: alert, no focal neurologic deficit
: deferred
Rectal: deferred
Psych: Normal affect
Skin: Intact
Scores
Heart Failure Risk
Heart Failure Risk Score: Not Applicable
Course
Orders/Labs/Results
Orders:
Orders
10/29/25 11:12
Complete Blood Count/With Diff Urgent
Comprehensive Metabolic Panel Urgent
NT-proBNP Urgent
10/29/25 11:18
Foot, Right 3 View [CR Foot - Right Min 3 Views] Urgent
Comment:
Reason For Exam: foot top of foot, cellulitis
10/29/25 13:00
Ropinirole [Requip] 1 mg PO NOW ONE
10/29/25 13:16
Vancomycin [Vancocin] 2,000 mg 0.9% Sodium Chloride 500 ml [Nss] 500 ml IV NOW
10/29/25 13:23
Admit/Transfer Patient As Directed
Co-Sign Provider:
Level of Care: Observation services
Assign to:: IMU- Intermediate Care
Physician / Group: perfecto
Diagnosis: edema blistering
10/29/25 13:24
Code Status As Directed
Resuscitation Status: Full Code
PRN Pain Medication Management As Directed
May give lesser potent ordered pain med per pt: Yes
preference::
Protocol:: Medication orders for pain may be administered in a
manner that supports deferring to patient preference
when the pt is:
- Requesting an ordered lesser potent pain medication.
Least to most potent pain medications are defined
as: acetaminophen < NSAID < tramadol < opioids
(morphine, oxycodone, hydromorphone).
- Requesting a lesser dose of the same medication IF
ORDERED.
- Requesting a less intrusive route of administration
if both routes are prescribed by the provider (PO <
IV).
Abnormal Lab Results
10/29/25
11:12
RBC 3.34 L 10^6/uL
(4.20-5.40)
Hgb 10.4 L g/dL
(12.0-16.0)
Hct 31.4 L %
(37.0-47.0)
MCH 31.1 H pg
(27.0-31.0)
RDW 16.4 H %
(11.5-14.5)
Absolute Neuts (auto) 7.1 H 10^3/uL
(1.4-6.5)
Absolute Lymphs (auto) 1.0 L 10^3/uL
(1.2-3.4)
Absolute Monos (auto) 1.1 H 10^3/uL
(0.1-0.6)
Lymphocytes % 9.9 L %
(20.5-51.1)
Monocytes % 11.6 H %
(1.7-9.3)
BUN 18 H mg/dl
(7-17)
Glucose 105 H mg/dl
(70-99)
10/29/25 11:12
10/29/25 11:12
Vital Signs
Initial and Last Documented VS:
Initial Vital Signs
Temp Pulse Resp BP Pulse Ox
98.3 F 66 16 134/91 98
10/29/25 10:11 10/29/25 10:11 10/29/25 10:11 10/29/25 10:11 10/29/25 10:11
Last Documented Vital Signs
Temp Pulse Resp BP Pulse Ox
98.3 F 133 32 182/52 97
10/29/25 10:11 10/29/25 16:00 10/29/25 16:00 10/29/25 16:00 10/29/25 16:00
MDM/Problems Addressed
MDM/Problems Addressed:
80-year-old female with history of chronic venous stasis, hypertension, hyperlipidemia, prior history of cellulitis presenting for worsening lower extremity swelling and redness. Vitals are normal.
On exam patient resting comfortably, no acute distress. Obvious swelling and redness to bilateral lower extremities, symmetric without present concern for DVT. No present neurovascular compromise. Does appear consistent with cellulitis. Wound to
the right foot. Patient is not presently on antibiotics. Plan for laboratory analysis and x-ray imaging of the foot.
13:00 -patient's labs are reassuring. X-ray without any obvious sign of osteomyelitis. Patient with difficulty ambulating and bearing weight given her discomfort. For this reason we will start patient on IV antibiotics for cellulitis, given
diffuse nature with ambulatory dysfunction
15:30 -called to bedside with concern of anaphylactic reaction to suspected vancomycin. Patient administered IM epi, Decadron. Continued to have increased work of breathing so started on DuoNebs, now on BiPAP with racemic epi with some interval
improvement. Continuing to closely monitor
*Pulse Oximetry
SaO2: 98
Oxygen Mode of Delivery: Room air
Patient hypoxic: no
*Critical Care Note
Total Time (30-74mins, 75-104mins- exclusive of procedures): Not Applicable
ED Attending Note
-
Portions of this chart may have been created with voice recognition software.� Occasional wrong word or��sound alike� substitutions may have occurred due to the inherent limitations of voice recognition software.
Discharge Plan
Departure
Patient Disposition: Admit
Date of Disposition: 10/29/25
Time of Disposition: 13:07
Presentation/result/management discussed w/ accepting MD/DO: Hospitalist
Patient with high blood pressure during this ER visit?: Yes
Condition: Fair
Discharge Problem:
Bilateral lower leg cellulitis
Interventions
Interventions:
*General Assessment Last Done: 10/29/25 10:15
*Neglect/Abuse Screening Last Done: 10/29/25 10:15
*ED COVID-19 Vaccine History Last Done: 10/29/25 11:08
*ED Influenza Vaccine History Last Done: 10/29/25 11:08
[facility] Risk Assessment Tool Last Done: 10/29/25 11:25
*Risk Screen - Suicide (C-SSRS) Last Done: 10/29/25 10:15
ED- Cardiac Assessment Last Done: 10/29/25 11:26
ED- Pulmonary Assessment Last Done: 10/29/25 11:26
ED-Skin Assessment Last Done: 10/29/25 11:28
[2025-10-29 11:43] LABS: ALT (SGPT) 21 U/L (0-35); AST (SGOT) 28 U/L (14-36); Albumin 4.2 g/dl (3.5-5.0); Alkaline Phosphatase 97 U/L (38-126); Blood Urea Nitrogen 18 mg/dl (7-17); Calcium 9.1 mg/dl (8.4-10.2); Carbon Dioxide 30 mmol/L (22-30); Chloride 100 mmol/L (98-107); Estimated Creatinine Clearance 49 ml/min; Glucose 105 mg/dl (70-99); Potassium 4.5 mmol/L (3.5-5.1); Sodium 136 mmol/L (135-145); Total Protein 8.0 g/dl (6.3-8.2); eGFR > 60.00
[2025-10-29] MEDS: REQUIP 1 MG PO ×2 (12:47→20:04)
--- NOTE | 2025-10-29 12:48 | PHANOTE ---
MED REC NOTE - CONTACTED [facility] WAITING ON MISSING PAGE [facility]IO
--- NOTE | 2025-10-29 13:27 | HPS.HSE ---
Addendum entered and electronically signed by Marge Morales MD 10/29/25 15:18:
Patient started wheezing and becoming short of breath after receiving two thirds of vancomycin. Vancomycin stopped. She was given epinephrine, dexamethasone.
Original Note:
Family Physician
-
Family Physician: Eugenio Ley MD
Chief Complaint
-
wound foot
History of Present Illness
80-year-old female past medical history of venous stasis dermatitis, chronic HFpEF, hypertension, hyperlipidemia, anxiety/depression, restless leg syndrome, anemia of chronic disease, DVT on Xarelto, peripheral neuropathy, COPD, presenting with
right lower extremity wound. She has chronic venous stasis dermatitis with bilateral lower extremity swelling and developed a wound on the dorsum of her right foot 3 months ago that is yellow-colored and depressed with drainage of yellow material.
She has been seeing wound care for this without improvement. She has not received any antibiotics for this in the past 3 months. Denies fevers or chills. She uses compression stockings for her lower extremity edema.
She sees daily wound care and had wound dressed today.
She denies smoking or alcohol use.
Medical History
Past Medical History
Past Medical History: Reports Other (venous stasis dermatitis, chronic HFpEF, hypertension, hyperlipidemia, anxiety/depression, restless leg syndrome, anemia of chronic disease, DVT on Xarelto, peripheral neuropathy, COPD, )
Past Surgical History: Reports Other (Mati second Toe amputation, Right Total knee replacement, Right shoulder replacement, Mati carpal tunnel) and Other (cataracts, ))
Social History
Tobacco: Non-smoker
Alcohol: None
Drug: None
Family History
Family History: Not pertinent
Allergies / Home Medications
Allergies reflects when Allergies were last updated in [employer].
Home Medications with original date entered in [employer]
Allergy/Medication List:
Allergies
Allergy/AdvReac Type Severity Reaction Status Date / Time
Penicillins Allergy Swelling Verified 08/25/25 12:57
sulfamethoxazole (From Allergy unknown, Verified 08/25/25 12:57
Bactrim) nursing
home
recored
tramadol Allergy Rash Verified 08/25/25 12:57
trimethoprim (From Bactrim) Allergy unknown, Verified 08/25/25 12:57
nursing
home
recored
Home Medications
escitalopram oxalate 10 mg tablet 15 mg PO DAILY Depression 05/22/22
cyanocobalamin (vitamin B-12) 1,000 mcg tablet 1,000 mcg PO DAILY defeciancy #0 tabs 07/08/22
gabapentin 100 mg capsule 100 mg PO HS neuropathic pain 09/04/23
metoprolol succinate 25 mg tablet,extended release 24 hr 12.5 mg (1/2 x 25 mg) PO BID #0 tabs 04/03/24
albuterol sulfate 90 mcg/actuation aerosol inhaler 2 puff inhalation R Q6HPRN PRN shortness of breath 07/18/24
acetaminophen 325 mg tablet 650 mg PO BID 08/21/24
sennosides 8.6 mg-docusate sodium 50 mg tablet (Senna-S) 1 tab-cap PO [id number] PRN constipation 09/25/24
fluticasone propionate 50 mcg/actuation nasal spray,suspension 2 spray intranasal DAILYPRN PRN seasonal allergies 01/21/25
furosemide 20 mg tablet 20 mg PO DAILY Fluid Retention/Swelling 01/21/25
cholecalciferol (vitamin D3) 25 mcg (1,000 unit) tablet 1,000 unit PO DAILY Supplement 04/06/25
ropinirole 1 mg tablet 1 mg PO QID 04/06/25
meclizine 25 mg tablet 25 mg PO Q8HPRN PRN dizziness 06/14/25
loratadine 10 mg tablet (Claritin) 10 mg PO DAILY 07/31/25
fluticasone 113 mcg-salmeterol 14 mcg/actuation breath activated powdr 1 inh inhalation R BID 08/25/25
rivaroxaban 20 mg tablet (Xarelto) 20 mg PO QPM 08/25/25
miconazole nitrate 2 % topical powder (Miconazorb AF) 1 applic topical BID wound care #85 grams 08/30/25
acetaminophen 325 mg tablet (Tylenol) 650 mg PO Q6H PRN mild pain/temp>100F 10/29/25
lorazepam 0.5 mg tablet 0.5 mg PO BID 10/29/25
oxycodone 5 mg tablet 5 mg PO Q8H PRN wound pain 10/29/25
white petrolatum 41 % topical ointment (Aquaphor Healing) 1 applic topical DAILY b/l legs 10/29/25
Review of Systems
-
History Source: Patient
A 12 point ROS was completed and negative except as noted: Yes
Constitutional: Reports No Symptoms
EENT: Reports No Symptoms
Respiratory: Reports No Symptoms
Cardiac: Reports No Symptoms
Abdomen/GI: Reports No Symptoms
: Reports No Symptoms
Musculoskeletal: Reports No Symptoms
Skin: Reports See HPI
Neurological: Reports No Symptoms
Endocrine: Reports No Symptoms
Hematologic/Lymphatic: Reports No Symptoms
Psych: Reports No Symptoms
Physical Exam
Vital Signs
Vital Signs
Temp Pulse Resp BP Pulse Ox
98.3 F 67 25 158/93 98
10/29/25 10:11 10/29/25 11:15 10/29/25 11:15 10/29/25 11:11 10/29/25 11:45
Physical Exam
General: Well Developed, Well Nourished and No Apparent Distress
HEENT: NormoCephalic, Moist mucous membranes and Atraumatic
Respiratory: Clear
Cardiac: S1/S2 and Regular Rhythm; No Murmur or Rub
GI: Soft, Non Tender, Non Distended and Normal Bowel Sounds; No Organomegaly
Rectal: Deferred by Provider
Musculoskeletal: No Clubbing, No Cyanosis and No Edema
Skin: Other (yellow discoloration and depressed wound right dorsum, erythema of both lower legs ); No Rash
Neuro: Nonfocal/grossly intact
Laboratory Results
-
10/29/25 11:12
10/29/25 11:12
Laboratory Results
Total Bilirubin 0.6 mg/dl (0.2-1.3) 10/29/25 11:12
AST 28 U/L (14-36) 10/29/25 11:12
ALT 21 U/L (0-35) 10/29/25 11:12
Alkaline Phosphatase 97 U/L (38-126) 10/29/25 11:12
Data Reviewed
-
Lab Data: Labs Reviewed by me
Old Records: Reviewed
Impression/Plan
-
IMPRESSION:
PLAN:
# Edema blistering right foot likely from chronic stasis venous dermatitis
- Unclear if truly infected
- Started on vancomycin, continue for now
- Wound care consulted
History of stasis venous dermatitis
- Compression stockings
Chronic HFpEF
- Continue Lasix
Essential hypertension
- Continue metoprolol
Hyperlipidemia
Anxiety/depression
- Continue Ativan, Lexapro
Restless leg syndrome
- Continue ropinirole, gabapentin
Anemia of chronic disease
History of DVT
- Continue Xarelto
Peripheral neuropathy
COPD
- Continue albuterol
Full code
DVT prophylaxis�Xarelto
Regular diet
[2025-10-29] MEDS: VANCOCIN 540 MG IV (13:32)
--- NOTE | 2025-10-29 13:46 | CARDSERVLU ---
Echocardiogram with [facility] completed after protocol screening completed. Allergies verified.
Patent IV site:
IV site flushed with 0.9% NaCl pre and post administration.
Diluted bolus method utilized to enhance visualization of ventricular cox.
Total volume given: ____ mL
Patient tolerated all procedures well without complications.
--- NOTE | 2025-10-29 13:46 | CM ---
Chart reviewed BOWEN reviewed
Spoke with pt at ED bedside
Lives in [facility]
Needs assistance with all ADLs
Ambulating with RW and scooter
PCP Eugenio Ley
hx of [facility]
DCP is to return back [facility]
For report please call
[phone]
fax [phone]
CM will continue to follow up for any dcp needs
[2025-10-29] MEDS: ADRENALIN 0.3 MG IM (15:14)
[2025-10-29] MEDS: DECADRON 10 MG IV (15:17)
[2025-10-29] MEDS: DUONEB 3 ML INH ×2 (15:22→15:32)
[2025-10-29] MEDS: VAPONEFRIN NEBS 0.5 ML INH (15:44)
[2025-10-29 16:04] LABS: Venous Blood Gas B.E. 3.1 mmol/L (-4 to +4); Venous Blood Gas O2 Sat % 74.5 %
[2025-10-29] MEDS: TYLENOL/FEVERALL 650 MG RECTAL (16:25)
[2025-10-29] MEDS: FLUSH (NSS) 1 FLUSH IV (16:26)
--- NOTE | 2025-10-29 18:12 | W.PN.UPDATE ---
Addendum entered and electronically signed by Marge Morales MD 10/29/25 18:27:
Correction- patient to be started on doxycycline.
Original Note:
Update Note
Progress Note Update
Patient started wheezing becoming short of breath after receiving two thirds of vancomycin. Vancomycin was stopped. Patient was given epinephrine and dexamethasone and DuoNebs. VBG was checked showing pH of 7.31, pCO2 of 61, bicarb of 30.
Racemic epinephrine was also given.
Patient also had a fever of 103.5 and was confused and felt like she was falling. BiPAP was started but later stopped and patient was able to be weaned off to 4 L oxygen. Rectal Tylenol was given. Check blood cultures. Check COVID and influenza.
Check chest x-ray. Patient to be started on aztreonam.
[2025-10-29] MEDS: ADVAIR HFA 115/21 MCG INHALER 2 PUFF INH (19:55)
[2025-10-29 20:03] LABS: COVID-19 Antigen Negative (Negative)
[2025-10-29] MEDS: TOPROL XL 12.5 MG PO (20:03)
[2025-10-29] MEDS: TYLENOL 650 MG PO (20:03)
[2025-10-29] MEDS: VIBRAMYCIN 100 MG PO (20:04)
[2025-10-29] MEDS: XARELTO 20 MG PO (20:04)
[2025-10-29] MEDS: ATIVAN 0.5 MG PO (20:04)
[2025-10-29] MEDS: REQUIP PO (20:34)
[2025-10-29] MEDS: ROXICODONE 5 MG PO (20:36)
[2025-10-29] MEDS: NEURONTIN 100 MG PO (21:11)
--- NOTE | 2025-10-29 21:30 | PTCARENOTE ---
Received patient in bed at change of shift. AAOx3. Pleasant and cooperative with care. No signs of distress noted. [address] @ 4 liters with no SOB noted. Wound to top of right foot dressed with patient tolerating well. Call buckley with in reach.
[2025-10-30] VITALS (14 sets, daily range): BP systolic 104–159; BP diastolic 48–102; PULSE 78; O2SAT 97; BMI 29.9
[2025-10-30 04:27] LABS: Hematocrit 29.8 % (37.0-47.0); Hemoglobin 9.8 g/dL (12.0-16.0); Mean Corp Hgb Conc. 32.9 g/dL (33.0-37.0); Mean Corpuscular Volume 94.0 fL (81.0-99.0); Nucleated Red Blood Cells % 0 %; Platelet Count 260 10^3/uL (130-400); Red Cell Dist. Width 16.1 % (11.5-14.5)
[2025-10-30] MEDS: REQUIP 1 MG PO ×4 (05:00→20:52)
[2025-10-30 05:15] LABS: ALT (SGPT) 21 U/L (0-35); AST (SGOT) 25 U/L (14-36); Albumin 3.9 g/dl (3.5-5.0); Alkaline Phosphatase 82 U/L (38-126); Blood Urea Nitrogen 19 mg/dl (7-17); Calcium 9.0 mg/dl (8.4-10.2); Carbon Dioxide 27 mmol/L (22-30); Chloride 103 mmol/L (98-107); Estimated Creatinine Clearance 56 ml/min; Glucose 164 mg/dl (70-99); Potassium 4.6 mmol/L (3.5-5.1); Sodium 138 mmol/L (135-145); Total Protein 7.1 g/dl (6.3-8.2); eGFR > 60.00
[2025-10-30] MEDS: ROXICODONE 5 MG PO ×2 (05:47→18:37)
--- NOTE | 2025-10-30 06:04 | PTCARENOTE ---
Patient assisted to chair with extensive assist x2 and RW. Patient unsteady. Patient FARRIS with wheezing during transfer. Resp notified for PRN inhaler.
[2025-10-30] MEDS: TOPROL XL 12.5 MG PO ×2 (07:16→20:52)
[2025-10-30] MEDS: LEXAPRO 15 MG PO (07:16)
[2025-10-30] MEDS: ATIVAN 0.5 MG PO ×2 (07:16→20:51)
[2025-10-30] MEDS: VITAMIN D3 (cholecalciferol) 25 MCG PO (07:16)
[2025-10-30] MEDS: VIBRAMYCIN 100 MG PO (07:17)
[2025-10-30] MEDS: LASIX 20 MG PO (07:17)
[2025-10-30] MEDS: VITAMIN B-12 1000 MCG PO (07:17)
[2025-10-30] MEDS: TYLENOL 650 MG PO ×2 (07:17→20:51)
[2025-10-30] MEDS: HYDROPHOR 1 APPLIC TOPICAL (07:43)
--- NOTE | 2025-10-30 08:00 | PTCARENOTE ---
Received pt in chair, slightly FARRIS sating, sating 95% on 4L. RR 20's at rest. LS diminished throughout s/p breathing treatment given for SOB and exp wheeze. NSR. VSS. Purewik in place as pt is very FARRIS and heavy assist x2 to ambulate. Full
assessment as documented.
[2025-10-30] MEDS: ADVAIR HFA 115/21 MCG INHALER 2 PUFF INH (08:06)
--- NOTE | 2025-10-30 08:07 | W.PN.HOSP.TC ---
Today's Communication/Plan
-
see PN
Assessment / Plan
Assessment / Plan
80yo F with PMHx of veous stasis dermatitis, chronic RLE wound, HFpEF, HTN, HLD, anxiety, chronic anemia, Hx of DVT on Xarelto, neuropathy, COPD sent by her visiting nurses since she could not walk for few days due to progressive LE swelling.
Admitted with concern for RLE wound, however her b/l LE redness and wound did not get worse recently. She was sen by her wound doctor few days before admission and wound reportedly was even slightly healing. In ED received ABx (Vanco) and developed
SOB woth wheezing and fever. No fevers noted at home.
A/P:
#Acute respiratory insufficiency 2/2 Acute on chronic HFpEF exacerbation
ProBNP elevated to 1640 (previous in 540-780 range)
Lasix switch to IV
Daily weight, Cr and electrolytes
No chest pain recently noted.
Echo in April 2025 with Grade 2 diastolc dysfunction, mild , TR
Repeat echo if still inpatient vs outpatient as exacerbation mild, without chest pain.
#Chronic RLE wound
#B/L LE stasis dermatitis
XR without bone involvement
No left shift and no leukocytosis on admission, developed mild left shift later most likely 2/2 steroids given during Vanco reaction
COnt outpatient wound care
Compression stockings and leg elevation
Stop Abx and observe
wound is blanchable red, non-purulent with pink wound bed
#Ambulatory dysfunction
PT/OT
#Vanco allergic reaction with fever
monitor for recurrence
Fever during episode only, probably allergic etiology - monitor off Abx
#COPD, not in exacerbation
no wheezing
cont bronchodilators
#Chronic anemia
outpatient w/u
#Essential HTN
#Anxiety d/o
#RLS
#chronic pain
#Hx of DVT
#Neuropathy
cont home meds
DVT ppx Xarelto
Full code
I have spent at least 59min reviewing chart, test results, and providing direct patient care
Anticipated Discharge: 24 - 48 hours
Subjective/Interval History
-
Date of Service: October 30, 2025
Objective Data
-
Labs:
Laboratory Results
10/30/25
04:15
WBC 8.0
Hgb 9.8 L
Hct 29.8 L
Plt Count 260
Sodium 138
Potassium 4.6
Chloride 103
Carbon Dioxide 27
BUN 19 H
Creatinine 0.7
Glucose 164 H
Calcium 9.0
Total Bilirubin 0.3
AST 25
ALT 21
Alkaline Phosphatase 82
Vital Signs:
Vital Signs
Temp Pulse Resp BP Pulse Ox
97.6 F 63 18 112/88 95
10/30/25 03:00 10/30/25 07:16 10/30/25 06:11 10/30/25 07:16 10/30/25 06:11
I&O
10/29/25 10/30/25 10/31/25
06:59 06:59 06:59
Intake Total 240 / 240
Output Total 1250 / 1250
Balance -1010 / -1010
Review of Systems
-
History Source: Patient
All other systems: Reviewed and negative
Physical Exam
-
General: No Apparent Distress
Cardiac: Regular Rhythm
GI: Soft, Nontender and Nondistended
Rectal: Brown
Musculoskeletal: Edema, Left Upper Extrem and Edema, Right Lower Extrem
Neuro: Awake, Alert, Oriented and AO x 3
Psych: Calm
[2025-10-30] MEDS: LASIX 40 MG IV ×2 (08:47→15:54)
[2025-10-30] MEDS: XARELTO 20 MG PO (17:05)
[2025-10-30] MEDS: ADVAIR HFA 115/21 MCG INHALER INH (20:06)
[2025-10-30] MEDS: NEURONTIN 100 MG PO (20:52)
[2025-10-31] VITALS (10 sets, daily range): BP systolic 104–166; BP diastolic 42–142; PULSE 73; BMI 29.9
[2025-10-31] MEDS: ROXICODONE 5 MG PO ×2 (03:00→16:51)
[2025-10-31] MEDS: TYLENOL 650 MG PO ×3 (03:00→19:41)
[2025-10-31] MEDS: REQUIP 1 MG PO ×4 (05:20→19:41)
[2025-10-31 05:29] LABS: Hematocrit 29.4 % (37.0-47.0); Hemoglobin 9.8 g/dL (12.0-16.0); Mean Corp Hgb Conc. 33.3 g/dL (33.0-37.0); Mean Corpuscular Volume 93.9 fL (81.0-99.0); Nucleated Red Blood Cells % 0 %; Platelet Count 302 10^3/uL (130-400); Red Cell Dist. Width 16.2 % (11.5-14.5)
[2025-10-31 05:40] LABS: ALT (SGPT) 21 U/L (0-35); AST (SGOT) 26 U/L (14-36); Albumin 3.9 g/dl (3.5-5.0); Alkaline Phosphatase 80 U/L (38-126); Blood Urea Nitrogen 28 mg/dl (7-17); Calcium 9.3 mg/dl (8.4-10.2); Carbon Dioxide 30 mmol/L (22-30); Chloride 101 mmol/L (98-107); Estimated Creatinine Clearance 57 ml/min; Glucose 98 mg/dl (70-99); Magnesium 2.1 mg/dl (1.6-2.3); Potassium 4.2 mmol/L (3.5-5.1); Sodium 137 mmol/L (135-145); Total Protein 7.3 g/dl (6.3-8.2); eGFR > 60.00
[2025-10-31] MEDS: ADVAIR HFA 115/21 MCG INHALER 2 PUFF INH ×2 (07:35→18:17)
[2025-10-31] MEDS: VITAMIN B-12 1000 MCG PO (07:41)
[2025-10-31] MEDS: VITAMIN D3 (cholecalciferol) 25 MCG PO (07:41)
[2025-10-31] MEDS: LASIX 40 MG PO (07:41)
[2025-10-31] MEDS: ATIVAN 0.5 MG PO ×2 (07:42→19:41)
[2025-10-31] MEDS: LEXAPRO 15 MG PO (07:42)
[2025-10-31] MEDS: TOPROL XL 12.5 MG PO ×2 (07:42→19:41)
[2025-10-31] MEDS: HYDROPHOR 1 APPLIC TOPICAL (07:42)
--- NOTE | 2025-10-31 11:22 | W.PN.HOSP.TC ---
Today's Communication/Plan
-
mdcially stable for STR when bed available
Assessment / Plan
Assessment / Plan
80yo F with PMHx of veous stasis dermatitis, chronic RLE wound, HFpEF, HTN, HLD, anxiety, chronic anemia, Hx of DVT on Xarelto, neuropathy, COPD sent by her visiting nurses since she could not walk for few days due to progressive LE swelling.
Admitted with concern for RLE wound, however her b/l LE redness and wound did not get worse recently. She was sen by her wound doctor few days before admission and wound reportedly was even slightly healing. In ED received ABx (Vanco) and developed
SOB woth wheezing and fever. No fevers noted at home. Improved and weaned off O2 with Lasix. Dose increased and recommended BMP in 1 week. COntinue to follow with established wound care. Medically stable for d/c to STR - working on placement
A/P:
#Acute respiratory insufficiency 2/2 Acute on chronic HFpEF exacerbation
ProBNP elevated to 1640 (previous in 540-780 range)
Lasix switch to IV
Daily weight, Cr and electrolytes
No chest pain recently noted.
Echo in April 2025 with Grade 2 diastolc dysfunction, mild , TR
Repeat echo if still inpatient vs outpatient as exacerbation mild, without chest pain.
#Chronic RLE wound
#B/L LE stasis dermatitis
XR without bone involvement
No left shift and no leukocytosis on admission, developed mild left shift later most likely 2/2 steroids given during Vanco reaction
COnt outpatient wound care
Compression stockings and leg elevation
Stop Abx and observe
wound is blanchable red, non-purulent with pink wound bed
#Ambulatory dysfunction
PT/OT
#Vanco allergic reaction with fever
monitor for recurrence
Fever during episode only, probably allergic etiology - monitor off Abx
#COPD, not in exacerbation
no wheezing
cont bronchodilators
#Chronic anemia
outpatient w/u
#Essential HTN
#Anxiety d/o
#RLS
#chronic pain
#Hx of DVT
#Neuropathy
cont home meds
DVT ppx Xarelto
Full code
I have spent at least 36min reviewing chart, test results, and providing direct patient care
Anticipated Discharge: Today
Subjective/Interval History
-
Date of Service: October 31, 2025
Objective Data
-
Labs:
Laboratory Results
10/31/25
05:16
WBC 9.2
Hgb 9.8 L
Hct 29.4 L
Plt Count 302
Sodium 137
Potassium 4.2
Chloride 101
Carbon Dioxide 30
BUN 28 H
Creatinine 0.8
Glucose 98
Calcium 9.3
Total Bilirubin 0.5
AST 26
ALT 21
Alkaline Phosphatase 80
Vital Signs:
Vital Signs
Temp Pulse Resp BP Pulse Ox
98.2 F 80 16 122/57 95
10/31/25 07:45 10/31/25 07:43 10/31/25 07:43 10/31/25 07:41 10/31/25 08:00
I&O
10/30/25 10/31/25 11/01/25
06:59 06:59 06:59
Intake Total 240 / 240 840 / 840
Output Total 1250 / 1250 2300 / 2300
Balance -1010 / -1010 -1460 / -1460
Review of Systems
-
History Source: Patient
All other systems: Reviewed and negative
Physical Exam
-
General: No Apparent Distress
HEENT: Normocephalic
Cardiac: Regular Rhythm
GI: Soft, Nontender and Nondistended
Musculoskeletal: No Clubbing, No Cyanosis, Edema, Right Lower Extrem (minimal) and Edema, Left Lower Extrem (minimal)
Skin: Other (chronic b/l LE redness)
Neuro: Awake, Alert, Oriented and AO x 3
Psych: Calm
--- NOTE | 2025-10-31 11:29 | W.DCSUMMARY ---
Discharge Summary
Discharge Data
Date of Admission: 10/29/25
Date of Discharge: 10/31/25
-
Pending Results: No
Hospital Course
80yo F with PMHx of venous stasis dermatitis, chronic RLE wound, HFpEF, HTN, HLD, anxiety, chronic anemia, Hx of DVT on Xarelto, neuropathy, COPD sent by her visiting nurses since she could not walk for few days due to progressive LE swelling.
Admitted with concern for RLE wound, however her b/l LE redness and wound did not get worse recently. She was sen by her wound doctor few days before admission and wound reportedly was even slightly healing. In ED received ABx (Vanco) and developed
SOB woth wheezing and fever. No fevers noted at home. Improved and weaned off O2 with Lasix. Dose increased and recommended BMP in 1 week. COntinue to follow with established wound care. Medically stable for d/c back to [facility] living. Can
repeat Echo with outpatient card as minor exacerbation.
I have spent at least 36min reviewing chart, test results, and providing direct patient care
Patient was managed for:
#Acute respiratory insufficiency 2/2 Acute on chronic HFpEF exacerbation
#Chronic RLE wound
#B/L LE stasis dermatitis
#Ambulatory dysfunction
#Vanco allergic reaction with fever
#COPD, not in exacerbation
#Chronic anemia
#Essential HTN
#Anxiety d/o
#RLS
#chronic pain
#Hx of DVT
#Neuropathy
Discharge Plan
-
Patient Disposition: Assisted Living
Discharge Diagnosis/Procedures: CHF
Diet: Low Cholesterol and Low Sodium
Activity: As tolerated
Blood Work: BMP in 1 week upon discharge
Referrals:
Eugenio Ley MD [Family Provider, Family Practice]
Shira Marcial DO [Active, Cardiology] - in one to two weeks
Prescriptions:
New
furosemide 40 mg Tablet
40 mg PO DAILY Qty: 30 0RF
Continued
escitalopram oxalate 10 mg tablet
15 mg PO DAILY
cyanocobalamin (vitamin B-12) 1,000 mcg Tablet
1,000 mcg PO DAILY Qty: 0 0RF
gabapentin 100 mg capsule
100 mg PO HS
metoprolol succinate 25 mg Tablet Extended Release 24 Hr
12.5 mg PO BID Qty: 0 0RF
albuterol sulfate 90 mcg/actuation HFA aerosol inhaler
2 puff inhalation R Q6HPRN PRN (Reason: shortness of breath )
acetaminophen 325 mg tablet
650 mg PO BID
sennosides-docusate sodium [Senna-S] 8.6-50 mg Tablet
1 tab-cap PO [id number] PRN (Reason: constipation)
ropinirole 1 mg tablet
1 mg PO QID
cholecalciferol (vitamin D3) 25 mcg (1,000 unit) tablet
1,000 unit PO DAILY
meclizine 25 mg Tablet
25 mg PO Q8HPRN PRN (Reason: dizziness)
Xarelto 20 mg tablet
20 mg PO QPM
fluticasone propion-salmeterol 113-14 mcg/actuation aerosol powdr breath activated
1 inh INHALATION R BID
lorazepam 0.5 mg Tablet
0.5 mg PO BID
Aquaphor Healing 41 % ointment
1 applic topical DAILY
oxycodone 5 mg Tablet
5 mg PO Q8H PRN (Reason: wound pain)
acetaminophen [Tylenol] 325 mg Tablet
650 mg PO Q6H PRN (Reason: mild pain/temp>100F)
Discontinued
furosemide 20 mg Tablet
20 mg PO DAILY
Discharge Date and Time
Print Language: BARBADIAN
--- NOTE | 2025-10-31 11:39 | CM ---
Addendum entered by Ileana Kohler 10/31/25 13:05:
Auth submitted in [employer]
Pending cert # [id number]
Left message w/ son to update
Original Note:
Patient medically stable. Therapy recommending SNF as patient is far from her independent baseline.
Left message w/ Betty/personal care [facility] administrator to update
Placed referral to [facility] in [facility]. Patient will need insurance auth
CM to follow up w/ Nolvia/[facility] regarding bed availability
Plan: SNF
[2025-10-31] MEDS: SENOKOT-S 1 TABLET PO (15:22)
[2025-10-31] MEDS: XARELTO 20 MG PO (16:52)
[2025-10-31] MEDS: NEURONTIN 100 MG PO (21:12)
[2025-11-01] VITALS (7 sets, daily range): BP systolic 105–167; BP diastolic 50–69; O2SAT 97; BMI 29.0
[2025-11-01] MEDS: DESENEX/MITRAZOL/ZEASORB 1 APPLIC TOPICAL ×3 (00:01→20:44)
[2025-11-01] MEDS: ROXICODONE 5 MG PO ×3 (02:29→18:22)
[2025-11-01] MEDS: REQUIP 1 MG PO ×4 (05:18→20:51)
--- NOTE | 2025-11-01 06:07 | PTCARENOTE ---
Pts pulse ox while sleeping 84% RA, woke pt up, encouraged deep breathing, pulse ox still 84-87%, pt stating ' Mild SOB' but states 'this is normal for me'. Placed 2 L NC, pox 94-96%.
[2025-11-01] MEDS: ADVAIR HFA 115/21 MCG INHALER 2 PUFF INH ×2 (07:54→21:23)
[2025-11-01] MEDS: ATIVAN 0.5 MG PO ×2 (08:20→20:48)
[2025-11-01] MEDS: LEXAPRO 15 MG PO (08:20)
[2025-11-01] MEDS: TYLENOL 650 MG PO ×2 (08:20→20:49)
[2025-11-01] MEDS: HYDROPHOR 1 APPLIC TOPICAL (08:21)
[2025-11-01] MEDS: TOPROL XL 12.5 MG PO ×2 (08:21→20:48)
[2025-11-01] MEDS: LASIX 40 MG PO (08:21)
[2025-11-01] MEDS: VITAMIN B-12 1000 MCG PO (08:21)
[2025-11-01] MEDS: VITAMIN D3 (cholecalciferol) 25 MCG PO (08:25)
--- NOTE | 2025-11-01 12:06 | WOUNDNOTE ---
ORALIA RN note: Patient admitted with B/L leg cellulitis.
See H&P for complete history. Lives at [facility].
PMH: history of recurrent cellulitis, CHF, COPD, hypertension, hypercholesteremia, anxiety/depression, restless leg syndrome, anemia of chronic disease, history of DVT on Xarelto, GERD, peripheral polyneuropathy, obesity, venous stasis dermatitis.
Wound Location and type/assessment: Patient known to service, last seen on 08/27/25 with newly healed right dorsal foot wound. Now same dorsal R foot open, appears vasculitic with dupree base and irregular border/redness. Patient reports wound on R
foot very painful and unable to tolerate anything topical, 'It grant.' LE with venous stasis changes and dry skin. Patient wears compression stockings daily, staff assists in application. + audible pedal pulses with Doppler, LE edema. L dorsal foot
with scar from previous healed ulcer. Patient reports she has an apt to see a Vasculitis specialist when discharged. Patient turned with minimal assist, sacrum and heels blanchable and intact.
Appetite: Good, encouraged protein in diet.
Pressure redistribution devices in place: Accumax, encouraged turning and pressure ulcer prevention measures. Patient states she understands, pillow placed under calves. Wears Velcro soft shoes when ambulating with walker.
Plan: Applied mineral oil on legs as ordered, foams on heels. R foot applied adaptic, abd pad and libertad with janneth wrap knee high. Confirmed orders with hospitalist and updated nurse Alexander. Updated care plan and will follow as needed.
Note to case management of equipment requested for discharge:
Recommend follow up at wound care center upon discharge.
--- NOTE | 2025-11-01 15:30 | W.PN.HOSP.TC ---
Today's Communication/Plan
-
medically stable for DC to SNF pending bed/auth
Assessment / Plan
Assessment / Plan
Assessment:
Acute respiratory insufficiency 2/2 Acute on chronic HFpEF exacerbation
- ProBNP elevated to 1640 (previous in 540-780 range)
- s/p IV Lasix course; continue Lasix oral daily
- Echo: repeat pending
Chronic RLE wound
B/L LE stasis dermatitis
- XR without bone involvement
- No left shift and no leukocytosis on admission, developed mild left shift later most likely 2/2 steroids given during Vanco reaction. Monitor off Abx
- compression, leg elevation
Ambulatory dysfunction
- PT/OT - SNF pending
Vanco allergic reaction with fever
- monitor for recurrence
- Fever during episode only, probably allergic etiology - monitor off Abx
COPD, not in exacerbation
- no wheezing
- cont bronchodilators
Chronic anemia
- outpatient w/u
Essential HTN
Anxiety d/o
RLS
chronic pain
Hx of DVT
Neuropathy
DVT ppx: Xarelto
Code: Full
Anticipated Discharge: Within 24 hours
Subjective/Interval History
-
Date of Service: November 01, 2025
reports chronic LE pain from RLS And neuropathy
no new complaints
Objective Data
-
Vital Signs:
Vital Signs
Temp Pulse Resp BP Pulse Ox
98.3 F 76 18 105/50 94
11/01/25 11:30 11/01/25 11:30 11/01/25 11:30 11/01/25 11:30 11/01/25 11:30
I&O
10/31/25 11/01/25 11/02/25
06:59 06:59 06:59
Intake Total 840 / 840 240 / 240
Output Total 2300 / 2300 1999 / 1999
Balance -1460 / -1460 -1760 / -1760
Physical Exam
-
General: No Apparent Distress
HEENT: Normocephalic and Atraumatic
Respiratory: Negative Wheezes
Cardiac: Regular Rhythm and S1/S2
GI: Soft
Skin: Other (venous stasis)
Neuro: AO x 3
Psych: Calm
Data Reviewed
-
Total Time Spent with Patient (in minutes): 41
Labs: Labs Reviewed by me
[2025-11-01] MEDS: XARELTO 20 MG PO (18:22)
[2025-11-01] MEDS: NEURONTIN 100 MG PO (22:46)
[2025-11-02] MEDS: ROXICODONE 5 MG PO ×2 (02:33→11:32)
[2025-11-02 03:07] VITALS: BP 120/59
[2025-11-02 04:32] VITALS: BMI 29.1
[2025-11-02] MEDS: REQUIP 1 MG PO ×2 (05:13→11:35)
[2025-11-02] MEDS: TYLENOL 650 MG PO ×2 (05:17→10:00)
[2025-11-02 07:30] VITALS: BP 161/63
[2025-11-02] MEDS: ADVAIR HFA 115/21 MCG INHALER 2 PUFF INH (09:36)
--- NOTE | 2025-11-02 09:55 | W.PN.HOSP.TC ---
Today's Communication/Plan
-
medically stable for DC to SNF pending bed/auth
Assessment / Plan
Assessment / Plan
Assessment:
Acute respiratory insufficiency 2/2 Acute on chronic HFpEF exacerbation
- ProBNP elevated to 1640 (previous in 540-780 range)
- s/p IV Lasix course; continue Lasix oral daily
- Echo: repeat pending
Chronic RLE wound
B/L LE stasis dermatitis
- XR without bone involvement
- No left shift and no leukocytosis on admission, developed mild left shift later most likely 2/2 steroids given during Vanco reaction. Monitor off Abx
- compression, leg elevation
Ambulatory dysfunction
- PT/OT - SNF pending auth
Vanco allergic reaction with fever
- monitor for recurrence
- Fever during episode only, probably allergic etiology - monitor off Abx
COPD, not in exacerbation
- no wheezing
- cont bronchodilators
Chronic anemia
- outpatient w/u
Essential HTN
Anxiety d/o
RLS
chronic pain
Hx of DVT
Neuropathy
DVT ppx: Xarelto
Code: Full
Anticipated Discharge: Within 24 hours
Subjective/Interval History
-
Date of Service: November 02, 2025
resting comfortably, no complaints
Objective Data
-
Vital Signs:
Vital Signs
Temp Pulse Resp BP Pulse Ox
98.4 F 67 14 161/63 98
11/02/25 07:30 11/02/25 09:39 11/02/25 09:39 11/02/25 07:30 11/02/25 09:39
I&O
11/01/25 11/02/25 11/03/25
06:59 06:59 06:59
Intake Total 240 / 240 660 / 660
Output Total 1999 1650 / 1650
Balance -1760 / -1760 -990 / -990
Physical Exam
-
General: No Apparent Distress
HEENT: Normocephalic and Atraumatic
Respiratory: Negative Wheezes
Cardiac: Regular Rhythm and S1/S2
GI: Soft
Genito-urinary: No Costovertebral Tender
Neuro: AO x 3
Psych: Calm
Data Reviewed
-
Total Time Spent with Patient (in minutes): 41
Labs: Labs Reviewed by me
[2025-11-02] MEDS: ATIVAN 0.5 MG PO (09:58)
[2025-11-02] MEDS: LASIX 40 MG PO (09:59)
[2025-11-02] MEDS: LEXAPRO 15 MG PO (09:59)
[2025-11-02] MEDS: TOPROL XL 12.5 MG PO (09:59)
[2025-11-02] MEDS: VITAMIN B-12 1000 MCG PO (10:00)
[2025-11-02] MEDS: VITAMIN D3 (cholecalciferol) 25 MCG PO (10:00)
[2025-11-02] MEDS: HYDROPHOR 1 APPLIC TOPICAL (10:01)
[2025-11-02] MEDS: DESENEX/MITRAZOL/ZEASORB 1 APPLIC TOPICAL (10:02)
[2025-11-02 11:25] VITALS: BP 121/46
--- NOTE | 2025-11-02 11:30 | CM ---
Addendum entered by Cheyanne Hoyos 11/02/25 12:11:
transport 1 pm
Addendum entered by Cheyanne Hoyos 11/02/25 12:10:
[facility]
Report# [phone]

Addendum entered by Cheyanne Hoyos 11/02/25 12:04:
IMM reviewed and signed.
Ambulance transport forms on chart.
Son updated.
[facility] updated
Addendum entered by Cheyanne Hoyos 11/02/25 11:38:
Nolvia from [facility] updated, will call with transport time.
Original Note:
Approved skilled rehab
Auth submitted in [employer]
Authorization # [id number]
start date 11/01/25, NRD 11/07/25
Updates to fax# [phone]
--- NOTE | 2025-11-02 11:30 | W.DCSUMMARY ---
Discharge Summary
Discharge Data
Date of Admission: 11/01/25
Date of Discharge: 11/02/25
-
Pending Results: No
Hospital Course
80 yo F, PMH of venous stasis dermatitis, chronic HFpEF, hypertension, hyperlipidemia, anxiety/depression, restless leg syndrome, anemia of chronic disease, DVT on Xarelto, peripheral neuropathy, COPD presented to ER due to ambulatory dysfunction in
setting of LE swelling. She was admitted with concern for RLE Wound/infection but patient reported no change in features of chronic LE redness from venous stasis therefore antibiotics were stopped after initially being started in ER. She was found
to have SOB and ruled in for acute CHF. She was given IV Lasix course and later transitioned to oral Lasix. She was discharged 11/02/25 to SNF ([facility]
Discharge Plan
-
Patient Disposition: Long Term/SNF
Discharge Diagnosis/Procedures: acute congestive heart failure
Condition: Fair
Diet: Low Cholesterol, Low Sodium and Restrict fluids to 48 oz
Activity: As tolerated
Blood Work: BMP in 1 week upon discharge
Activity Restrictions/Additional Instructions:
Wound Care Instructions
R dorsal foot: clean with saline or soap and water, adaptic, abd pad and libertad change daily and prn drainage.
resume compression stockings as tolerated
leg elevation when sitting
increase protein in diet
Follow up at vasculitis center
Referrals:
Eugenio Ley MD [Family Provider, Family Practice]
Shira Marcial DO [Active, Cardiology] - in one to two weeks
Prescriptions:
New
furosemide 40 mg Tablet
40 mg PO DAILY Qty: 30 0RF
Continued
escitalopram oxalate 10 mg tablet
15 mg PO DAILY
cyanocobalamin (vitamin B-12) 1,000 mcg Tablet
1,000 mcg PO DAILY Qty: 0 0RF
gabapentin 100 mg capsule
100 mg PO HS
metoprolol succinate 25 mg Tablet Extended Release 24 Hr
12.5 mg PO BID Qty: 0 0RF
albuterol sulfate 90 mcg/actuation HFA aerosol inhaler
2 puff inhalation R Q6HPRN PRN (Reason: shortness of breath )
acetaminophen 325 mg tablet
650 mg PO BID
sennosides-docusate sodium [Senna-S] 8.6-50 mg Tablet
1 tab-cap PO [id number] PRN (Reason: constipation)
ropinirole 1 mg tablet
1 mg PO QID
cholecalciferol (vitamin D3) 25 mcg (1,000 unit) tablet
1,000 unit PO DAILY
meclizine 25 mg Tablet
25 mg PO Q8HPRN PRN (Reason: dizziness)
Xarelto 20 mg tablet
20 mg PO QPM
fluticasone propion-salmeterol 113-14 mcg/actuation aerosol powdr breath activated
1 inh INHALATION R BID
lorazepam 0.5 mg Tablet
0.5 mg PO BID
Aquaphor Healing 41 % ointment
1 applic topical DAILY
acetaminophen [Tylenol] 325 mg Tablet
650 mg PO Q6H PRN (Reason: mild pain/temp>100F)
oxycodone 5 mg Tablet
5 mg PO Q8H PRN (Reason: wound pain) Qty: 10 0RF
Discontinued
furosemide 20 mg Tablet
20 mg PO DAILY
Discharge Orders:
Discharge Patient (As Directed); Ordered 11/02/25
Ordered By: Kurt Dye
Discharge Date and Time
Print Language: MALAY
== END 2025-11-02 13:48 | DRG 291 ==
LOC: 4 EAST ACU 17:22
PROVIDERS: Internal Medicine; ADMITTING PHYSICIAN Hospitalist; ATTENDING PHYSICIAN Internal Medicine; EMERGENCY PHYSICIAN Student in an Organized Health Care Education/Training Program; FAMILY PHYSICIAN Family Medicine
PROC: 5A09357 Assistance with Respiratory Ventilation, Less than 24 Consecutive Hours, Continuous Positive Airway Pressure (ICD-10-PCS; 2025-10-29)
DX: I11.0 Hypertensive heart disease with heart failure (principal); I50.33 Acute on chronic diastolic (congestive) heart failure; L03.115 Cellulitis of right lower limb; T88.6XXA Anaphylactic reaction due to adverse effect of correct drug or medicament properly administered, initial encounter; L03.116 Cellulitis of left lower limb; L97.518 Non-pressure chronic ulcer of other part of right foot with other specified severity; E11.40 Type 2 diabetes mellitus with diabetic neuropathy, unspecified; I87.8 Other specified disorders of veins; E11.36 Type 2 diabetes mellitus with diabetic cataract; J44.9 Chronic obstructive pulmonary disease, unspecified; E78.00 Pure hypercholesterolemia, unspecified; F32.A Depression, unspecified; F41.9 Anxiety disorder, unspecified; G25.81 Restless legs syndrome; R32 Unspecified urinary incontinence; M19.90 Unspecified osteoarthritis, unspecified site; I87.2 Venous insufficiency (chronic) (peripheral); L30.9 Dermatitis, unspecified; D63.8 Anemia in other chronic diseases classified elsewhere; G89.29 Other chronic pain; R06.89 Other abnormalities of breathing; R26.2 Difficulty in walking, not elsewhere classified; T36.8X5A Adverse effect of other systemic antibiotics, initial encounter; Y84.8 Other medical procedures as the cause of abnormal reaction of the patient, or of later complication, without mention of misadventure at the time of the procedure; Y92.239 Unspecified place in hospital as the place of occurrence of the external cause; Z96.651 Presence of right artificial knee joint; Z96.611 Presence of right artificial shoulder joint; Z87.891 Personal history of nicotine dependence; Z89.422 Acquired absence of other left toe(s); Z89.421 Acquired absence of other right toe(s); Z11.52 Encounter for screening for COVID-19; Z88.1 Allergy status to other antibiotic agents; Z88.5 Allergy status to narcotic agent; Z88.0 Allergy status to penicillin; Z88.2 Allergy status to sulfonamides; Z79.01 Long term (current) use of anticoagulants; Z86.718 Personal history of other venous thrombosis and embolism; Z79.899 Other long term (current) drug therapy
CPT/HCPCS: 71045; 73630; 80053; 82805; 83735; 83880; 85025; 87040; 87502; 87811; 93306; 94640; 94660; 96365; 96366; 96372; 96375; 97163; 97167; 97530; 99285